=== PATIENT | male | born 1985 | race Caucasian/White ===

== ENCOUNTER 2017-05-06 15:36 | Observation (INO) ==
[2017-05-06] MEDS ORDERED: *HR* Promethazine 25 MG/ML VIAL IVP ONE (16:01)
[2017-05-06] MEDS ORDERED: 0.9 % Sodium Chloride 1,000 ML IVC ONE (16:01)
[2017-05-06] MEDS ORDERED: cloNIDine HCl 0.1 MG TABLET PO ONE (16:01)
--- NOTE | 2017-05-06 16:05 | Emergency Department Note ---
Disposition Clinical Impression: Elevated troponin Drug withdrawal Qualifiers: Substance type: opioid Qualified Code(s): F11.23 - Opioid dependence with withdrawal Disposition: Still a Patient Condition: Fair Referrals: NONE,PCP [Primary Care Provider] - Forms: Work/School Release, ED Satisfaction Letter General Adult HPI - General Chief complaint: ED General Medical Stated complaint: withdrawal, diaphoretic Time Seen by Provider: 05/06/17 15:45 Source: patient, family Mode of arrival: private vehicle Limitations: no limitations Nursing Notes Reviewed: Yes Vital Signs Reviewed: Yes - History of Present Illness HPI Narrative: 31-year-old male history of IV drug abuse with heroin presents to the ER with a chief complaint of withdrawal. Patient reports that he uses heroin daily by injection. He states he last used yesterday evening. He woke up today saying that he was having trouble breathing and was breaking out in sweats. He denies any other drugs or alcohol use. He reports that he would like help in an inpatient facility now. He denies fevers, chest pain, vomiting, diarrhea. He reports he is currently being treated for diabetic ulcer on his left foot. No other complaints. Pt Subjective Complaint: Withdrawal Onset (ago): hour(s) Radiation: non-radiation Pain Scale: 0 Improves with: nothing Worsens with: nothing Associated symptoms: Reports: diaphoresis, shortness of breath. Denies: chest pain, fever/chills, nausea/vomiting Treatments Prior to Arrival: none - Related Data Allergies Allergy/AdvReac Type Severity Reaction Status Date / Time No Known Allergies Allergy Verified 05/06/17 15:56 All systems ED: reviewed and negative except as stated. Constitutional: Denies: fever Cardiovascular: Denies: chest pain Respiratory: Reports: dyspnea. Denies: cough Gastrointestinal: Denies: abdominal pain, nausea, vomiting, diarrhea Past Medical History - Past Medical History Attestation: Yes The following information was validated with the patient. Source: patient Medical history: Reports: diabetes, hypertension Psychiatric history: Reports: anxiety, depression - Social History Smoking Status: Never smoker Smokeless Tobacco Status: No Alcohol use: Reports: none Drug use: Reports: opiates, methamphetamine Physical Exam - General Limitations: no limitations General appearance: alert, anxious - Head Head exam: atraumatic, normocephalic, normal inspection - Eye Eye exam: Present: normal appearance, EOMI - ENT ENT exam: normal exam - Neck Neck exam: Present: normal inspection, full ROM - Chest Chest inspection: Present: normal inspection, symmetric chest wall rise - Respiratory Respiratory exam: Present: normal lung sounds bilaterally - Cardiovascular Cardiovascular exam: Present: regular rate, normal rhythm, normal heart sounds - Abdominal Exam Abdominal exam: Present: soft, Non-Tender. Absent: tenderness, distention, rigidity - Extremities Exam Extremities exam: Present: normal inspection, full ROM - Expanded Upper Extremity Exam Shoulder exam: Present: normal inspection, full ROM Arm exam: Present: normal inspection, full ROM Elbow exam: Present: normal inspection, full ROM Forearm/Wrist exam: Present: normal inspection, full ROM Hand exam: Present: normal inspection, full ROM - Expanded Lower Extremity Exam Hip/Pelvis exam: Present: normal inspection, full ROM Upper leg exam: Present: normal inspection, full ROM Knee exam: Present: normal inspection, full ROM Lower leg exam: Present: normal inspection, full ROM Ankle exam: Present: normal inspection, full ROM Foot/toe exam: Present: normal inspection, full ROM Neurovascular/Tendon exam: Absent: motor deficit, sensory deficit - Neurological Exam Neurological exam: Present: alert. Absent: motor sensory deficit - Psychiatric Psychiatric exam: Present: normal affect, anxious - Skin Skin exam: Present: warm, dry, intact, normal color Course Course Narrative: Patient seen and examined. Vital signs reviewed. We will obtain an EKG as well as labs including troponin and urine drug screen. Patient provided with clonidine and Phenergan for withdrawal symptoms. Vital Signs Temperature 97.3 F L 05/06/17 15:45 Pulse Rate 94 05/06/17 15:45 Respiratory Rate 18 05/06/17 15:45 Blood Pressure 134/114 05/06/17 15:45 O2 Sat by Pulse Oximetry 100 05/06/17 15:45 Temperature 97.3 F L 05/06/17 15:45 Pulse Rate 75 05/06/17 18:07 Respiratory Rate 18 05/06/17 18:07 Blood Pressure 106/68 05/06/17 18:07 O2 Sat by Pulse Oximetry 96 05/06/17 18:07 Oxygen Delivery Oxygen Delivery Nasal Cannula Medical Decision Making - Lab Data Result diagrams: 05/06/17 16:39 05/06/17 16:39 Lab Results 05/06/17 05/06/17 05/06/17 Range/Units 16:16 16:39 16:39 WBC 6.8 (4.3-11.1) K/mcL RBC 3.83 L (4.19-5.50) M/mcL Hgb 11.4 L (12.9-16.9) g/dL Hct 33.8 L (37.5-50.1) % MCV 88.3 (83.0-100.0) fL MCH 29.8 (28.0-33.3) pg MCHC 33.7 (31.6-35.5) g/dL RDW 13.4 (11.5-14.5) % Plt Count 164 (140-400) K/mcL MPV 9.6 (9.4-12.4) fL Immature Gran % 0.4 (0-4) % Seg Neutrophils % 64.5 % Lymphocytes % 20.9 % Monocytes % 13.0 % Eosinophils % 0.9 % Basophils % 0.3 % Neutrophils # 4.4 (1.6-8.9) K/mcL Lymphocytes # 1.4 (0.6-4.6) K/mcL Monocytes # 0.9 (0.0-1.3) K/mcL Eosinophils # 0.1 (0.0-0.6) K/mcL Basophils # 0.0 (0.0-0.2) K/mcL Sodium 134 L (136-145) mEq/L Potassium 4.2 (3.5-4.5) mEq/L Chloride 101 (98-109) mEq/L Carbon Dioxide 26 (19-29) mEq/L BUN 19 (8-26) mg/dL Creatinine 0.88 (0.72-1.25) mg/dL Est GFR ( Amer) > 60 (> 60) Est GFR (Non-Af Amer) > 60 (> 60) BUN/Creatinine Ratio 22 (6-26) Glucose 105 H (70-99) mg/dL Calculated Osmolality 281 (280-300) Lactic Acid (0.5-2.2) mmol/L Calcium 9.0 (8.6-10.8) mg/dL Total Bilirubin 1.4 H (0.2-1.2) mg/dL Direct Bilirubin 0.6 H (0.0-0.5) mg/dL Indirect Bilirubin 0.8 (0.0-1.2) mg/dL AST 128 H (5-34) Units/L ALT 34 (0-55) Units/L Alkaline Phosphatase 58 (38-126) Units/L Troponin I (0-0.03) ng/mL Serum Total Protein 6.9 (6.0-8.3) g/dL Albumin 3.2 L (3.5-5.0) g/dL Globulin 3.7 H (2.4-3.5) g/dL Albumin/Globulin Ratio 0.9 L (1.1-2.2) Salicylates < 5.0 L (15-30) mg/dL Urine Opiates Screen Negative (Hvfbkp=169) ng/mL Acetaminophen 3.0 L (10-30) mcg/mL Ur Barbiturates Screen Negative (Lffyrv=918) ng/mL Ur Phencyclidine Scrn Negative (Cutoff=25) ng/mL Ur Amphetamines Screen Negative (Yfikdi=2096) ng/mL U Benzodiazepines Scrn Negative (Kjdkoz=859) ng/mL Urine Cocaine Screen Negative (Cutoff= 300) ng/mL U Marijuana (THC) Screen Negative (Cutoff = 50) ng/mL Ethyl Alcohol < 10 (0-10) mg/dL 05/06/17 05/06/17 Range/Units 16:39 16:39 WBC (4.3-11.1) K/mcL RBC (4.19-5.50) M/mcL Hgb (12.9-16.9) g/dL Hct (37.5-50.1) % MCV (83.0-100.0) fL MCH (28.0-33.3) pg MCHC (31.6-35.5) g/dL RDW (11.5-14.5) % Plt Count (140-400) K/mcL MPV (9.4-12.4) fL Immature Gran % (0-4) % Seg Neutrophils % % Lymphocytes % % Monocytes % % Eosinophils % % Basophils % % Neutrophils # (1.6-8.9) K/mcL Lymphocytes # (0.6-4.6) K/mcL Monocytes # (0.0-1.3) K/mcL Eosinophils # (0.0-0.6) K/mcL Basophils # (0.0-0.2) K/mcL Sodium (136-145) mEq/L Potassium (3.5-4.5) mEq/L Chloride (98-109) mEq/L Carbon Dioxide (19-29) mEq/L BUN (8-26) mg/dL Creatinine (0.72-1.25) mg/dL Est GFR ( Amer) (> 60) Est GFR (Non-Af Amer) (> 60) BUN/Creatinine Ratio (6-26) Glucose (70-99) mg/dL Calculated Osmolality (280-300) Lactic Acid 0.9 (0.5-2.2) mmol/L Calcium (8.6-10.8) mg/dL Total Bilirubin (0.2-1.2) mg/dL Direct Bilirubin (0.0-0.5) mg/dL Indirect Bilirubin (0.0-1.2) mg/dL AST (5-34) Units/L ALT (0-55) Units/L Alkaline Phosphatase (38-126) Units/L Troponin I 0.09 H* (0-0.03) ng/mL Serum Total Protein (6.0-8.3) g/dL Albumin (3.5-5.0) g/dL Globulin (2.4-3.5) g/dL Albumin/Globulin Ratio (1.1-2.2) Salicylates (15-30) mg/dL Urine Opiates Screen (Zlarci=155) ng/mL Acetaminophen (10-30) mcg/mL Ur Barbiturates Screen (Nuuqmi=438) ng/mL Ur Phencyclidine Scrn (Cutoff=25) ng/mL Ur Amphetamines Screen (Llqjgp=6083) ng/mL U Benzodiazepines Scrn (Mmkiza=022) ng/mL Urine Cocaine Screen (Cutoff= 300) ng/mL U Marijuana (THC) Screen (Cutoff = 50) ng/mL Ethyl Alcohol (0-10) mg/dL - EKG Data EKG #1 EKG attestation: Yes I reviewed and interpreted this EKG. EKG results narrative: EKG demonstrates sinus rhythm with a rate of 87 bpm. Normal axis. Normal intervals. ST elevations in the lateral and inferior leads. Hyperacute T waves in leads V2 and V3. No ST depressions. No previous EKG for comparison.
--- NOTE | 2017-05-06 16:12 | Emergency Department Note ---
START Narrative - START START: I examined this patient and my medical decision-making was reviewed with the Resident Physician. I agree with the documented findings, disposition and treatment plan as described except to the extent set forth below. pt in opiate withdrawal. last use of heroin yesterday. wants to get inpatient tx. admits to mixed use of possible meth as well. took ativan earlier today. he's tachy, sweaty. will check labs.
[2017-05-06 16:37] LABS: Amphetamine Screen,Urine Negative ng/mL (Cutoff=1000); Barbiturate Screen,Urine Negative ng/mL (Cutoff=200); Benzodiazepines Screen,Urine Negative ng/mL (Cutoff=200); Cannabinoid Screen,Urine Negative ng/mL (Cutoff = 50); Cocaine Screen,Urine Negative ng/mL (Cutoff= 300); Opiate Screen,Urine Negative ng/mL (Cutoff=300); Phencyclidine Screen,Urine Negative ng/mL (Cutoff=25)
[2017-05-06 16:52] LABS: Basophils % 0.3 %; Eosinophils # 0.1 K/mcL (0.0-0.6); Eosinophils % 0.9 %; Hematocrit 33.8 % (37.5-50.1); Hemoglobin 11.4 g/dL (12.9-16.9); Immature Granulocytes % 0.4 % (0-4); Lymphocytes # 1.4 K/mcL (0.6-4.6); Lymphocytes % 20.9 %; Mean Corpuscular HGB Conc 33.7 g/dL (31.6-35.5); Mean Corpuscular Hemoglobin 29.8 pg (28.0-33.3); Mean Corpuscular Volume 88.3 fL (83.0-100.0); Mean Platelet Volume 9.6 fL (9.4-12.4); Monocytes # 0.9 K/mcL (0.0-1.3); Neutrophils # 4.4 K/mcL (1.6-8.9); Platelet Count 164 K/mcL (140-400); Red Blood Count 3.83 M/mcL (4.19-5.50); Red Cell Distribution Width 13.4 % (11.5-14.5); Segmented Neutrophils % 64.5 %
[2017-05-06 17:10] LABS: Alanine Aminotransferase 34 Units/L (0-55); Albumin 3.2 g/dL (3.5-5.0); Albumin/Globulin Ratio 0.9 (1.1-2.2); Alkaline Phosphatase 58 Units/L (38-126); Aspartate Amino Transferase 128 Units/L (5-34); BUN/Creatinine Ratio 22 (6-26); Bilirubin,Direct 0.6 mg/dL (0.0-0.5); Bilirubin,Indirect 0.8 mg/dL (0.0-1.2); Bilirubin,Total 1.4 mg/dL (0.2-1.2); Blood Urea Nitrogen 19 mg/dL (8-26); Carbon Dioxide 26 mEq/L (19-29); Chloride 101 mEq/L (98-109); Ethanol < 10 mg/dL (0-10); Globulin 3.7 g/dL (2.4-3.5); Glucose 105 mg/dL (70-99); Osmolality,Calculated 281 (280-300); Potassium 4.2 mEq/L (3.5-4.5); Salicylate < 5.0 mg/dL (15-30); Sodium 134 mEq/L (136-145); Total Protein 6.9 g/dL (6.0-8.3); eGFR For African Americans > 60 (> 60); eGFR For Non-African Americans > 60 (> 60)
--- NOTE | 2017-05-06 19:20 | Emergency Department Note ---
Disposition Clinical Impression: Elevated troponin Drug withdrawal Qualifiers: Substance type: opioid Qualified Code(s): F11.23 - Opioid dependence with withdrawal Pneumonia Qualifiers: Pneumonia type: due to unspecified organism Laterality: right Lung location: upper lobe of lung Qualified Code(s): J18.1 - Lobar pneumonia, unspecified organism Disposition: Admitted As Inpatient Condition: Good Time of Disposition: 20:40 General Adult HPI - General Chief complaint: ED General Medical Stated complaint: withdrawal, diaphoretic Time Seen by Provider: 05/06/17 15:45 Source: patient, family Mode of arrival: private vehicle Limitations: no limitations Nursing Notes Reviewed: Yes Vital Signs Reviewed: Yes - History of Present Illness HPI Narrative: Patient was signed out to me by daytime physicians Dr. Goncalves and Dr. Sanchez. Please see their note for further details. Pain Scale: 0 Improves with: nothing Worsens with: nothing Associated symptoms: Reports: diaphoresis, shortness of breath. Denies: chest pain, fever/chills, nausea/vomiting Treatments Prior to Arrival: none - Related Data Allergies Allergy/AdvReac Type Severity Reaction Status Date / Time No Known Allergies Allergy Verified 05/06/17 15:56 Constitutional: Denies: fever Cardiovascular: Denies: chest pain Respiratory: Reports: dyspnea. Denies: cough Gastrointestinal: Denies: abdominal pain, nausea, vomiting, diarrhea Past Medical History - Past Medical History Medical history: Reports: diabetes, hypertension Psychiatric history: Reports: anxiety, depression - Social History Smoking Status: Never smoker Smokeless Tobacco Status: No Alcohol use: Reports: none Drug use: Reports: opiates, methamphetamine Physical Exam - General Limitations: no limitations General appearance: alert, anxious, obese Course Course Narrative: Patient was signed out to me by daytime physicians Dr. Goncalves and Dr. Sanchez awaiting CTA of the chest results and admission. Eh is a 31-year-old male history of IV drug abuse with heroin . Presented to the ED for withdrawal. Last injected heroin yesterday. He reports having some trouble breathing, sweats and a fever. Denies any cough or chest pain. Workup was initiated here showing it elevated troponin 0.09. EKG was performed 154 showing sinus rhythm [address] elevations in the lateral in inferior leads. There is also hyper cute T waves in anteroseptal leads. No previous EKG for comparison. Concern for septic emboli and blood clot, CTA of the chest was performed. Image is currently pending report. Patient will likely need admission. - Reevaluation(s) Reevaluation #1: CT scan of the chest reveals a right upper lobe pneumonia. No evidence of pulmonary embolism. Given the patient's complaint of fever and difficulty breathing will treat as community acquired pneumonia. With a history of his IV drug use will cover with vancomycin as well. Patient has been given aspirin for his elevated troponin. Per the request of the hospitalist will contact cardiology regarding his EKG findings. Patient has been admitted for elevated troponin, IV drug use, pneumonia. Time: 20:41 - Consultations Consultation #1: Spoke with on-call hospitalist eric Kang to admit for elevated troponin , history of IV heroin use, pneumonia. No further orders at this time Time: 20:40 Consultation #2: Spoke to the wind turbine installer Dr. Art Santiago, he reviewed the EKG and agrees this is not a STEMI, due to the diffuse ST elevations concern for evolving pericarditis. There is isolated ST elevation in lead II but no contiguous leads. Vital Signs Temperature 97.3 F L 05/06/17 15:45 Pulse Rate 94 05/06/17 15:45 Respiratory Rate 18 05/06/17 15:45 Blood Pressure 134/114 05/06/17 15:45 O2 Sat by Pulse Oximetry 100 05/06/17 15:45 Temperature 98.1 F 05/06/17 22:09 Pulse Rate 71 05/06/17 22:09 Respiratory Rate 18 05/06/17 22:09 Blood Pressure 134/85 05/06/17 22:09 O2 Sat by Pulse Oximetry 100 05/06/17 22:09 Oxygen Delivery Oxygen Delivery Nasal Cannula Medical Decision Making - Medical Records Medical records reviewed: Yes I reviewed the patient's medical records. - Lab Data Lab results reviewed: Yes I reviewed the patient's lab results. Result diagrams: 05/07/17 00:39 05/07/17 00:39 Lab Results 05/06/17 05/06/17 05/06/17 Range/Units 16:16 16:39 16:39 WBC 6.8 (4.3-11.1) K/mcL RBC 3.83 L (4.19-5.50) M/mcL Hgb 11.4 L (12.9-16.9) g/dL Hct 33.8 L (37.5-50.1) % MCV 88.3 (83.0-100.0) fL MCH 29.8 (28.0-33.3) pg MCHC 33.7 (31.6-35.5) g/dL RDW 13.4 (11.5-14.5) % Plt Count 164 (140-400) K/mcL MPV 9.6 (9.4-12.4) fL Immature Gran % 0.4 (0-4) % Seg Neutrophils % 64.5 % Lymphocytes % 20.9 % Monocytes % 13.0 % Eosinophils % 0.9 % Basophils % 0.3 % Neutrophils # 4.4 (1.6-8.9) K/mcL Lymphocytes # 1.4 (0.6-4.6) K/mcL Monocytes # 0.9 (0.0-1.3) K/mcL Eosinophils # 0.1 (0.0-0.6) K/mcL Basophils # 0.0 (0.0-0.2) K/mcL PT (9.4-12.1) Seconds INR APTT (26.0-36.0) Seconds Sodium 134 L (136-145) mEq/L Potassium 4.2 (3.5-4.5) mEq/L Chloride 101 (98-109) mEq/L Carbon Dioxide 26 (19-29) mEq/L BUN 19 (8-26) mg/dL Creatinine 0.88 (0.72-1.25) mg/dL Est GFR ( Amer) > 60 (> 60) Est GFR (Non-Af Amer) > 60 (> 60) BUN/Creatinine Ratio 22 (6-26) Glucose 105 H (70-99) mg/dL POC Glucose (58-89) Calculated Osmolality 281 (280-300) Lactic Acid (0.5-2.2) mmol/L Calcium 9.0 (8.6-10.8) mg/dL Total Bilirubin 1.4 H (0.2-1.2) mg/dL Direct Bilirubin 0.6 H (0.0-0.5) mg/dL Indirect Bilirubin 0.8 (0.0-1.2) mg/dL AST 128 H (5-34) Units/L ALT 34 (0-55) Units/L Alkaline Phosphatase 58 (38-126) Units/L Troponin I (0-0.03) ng/mL Serum Total Protein 6.9 (6.0-8.3) g/dL Albumin 3.2 L (3.5-5.0) g/dL Globulin 3.7 H (2.4-3.5) g/dL Albumin/Globulin Ratio 0.9 L (1.1-2.2) Salicylates < 5.0 L (15-30) mg/dL Urine Opiates Screen Negative (Hlvces=714) ng/mL Acetaminophen 3.0 L (10-30) mcg/mL Ur Barbiturates Screen Negative (Pxkuze=025) ng/mL Ur Phencyclidine Scrn Negative (Cutoff=25) ng/mL Ur Amphetamines Screen Negative (Qlwiyx=0697) ng/mL U Benzodiazepines Scrn Negative (Zbixbh=008) ng/mL Urine Cocaine Screen Negative (Cutoff= 300) ng/mL U Marijuana (THC) Screen Negative (Cutoff = 50) ng/mL Ethyl Alcohol < 10 (0-10) mg/dL 05/06/17 05/06/17 05/06/17 Range/Units 16:39 16:39 21:19 WBC (4.3-11.1) K/mcL RBC (4.19-5.50) M/mcL Hgb (12.9-16.9) g/dL Hct (37.5-50.1) % MCV (83.0-100.0) fL MCH (28.0-33.3) pg MCHC (31.6-35.5) g/dL RDW (11.5-14.5) % Plt Count (140-400) K/mcL MPV (9.4-12.4) fL Immature Gran % (0-4) % Seg Neutrophils % % Lymphocytes % % Monocytes % % Eosinophils % % Basophils % % Neutrophils # (1.6-8.9) K/mcL Lymphocytes # (0.6-4.6) K/mcL Monocytes # (0.0-1.3) K/mcL Eosinophils # (0.0-0.6) K/mcL Basophils # (0.0-0.2) K/mcL PT 13.0 H (9.4-12.1) Seconds INR 1.2 APTT 31.1 (26.0-36.0) Seconds Sodium (136-145) mEq/L Potassium (3.5-4.5) mEq/L Chloride (98-109) mEq/L Carbon Dioxide (19-29) mEq/L BUN (8-26) mg/dL Creatinine (0.72-1.25) mg/dL Est GFR ( Amer) (> 60) Est GFR (Non-Af Amer) (> 60) BUN/Creatinine Ratio (6-26) Glucose (70-99) mg/dL POC Glucose (58-89) Calculated Osmolality (280-300) Lactic Acid 0.9 (0.5-2.2) mmol/L Calcium (8.6-10.8) mg/dL Total Bilirubin (0.2-1.2) mg/dL Direct Bilirubin (0.0-0.5) mg/dL Indirect Bilirubin (0.0-1.2) mg/dL AST (5-34) Units/L ALT (0-55) Units/L Alkaline Phosphatase (38-126) Units/L Troponin I 0.09 H* (0-0.03) ng/mL Serum Total Protein (6.0-8.3) g/dL Albumin (3.5-5.0) g/dL Globulin (2.4-3.5) g/dL Albumin/Globulin Ratio (1.1-2.2) Salicylates (15-30) mg/dL Urine Opiates Screen (Tgbrie=450) ng/mL Acetaminophen (10-30) mcg/mL Ur Barbiturates Screen (Xenrga=306) ng/mL Ur Phencyclidine Scrn (Cutoff=25) ng/mL Ur Amphetamines Screen (Pshmsm=3383) ng/mL U Benzodiazepines Scrn (Vfqorw=970) ng/mL Urine Cocaine Screen (Cutoff= 300) ng/mL U Marijuana (THC) Screen (Cutoff = 50) ng/mL Ethyl Alcohol (0-10) mg/dL 05/06/17 Range/Units 21:57 WBC (4.3-11.1) K/mcL RBC (4.19-5.50) M/mcL Hgb (12.9-16.9) g/dL Hct (37.5-50.1) % MCV (83.0-100.0) fL MCH (28.0-33.3) pg MCHC (31.6-35.5) g/dL RDW (11.5-14.5) % Plt Count (140-400) K/mcL MPV (9.4-12.4) fL Immature Gran % (0-4) % Seg Neutrophils % % Lymphocytes % % Monocytes % % Eosinophils % % Basophils % % Neutrophils # (1.6-8.9) K/mcL Lymphocytes # (0.6-4.6) K/mcL Monocytes # (0.0-1.3) K/mcL Eosinophils # (0.0-0.6) K/mcL Basophils # (0.0-0.2) K/mcL PT (9.4-12.1) Seconds INR APTT (26.0-36.0) Seconds Sodium (136-145) mEq/L Potassium (3.5-4.5) mEq/L Chloride (98-109) mEq/L Carbon Dioxide (19-29) mEq/L BUN (8-26) mg/dL Creatinine (0.72-1.25) mg/dL Est GFR ( Amer) (> 60) Est GFR (Non-Af Amer) (> 60) BUN/Creatinine Ratio (6-26) Glucose (70-99) mg/dL POC Glucose 80 (58-89) Calculated Osmolality (280-300) Lactic Acid (0.5-2.2) mmol/L Calcium (8.6-10.8) mg/dL Total Bilirubin (0.2-1.2) mg/dL Direct Bilirubin (0.0-0.5) mg/dL Indirect Bilirubin (0.0-1.2) mg/dL AST (5-34) Units/L ALT (0-55) Units/L Alkaline Phosphatase (38-126) Units/L Troponin I (0-0.03) ng/mL Serum Total Protein (6.0-8.3) g/dL Albumin (3.5-5.0) g/dL Globulin (2.4-3.5) g/dL Albumin/Globulin Ratio (1.1-2.2) Salicylates (15-30) mg/dL Urine Opiates Screen (Sxdmly=994) ng/mL Acetaminophen (10-30) mcg/mL Ur Barbiturates Screen (Srtkmn=160) ng/mL Ur Phencyclidine Scrn (Cutoff=25) ng/mL Ur Amphetamines Screen (Acbreq=9476) ng/mL U Benzodiazepines Scrn (Ygmlzv=193) ng/mL Urine Cocaine Screen (Cutoff= 300) ng/mL U Marijuana (THC) Screen (Cutoff = 50) ng/mL Ethyl Alcohol (0-10) mg/dL - Radiology Data Radiology results reviewed: Yes I reviewed the patient's radiology results. Chest X-Ray 05/06/17 17:22 IMPRESSION: Negative portable study. D/ / Elba Fagan Cha, MD / Elba Fagan Cha, MD Interpreting Provider: Elba Fagan Cha, MD Chest CTA 05/06/17 17:50 IMPRESSION: No evidence of pulmonary embolism or acute aortic disease. Right upper lobe infiltrates consistent with pneumonia. D/ / 05/06/2017 19:08:11 Yenny Henley MD / [email or web address] Interpreting Provider: Yenny Henley MD Attestation Statement - Attestation Attestation: I, Simón Ochoa MD, personally evaluated this patient and discussed their management with the resident physician. I reviewed the resident's note and agree with the documented findings, medical decision making, and plan of care. This patient was signed out at shift change from Dr. Goncalves and Dr. Sanchez. Please refer to their notes for complete details of history and physical examination. At shift change patient is just awaiting results of the CTA of the lungs before calling the hospitalist for admission. CTA obtained and showed a right upper lobe pneumonia. We will obtain blood cultures and initiated antibiotics. Patient is a 31-year-old male who presents complaining of acute onset of fever during the night last night and awoke this morning with shortness of breath. He describes this as a feeling that he cannot get a deep breath. Some diffuse chest discomfort. He also has had diaphoresis. No cardiac history. On examination patient is a well-developed obese male in no acute distress. He is alert and oriented 3. There is no cyanosis or diaphoresis at time of my examination. Labs reviewed. Elevated troponin. Chest x-ray negative. CT shows right upper lobe pneumonia. EKG shows some ST elevations consistent with early repolarization. The hospitalist, Dr. Haywood, was consulted and accepted admission of the patient. He did recommend counseled in cardiology regarding the EKG changes.
[2017-05-06] MEDS ORDERED: Azithromycin 500 MG in D5% in Water 250 ML IVPB ONE (19:53)
[2017-05-06] MEDS ORDERED: Vancomycin 2,000 MG in D5% in Water 500 ML IVPB ONE (20:32)
[2017-05-06 21:30] LABS: INR 1.2
[2017-05-06 21:32] LABS: Activated Partial Thrombo Time 31.1 Seconds (26.0-36.0)
[2017-05-06] MEDS ORDERED: Vancomycin 2,000 MG in D5% in Water 250 ML IVPB SCH (23:45)
[2017-05-06] MEDS ORDERED: Dextrose Gel 15 GM PO PRN ×2 (23:50)
[2017-05-06] MEDS ORDERED: D5% in Water 1,000 ML IVC PRN (23:50)
[2017-05-06] MEDS ORDERED: Acetaminophen 325 MG TABLET PO PRN (23:50)
[2017-05-06] MEDS ORDERED: *HR* Dextrose 50 % in Water (Syg) 50 ML SYRINGE IVP PRN (23:50)
[2017-05-06] MEDS ORDERED: Naloxone 0.4 MG/ML INJ IVP PRN (23:50)
[2017-05-06] MEDS ORDERED: *HR* Morphine 2 MG/ML SYRINGE IVP PRN (23:50)
[2017-05-06] MEDS ORDERED: *HR* Promethazine 25 MG/ML VIAL IVP PRN (23:50)
[2017-05-06] MEDS ORDERED: Ipratropium/Albuterol Neb 3 ML IH PRN (23:55)
--- NOTE | 2017-05-07 00:01 | Internal Med History&Physical ---
Date of Encounter: 05/06/17 Time of Encounter: 23:20 Assessment and Plan (1) Pneumonia Current visit: Yes Status: Acute 1. Follow blood cultures and sputum cultures (if able to collect). 2. Will continue Rocephin and Zithromax. Additionally, will add Vancomycin given IV drug use. 3. Oxygen and aerosols PRN. Qualifiers: Pneumonia type: due to unspecified organism Laterality: right Lung location: upper lobe of lung Qualified Code(s): J18.1 - Lobar pneumonia, unspecified organism (2) Elevated troponin Current visit: Yes Status: Acute 1. Will trend troponins and EKG's. 2. Will obtain ECHO to evaluate LV function and assess valves if possible. 3. Consult cardiology if troponins continue to climb. 4. Avoid Beta Blockers given h/o IVDA and possible cocaine use -- although he denies. 5. Will start ASA, STATIN, Morphine PRN, NTG PRN. (3) Type 2 diabetes mellitus Current visit: Yes Status: Chronic 1. Hold oral meds. 2. Will use SSI and adjust dosage as needed. Qualifiers: Diabetes mellitus complication status: with diabetic arthropathy Diabetes mellitus complication detail: with neuropathic arthropathy Diabetes mellitus agronomy specialist insulin use: without agronomy specialist use Qualified Code(s): E11.610 - Type 2 diabetes mellitus with diabetic neuropathic arthropathy (4) Diabetic foot ulcer Current visit: Yes Status: Chronic 1. Consult podiatry for assistance and further follow up. 2. May need inpatient treatment. 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 Heparin SQ. Internal Medicine - H&P: HPI Chief complaint: cough, fever, chest pain Admitted From: Emergency Dept Plans for Post Hospital Care: Home History of present illness: Mr. Sharma is a 31 year old male who presents with a 2 day history of cough, fever, chills, body aches, and pleuritic-type chest pain. Symptoms started roughly 48 hours ago and they progressively worsened. He therefore came to the ER for evaluation. He was found to have evidence of pneumonia on CT angiogram as there was concern for PE. There was no PE, however. ER contacted me to admit patient, but they noted he had some subtle ST elevation on his EKG and a troponin of 0.09. Given his history of drug abuse, elevated troponin, and questionable ST elevation, I asked the ER staff to discuss with cardiology first before accepting the patient. EKG was reviewed by cardiology, and it was not felt that this was a STEMI. Rather, there was concern he might have had pericarditis. I accepted the patient admission at that point. Upon my assessment of the patient, he admits to the above symptoms. He states the chest pain was more pleuritic in nature and associated with coughing. He admits to IV drug use, primarily in the form of heroin. He denies any cocaine use. He is a former smoker. He does not drink any alcohol. He is diabetic and takes oral medications. He states he has had a foot ulcer for quite some time in his left foot, which has been conservatively managed. He denies any prior history of hepatitis, HIV, or any history of endocarditis. Regarding his drug use, he started using about 4-5 months ago. He uses heroin both intravenously and snorting nasally. Past Med Surg Social Fam HX - Past Medical History Attestation: Yes The following information was validated with the patient. Source: patient, other (ER records) Medical history: diabetes, hypertension Psychiatric history: anxiety, depression - Past Surgical History Surgical History: no surgical history - Social History Smoking Status: Former smoker Smokeless Tobacco Status: No Alcohol use: none Drug use: opiates, methamphetamine Current living situation: Home, With Family Activity Level: Independent ambulation Recent Out of Country Travel Within the Last 8 Weeks: No - Family History Mother Living Status: Still Living Hx Family Cardiac Disorders: Yes Father Living Status: Hx Family Cardiac Disorders: Yes Internal Medicine - H&P: Meds 3 Allergy/AdvReac Type Severity Reaction Status Date / Time No Known Allergies Allergy Verified 05/06/17 15:56 - Constitutional Constitutional: chills, fever(s), no night sweats - EENT Eyes: no blurry vision, no change in vision Ears: no ear pain, no tinnitus Nose, mouth and throat: no nasal congestion, no nasal discharge, no sinus pressure, no sore throat - Cardiovascular Cardiovascular ROS IM: chest pain, diaphoresis, dyspnea, no edema, no paroxysmal nocturnal dyspnea - Respiratory Respiratory: cough, dyspnea, wheezing, chest congestion, excessive phlegm production, change in phlegm color, pain with cough, no hemoptysis - Gastrointestinal Gastrointestinal: no abdominal pain, no diarrhea, no hematemesis, no hematochezia, no melena, no nausea, no vomiting - Genitourinary Genitourinary ROS male: no dysuria, no flank pain, no hematuria - Musculoskeletal Musculoskeletal ROS IM: arthralgias (pain left foot (ulcer)), no joint swelling - Integumentary Integumentary IM: no rash, no jaundice - Neurological Neurological ROS: no focal weakness, no frequent falls, no headache(s), no weakness - Psychiatric Psychiatric: no anxiety, no depression - Endocrine Endocrine IM: no polydipsia, no polyuria - Hematologic/Lymphatic Hematologic/Lymphatic: no easy bruising, no lymphadenopathy - Allergic/Immunologic Allergic/Immunologic: no wheezing, no GI upset with certain foods - Constitutional Vitals: Temp Pulse Resp BP Pulse Ox 98.1 F 71 18 134/85 100 05/06/17 22:09 05/06/17 22:09 05/06/17 22:09 05/06/17 22:09 05/06/17 22:09 General appearance: Present: cooperative, mild distress, A&O X 3, pleasant, answers questions appropriately - Head Head exam: Present: atraumatic, normal inspection - Eye Eye exam: Present: EOMI, normal appearance, PERRL. Absent: scleral icterus Pupils: Present: normal accommodation - ENT ENT exam: Present: mucous membranes dry, normal exam - Neck Neck exam general surgery: Present: full ROM, tenderness, supple. Absent: lymphadenopathy, nuchal rigidity, thyromegaly - Respiratory Respiratory exam: Present: accessory muscle use, rales, respiratory distress ( mild), rhonchi. Absent: chest wall tenderness, wheezes - Cardiovascular Cardiovascular exam: Present: RRR, +S1, +S2. Absent: diastolic murmur, JVD, rubs, systolic murmur - GI/Abdominal GI/Abdominal exam: Present: normal bowel sounds, soft. Absent: guarding, hepatomegaly, mass, rebound, splenomegaly, tenderness - Extremities Exam Extremities exam: Present: full ROM, warm, radial pulses palpable and symmetrical. Absent: calf tenderness, joint swelling Additional comments: 2 ulcerations on the sole of left foot without significant erythema, drainage, or pain - Back Exam Back exam: Present: normal inspection. Absent: CVA tenderness (L), CVA tenderness (R) - Neurological Exam Neurological exam: Present: alert, CN II-XII intact, oriented X3, no focal deficits, strengths equal and symetr throughout Additional comments: negative Kernig; negative Brudzinski - Psychiatric Psychiatric exam: Present: normal affect, normal mood - Skin Skin exam: Present: dry, warm. Absent: rash Additional comments: several tattoos on left arm, back; no obvious track talamantes I could appreciate Internal Med - H&P Results - Labs CBC & Chem 7: 05/06/17 16:39 05/06/17 16:39 - EKG Data -: EKG Interpreted by Myself - EKG Data Prior EKG available for review: no EKG comments: 05/07/17 00:26 Sinus rhythm with diffuse ST elevation in precordial leads and laterally; appears to be early repolarization, possible pericarditis - Diagnostic Studies CT scan - chest Status: image reviewed by me (right upper lobe infiltrate; no PE; report reviewed as well)
[2017-05-07] MEDS: 0.9 % Sodium Chloride 1,000 ML IVC SCH ×4 (00:25→23:26)
[2017-05-07] MEDS: *HR* Heparin 5,000 UNIT/ML VIAL SQ SCH ×4 (00:26→20:29)
[2017-05-07 00:53] LABS: Basophils % 0.2 %; Eosinophils # 0.1 K/mcL (0.0-0.6); Eosinophils % 3.1 %; Hematocrit 30.8 % (37.5-50.1); Hemoglobin 10.3 g/dL (12.9-16.9); Immature Granulocytes % 0.7 % (0-4); Immature Platelets 2.2 % (1.1-6.1); Lymphocytes # 1.7 K/mcL (0.6-4.6); Lymphocytes % 37.7 %; Mean Corpuscular HGB Conc 33.4 g/dL (31.6-35.5); Mean Corpuscular Hemoglobin 29.8 pg (28.0-33.3); Mean Platelet Volume 9.5 fL (9.4-12.4); Monocytes # 0.6 K/mcL (0.0-1.3); Monocytes % 12.6 %; Neutrophils # 2.1 K/mcL (1.6-8.9); Platelet Count 153 K/mcL (140-400); Red Blood Count 3.46 M/mcL (4.19-5.50); Red Cell Distribution Width 13.4 % (11.5-14.5); Segmented Neutrophils % 45.7 %
[2017-05-07 01:09] LABS: Alanine Aminotransferase 33 Units/L (0-55); Albumin 2.8 g/dL (3.5-5.0); Albumin/Globulin Ratio 0.8 (1.1-2.2); Alkaline Phosphatase 51 Units/L (38-126); Aspartate Amino Transferase 105 Units/L (5-34); BUN/Creatinine Ratio 19 (6-26); Blood Urea Nitrogen 15 mg/dL (8-26); Calcium 8.4 mg/dL (8.6-10.8); Carbon Dioxide 28 mEq/L (19-29); Chloride 101 mEq/L (98-109); Chol/HDL Ratio 4.9 (0-4.9); Cholesterol 132 mg/dL (< 200); Globulin 3.5 g/dL (2.4-3.5); Glucose 179 mg/dL (70-99); HDL Cholesterol 27 mg/dL (40-59); LDL Cholesterol,Calculated 89 mg/dL (0-99); Magnesium 1.8 mg/dL (1.6-2.6); Osmolality,Calculated 285 (280-300); Potassium 3.9 mEq/L (3.5-4.5); Sodium 135 mEq/L (136-145); Total Protein 6.3 g/dL (6.0-8.3); Triglycerides 78 mg/dL (< 150); eGFR For African Americans > 60 (> 60); eGFR For Non-African Americans > 60 (> 60)
[2017-05-07] MEDS ORDERED: Vancomycin 1,750 MG in D5% in Water 500 ML IVPB SCH (07:00)
[2017-05-07] MEDS: Azithromycin 250 MG in D5% in Water 250 ML IVPB SCH (07:24)
[2017-05-07] MEDS: Insulin LISPRO 300 UNITS/3 ML VIAL SQ SCH ×3 (07:24→17:06)
[2017-05-07] MEDS: Aspirin 81 MG TAB.CHEW PO SCH (08:44)
--- NOTE | 2017-05-07 10:20 | Internal Med Progress Note ---
<Willie Lei - Last Filed: 05/07/17 11:37> Date of Encounter: 05/07/17 Time of Encounter: 10:17 - Assessment and plan (1) Pneumonia Current Visit: Yes Status: Acute Assessment and plan: Evidence of right upper lobe pneumonia on CT. Patchy appearance is concerning for septic emboli given the patient's history of IV drug abuse. At this time there is no leukocytosis, fever. Continue with broad-spectrum antibiotic coverage with azithromycin, vancomycin, will transition to cefepime to cover for psuedomonas. Continue with antibiotics. Cardiology is following and have recommended a ANTHONY to evaluate for infective endocarditis. Qualifiers: Pneumonia type: due to unspecified organism Laterality: right Lung location: upper lobe of lung Qualified Code(s): J18.1 - Lobar pneumonia, unspecified organism (2) Drug withdrawal Current Visit: Yes Status: Acute Assessment and plan: Patient has anxiety, tremors, chills likely related to opiate withdrawal. Last use was approximately 48 hours ago. Drug screen was negative however the patient is not if his heroin was contaminated with any other substance. Patient denies using any substances heroin. Will treat symptomatically with hydroxyzine when necessary. Continue to monitor. Patient is interested in further outpatient rehabilitation for his opiate addiction. instructor ground services has been consulted. Qualifiers: Substance type: opioid Qualified Code(s): F11.23 - Opioid dependence with withdrawal (3) Type 2 diabetes mellitus Current Visit: Yes Status: Chronic Assessment and plan: Patient reports being a type II diabetic. He takes Januvia, metformin at home. A1c was 5 on presentation. We will hold oral hyperglycemic agents and cover with sliding scale insulin. Qualifiers: Diabetes mellitus complication status: with diabetic arthropathy Diabetes mellitus complication detail: with neuropathic arthropathy Diabetes mellitus buttermaker helper insulin use: without longterm use Qualified Code(s): E11.610 - Type 2 diabetes mellitus with diabetic neuropathic arthropathy (4) Diabetic foot ulcer Current Visit: Yes Status: Chronic Assessment and plan: 1 x 1 cm. Does not appear to be acutely infected. Patient does report recent infection is on Cipro twice a day. Have instituted broad-spectrum antibiotics as discussed above. Podiatry has been consulted. 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 Patient states he feels okay this morning. His main complaint is he is feeling chilled and tremulous. He denies fevers, shortness of breath, cough - Constitutional Vitals: Temp Pulse Resp BP Pulse Ox 97.9 F 73 18 128/62 100 05/07/17 07:39 05/07/17 03:50 05/07/17 03:50 05/07/17 03:50 05/07/17 03:50 General appearance: Present: cooperative, A&O X 3, pleasant, no acute distress, answers questions appropriately - Respiratory Respiratory exam: Present: CTAB. Absent: rales, rhonchi, wheezes - Cardiovascular Cardiovascular exam: Present: RRR. Absent: gallop, rubs, systolic murmur - GI/Abdominal GI/Abdominal exam: Present: normal bowel sounds, soft. Absent: distended, tenderness - Extremities Exam Extremities exam: Present: warm. Absent: pedal edema, tenderness Additional comments: Approximately 1 cm x 1 cm ulcer on the distal plantar aspect of the right foot no bleeding, drainage, discharge noted. There is no surrounding erythema. - Neurological Exam Neurological exam: Present: alert, CN II-XII intact, oriented X3, no focal deficits Additional comments: Mild full body tremor - Psychiatric Psychiatric exam: Present: normal affect, normal mood. Absent: suicidal ideation Internal Medicine: Result - Labs CBC & Chem 7: 05/07/17 00:39 05/07/17 00:39 Labs: Short CBC 05/07/17 Range/Units 00:39 WBC 4.5 (4.3-11.1) K/mcL Hgb 10.3 L (12.9-16.9) g/dL Hct 30.8 L (37.5-50.1) % Plt Count 153 (140-400) K/mcL Neutrophils # 2.1 (1.6-8.9) K/mcL BMP 05/07/17 00:39 Sodium 135 L Potassium 3.9 Chloride 101 Carbon Dioxide 28 BUN 15 Creatinine 0.81 Glucose 179 H Calcium 8.4 L Cardiac Enzymes 05/07/17 05/07/17 Range/Units 00:39 06:11 Troponin I 0.03 0.03 (0-0.03) ng/mL Liver Function 05/07/17 Range/Units 00:39 Total Bilirubin 1.0 (0.2-1.2) mg/dL AST 105 H (5-34) Units/L ALT 33 (0-55) Units/L Alkaline Phosphatase 51 (38-126) Units/L Albumin 2.8 L (3.5-5.0) g/dL - ABG Interpretation ABG results: PT/INR, D-dimer PT 13.0 Seconds (9.4-12.1) H 05/06/17 21:19 Consult Discharge Plan - Plan Referrals: NONE,PCP [Primary Care Provider] - <Hermilo Gardner H - Last Filed: 05/07/17 15:05> Date of Encounter: 05/07/17 - Constitutional Vitals: Temp Pulse Resp BP Pulse Ox 98.0 F 73 18 128/62 100 05/07/17 11:51 05/07/17 03:50 05/07/17 03:50 05/07/17 03:50 05/07/17 03:50 Internal Medicine: Result - Labs CBC & Chem 7: 05/07/17 00:39 05/07/17 00:39 Labs: Short CBC 05/07/17 Range/Units 00:39 WBC 4.5 (4.3-11.1) K/mcL Hgb 10.3 L (12.9-16.9) g/dL Hct 30.8 L (37.5-50.1) % Plt Count 153 (140-400) K/mcL Neutrophils # 2.1 (1.6-8.9) K/mcL BMP 05/07/17 00:39 Sodium 135 L Potassium 3.9 Chloride 101 Carbon Dioxide 28 BUN 15 Creatinine 0.81 Glucose 179 H Calcium 8.4 L Cardiac Enzymes 05/07/17 05/07/17 Range/Units 00:39 06:11 Troponin I 0.03 0.03 (0-0.03) ng/mL Liver Function 05/07/17 Range/Units 00:39 Total Bilirubin 1.0 (0.2-1.2) mg/dL AST 105 H (5-34) Units/L ALT 33 (0-55) Units/L Alkaline Phosphatase 51 (38-126) Units/L Albumin 2.8 L (3.5-5.0) g/dL - ABG Interpretation ABG results: PT/INR, D-dimer PT 13.0 Seconds (9.4-12.1) H 05/06/17 21:19 - Impressions Impressions Foot X-Ray 05/07/17 10:12 IMPRESSION: No plain film evidence of osteomyelitis. Plantar soft tissue defect consistent with the clinical history of ulcer. D/ / Edgardo Jauregui MD / Edgardo Jauregui MD Interpreting Provider: Edgardo Jauregui MD - Attending Attestation possible septic pulmonary emboli. COntinue abx ANTHONY in am per cardiology elevated troponins likely secondary to demand ischemia I examined this patient and my medical decision-making was reviewed with the Resident Physician. I agree with the documented findings, disposition and treatment plan as described except to the extent set forth below.
[2017-05-07] MEDS: hydrOXYzine pamoate 25 MG CAPSULE PO PRN (10:49)
--- NOTE | 2017-05-07 11:47 | Cardiology Consult Note ---
Date of Encounter: 05/07/17 Time of Encounter: 11:43 Assessment and Plan (1) IVDU (intravenous drug user) Current Visit: Yes Status: Acute IVDU. Pulmonary infiltrate seen on CT. ? PNA vs septic pulmonary embolic. Initial blood cultures negative per reports. No obvious vegetations on TTE, but TV not well visualized. Currently no major/minor critieria. Clinically, patient appears somewhat ill, but could be withdrawl from medication. R/B/A to a ANTHONY discussed. Patient agreeable. NPO after midnight for procedure tomorrow. Further recommendations to follow. (2) Elevated troponin Current Visit: Yes Status: Acute Minimal troponin elevated. Presentation not c/w ACS. Trivial pericardia effusion noted. ? component of pericardiitis. Continue supportive care. Discussion w patient/family: The assessment and plan as outlined above was discussed with the patient and/or family members who expressed understanding and agreement. All questions were answered. Thank you for involving us in the care of your patient. Please call with any questions. History of Present Illness Consult date: 05/07/17 Requesting physician: Willie Lei Consult reason: IVDU Chief complaint: Chest pain History of present illness: Mr. Sharma is a 31 year old male who was admitted 05/06. Reports history of opitate abuse. More recently, using heroin. Initially, intranasal use of heroin, but using IV over past 3 months. States last use 3 days ago. Devoped subjective fevers, chills, chest pain. CTA demonstrates RUL infiltrate. TTE personally reviewed - no obvious vegetation, but TV not well visualized. Initial blood cultures reportedly negative. Past Med Surg Social Fam HX - Past Medical History Medical history: diabetes, hypertension Psychiatric history: anxiety, depression - Past Surgical History Surgical History: no surgical history - Social History Smoking Status: Never smoker Smokeless Tobacco Status: No Alcohol use: none Drug use: opiates, methamphetamine - Family History Mother Living Status: Still Living Hx Family Cardiac Disorders: Yes Father Living Status: Hx Family Cardiac Disorders: Yes Medications and Allergies Ciprofloxacin HCl [Cipro] 500 mg PO BID 05/07/17 [History] Gabapentin [Neurontin] 300 mg PO Q8H 05/07/17 [History] Lisinopril [Zestril] 10 mg PO DAILY 05/07/17 [History] Metformin HCl [Glucophage] 1,000 mg PO Q12H 05/07/17 [History] SitaGLIPtin [Januvia] 100 mg PO DAILY 05/07/17 [History] 3 Allergy/AdvReac Type Severity Reaction Status Date / Time No Known Allergies Allergy Verified 05/06/17 15:56 All Systems Review: A 10-system review of systems was performed and is negative for pertinent findings except as documented above in the HPI. - Constitutional Constitutional: chills, fatigue, fever(s), lethargy, night sweats, weakness - Cardiovascular Cardiovascular: as per HPI, chest pain at rest - Respiratory Respiratory: cough Physical Examination General: Conversant, No Apparent Distress HEENT: Atraumatic, Normocephaly, Mucus Membranes Moist Neck: No JVD, Normal carotid pulses Cardiac: Reg Rate and Rhythm, Normal S1 and S2, No Murmur, Other (Distant, no obvious murmurs) Lungs: Normal Breath Sounds, No Wheeze, Rales, Rhonchi Neuro: Alert and responsive, No focal deficits noted, Other (Twitching noted) Abdomen: Soft, Non-Tender, Other (obese) Skin: No rashes noted on visualized skin, Other (Track talamantes noted in antecubital) Musculoskeletal: No Chest Wall Tenderness Extremities: No Clubbing, No Cyanosis, No Edema Results 05/07/17 00:39 05/07/17 00:39 Lab Results 05/07/17 05/07/17 05/07/17 00:39 00:39 00:39 WBC 4.5 Hgb 10.3 L Hct 30.8 L Plt Count 153 Sodium 135 L Potassium 3.9 Chloride 101 Carbon Dioxide 28 BUN 15 Creatinine 0.81 Glucose 179 H Calcium 8.4 L Magnesium 1.8 Total Bilirubin 1.0 AST 105 H ALT 33 Alkaline Phosphatase 51 Troponin I 0.03 05/07/17 06:11 WBC Hgb Hct Plt Count Sodium Potassium Chloride Carbon Dioxide BUN Creatinine Glucose Calcium Magnesium Total Bilirubin AST ALT Alkaline Phosphatase Troponin I 0.03 - Imaging and Cardiology Echo: pending, report reviewed, other (Personally reviewed.) Consult Discharge Plan - Plan Referrals: NONE,PCP [Primary Care Provider] -
--- NOTE | 2017-05-07 11:53 | Podiatry Consult Note ---
Date of Encounter: 05/07/17 Time of Encounter: 10:00 Assessment and Plan (1) Type 2 diabetes mellitus Current visit: Yes Status: Chronic Qualifiers: Diabetes mellitus complication status: with diabetic arthropathy Diabetes mellitus complication detail: with neuropathic arthropathy Diabetes mellitus ferry terminal agent insulin use: without ferry terminal agent use Qualified Code(s): E11.610 - Type 2 diabetes mellitus with diabetic neuropathic arthropathy (2) Diabetic foot ulcer Current visit: Yes Status: Chronic There is a de anda grade 2 diabetic foot ulcer to the left foot at sub #3 metatarsal head secondary to pressure. The ulceration does not appear infected. WBC: 4.5, a febrile. Will order an xray of the left foot, ESR and CRP due to recent hospitalization for the diabetic foot infection. Wound care orders to be written for cleansing the ulcer daily with saline, pat dry, apply dry sterile 4x4 gauze with medipore tape. Will order a post op shoe and will modify shoe with felt padding to offload pressure to the ulcer. Patient will need to f/u in Podiatry clinic with in one week of discharge from the hospital. Qualifiers: Diabetic foot ulcer location: midfoot Diabetes mellitus type: type 2 Laterality: left Non-pressure ulcer stage: with fat layer exposed Qualified Code(s): E11.621 - Type 2 diabetes mellitus with foot ulcer; L97.422 - Non- pressure 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 History of Present Illness HPI: Mr. Sharma is a 31 year old male admitted to [place] for sob. Patient has a medical history significant for DM wit neuropathy, HTN, and depression. Podiatry was consulted for a diabetic foot ulcer to the left foot. Patient states the ulcer started approximately 6 months ago, no known injury or trauma. Patient states he was being treated in wound care at [facility] but was discharged from the clinic after he cut his total contact cast off himself. Patient states he was recently hospitalized at [facility] for an infected ulcer of the left foot and was discharged about two weeks ago. Patient states he received IV antibiotics while admitted at [facility] and was discharged on oral antibiotics. Patient states he did not have surgery on the left foot. Patient states he tried calling the wound care clinic at [facility] last week to f/u and was told he could not schedule an appointment. Patient states he does not have a Rn Chronic. He states he currently does not work. He states he did step on a nail with his right foot earlier this year and was treated for that and it has since healed. Patient admits to fever and chills prior to this admission. Patient states his blood sugars have been okay. Denies smoking currently. Admits to IV drug abuse. Denies injecting IV drugs into his feet. Past Med Surg Social Fam HX - Past Medical History Medical history: diabetes, hypertension Psychiatric history: anxiety, depression - Past Surgical History Surgical History: no surgical history - Social History Smoking Status: Never smoker Smokeless Tobacco Status: No Alcohol use: none Drug use: opiates, methamphetamine - Family History Mother Living Status: Still Living Hx Family Cardiac Disorders: Yes Father Living Status: Hx Family Cardiac Disorders: Yes Medications and Allergies Ciprofloxacin HCl [Cipro] 500 mg PO BID 05/07/17 [History] Gabapentin [Neurontin] 300 mg PO Q8H 05/07/17 [History] Lisinopril [Zestril] 10 mg PO DAILY 05/07/17 [History] Metformin HCl [Glucophage] 1,000 mg PO Q12H 05/07/17 [History] SitaGLIPtin [Januvia] 100 mg PO DAILY 05/07/17 [History] 3 Allergy/AdvReac Type Severity Reaction Status Date / Time No Known Allergies Allergy Verified 05/06/17 15:56 All Systems Reviewed: A 10-system review of systems was performed and is negative for pertinent findings except as documented above in the HPI. Physical Exam - Constitutional Vitals: Temp Pulse Resp BP Pulse Ox 97.9 F 73 18 128/62 100 05/07/17 07:39 05/07/17 03:50 05/07/17 03:50 05/07/17 03:50 05/07/17 03:50 General appearance: cooperative Exam: Ulcer: De Anda grade 2 diabetic foot ulcer to sub #3 metatarsal head left foot measuring 1 cm in length x 0.8 cm width, x 0.5 cm in depth, base of wound beefy red, no active drainage, no pus, no odor, no periwound erythema, no tunneling, no sinus tracts, no probe to bone. Edges are hyperkeratotic. No evidence of bacterial infection. Vascular: pedal pulses palpable bilaterally, CFT is immediate to digits, no pallor, no rubor, no cyanosis. - Extremities Exam Extremities exam: Present: normal capillary refill, pedal edema (1+) - Vascular Capillary Refill: less than 3 seconds Results - Labs Result Diagrams: 05/07/17 00:39 05/07/17 00:39 Labs: Abnormal lab results RBC 3.46 M/mcL (4.19-5.50) L 05/07/17 00:39 Hgb 10.3 g/dL (12.9-16.9) L 05/07/17 00:39 Hct 30.8 % (37.5-50.1) L 05/07/17 00:39 ESR 55 mm/hr (0-10) H 05/07/17 10:38 PT 13.0 Seconds (9.4-12.1) H 05/06/17 21:19 Sodium 135 mEq/L (136-145) L 05/07/17 00:39 Glucose 179 mg/dL (70-99) H 05/07/17 00:39 POC Glucose 98 (58-89) H 05/07/17 11:12 Calcium 8.4 mg/dL (8.6-10.8) L 05/07/17 00:39 Direct Bilirubin 0.6 mg/dL (0.0-0.5) H 05/06/17 16:39 AST 105 Units/L (5-34) H 05/07/17 00:39 C-Reactive Protein 54 mg/L (Less than 5) H 05/07/17 10:38 Albumin 2.8 g/dL (3.5-5.0) L 05/07/17 00:39 Albumin/Globulin Ratio 0.8 (1.1-2.2) L 05/07/17 00:39 HDL Cholesterol 27 mg/dL (40-59) L 05/07/17 00:39 Salicylates < 5.0 mg/dL (15-30) L 05/06/17 16:39 Acetaminophen 3.0 mcg/mL (10-30) L 05/06/17 16:39 H & H 05/07/17 Range/Units 00:39 Hgb 10.3 L (12.9-16.9) g/dL Hct 30.8 L (37.5-50.1) % All other labs normal. Consult Discharge Plan - Plan Referrals: NONE,PCP [Primary Care Provider] -
[2017-05-07] MEDS ORDERED: Ondansetron 4 MG/2 ML VIAL IVP PRN (12:00)
[2017-05-07] MEDS: Cefepime HCl 2,000 MG in D5% in Water (Mini-Bag+) 100 ML IVPB SCH ×2 (15:30→23:26)
--- NOTE | 2017-05-07 18:04 | Electrocardiograph Report ---
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
[2017-05-07] MEDS: Vancomycin 1,750 MG in D5% in Water 500 ML IVPB SCH (20:26)
[2017-05-08] MEDS: 0.9 % Sodium Chloride 1,000 ML IVC SCH (04:00)
[2017-05-08] MEDS: hydrOXYzine pamoate 25 MG CAPSULE PO PRN (05:38)
[2017-05-08] MEDS: *HR* Heparin 5,000 UNIT/ML VIAL SQ SCH (05:38)
[2017-05-08] MEDS: Azithromycin 250 MG in D5% in Water 250 ML IVPB SCH (07:11)
[2017-05-08 07:28] VITALS: BP 146/71
[2017-05-08] MEDS: Cefepime HCl 2,000 MG in D5% in Water (Mini-Bag+) 100 ML IVPB SCH (08:37)
[2017-05-08] MEDS: Insulin LISPRO 300 UNITS/3 ML VIAL SQ SCH (08:37)
[2017-05-08] MEDS: Aspirin 81 MG TAB.CHEW PO SCH (08:39)
[2017-05-08] MEDS: Vancomycin 1,750 MG in D5% in Water 500 ML IVPB SCH (09:43)
--- NOTE | 2017-05-08 11:18 | Cardiology Progress Note ---
Date of Encounter: 05/08/17 Time of Encounter: 11:15 Assessment and Plan (1) IVDU (intravenous drug user) Current Visit: Yes Status: Acute IVDU. Yesterday, initial blood cultures were not [facility]. Today, there are blood cultures present from time of admission (prior to antibiotics), which are negative. Since admission - no fevers, no leukocytosis. TTE negative for obvious vegetation. Today, patient appears to be feeling better. Patient has not met any major criteria and only one minor criteria (IVDU) for IE. Clinically, there is not a compelling indication for ANTHONY at this time. Discussed with patient. Continue antibiotics for pneumonia per IM recommendations. No further cardiology intervention appears warranted at this time. Call if clinical condition changes. Risk factor modification emphasized, especially complete cessation from illicit drug use. Thanks, Yuri Cheng DO, [facility] (2) Elevated troponin Current Visit: Yes Status: Acute Minimal troponin elevated. Presentation not c/w ACS. Trivial pericardia effusion noted. ST changes noted on ECG - early repolarization. Pericarditis also a possibility. Patient is chest pain free today. Normal EF. No further intervention required. Discussion w patient/family: The assessment and plan as outlined above was discussed with the patient and/or family members who expressed understanding and agreement. All questions were answered. Thank you for involving us in the care of your patient. Please call with any questions. Subjective Principal diagnosis: IVDU Interval history: Clinically, patient appears better. Denies chest pain or discomfort. No new issues overnight. Objective General: Conversant, No Apparent Distress HEENT: Atraumatic, Normocephaly, Mucus Membranes Moist Neck: No JVD, Normal carotid pulses Cardiac: Reg Rate and Rhythm, Normal S1 and S2, No Murmur Lungs: Normal Breath Sounds, No Wheeze, Rales, Rhonchi Neuro: Alert and responsive, No focal deficits noted Abdomen: Soft, Non-Tender Skin: No rashes noted on visualized skin Musculoskeletal: No Chest Wall Tenderness Extremities: No Clubbing, No Cyanosis, No Edema, Other (Ulcer bottom of right foot) Results 05/07/17 00:39 05/07/17 00:39 - Imaging and Cardiology Echo: report reviewed - EKG Interpretation EKG results cardiology: personally reviewed Consult Discharge Plan - Plan Referrals: NONE,PCP [Primary Care Provider] -
--- NOTE | 2017-05-08 13:49 | Discharge Summary ---
Date of Encounter: 05/08/17 Time of Encounter: 10:00 - Discharge Diagnosis (1) Elevated troponin Priority: Primary Status: Acute (2) Pneumonia Priority: Primary Status: Acute Qualifiers: Pneumonia type: due to unspecified organism Laterality: right Lung location: upper lobe of lung Qualified Code(s): J18.1 - Lobar pneumonia, unspecified organism (3) Type 2 diabetes mellitus Priority: Secondary Status: Chronic Qualifiers: Diabetes mellitus complication status: with diabetic arthropathy Diabetes mellitus complication detail: with neuropathic arthropathy Diabetes mellitus terminal operations manager insulin use: without longterm use Qualified Code(s): E11.610 - Type 2 diabetes mellitus with diabetic neuropathic arthropathy (4) Diabetic foot ulcer Priority: Secondary Status: Chronic Qualifiers: Diabetic foot ulcer location: midfoot Diabetes mellitus type: type 2 Laterality: left Non-pressure ulcer stage: with fat layer exposed Qualified Code(s): E11.621 - Type 2 diabetes mellitus with foot ulcer; L97.422 - Non- pressure 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 (5) IVDU (intravenous drug user) Priority: Secondary Status: Acute - Discharge Medications Prescriptions: levoFLOXacin [Levaquin] 500 mg PO DAILY #5 tablet Lisinopril [Zestril] 20 mg PO DAILY 30 Days Home Medications: Gabapentin [Neurontin] 300 mg PO Q8H 05/07/17 [History] Metformin HCl [Glucophage] 1,000 mg PO Q12H 05/07/17 [History] SitaGLIPtin [Januvia] 100 mg PO DAILY 05/07/17 [History] Lisinopril [Zestril] 20 mg PO DAILY 30 Days 05/08/17 [Rx] levoFLOXacin [Levaquin] 500 mg PO DAILY #5 tablet 05/08/17 [Rx] Allergies/Adverse Reactions: 3 Allergy/AdvReac Type Severity Reaction Status Date / Time No Known Allergies Allergy Verified 05/06/17 15:56 Procedures/tests Complete & Pending: Procedures Performed prior 72 hours Category Date Time Status EV echocardiogram Routine Y 05/07/17 00:05 Completed Date of admission: 05/06/17 23:50 Primary care physician: PCP NONE - Patient Status Disposition: Home, Self-Care Condition: Good Overall status at discharge: patient is back to baseline - Discharge Instructions Follow Up With: NONE,PCP [Primary Care Provider] - Additional Instructions: Need to f/u with PCP in one week Need to f/u with Diamond [employer]utter in one week Need to go for Drug rehab clinic as walk in - Diet and Activity Activity: increase activity as tolerated Diet: diabetic diet Hospital course: Mr. Sharma is a 31 year old male who presents with a 2 day history of cough, fever, chills, body aches, and pleuritic-type chest pain. Symptoms started roughly 48 hours ago and they progressively worsened. He therefore came to the ER for evaluation. He was found to have evidence of pneumonia on CT angiogram as there was no PE, however. ER contacted hospitalist to admit patient, but they noted he had some subtle ST elevation on his EKG and a troponin of 0.09. Given his history of drug abuse, elevated troponin, and questionable ST elevation, I asked the ER staff to discuss with cardiology first before accepting the patient. EKG was reviewed by cardiology, and it was not felt that this was a STEMI. Rather, there was concern he might have had pericarditis. I accepted the patient admission at that point. Pt was admitted in the hospital and placed him on non destructive evaluation specialist. Checked serial troponin which were negative. His CTA of Chest showed pneumonia he was started on broad spec abx Rocephin, Vancomycin and Azithromycin. Due to his IV drug abuse history we were concerned about septic emboli / Infectious endocarditis too. Pt had 2 D Echo ( TTE ) done which did not show any valve vegetations and his blood cx came back as no growth in 48 hrs. So it is very less likely a septic emboli. His WBC also WNL through this hospitalization. I Counseled the pt to quit IV drugs, he is willing to go to rehab clinic. fiber worker did talk to him and provided all the information, he wants to go to walk in clinic as an out pt. He is not in any active withdrawl symptoms now, his vitals BP: 146/71, RR: 16 NH: 75 SPo2-97/ RA. Will d/c him home in stable condition. Pt was also evaluated by generating plant superintendent and did not recommend any further work up. He also has chronic non healing ulcer which was evaluated by our manager drug safety recommend special shoes and out pt f/u at podiatric clinic - Time Spent with Patient Total time spent providing and/or coordinating discharge services: - Constitutional Vitals: Temp Pulse Resp BP Pulse Ox 98 F 67 18 146/71 97 05/08/17 07:00 05/08/17 07:00 05/08/17 07:00 05/08/17 07:00 05/08/17 07:00 General appearance: Present: cooperative, A&O X 3, pleasant, no acute distress, answers questions appropriately - Head Head exam: Present: atraumatic, normal inspection - Respiratory Respiratory exam: Present: decreased breath sounds. Absent: rales, respiratory distress, rhonchi, stridor, wheezes - Cardiovascular Cardiovascular exam: Present: RRR, +S1, +S2. Absent: diastolic murmur, gallop, rubs, systolic murmur - GI/Abdominal GI/Abdominal exam: Present: soft. Absent: rebound, rigid, tenderness - Extremities Exam Extremities exam: Absent: calf tenderness, pedal edema, tenderness Additional comments: chronic non healing 0.5 cm size ulcer over Left planter region. No edema / swelling . no discharge noticed - Psychiatric Psychiatric exam: Present: normal affect, normal mood
--- NOTE | 2017-05-08 14:11 | Podiatry Progress Note ---
Date of Encounter: 05/08/17 Time of Encounter: 12:00 - Assessment and Plan (1) Type 2 diabetes mellitus Current Visit: Yes Status: Chronic Qualifiers: Diabetes mellitus complication status: with diabetic arthropathy Diabetes mellitus complication detail: with neuropathic arthropathy Diabetes mellitus terminal system operator insulin use: without terminal system operator use Qualified Code(s): E11.610 - Type 2 diabetes mellitus with diabetic neuropathic arthropathy (2) Diabetic foot ulcer Current Visit: Yes Status: Chronic There is a de anda grade 2 diabetic foot ulcer to the left foot at sub #3 metatarsal head secondary to pressure. Sharp cutting performed with a #15 scalpel blade to remove the hyperkeratotic wound edges, alleviate pressure and allow the ulceration to heal. No complication. No clinical evidence of bacterial infection. XR of left foot completed on 05/07/17: No plain film evidence of osteomyelitis. Plantar soft tissue defect consistent with the clinical history of ulcer. ESR: 55, CRP:54 Continue wound care orders for cleansing the ulcer daily with saline, pat dry, apply dry sterile 4x4 gauze with medipore tape. Post op shoe applied and post op shoe modified with felt padding to offload pressure to the ulcer. Patient will need to f/u in Podiatry clinic with in one week of discharge from the hospital. Qualifiers: Diabetic foot ulcer location: midfoot Diabetes mellitus type: type 2 Laterality: left Non-pressure ulcer stage: with fat layer exposed Qualified Code(s): E11.621 - Type 2 diabetes mellitus with foot ulcer; L97.422 - Non- pressure 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 Subjective Principal diagnosis: IVDU Interval history: Patient is lying in bed with mother at bedside. Patient was evaluated yesterday for a DFU of the left foot. Patient was hospitalized two weeks ago for an infected DFU at [facility] and was discharged on oral Cipro. Xrays of the left foot were ordered yesterday along with an ESR and CRP. Patient states he is feeling overall better today. Patient states he does not have anyone to follow up with for his foot ulcer. No c/o fever or chills. Objective - Vital Signs Vital Signs: Vital Signs Temp Pulse Resp BP Pulse Ox 05/08/17 07:00 98 F 67 18 146/71 97 05/08/17 05:21 97.7 F 77 16 153/86 99 05/07/17 23:59 98.0 F 75 16 157/84 99 05/07/17 20:32 98.4 F 05/07/17 20:00 78 18 139/68 98 05/07/17 17:08 98.0 F Intake and Output 05/07/17 05/08/17 05/08/17 23:59 07:59 15:59 Intake Total 1840 / 1840 1100 / 1100 Output Total 1150 / 1150 Balance 690 / 690 1100 / 1100 Intake: IV Fluids 1600 / 1600 1100 / 1100 0.9 % Sodium Chloride 1, 1000 / 1000 1000 / 1000 000 ML @ 125 mls/hr IVC . Q8H DAKSHA Rx#:[id number] Maxipime 2,000 MG In 100 / 100 100 / 100 Dextrose 5% (Minibag+) 100 ML 100 ML @ 200 mls/ hr IVPB Q8HR DAKSHA Rx#: [id number] Vancocin 1,750 MG In 500 / 500 Dextrose 5% 500 ML @ 333. 34 mls/hr IVPB Q12H DAKSHA Rx#:[id number] Oral 240 / 240 0 / 0 Output: Urine 1150 / 1150 Other: # Voids 0 0 Weight 134.7 kg Blood Glucose* 106 160 - Exam Exam: Ulcer: De Anda grade 2 diabetic foot ulcer to sub #3 metatarsal head left foot measuring 1 cm in length x 0.8 cm width, x 0.5 cm in depth, base of wound beefy red, no active drainage, no pus, no odor, no periwound erythema, no tunneling, no sinus tracts, no probe to bone. Edges are hyperkeratotic. No evidence of bacterial infection. Vascular: pedal pulses palpable bilaterally, CFT is immediate to digits, no pallor, no rubor, no cyanosis. General: A&O x3, calm and cooperative. - Lab Result Diagrams: 05/07/17 00:39 05/07/17 00:39 Labs: Abnormal lab results RBC 3.46 M/mcL (4.19-5.50) L 05/07/17 00:39 Hgb 10.3 g/dL (12.9-16.9) L 05/07/17 00:39 Hct 30.8 % (37.5-50.1) L 05/07/17 00:39 ESR 55 mm/hr (0-10) H 05/07/17 10:38 PT 13.0 Seconds (9.4-12.1) H 05/06/17 21:19 Sodium 135 mEq/L (136-145) L 05/07/17 00:39 Glucose 179 mg/dL (70-99) H 05/07/17 00:39 POC Glucose 106 (58-89) H 05/07/17 19:46 Calcium 8.4 mg/dL (8.6-10.8) L 05/07/17 00:39 Direct Bilirubin 0.6 mg/dL (0.0-0.5) H 05/06/17 16:39 AST 105 Units/L (5-34) H 05/07/17 00:39 C-Reactive Protein 54 mg/L (Less than 5) H 05/07/17 10:38 Albumin 2.8 g/dL (3.5-5.0) L 05/07/17 00:39 Albumin/Globulin Ratio 0.8 (1.1-2.2) L 05/07/17 00:39 HDL Cholesterol 27 mg/dL (40-59) L 05/07/17 00:39 Vancomycin Trough 7.7 mcg/mL (10-20) L 05/08/17 06:58 Salicylates < 5.0 mg/dL (15-30) L 05/06/17 16:39 Acetaminophen 3.0 mcg/mL (10-30) L 05/06/17 16:39 Consult Discharge Plan - Plan Additional Instructions: Need to f/u with PCP in one week Need to f/u with Propeller Driven Airplane Mechanic in one week Need to go for Drug rehab clinic as walk in Referrals: Krishna Chicas DPM [Partnered Physician] - 05/10/17 3:00 pm Ximena Collazo MD [Non-Partnered Physician] - Prescriptions: levoFLOXacin [Levaquin] 500 mg PO DAILY #5 tablet Lisinopril [Zestril] 20 mg PO DAILY 30 Days
[2017-05-08] MEDS ORDERED: Aminoglycoside Consult 1 EACH MC ONE (16:04)
== END 2017-05-08 16:05 | disposition home or self-care (01) ==
LOC: EMEROO 15:36 → ICNU 15:36 → SUATTDRO 23:50 → 2NENU 05-07 23:57
PROVIDERS: ADMIT Pediatrics; ATTEND Internal Medicine

== ENCOUNTER 2017-08-08 13:15 | Inpatient (IN) ==
[2017-08-08] MEDS ORDERED: Piperacillin/Tazobactam 3.375 GM in D5% in Water 50 ML IVPB ONE (14:10)
[2017-08-08] MEDS ORDERED: Vancomycin 1,750 MG in D5% in Water 500 ML IVPB ONE (14:10)
[2017-08-08] MEDS ORDERED: *HR* HYDROmorphone (PF) 1 MG/ML SYRINGE IVP ONE (14:12)
--- NOTE | 2017-08-08 14:21 | Emergency Department Note ---
Disposition Clinical Impression: Diabetic foot infection Cellulitis Qualifiers: Site of cellulitis: extremity Site of cellulitis of extremity: lower extremity Laterality: left Qualified Code(s): L03.116 - Cellulitis of left lower limb Disposition: Admitted As Inpatient Condition: Good Referrals: Ximena Collazo MD [Primary Care Provider] - Forms: ED Satisfaction Letter General Adult HPI - General Chief complaint: ED Extremity Problem,Nontraumatic Stated complaint: Foot swelling Time Seen by Provider: 08/08/17 13:58 Source: patient Limitations: no limitations Nursing Notes Reviewed: Yes Vital Signs Reviewed: Yes - History of Present Illness HPI Narrative: 32-year-old male who reports he has been out of half-way. He states that he started to develop a pain in her days ago for gout. He is a known diabetic but is lost substantial amount of weight requires insulin therapy. States his only medication currently needs is not warm and and his antihypertensive. He does admit to feeling chills but has not measured his temperature home. He is having pain to the level of the mid calf. He has had a chronic diabetic foot ulcer on the left foot for approximately one year. Location: left Radiation: non-radiation Pain Severity: severe Pain Scale: 9 Quality: aching Consistency: constant Improves with: nothing Worsens with: movement Associated symptoms: Reports: denies other symptoms Treatments Prior to Arrival: none - Related Data Home Medications Medication Instructions Recorded Confirmed Metformin HCl [Glucophage] 1,000 mg PO Q12H 05/07/17 05/07/17 Escitalopram [Lexapro] 10 mg PO DAILY 08/08/17 08/08/17 Lisinopril [Zestril] 10 mg PO BID 08/08/17 08/08/17 Allergies Allergy/AdvReac Type Severity Reaction Status Date / Time No Known Allergies Allergy Verified 05/06/17 15:56 All systems ED: reviewed and negative except as stated. ENT ED: Denies: throat pain Cardiovascular: Denies: chest pain Gastrointestinal: Denies: abdominal pain Musculoskeletal: Denies: back pain Integumentary: Reports: rash Neurological: Denies: headache Past Medical History - Past Medical History Medical history: Reports: diabetes, hypertension Surgical history: Reports: no surgical history Psychiatric history: Reports: anxiety, depression - Social History Smoking Status: Former smoker Smokeless Tobacco Status: No Alcohol use: Reports: occasionally Drug use: Reports: opiates, methamphetamine Physical Exam - General Limitations: no limitations General appearance: alert - Head Head exam: atraumatic - Eye Eye exam: Present: normal appearance - ENT ENT exam: normal exam - Neck Neck exam: Present: normal inspection - Chest Chest inspection: Present: normal inspection - Respiratory Respiratory exam: Present: normal lung sounds bilaterally. Absent: respiratory distress - Cardiovascular Cardiovascular exam: Present: regular rate, normal rhythm - Abdominal Exam Abdominal exam: Present: soft, Non-Tender - Extremities Exam Extremities exam: Present: other (Third digit of the left lower extremity shows significant swelling and purulent drainage. There is a diabetic foot ulcer on the plantar surface of the foot that is clean. Warmth and redness extends to the ankle) - Neurological Exam Neurological exam: Present: alert, oriented X3 - Psychiatric Psychiatric exam: Present: normal affect, normal mood - Skin Skin exam: Present: warm, dry Course Course Narrative: I will start him. Antibiotic therapy with vancomycin and Zosyn. We will also give him 2 L normal saline due to his tachycardia. Will CT his foot, obtain cultures, and consult podiatry. CT shows likely abscess. I+D performed with moderate purulent fluid expressed. Left open to drain. Spoke with podiatry (Dr Slater) who will be a multi site leasing consultant on the patient. Paged hospitalist for admission. Accepted by Dr Fragoso Vital Signs Temperature 97.4 F L 08/08/17 13:24 Pulse Rate 119 08/08/17 13:24 Respiratory Rate 22 08/08/17 13:24 Blood Pressure 152/69 08/08/17 13:24 O2 Sat by Pulse Oximetry 95 08/08/17 13:24 Temperature 97.4 F L 08/08/17 13:24 Pulse Rate 119 08/08/17 13:24 Respiratory Rate 22 08/08/17 13:24 Blood Pressure 152/69 08/08/17 13:24 O2 Sat by Pulse Oximetry 95 08/08/17 13:24 Oxygen Delivery Oxygen Delivery Room Air Procedures - Abscess I/D Consent obtained: verbal consent Site: foot Side (if applicable): left Technique: incised with #11 blade Irrigation: Yes Packing used?: none Medical Decision Making - Medical Records Medical records reviewed: Yes I reviewed the patient's medical records. - Lab Data Lab results reviewed: Yes I reviewed the patient's lab results. Result diagrams: 08/08/17 14:23 08/08/17 14:23 Lab Results 08/08/17 08/08/17 08/08/17 Range/Units 14:23 14:23 14:23 WBC 9.1 (4.3-11.1) K/mcL RBC 3.65 L (4.19-5.50) M/mcL Hgb 11.1 L (12.9-16.9) g/dL Hct 32.4 L (37.5-50.1) % MCV 88.8 (83.0-100.0) fL MCH 30.4 (28.0-33.3) pg MCHC 34.3 (31.6-35.5) g/dL RDW 14.5 (11.5-14.5) % Plt Count 162 (140-400) K/mcL MPV 9.9 (9.4-12.4) fL Immature Gran % 0.6 (0-4) % Seg Neutrophils % 81.6 % Lymphocytes % 9.4 % Monocytes % 6.6 % Eosinophils % 1.5 % Basophils % 0.3 % Neutrophils # 7.4 (1.6-8.9) K/mcL Lymphocytes # 0.9 (0.6-4.6) K/mcL Monocytes # 0.6 (0.0-1.3) K/mcL Eosinophils # 0.1 (0.0-0.6) K/mcL Basophils # 0.0 (0.0-0.2) K/mcL Platelet Estimate Normal (Normal) Sodium 140 (136-145) mEq/L Potassium 3.7 (3.5-4.5) mEq/L Chloride 107 (98-109) mEq/L Carbon Dioxide 22 (19-29) mEq/L BUN 11 (8-26) mg/dL Creatinine 0.76 (0.72-1.25) mg/dL Est GFR ( Amer) > 60 (> 60) Est GFR (Non-Af Amer) > 60 (> 60) BUN/Creatinine Ratio 14 (6-26) Glucose 152 H (70-99) mg/dL Calculated Osmolality 292 (280-300) Lactic Acid 1.3 (0.5-2.2) mmol/L Calcium 8.8 (8.6-10.8) mg/dL Total Bilirubin 1.2 (0.2-1.2) mg/dL Direct Bilirubin 0.6 H (0.0-0.5) mg/dL Indirect Bilirubin 0.6 (0.0-1.2) mg/dL AST 13 (5-34) Units/L ALT 13 (0-55) Units/L Alkaline Phosphatase 57 (38-126) Units/L Serum Total Protein 7.3 (6.0-8.3) g/dL Albumin 2.9 L (3.5-5.0) g/dL Globulin 4.4 H (2.4-3.5) g/dL Albumin/Globulin Ratio 0.7 L (1.1-2.2) - Radiology Data Radiology results reviewed: Yes I reviewed the patient's radiology results. Attestation Statement - Attestation Attestation: I examined this patient and my medical decision-making was reviewed with the Resident Physician. I agree with the documented findings, disposition and treatment plan as described except to the extent set forth below. Patient presents to the ED with a chief complaint of a foot infection. Patient states over the past 2 days his left it has become increasingly red swollen and painful. He has had an ulcer on the bottom for a while. On examination he has diffuse swelling of the foot. Erythematous and warm. He has significant swelling to the third toe with an area that is draining purulent material. Plan. Cultures obtained. IV antibiotics. Discussed with podiatry. We will admit to medicine.
[2017-08-08 14:35] LABS: Basophils % 0.3 %; Eosinophils # 0.1 K/mcL (0.0-0.6); Eosinophils % 1.5 %; Hematocrit 32.4 % (37.5-50.1); Hemoglobin 11.1 g/dL (12.9-16.9); Immature Granulocytes % 0.6 % (0-4); Lymphocytes # 0.9 K/mcL (0.6-4.6); Lymphocytes % 9.4 %; Mean Corpuscular HGB Conc 34.3 g/dL (31.6-35.5); Mean Corpuscular Hemoglobin 30.4 pg (28.0-33.3); Mean Corpuscular Volume 88.8 fL (83.0-100.0); Mean Platelet Volume 9.9 fL (9.4-12.4); Monocytes # 0.6 K/mcL (0.0-1.3); Monocytes % 6.6 %; Neutrophils # 7.4 K/mcL (1.6-8.9); Platelet Count 162 K/mcL (140-400); Red Blood Count 3.65 M/mcL (4.19-5.50); Red Cell Distribution Width 14.5 % (11.5-14.5); Segmented Neutrophils % 81.6 %
[2017-08-08 14:49] LABS: Alanine Aminotransferase 13 Units/L (0-55); Albumin 2.9 g/dL (3.5-5.0); Albumin/Globulin Ratio 0.7 (1.1-2.2); Alkaline Phosphatase 57 Units/L (38-126); Aspartate Amino Transferase 13 Units/L (5-34); BUN/Creatinine Ratio 14 (6-26); Bilirubin,Direct 0.6 mg/dL (0.0-0.5); Bilirubin,Indirect 0.6 mg/dL (0.0-1.2); Bilirubin,Total 1.2 mg/dL (0.2-1.2); Blood Urea Nitrogen 11 mg/dL (8-26); Calcium 8.8 mg/dL (8.6-10.8); Carbon Dioxide 22 mEq/L (19-29); Chloride 107 mEq/L (98-109); Globulin 4.4 g/dL (2.4-3.5); Glucose 152 mg/dL (70-99); Osmolality,Calculated 292 (280-300); Potassium 3.7 mEq/L (3.5-4.5); Sodium 140 mEq/L (136-145); Total Protein 7.3 g/dL (6.0-8.3); eGFR For African Americans > 60 (> 60); eGFR For Non-African Americans > 60 (> 60)
[2017-08-08] MEDS: 0.9 % Sodium Chloride 1,000 ML IVC SCH ×2 (15:06→16:28)
[2017-08-08 15:16] LABS: Platelet Estimate Normal (Normal)
[2017-08-08] MEDS ORDERED: Levofloxacin 500 MG/100 ML 500 MG/100 ML BAG IVPB ONE ×2 (15:32→21:00)
--- NOTE | 2017-08-08 18:19 | Internal Med History&Physical ---
Date of Encounter: 08/08/17 Time of Encounter: 18:19 Assessment and Plan (1) Toe infection Current visit: Yes Status: Acute Podiatry has been consulted and recommendations are appreciated. Vancomycin and Zosyn. Follow up with blood cultures. We will obtain CRP and trend. Lactic acid was normal. There is no sign of sepsis in this patient. (2) Type 2 diabetes mellitus Current visit: No Status: Chronic We will do insulin sliding scale as needed, and diabetic diet. Qualifiers: Diabetes mellitus complication status: with diabetic arthropathy Diabetes mellitus complication detail: with neuropathic arthropathy Diabetes mellitus terminal computer operator insulin use: without terminal computer operator use Qualified Code(s): E11.610 - Type 2 diabetes mellitus with diabetic neuropathic arthropathy (3) Diabetic foot ulcer Current visit: No Status: Chronic This is chronic in nature and patient will be evaluated by podiatry Qualifiers: Diabetic foot ulcer location: midfoot Diabetes mellitus type: type 2 Laterality: left Non-pressure ulcer stage: with fat layer exposed Qualified Code(s): E11.621 - Type 2 diabetes mellitus with foot ulcer; L97.422 - Non- pressure 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 (4) IVDU (intravenous drug user) Current visit: No Status: Acute Patient now has recurring cellulitis and severe infection of lower extremity. He did have a transthoracic echocardiogram in April, 3 months ago, to rule out endocarditis. There was no cardiac murmurs and he was afebrile. There is suspicion for endocarditis, we will consider to repeat echocardiogram however right now seems less likely. We will get HIV, hepatitis, and syphilis serology. (5) Cellulitis Current visit: Yes Status: Acute Plan as above Qualifiers: Site of cellulitis: extremity Site of cellulitis of extremity: lower extremity Laterality: left Qualified Code(s): L03.116 - Cellulitis of left lower limb Internal Medicine - H&P: HPI Chief complaint: Left foot infection Admitted From: Home Plans for Post Hospital Care: Home History of present illness: Mr. Sharma is a 32 year old male with history of diabetes with chronic left heel ulcer, recent admission of foot infection and pneumonia, and hypertension presented to ED for one day history of worsening infection of left toe. He sees Podiatry for management. Patient is in and out of shelter and a few days ago was in shelter and noticed his toe to have infection, in the past 2 days it has been more swollen and painful. He has intentionally lost weight for controlling diabetes, hoping that foot ulcer would heal. Patient has history of recurring cellulitis of lower extremities. He did admit to subjective fevers /chills at home. Has history of IVDU within past month. He has had TTE in 2016 that was negative for vegetation. In the ED he was hemodynamically stable. Blood cultures were obtained and he was started on vancomycin and Zosyn , podiatry was consulted and patient had CT of foot done that showed likely abscess. An I&D was performed in the ED with moderate purulent drainage. Past Med Surg Social Fam HX - Past Medical History Medical history: diabetes, hypertension Psychiatric history: anxiety, depression - Past Surgical History Surgical History: no surgical history - Social History Smoking Status: Former smoker Smokeless Tobacco Status: No Alcohol use: occasionally Drug use: opiates, methamphetamine - Family History Mother Living Status: Still Living Hx Family Cardiac Disorders: Yes Father Living Status: Hx Family Cardiac Disorders: Yes Internal Medicine - H&P: Meds Metformin HCl [Glucophage] 1,000 mg PO BID 05/07/17 [History] Escitalopram [Lexapro] 10 mg PO DAILY 08/08/17 [History] Lisinopril [Zestril] 10 mg PO BID 08/08/17 [History] 3 Allergy/AdvReac Type Severity Reaction Status Date / Time No Known Allergies Allergy Verified 05/06/17 15:56 All Systems PM: A 10-system review of systems was performed and is negative for pertinent findings except as documented above in the HPI. - Constitutional Constitutional: as per HPI - EENT Eyes: as per HPI Nose, mouth and throat: as per HPI - Cardiovascular Cardiovascular ROS IM: no chest pain, no claudication, no dyspnea, no palpitations, no syncope - Respiratory Respiratory: no cough, no dyspnea, no hemoptysis - Musculoskeletal Musculoskeletal ROS IM: joint swelling - Integumentary Integumentary IM: erythema, non-healing lesions (Left heel ulcer), rash (Left foot) - Hematologic/Lymphatic Hematologic/Lymphatic: no easy bleeding, no easy bruising, no lymphadenopathy - Constitutional Vitals: Temp Pulse Resp BP Pulse Ox 97.4 F L 96 14 139/73 97 08/08/17 13:24 08/08/17 17:00 08/08/17 17:56 08/08/17 17:56 08/08/17 17:00 General appearance: Present: cooperative, A&O X 3, answers questions appropriately Exam: - Head Head exam: atraumatic - Eye Eye exam: Present: normal appearance - ENT ENT exam: normal exam - Neck Neck exam: Present: normal inspection - Chest Chest inspection: Present: normal inspection - Respiratory Respiratory exam: Present: normal lung sounds bilaterally. Absent: respiratory distress - Cardiovascular Cardiovascular exam: Present: regular rate, normal rhythm - Abdominal Exam Abdominal exam: Present: soft, Non-Tender - Extremities Exam Extremities exam: Present: other (Third digit of the left lower extremity shows significant swelling and purulent drainage. There is a diabetic foot ulcer on the plantar surface of the foot that is clean. Warmth and redness extends to the ankle with edema and tenderness) - Neurological Exam Neurological exam: Present: alert, oriented X3 - Psychiatric Psychiatric exam: Present: normal affect, normal mood - Skin Skin exam: Present: warm, dry. left foot/ankle with erythema and edema Internal Med - H&P Results - Labs CBC & Chem 7: 08/08/17 14:23 08/08/17 14:23
[2017-08-08] MEDS ORDERED: Acetaminophen 325 MG TABLET PO PRN (18:40)
[2017-08-08] MEDS ORDERED: Naloxone 0.4 MG/ML INJ IVP PRN (18:40)
[2017-08-08] MEDS ORDERED: Ondansetron 4 MG/2 ML VIAL IVP PRN (18:40)
[2017-08-08] MEDS ORDERED: Vancomycin 2,000 MG in D5% in Water 250 ML IVPB SCH (19:00)
[2017-08-08 20:07] LABS: Hepatitis A Antibody IgM Nonreactive (Nonreactive); Hepatitis B Core IgM Nonreactive (Nonreactive); Hepatitis B Surface Antigen Nonreactive (Nonreactive); Hepatitis C Virus Antibody Nonreactive (Nonreactive)
[2017-08-08] MEDS: *HR* OxyCODONE Immed Rel 5 MG TABLET PO PRN (21:10)
[2017-08-08] MEDS: Piperacillin/Tazobactam 3.375 GM in D5% in Water 50 ML IVPB SCH (23:29)
[2017-08-09] MEDS: Vancomycin 1,750 MG in D5% in Water 500 ML IVPB SCH ×2 (04:28→15:43)
[2017-08-09 05:01] LABS: Basophils % 0.2 %; Eosinophils # 0.2 K/mcL (0.0-0.6); Eosinophils % 3.3 %; Immature Granulocytes % 0.6 % (0-4); Lymphocytes % 20.4 %; Mean Corpuscular HGB Conc 33.2 g/dL (31.6-35.5); Mean Corpuscular Hemoglobin 30.3 pg (28.0-33.3); Mean Corpuscular Volume 91.2 fL (83.0-100.0); Mean Platelet Volume 9.9 fL (9.4-12.4); Monocytes # 0.3 K/mcL (0.0-1.3); Monocytes % 6.7 %; Neutrophils # 3.3 K/mcL (1.6-8.9); Platelet Count 144 K/mcL (140-400); Red Blood Count 3.07 M/mcL (4.19-5.50); Red Cell Distribution Width 14.7 % (11.5-14.5); Segmented Neutrophils % 68.8 %
[2017-08-09 05:02] LABS: Hemoglobin 9.3 g/dL (12.9-16.9)
[2017-08-09 05:14] LABS: BUN/Creatinine Ratio 11 (6-26); Blood Urea Nitrogen 8 mg/dL (8-26); Calcium 8.5 mg/dL (8.6-10.8); Carbon Dioxide 26 mEq/L (19-29); Chloride 106 mEq/L (98-109); Glucose 108 mg/dL (70-99); Osmolality,Calculated 285 (280-300); Potassium 3.8 mEq/L (3.5-4.5); Sodium 138 mEq/L (136-145); eGFR For African Americans > 60 (> 60); eGFR For Non-African Americans > 60 (> 60)
[2017-08-09] MEDS: Piperacillin/Tazobactam 3.375 GM in D5% in Water 50 ML IVPB SCH ×2 (09:10→17:37)
[2017-08-09] MEDS: *HR* OxyCODONE Immed Rel 5 MG TABLET PO PRN ×3 (09:19→21:50)
--- NOTE | 2017-08-09 13:32 | Podiatry Consult Note ---
Date of Encounter: 08/09/17 Time of Encounter: 13:26 Assessment and Plan (1) Toe infection Current visit: Yes Status: Acute Due to the abscess and likely deep-seated bacteria in the patient's left foot the decision was made to proceed with surgical intervention. The surgery discussed was incision and drainage of left foot. The incision and drainage performed in the ER was appropriate it would be beneficial if additional incision and drainage be performed and more aggressive due to continued edema. The patient was instructed that we will try to save his digit but that may need to be amputated depending on the level of tissue damage. Patient relates understanding.Patient was informed of the risks and complications of surgery. These may include but are not limited to the following; nerve damage, numbness, tingling, RSD/CRPS, loss of motor function, loss of toe, loss of limb, loss of life, ischemia, wound healing issues, infection, scarring, keloid formation, continued pain, arthritis, non-union, mal-union, prominent hardware, displaced hardware, reaction to hardware, the need to remove hardware, bruising, continued limp, the need for future surgery, over correction, under correction, chronic swelling, the need for physical therapy, stiffness of joints, ulceration , slow healing, wound dehiscence, reaction to implant, reaction to sutures. The patient was informed of the possible conservative treatments available which may include but are not limited to the following: Orthotics, bracing, non -weight bearing, physical therapy, padding, taping, steroid injections, NSAIDS, casting. The patient was given the option to seek a second opinion. It was explained that surgery is an art and not an exact science therefore results cannot be guaranteed. All the patients questions and concerns were addressed. Patient agrees to have the surgery despite the possible risks and complications. Absolutely no guarantees were given or implied. History of Present Illness Chief complaint: toe abscess HPI: Mr. Sharma is a 32 year old male who noticed an increasing abscess on his foot. Patient relates that he has a history of IV drug use. Patient relates that he has ulcers on his feet. Patient denies any other pedal complaints or recent injuries. Past Med Surg Social Fam HX - Past Medical History Medical history: diabetes, hypertension Psychiatric history: anxiety, depression - Past Surgical History Surgical History: no surgical history - Social History Smoking Status: Former smoker Smokeless Tobacco Status: No Alcohol use: occasionally Drug use: opiates, methamphetamine - Family History Mother Living Status: Still Living Hx Family Cardiac Disorders: Yes Father Living Status: Hx Family Cardiac Disorders: Yes Medications and Allergies Metformin HCl [Glucophage] 1,000 mg PO BID 05/07/17 [History] Escitalopram [Lexapro] 10 mg PO DAILY 08/08/17 [History] Lisinopril [Zestril] 10 mg PO BID 08/08/17 [History] 3 Allergy/AdvReac Type Severity Reaction Status Date / Time No Known Allergies Allergy Verified 05/06/17 15:56 All Systems Reviewed: A 10-system review of systems was performed and is negative for pertinent findings except as documented above in the HPI. Physical Exam - Constitutional Vitals: Temp Pulse Resp BP Pulse Ox 98.2 F 58 16 104/66 94 08/09/17 11:18 08/09/17 11:18 08/09/17 11:18 08/09/17 11:18 08/09/17 11:18 Exam: The patient's left foot third digit has a wound on it, the majority of the wound is on the lateral aspect of the digit. The digit is extremely erythematous and edematous. Purulence is expressed from the digit. Pedal pulses palpable. Capillary fill time is intact to digits 1 through 5 bilaterally. Sensation is decreased consistent with peripheral neuropathy. Labs-white blood cell count is within normal range. Blood glucose and hemoglobin A1c appears to be stable. Results - Labs Result Diagrams: 08/10/17 03:39 08/10/17 03:39 Labs: Abnormal lab results RBC 3.07 M/mcL (4.19-5.50) L 08/09/17 04:48 Hgb 9.3 g/dL (12.9-16.9) L D 08/09/17 04:48 Hct 28.0 % (37.5-50.1) L 08/09/17 04:48 RDW 14.7 % (11.5-14.5) H 08/09/17 04:48 Creatinine 0.70 mg/dL (0.72-1.25) L 08/09/17 04:48 Glucose 108 mg/dL (70-99) H 08/09/17 04:48 POC Glucose 131 (58-89) H 08/09/17 11:48 Calcium 8.5 mg/dL (8.6-10.8) L 08/09/17 04:48 Direct Bilirubin 0.6 mg/dL (0.0-0.5) H 08/08/17 14:23 C-Reactive Protein 209 mg/L (Less than 5) H 08/08/17 19:15 Albumin 2.9 g/dL (3.5-5.0) L 08/08/17 14:23 Globulin 4.4 g/dL (2.4-3.5) H 08/08/17 14:23 Albumin/Globulin Ratio 0.7 (1.1-2.2) L 08/08/17 14:23 H & H 08/09/17 Range/Units 04:48 Hgb 9.3 L D (12.9-16.9) g/dL Hct 28.0 L (37.5-50.1) % All other labs normal. Consult Discharge Plan - Plan Referrals: Ximena Collazo MD [Primary Care Provider] -
[2017-08-09] MEDS: Piperacillin/Tazobactam 3.375 GM in 0.9 % Sodium Chloride Mini Bag 100 ML IVPB SCH (23:27)
--- NOTE | 2017-08-10 01:42 | Internal Med Progress Note ---
Date of Encounter: 08/09/17 Time of Encounter: 16:39 - Assessment and plan (1) Toe infection Current Visit: Yes Status: Acute Assessment and plan: Podiatry following, most likely patient needs wash out. Continue antibiotics. Vasculitis labs pending. (2) Type 2 diabetes mellitus Current Visit: No Status: Chronic Qualifiers: Diabetes mellitus complication status: with diabetic arthropathy Diabetes mellitus complication detail: with neuropathic arthropathy Diabetes mellitus jail insulin use: without jail use Qualified Code(s): E11.610 - Type 2 diabetes mellitus with diabetic neuropathic arthropathy (3) Diabetic foot ulcer Current Visit: No Status: Chronic Qualifiers: Diabetic foot ulcer location: midfoot Diabetes mellitus type: type 2 Laterality: left Non-pressure ulcer stage: with fat layer exposed Qualified Code(s): E11.621 - Type 2 diabetes mellitus with foot ulcer; L97.422 - Non- pressure 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 (4) IVDU (intravenous drug user) Current Visit: No Status: Acute (5) Cellulitis Current Visit: Yes Status: Acute Qualifiers: Site of cellulitis: extremity Site of cellulitis of extremity: lower extremity Laterality: left Qualified Code(s): L03.116 - Cellulitis of left lower limb - Subjective Interval history: No acute events, no complaints. - Constitutional Vitals: Temp Pulse Resp BP Pulse Ox 98.2 F 84 16 154/78 97 08/09/17 23:32 08/09/17 23:32 08/09/17 23:32 08/09/17 23:32 08/09/17 23:32 General appearance: Present: cooperative, A&O X 3, answers questions appropriately Exam: - Head Head exam: atraumatic - Eye Eye exam: Present: normal appearance - ENT ENT exam: normal exam - Neck Neck exam: Present: normal inspection - Chest Chest inspection: Present: normal inspection - Respiratory Respiratory exam: Present: normal lung sounds bilaterally. Absent: respiratory distress - Cardiovascular Cardiovascular exam: Present: regular rate, normal rhythm - Abdominal Exam Abdominal exam: Present: soft, Non-Tender - Extremities Exam Extremities exam: Present: other (Third digit of the left lower extremity shows significant swelling and purulent drainage. There is a diabetic foot ulcer on the plantar surface of the foot that is clean. Warmth and redness extends to the ankle with edema and tenderness) - Neurological Exam Neurological exam: Present: alert, oriented X3 - Psychiatric Psychiatric exam: Present: normal affect, normal mood - Skin Skin exam: Present: warm, dry. left foot/ankle with erythema and edema Internal Medicine: Result - Labs CBC & Chem 7: 08/09/17 04:48 08/09/17 04:48 Labs: Short CBC 08/09/17 Range/Units 04:48 WBC 4.8 (4.3-11.1) K/mcL Hgb 9.3 L D (12.9-16.9) g/dL Hct 28.0 L (37.5-50.1) % Plt Count 144 (140-400) K/mcL Neutrophils # 3.3 (1.6-8.9) K/mcL BMP 08/09/17 04:48 Sodium 138 Potassium 3.8 Chloride 106 Carbon Dioxide 26 BUN 8 Creatinine 0.70 L Glucose 108 H Calcium 8.5 L Consult Discharge Plan - Plan Referrals: Ximena Collazo MD [Primary Care Provider] -
[2017-08-10 04:27] LABS: Basophils % 0.4 %; Eosinophils # 0.2 K/mcL (0.0-0.6); Eosinophils % 4.5 %; Hematocrit 30.5 % (37.5-50.1); Hemoglobin 10.3 g/dL (12.9-16.9); Immature Granulocytes % 0.6 % (0-4); Immature Platelets 2.8 % (1.1-6.1); Lymphocytes % 21.8 %; Mean Corpuscular HGB Conc 33.8 g/dL (31.6-35.5); Mean Corpuscular Hemoglobin 30.6 pg (28.0-33.3); Mean Corpuscular Volume 90.5 fL (83.0-100.0); Monocytes # 0.3 K/mcL (0.0-1.3); Monocytes % 6.8 %; Neutrophils # 3.1 K/mcL (1.6-8.9); Platelet Count 190 K/mcL (140-400); Red Blood Count 3.37 M/mcL (4.19-5.50); Red Cell Distribution Width 14.6 % (11.5-14.5); Segmented Neutrophils % 65.9 %
[2017-08-10 04:55] LABS: BUN/Creatinine Ratio 11 (6-26); Blood Urea Nitrogen 8 mg/dL (8-26); Calcium 8.8 mg/dL (8.6-10.8); Carbon Dioxide 25 mEq/L (19-29); Chloride 107 mEq/L (98-109); Glucose 101 mg/dL (70-99); Osmolality,Calculated 288 (280-300); Potassium 3.9 mEq/L (3.5-4.5); Sodium 140 mEq/L (136-145); eGFR For African Americans > 60 (> 60); eGFR For Non-African Americans > 60 (> 60)
[2017-08-10] MEDS: Vancomycin 1,500 MG in D5% in Water 250 ML IVPB SCH ×3 (05:22→20:03)
[2017-08-10] MEDS: *HR* OxyCODONE Immed Rel 5 MG TABLET PO PRN ×2 (05:27→20:03)
[2017-08-10] MEDS: Piperacillin/Tazobactam 3.375 GM in 0.9 % Sodium Chloride Mini Bag 100 ML IVPB SCH ×2 (09:22→16:36)
--- NOTE | 2017-08-10 14:10 | Anesthesia Evaluation PreOp ---
Date of Encounter: 08/10/17 Time of Encounter: 14:08 - Past History Planned Operation: I&D Left Foot Cardiac History: HTN Pulmonary History: Denies Any Significant HX KILN FIRER HELPER History: Denies Any Significant HX Other Medical History: Diabetes Type II Anesthesia History: No Prior Anesthetic Complications, Past Anesthesia (Knee scope) Alcohol Use: occasionally Drug use: opiates, methamphetamine, IV Drug Use Medications and Allergies Metformin HCl [Glucophage] 1,000 mg PO BID 05/07/17 [History] Escitalopram [Lexapro] 10 mg PO DAILY 08/08/17 [History] Lisinopril [Zestril] 10 mg PO BID 08/08/17 [History] 3 Allergy/AdvReac Type Severity Reaction Status Date / Time No Known Allergies Allergy Verified 05/06/17 15:56 - Meds/Allergy Pre-op Review Medications Reviewed: Yes Allergies Reviewed: Yes Beta Blockers on Current Med List: No Anesthesia Results - Labs 08/10/17 03:39 08/10/17 03:39 Echocardiogram Name: Eh Sharma Date of Study: 05/07/2017 Impressions: LVEF 55-60%. Normal left ventricular size and systolic function. Normal diastolic function of the left ventricle. Normal right ventricular size and function. Mild mitral regurgitation. Mild tricuspid regurgitation. No pulmonary hypertension. - Imaging EKG: report reviewed (SINUS RHYTHM ST ELEVATION, PROBABLY EARLY REPOLARIZATION) Anesthesia Exam O2 Sat O2 Sat by Pulse Oximetry 98 O2 Sat by Pulse Oximetry 95 O2 Sat by Pulse Oximetry 95 O2 Sat by Pulse Oximetry 97 O2 Sat by Pulse Oximetry 96 Vital Signs Temp Pulse Resp BP Pulse Ox 97.4 F L 119 22 152/69 95 08/08/17 13:24 08/08/17 13:24 08/08/17 13:24 08/08/17 13:24 08/08/17 13:24 Vital Signs/O2 Sat, Most Current Temp Pulse Resp BP Pulse Ox 97.7 F 77 14 151/88 98 08/10/17 11:23 08/10/17 11:23 08/10/17 11:23 08/10/17 11:23 08/10/17 11:23 Height: 6'5'' Weight: 289# NPO (# of Hours): > 8 hrs Pain Scale: 0 Pain Scale Used: Numeric (1 - 10) - HEENT Pupil (Motor): Pupils equal, EOMI Mallampati: I Teeth: Normal Oral Opening: Greater than 3 - KILN FIRER HELPER LOC: Oriented KILN FIRER HELPER Motor: Normal RUE, Normal LUE, Normal RLE, Normal LLE, Normal Face KILN FIRER HELPER Sensory: Normal: RUE, LUE, RLE, LLE, Face - Cardiac Rhythm: Regular Murmur: None JVD: No Carotid Bruit: No - Pulmonary Breath Sounds: bilateral Clear Respiratory Effort: Symmetrical Anesthesia Assess/Plan ASA Score: 3 Modified Geneva Scale for Level of Consciousness: Cooperative, oriented, and tranquil Anesthetic Plan: General Autologous Blood: Yes Monitoring Plan: Standard Monitors Recovery Plan: PACU
[2017-08-10] MEDS ORDERED: Bupivacaine/Clonidine Syringe 1 EACH SYRINGE ONE (14:50)
[2017-08-10] MEDS ORDERED: *HR* FentaNYL (PF) 100 MCG/2 ML VIAL ONE (14:55)
[2017-08-10] MEDS ORDERED: Lidocaine -MPF 2% 2 ML VIAL ONE (15:14)
--- NOTE | 2017-08-10 15:42 | Anesthesia Evaluation Post Op ---
Date of Encounter: 08/10/17 Time of Encounter: 15:42 - Vital Signs Vital Signs: Vital Signs/O2 Sat, Most Current Temp Pulse Resp BP Pulse Ox 97.7 F 77 14 151/88 98 08/10/17 11:23 08/10/17 11:23 08/10/17 11:23 08/10/17 11:23 08/10/17 11:23 - Lungs Lungs: Clear Ascult./Percussion - Airway Airway: Non-obstructed - Cardiovascular Regular Rate - Mental Status Mental Status: Alert & Oriented, Answers Appropriately - Pain Pain Scale: 0 Pain Scale used: Numeric (1 - 10) - Nausea Vomiting Nausea Vomiting: Not Present - Hydration Hydration: NPO, Has not voided - Discharge PostOp Status: Transfer Patient to floor
--- NOTE | 2017-08-10 17:15 | Operative Note ---
Date of procedure: 08/10/17 Pre-op diagnosis: Left foot infection, third digit infection Post-op diagnosis: same Procedure: Incision and drainage of third digit, left foot. Anesthesia: MAC Surgeon: Temo Slater Estimated blood loss (cc): 4 Specimen: Cultures obtained Condition: stable Disposition: floor Procedure in Detail: The patient was administered IV antibiotics. The patient was transported to the operative room and placed on operating table. Following anesthesia the extremity was scrubbed prepped and draped in the usual aseptic fashion. A timeout was performed. An 2 cm incision was made on the plantar aspect of the third digit and deepened through subcutaneous tissue with care taken to identify and retract all vital neurovascular structures. Mild purulence was expressed. The ulceration which measured approximately 2 cm in diameter and 1 cm deep on the plantar aspect of the third metatarsal head was also incised and a circumferential incision was made around the ulceration removing the hyperkeratotic tissue and allowing the site to drain, mild purulence was noted from that site. The lateral dorsal incision was made along the third digit and purulence was expressed from that site. Overall the purulence was not incredibly significant likely secondary to the incision and drainage initially performed by the emergency department. Cultures were obtained and pulse irrigation was performed. Dry sterile dressings were applied. The patient tolerated the procedure and anesthesia well and was transported to the recovery room with vital signs stable and vascular status intact to both feet. The patient will likely need long-term antibiotics due to the purulence that was adjacent to the bone. The patient will likely need to remain nonweightbearing until the site is healed. Dressing changes will be performed daily on the site after discharge but twice daily while the patient is in house. The patient may need an additional incision and drainage with possible debridement within the next 3-4 days. It would be beneficial to consult infectious disease for long-term antibiotic treatment.
--- NOTE | 2017-08-10 22:59 | Internal Med Progress Note ---
Date of Encounter: 08/10/17 Time of Encounter: 17:53 - Assessment and plan (1) Toe infection Current Visit: Yes Status: Acute Assessment and plan: s/p repeat I&D and washout today, tolerated well. Podiatry recommendations available on operation note and reviewed. Agree with ID consult for long-term antibiotic treatment, will consult in AM. (2) Left foot infection Current Visit: Yes Status: Acute (3) Type 2 diabetes mellitus Current Visit: No Status: Chronic Qualifiers: Diabetes mellitus complication status: with diabetic arthropathy Diabetes mellitus complication detail: with neuropathic arthropathy Diabetes mellitus care home insulin use: without buttermaker helper use Qualified Code(s): E11.610 - Type 2 diabetes mellitus with diabetic neuropathic arthropathy (4) Diabetic foot ulcer Current Visit: No Status: Chronic Qualifiers: Diabetic foot ulcer location: midfoot Diabetes mellitus type: type 2 Laterality: left Non-pressure ulcer stage: with fat layer exposed Qualified Code(s): E11.621 - Type 2 diabetes mellitus with foot ulcer; L97.422 - 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 Pt tolerated procedure well. No complaints. - Constitutional Vitals: Temp Pulse Resp BP Pulse Ox 98.6 F 67 15 148/75 97 08/10/17 19:47 08/10/17 19:47 08/10/17 19:47 08/10/17 19:47 08/10/17 19:47 General appearance: Present: cooperative, A&O X 3, answers questions appropriately Internal Medicine: Result - Labs CBC & Chem 7: 08/10/17 03:39 08/10/17 03:39 Labs: Short CBC 08/10/17 Range/Units 03:39 WBC 4.7 (4.3-11.1) K/mcL Hgb 10.3 L (12.9-16.9) g/dL Hct 30.5 L (37.5-50.1) % Plt Count 190 (140-400) K/mcL Neutrophils # 3.1 (1.6-8.9) K/mcL BMP 08/10/17 03:39 Sodium 140 Potassium 3.9 Chloride 107 Carbon Dioxide 25 BUN 8 Creatinine 0.70 L Glucose 101 H Calcium 8.8 - VTE Documentation of Mechanical Device: Intermittent pneumatic compression device Consult Discharge Plan - Plan Referrals: Ximena Collazo MD [Primary Care Provider] -
[2017-08-11] MEDS: Piperacillin/Tazobactam 3.375 GM in 0.9 % Sodium Chloride Mini Bag 100 ML IVPB SCH ×3 (00:09→17:19)
[2017-08-11] MEDS: *HR* OxyCODONE Immed Rel 5 MG TABLET PO PRN ×2 (04:31→17:19)
[2017-08-11 04:44] LABS: Basophils % 0.4 %; Eosinophils # 0.2 K/mcL (0.0-0.6); Eosinophils % 3.3 %; Hematocrit 30.4 % (37.5-50.1); Hemoglobin 10.3 g/dL (12.9-16.9); Immature Granulocytes % 0.2 % (0-4); Lymphocytes # 1.3 K/mcL (0.6-4.6); Lymphocytes % 24.3 %; Mean Corpuscular HGB Conc 33.9 g/dL (31.6-35.5); Mean Corpuscular Hemoglobin 30.1 pg (28.0-33.3); Mean Corpuscular Volume 88.9 fL (83.0-100.0); Mean Platelet Volume 9.3 fL (9.4-12.4); Monocytes # 0.5 K/mcL (0.0-1.3); Monocytes % 8.2 %; Neutrophils # 3.5 K/mcL (1.6-8.9); Platelet Count 178 K/mcL (140-400); Red Blood Count 3.42 M/mcL (4.19-5.50); Red Cell Distribution Width 14.3 % (11.5-14.5); Segmented Neutrophils % 63.6 %
[2017-08-11 05:01] LABS: BUN/Creatinine Ratio 10 (6-26); Blood Urea Nitrogen 8 mg/dL (8-26); Calcium 8.7 mg/dL (8.6-10.8); Carbon Dioxide 27 mEq/L (19-29); Chloride 104 mEq/L (98-109); Glucose 102 mg/dL (70-99); Osmolality,Calculated 287 (280-300); Potassium 3.9 mEq/L (3.5-4.5); Sodium 139 mEq/L (136-145); eGFR For African Americans > 60 (> 60); eGFR For Non-African Americans > 60 (> 60)
[2017-08-11] MEDS: Vancomycin 1,500 MG in D5% in Water 250 ML IVPB SCH ×3 (05:36→21:40)
--- NOTE | 2017-08-11 22:06 | Internal Med Progress Note ---
Date of Encounter: 08/11/17 Time of Encounter: 14:03 - Assessment and plan (1) Toe infection Current Visit: Yes Status: Acute Assessment and plan: s/p repeat I&D with washout 08/10, tolerated well. Podiatry recommendations available on operation note and reviewed. ID consult services are currently not available. Needs PICC placed, which can be done Sunday. (2) Left foot infection Current Visit: Yes Status: Acute (3) Type 2 diabetes mellitus Current Visit: No Status: Chronic Qualifiers: Diabetes mellitus complication status: with diabetic arthropathy Diabetes mellitus complication detail: with neuropathic arthropathy Diabetes mellitus intermodal dispatcher insulin use: without intermodal dispatcher use Qualified Code(s): E11.610 - Type 2 diabetes mellitus with diabetic neuropathic arthropathy (4) Diabetic foot ulcer Current Visit: No Status: Chronic Qualifiers: Diabetic foot ulcer location: midfoot Diabetes mellitus type: type 2 Laterality: left Non-pressure ulcer stage: with fat layer exposed Qualified Code(s): E11.621 - Type 2 diabetes mellitus with foot ulcer; L97.422 - 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 08/11: No complaints. - Constitutional Vitals: Temp Pulse Resp BP Pulse Ox 98.6 F 68 16 151/77 97 08/11/17 19:48 08/11/17 19:48 08/11/17 19:48 08/11/17 19:48 08/11/17 19:48 General appearance: Present: cooperative, A&O X 3, answers questions appropriately Exam: - Respiratory Respiratory exam: Present: normal lung sounds bilaterally. Absent: respiratory distress - Cardiovascular Cardiovascular exam: Present: regular rate, normal rhythm - Abdominal Exam Abdominal exam: Present: soft, Non-Tender - Extremities Exam Extremities exam: Present: other (Third digit of the left lower extremity shows significant swelling and purulent drainage. There is a diabetic foot ulcer on the plantar surface of the foot that is clean. Warmth and redness extends to the ankle with edema and tenderness) - Neurological Exam Neurological exam: Present: alert, oriented X3 - Skin Skin exam: Present: warm, dry. left foot/ankle with erythema and edema Internal Medicine: Result - Labs CBC & Chem 7: 08/11/17 04:35 08/11/17 04:35 Labs: Short CBC 08/11/17 Range/Units 04:35 WBC 5.5 (4.3-11.1) K/mcL Hgb 10.3 L (12.9-16.9) g/dL Hct 30.4 L (37.5-50.1) % Plt Count 178 (140-400) K/mcL Neutrophils # 3.5 (1.6-8.9) K/mcL BMP 08/11/17 04:35 Sodium 139 Potassium 3.9 Chloride 104 Carbon Dioxide 27 BUN 8 Creatinine 0.79 Glucose 102 H Calcium 8.7 - VTE Documentation of Mechanical Device: Intermittent pneumatic compression device Consult Discharge Plan - Plan Referrals: Ximena Collazo MD [Primary Care Provider] -
[2017-08-12] MEDS: Piperacillin/Tazobactam 3.375 GM in 0.9 % Sodium Chloride Mini Bag 100 ML IVPB SCH ×3 (00:50→16:04)
[2017-08-12] MEDS: Vancomycin 1,500 MG in D5% in Water 250 ML IVPB SCH ×3 (04:59→21:37)
[2017-08-12 06:32] LABS: Basophils % 0.6 %; Eosinophils # 0.2 K/mcL (0.0-0.6); Eosinophils % 4.3 %; Hematocrit 33.5 % (37.5-50.1); Hemoglobin 11.3 g/dL (12.9-16.9); Immature Granulocytes % 1.2 % (0-4); Lymphocytes # 1.3 K/mcL (0.6-4.6); Lymphocytes % 26.2 %; Mean Corpuscular HGB Conc 33.7 g/dL (31.6-35.5); Mean Corpuscular Hemoglobin 29.6 pg (28.0-33.3); Mean Corpuscular Volume 87.7 fL (83.0-100.0); Mean Platelet Volume 9.5 fL (9.4-12.4); Monocytes # 0.4 K/mcL (0.0-1.3); Neutrophils # 3.1 K/mcL (1.6-8.9); Platelet Count 198 K/mcL (140-400); Red Blood Count 3.82 M/mcL (4.19-5.50); Segmented Neutrophils % 59.7 %
[2017-08-12 06:42] LABS: BUN/Creatinine Ratio 10 (6-26); Blood Urea Nitrogen 8 mg/dL (8-26); Carbon Dioxide 27 mEq/L (19-29); Chloride 103 mEq/L (98-109); Potassium 3.8 mEq/L (3.5-4.5); Sodium 138 mEq/L (136-145); eGFR For African Americans > 60 (> 60)
[2017-08-12 06:43] LABS: Calcium 8.6 mg/dL (8.6-10.8); Glucose 127 mg/dL (70-99); Osmolality,Calculated 286 (280-300); eGFR For Non-African Americans > 60 (> 60)
--- NOTE | 2017-08-12 18:31 | Internal Med Progress Note ---
Date of Encounter: 08/13/17 Time of Encounter: 17:01 - Assessment and plan (1) Toe infection Current Visit: Yes Status: Acute Assessment and plan: s/p repeat I&D with washout 08/10, tolerated well. ID consult services are currently not available. Needs PICC placed, which can be done Sunday. (2) Left foot infection Current Visit: Yes Status: Acute (3) Type 2 diabetes mellitus Current Visit: No Status: Chronic Qualifiers: Diabetes mellitus complication status: with diabetic arthropathy Diabetes mellitus complication detail: with neuropathic arthropathy Diabetes mellitus snf insulin use: without termination clerk use Qualified Code(s): E11.610 - Type 2 diabetes mellitus with diabetic neuropathic arthropathy (4) Diabetic foot ulcer Current Visit: No Status: Chronic Qualifiers: Diabetic foot ulcer location: midfoot Diabetes mellitus type: type 2 Laterality: left Non-pressure ulcer stage: with fat layer exposed Qualified Code(s): E11.621 - Type 2 diabetes mellitus with foot ulcer; L97.422 - Non- pressure 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; L97.422 - Non-pressure 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; L97.422 - Non-pressure 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 Currently has no complaints, denies fevers/ chills, pain. - Constitutional Vitals: Temp Pulse Resp BP Pulse Ox 98.5 F 74 16 116/75 97 08/12/17 16:15 08/12/17 16:15 08/12/17 16:15 08/12/17 16:15 08/12/17 16:15 General appearance: Present: cooperative, A&O X 3, answers questions appropriately Exam: - Respiratory Respiratory exam: Present: normal lung sounds bilaterally. Absent: respiratory distress - Cardiovascular Cardiovascular exam: Present: regular rate, normal rhythm - Abdominal Exam Abdominal exam: Present: soft, Non-Tender - Extremities Exam Extremities exam: Present: other (Third digit of the left lower extremity shows significant swelling and purulent drainage. There is a diabetic foot ulcer on the plantar surface of the foot that is clean. Warmth and redness extends to the ankle with edema and tenderness) - Neurological Exam Neurological exam: Present: alert, oriented X3 - Skin Skin exam: Present: warm, dry. left foot/ankle with erythema and edema Internal Medicine: Result - Labs CBC & Chem 7: 08/12/17 05:43 08/12/17 05:43 Labs: Short CBC 08/12/17 Range/Units 05:43 WBC 5.1 (4.3-11.1) K/mcL Hgb 11.3 L (12.9-16.9) g/dL Hct 33.5 L (37.5-50.1) % Plt Count 198 (140-400) K/mcL Neutrophils # 3.1 (1.6-8.9) K/mcL BMP 08/12/17 05:43 Sodium 138 Potassium 3.8 Chloride 103 Carbon Dioxide 27 BUN 8 Creatinine 0.82 Glucose 127 H Calcium 8.6 - VTE Documentation of Mechanical Device: Intermittent pneumatic compression device Consult Discharge Plan - Plan Referrals: Ximena Collazo MD [Primary Care Provider] -
[2017-08-12] MEDS: *HR* Morphine 2 MG/ML SYRINGE IVP PRN (19:29)
[2017-08-12] MEDS: *HR* OxyCODONE Immed Rel 5 MG TABLET PO PRN (23:18)
[2017-08-13] MEDS: Piperacillin/Tazobactam 3.375 GM in 0.9 % Sodium Chloride Mini Bag 100 ML IVPB SCH ×3 (00:26→16:20)
[2017-08-13] MEDS: *HR* Morphine 2 MG/ML SYRINGE IVP PRN ×4 (00:30→20:34)
[2017-08-13 04:43] LABS: Basophils % 0.5 %; Eosinophils # 0.2 K/mcL (0.0-0.6); Eosinophils % 3.7 %; Hematocrit 36.1 % (37.5-50.1); Hemoglobin 12.4 g/dL (12.9-16.9); Immature Granulocytes % 0.9 % (0-4); Lymphocytes # 1.8 K/mcL (0.6-4.6); Lymphocytes % 27.3 %; Mean Corpuscular HGB Conc 34.3 g/dL (31.6-35.5); Mean Corpuscular Hemoglobin 29.9 pg (28.0-33.3); Mean Platelet Volume 9.4 fL (9.4-12.4); Monocytes # 0.5 K/mcL (0.0-1.3); Neutrophils # 3.9 K/mcL (1.6-8.9); Platelet Count 213 K/mcL (140-400); Red Blood Count 4.15 M/mcL (4.19-5.50); Red Cell Distribution Width 13.9 % (11.5-14.5); Segmented Neutrophils % 60.6 %
[2017-08-13 04:53] LABS: BUN/Creatinine Ratio 13 (6-26); Blood Urea Nitrogen 10 mg/dL (8-26); Calcium 8.7 mg/dL (8.6-10.8); Carbon Dioxide 27 mEq/L (19-29); Chloride 104 mEq/L (98-109); Glucose 90 mg/dL (70-99); Osmolality,Calculated 287 (280-300); Potassium 3.9 mEq/L (3.5-4.5); Sodium 139 mEq/L (136-145); eGFR For African Americans > 60 (> 60); eGFR For Non-African Americans > 60 (> 60)
[2017-08-13] MEDS: Vancomycin 1,500 MG in D5% in Water 250 ML IVPB SCH ×3 (05:08→20:33)
--- NOTE | 2017-08-13 07:27 | Podiatry Progress Note ---
Date of Encounter: 08/12/17 Time of Encounter: 07:25 - Assessment and Plan (1) Toe infection Current Visit: Yes Status: Acute We will consider an additional washout tomorrow. Patient will need daily dressing changes and continued antibiotics. Infectious disease would be beneficial to monitor long-term IV antibiotics as the patient will likely need 6 weeks or so. Subjective Principal diagnosis: Left foot infection Interval history: Left foot appears to be doing better according to the patient. Patient relates that his pain has slightly decreased. Patient relates that overall he is feeling better. Patient denies any other new signs or symptoms. Objective - Vital Signs Vital Signs: Vital Signs Temp Pulse Resp BP Pulse Ox 08/13/17 06:57 97.7 F 62 18 154/80 96 08/13/17 04:21 97.7 F 71 16 156/81 95 08/12/17 23:55 98.4 F 55 14 134/68 95 08/12/17 19:00 98.0 F 72 16 142/79 95 08/12/17 16:15 98.5 F 74 16 116/75 97 08/12/17 08:22 97.7 F 69 17 156/86 93 Intake and Output 08/12/17 08/12/17 08/13/17 15:59 23:59 07:59 Intake Total 600 / 600 350 / 350 400 / 400 Output Total 700 / 700 1100 / 1100 Balance -100 / -100 -750 / -750 400 / 400 Intake: IV Fluids 600 / 600 350 / 350 100 / 100 Zosyn 3.375 GM In 0.9 % Sodium 100 / 100 100 / 100 100 / 100 Chloride (Mini-Bag +) 100 ML @ 25 mls/hr IVPB Q8HR [facility] Rx#: [id number] Vancocin 1,500 MG In Dextrose 5 500 / 500 250 / 250 % 250 ML @ 166.67 mls/hr IVPB Q8H D[facility] Rx#:[id number] Oral 300 / 300 Output: Urine 700 / 700 1100 / 1100 Other: # Voids 1 Blood Glucose* 107 111 108 - Exam Exam: Capillary fill time intact to level the digits. Continued drainage noted from the left foot. No other new open lesions, abrasions, or ulcerations. Sensation decreased consistent with peripheral neuropathy. - Lab Result Diagrams: 08/13/17 03:55 08/13/17 03:55 Labs: Abnormal lab results RBC 4.15 M/mcL (4.19-5.50) L 08/13/17 03:55 Hgb 12.4 g/dL (12.9-16.9) L 08/13/17 03:55 Hct 36.1 % (37.5-50.1) L 08/13/17 03:55 ESR 65 mm/hr (0-10) H 08/09/17 13:35 POC Glucose 108 (58-89) H 08/13/17 06:59 Direct Bilirubin 0.6 mg/dL (0.0-0.5) H 08/08/17 14:23 C-Reactive Protein 209 mg/L (Less than 5) H 08/08/17 19:15 Albumin 2.9 g/dL (3.5-5.0) L 08/08/17 14:23 Globulin 4.4 g/dL (2.4-3.5) H 08/08/17 14:23 Albumin/Globulin Ratio 0.7 (1.1-2.2) L 08/08/17 14:23 Microbiology, Last 48 Hours 08/10/17 15:15 Anaerobic Culture - Preliminary Left Foot At this time, no anaerobic growth is present. The culture will be finalized after 5 days of incubation. 08/10/17 15:15 Surgical Biopsy Culture - Final Left Foot Methicillin Resistant S.aureus - VTE Documentation of Mechanical Device: Intermittent pneumatic compression device Consult Discharge Plan - Plan Referrals: Ximena Collazo MD [Primary Care Provider] -
[2017-08-13 07:53] LABS: ANA IgG by ELISA NONE DETECTED (None Detected)
[2017-08-13 07:53] LABS: Ribonucleic Protein Antibody 0 AU/mL (0-40); SSA 52 (Anti-RO) Antibody 2 AU/mL (0-40); SSA 60 (Anti-RO) Antibody 11 AU/mL (0-40)
[2017-08-13] MEDS: *HR* Heparin 5,000 UNIT/ML VIAL SQ SCH ×2 (09:20→20:33)
[2017-08-13 11:19] LABS: HIV Qualitative PCR(Detection) NOT DETECTED (Not Detected)
[2017-08-13] MEDS ORDERED: Dextrose Gel 15 GM PO PRN ×2 (12:17)
[2017-08-13] MEDS ORDERED: *HR* Dextrose 50 % in Water (Syg) 50 ML SYRINGE IVP PRN (12:17)
[2017-08-13] MEDS ORDERED: D5% in Water 1,000 ML IVC PRN (12:17)
--- NOTE | 2017-08-13 16:05 | Internal Med Progress Note ---
Date of Encounter: 08/13/17 Time of Encounter: 16:06 - Assessment and plan (1) Toe infection Current Visit: Yes Status: Acute Assessment and plan: s/p repeat I&D with washout 08/10, tolerated well. Needs PICC placed for usp antibiotic therapy. Probably will need placement to a facility due to IV drug abuse history. * Consult ID in AM for discharge recommendations (2) Left foot infection Current Visit: Yes Status: Acute (3) Type 2 diabetes mellitus Current Visit: No Status: Chronic Qualifiers: Diabetes mellitus complication status: with diabetic arthropathy Diabetes mellitus complication detail: with neuropathic arthropathy Diabetes mellitus usp insulin use: without terminal gauger use Qualified Code(s): E11.610 - Type 2 diabetes mellitus with diabetic neuropathic arthropathy (4) Diabetic foot ulcer Current Visit: No Status: Chronic Qualifiers: Diabetic foot ulcer location: midfoot Diabetes mellitus type: type 2 Laterality: left Non-pressure ulcer stage: with fat layer exposed Qualified Code(s): E11.621 - Type 2 diabetes mellitus with foot ulcer; L97.422 - Non- pressure 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; L97.422 - 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 - Constitutional Vitals: Temp Pulse Resp BP Pulse Ox 97.9 F 60 18 127/71 95 08/13/17 11:02 08/13/17 11:02 08/13/17 11:02 08/13/17 11:02 08/13/17 11:02 General appearance: Present: cooperative, A&O X 3, answers questions appropriately Exam: - Respiratory Respiratory exam: Present: normal lung sounds bilaterally. Absent: respiratory distress - Cardiovascular Cardiovascular exam: Present: regular rate, normal rhythm - Abdominal Exam Abdominal exam: Present: soft, Non-Tender - Extremities Exam Extremities exam: Present: other (Third digit of the left lower extremity shows significant swelling and purulent drainage. There is a diabetic foot ulcer on the plantar surface of the foot that is clean. Warmth and redness extends to the ankle with edema and tenderness) - Neurological Exam Neurological exam: Present: alert, oriented X3 - Skin Skin exam: Present: warm, dry. left foot/ankle with erythema and edema Internal Medicine: Result - Labs CBC & Chem 7: 08/13/17 03:55 08/13/17 03:55 Labs: Short CBC 08/13/17 Range/Units 03:55 WBC 6.4 (4.3-11.1) K/mcL Hgb 12.4 L (12.9-16.9) g/dL Hct 36.1 L (37.5-50.1) % Plt Count 213 (140-400) K/mcL Neutrophils # 3.9 (1.6-8.9) K/mcL BMP 08/13/17 03:55 Sodium 139 Potassium 3.9 Chloride 104 Carbon Dioxide 27 BUN 10 Creatinine 0.77 Glucose 90 Calcium 8.7 - VTE Documentation of Mechanical Device: Intermittent pneumatic compression device Consult Discharge Plan - Plan Referrals: Xmiena Collazo MD [Primary Care Provider] -
[2017-08-13] MEDS: *HR* OxyCODONE Immed Rel 5 MG TABLET PO PRN ×2 (16:20→22:21)
[2017-08-13] MEDS: Insulin LISPRO 300 UNITS/3 ML VIAL SQ SCH ×2 (16:23→20:41)
--- NOTE | 2017-08-13 19:19 | Anesthesia Evaluation PreOp ---
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 History: Denies Any Significant HX Other Medical History: Diabetes Type II Anesthesia History: No Prior Anesthetic Complications, Past Anesthesia Alcohol Use: occasionally Drug use: opiates, methamphetamine, IV Drug Use Medications and Allergies Metformin HCl [Glucophage] 1,000 mg PO BID 05/07/17 [History] Escitalopram [Lexapro] 10 mg PO DAILY 08/08/17 [History] Lisinopril [Zestril] 10 mg PO BID 08/08/17 [History] 3 Allergy/AdvReac Type Severity Reaction Status Date / Time No Known Allergies Allergy Verified 05/06/17 15:56 - Meds/Allergy Pre-op Review Medications Reviewed: Yes Allergies Reviewed: Yes Beta Blockers on Current Med List: No Anesthesia Results - Labs 08/13/17 03:55 08/13/17 03:55 - Imaging EKG: report reviewed (SINUS RHYTHM ST ELEVATION, PROBABLY EARLY REPOLARIZATION) Anesthesia Exam O2 Sat O2 Sat by Pulse Oximetry 95 O2 Sat by Pulse Oximetry 96 O2 Sat by Pulse Oximetry 96 O2 Sat by Pulse Oximetry 95 O2 Sat by Pulse Oximetry 95 Vital Signs Temp Pulse Resp BP Pulse Ox 97.4 F L 119 22 152/69 95 08/08/17 13:24 08/08/17 13:24 08/08/17 13:24 08/08/17 13:24 08/08/17 13:24 Vital Signs/O2 Sat, Most Current Temp Pulse Resp BP Pulse Ox 97.9 F 60 18 127/71 95 08/13/17 11:02 08/13/17 11:02 08/13/17 11:02 08/13/17 11:02 08/13/17 11:02 Height: 6'5'' Weight: 289# NPO (# of Hours): > 8 hrs Pain Scale: 0 Pain Scale Used: Numeric (1 - 10) - HEENT Pupil (Motor): Pupils equal, EOMI Mallampati: I Teeth: Normal Oral Opening: Greater than 3 - ELECTRONICS WORKER LOC: Oriented ELECTRONICS WORKER Motor: Normal RUE, Normal LUE, Normal RLE, Normal LLE, Normal Face ELECTRONICS WORKER Sensory: Normal: RUE, LUE, RLE, LLE, Face - Cardiac Rhythm: Regular Murmur: None JVD: No Carotid Bruit: No - Pulmonary Breath Sounds: bilateral Clear Respiratory Effort: Symmetrical Anesthesia Assess/Plan ASA Score: 3 Modified Burns Scale for Level of Consciousness: Cooperative, oriented, and tranquil Anesthetic Plan: MAC Autologous Blood: Yes Monitoring Plan: Standard Monitors Recovery Plan: Other
[2017-08-14] MEDS: *HR* Morphine 2 MG/ML SYRINGE IVP PRN ×3 (01:04→23:25)
[2017-08-14] MEDS: Piperacillin/Tazobactam 3.375 GM in 0.9 % Sodium Chloride Mini Bag 100 ML IVPB SCH ×2 (01:04→09:29)
[2017-08-14] MEDS: Vancomycin 1,500 MG in D5% in Water 250 ML IVPB SCH (05:12)
[2017-08-14 06:59] LABS: Basophils % 0.4 %; Eosinophils # 0.3 K/mcL (0.0-0.6); Hematocrit 38.5 % (37.5-50.1); Hemoglobin 13.3 g/dL (12.9-16.9); Immature Granulocytes % 1.1 % (0-4); Lymphocytes # 1.8 K/mcL (0.6-4.6); Lymphocytes % 25.5 %; Mean Corpuscular HGB Conc 34.5 g/dL (31.6-35.5); Mean Corpuscular Hemoglobin 30.1 pg (28.0-33.3); Mean Corpuscular Volume 87.1 fL (83.0-100.0); Mean Platelet Volume 9.7 fL (9.4-12.4); Monocytes # 0.5 K/mcL (0.0-1.3); Monocytes % 6.9 %; Neutrophils # 4.3 K/mcL (1.6-8.9); Platelet Count 213 K/mcL (140-400); Red Blood Count 4.42 M/mcL (4.19-5.50); Red Cell Distribution Width 14.2 % (11.5-14.5); Segmented Neutrophils % 62.1 %
[2017-08-14 07:13] LABS: BUN/Creatinine Ratio 14 (6-26); Blood Urea Nitrogen 12 mg/dL (8-26); Calcium 9.4 mg/dL (8.6-10.8); Carbon Dioxide 26 mEq/L (19-29); Chloride 102 mEq/L (98-109); Glucose 69 mg/dL (70-99); Osmolality,Calculated 286 (280-300); Potassium 3.9 mEq/L (3.5-4.5); Sodium 139 mEq/L (136-145); eGFR For African Americans > 60 (> 60); eGFR For Non-African Americans > 60 (> 60)
[2017-08-14] MEDS: Insulin LISPRO 300 UNITS/3 ML VIAL SQ SCH ×4 (07:46→23:06)
[2017-08-14] MEDS: *HR* Heparin 5,000 UNIT/ML VIAL SQ SCH ×2 (09:30→20:01)
[2017-08-14] MEDS: *HR* OxyCODONE Immed Rel 5 MG TABLET PO PRN ×2 (09:35→20:01)
[2017-08-14] MEDS: Vancomycin 1,750 MG in D5% in Water 500 ML IVPB SCH (14:28)
--- NOTE | 2017-08-14 14:34 | Podiatry Progress Note ---
Date of Encounter: 08/13/17 Time of Encounter: 14:32 - Assessment and Plan (1) Toe infection Current Visit: Yes Status: Acute Due to the severity of the infection we will perform another washout. Patient was instructed that we would need to do another incision and drainage/ irrigation and debridement of the site. Patient was agreeable. The procedure discussed was irrigation and debridement to the left foot with possible amputation of the third digit.Patient was informed of the risks and complications of surgery. These may include but are not limited to the following ; nerve damage, numbness, tingling, RSD/CRPS, loss of motor function, loss of toe, loss of limb, loss of life, ischemia, wound healing issues, infection, scarring, keloid formation, continued pain, arthritis, non-union, mal-union, prominent hardware, displaced hardware, reaction to hardware, the need to remove hardware, bruising, continued limp, the need for future surgery, over correction, under correction, chronic swelling, the need for physical therapy, stiffness of joints, ulceration, slow healing, wound dehiscence, reaction to implant, reaction to sutures. The patient was informed of the possible conservative treatments available which may include but are not limited to the following: Orthotics, bracing, non -weight bearing, physical therapy, padding, taping, steroid injections, NSAIDS, casting. The patient was given the option to seek a second opinion. It was explained that surgery is an art and not an exact science therefore results cannot be guaranteed. All the patients questions and concerns were addressed. Patient agrees to have the surgery despite the possible risks and complications. Absolutely no guarantees were given or implied. Subjective Principal diagnosis: Left foot infection Interval history: Patient states that he has a mild pain in his left foot. Patient relates that overall he is feeling pretty good. Patient denies any other new signs or symptoms. Objective - Vital Signs Vital Signs: Vital Signs Temp Pulse Resp BP Pulse Ox 08/14/17 10:59 97.8 F 62 16 133/75 93 08/14/17 07:40 97.9 F 65 16 141/82 95 08/14/17 04:28 97.7 F 53 16 139/82 95 08/13/17 23:38 97.9 F 68 16 164/72 95 08/13/17 20:13 98.2 F 56 16 147/79 97 Intake and Output 08/13/17 08/14/17 08/14/17 23:59 07:59 15:59 Intake Total 700 / 700 100 / 100 Output Total 675 / 675 850 / 850 Balance 25 / 25 -750 / -750 Intake: IV Fluids 600 / 600 100 / 100 Zosyn 3.375 GM In 0.9 % Sodium 100 / 100 100 / 100 Chloride (Mini-Bag +) 100 ML @ 25 mls/hr IVPB Q8HR [facility] Rx#: [id number] Vancocin 1,500 MG In Dextrose 5 500 / 500 % 250 ML @ 166.67 mls/hr IVPB Q8H [facility] Rx#:[id number] Oral 100 / 100 Output: Urine 675 / 675 850 / 850 Other: Meal Dinner Percent of Meal Consumed 100% Weight 126 kg Blood Glucose* 130 94 93 Patient Weight 08/14/17 23:59 Weight 126 kg - Exam Exam: Continued edema and erythema noted to the left foot but significantly decreased from prior exam. No new open lesions, abrasions, or ulcerations. Pedal pulses palpable. Capillary fill time intact to the digits. Sensation diminished consistent with peripheral neuropathy. - Lab Result Diagrams: 08/14/17 04:49 08/14/17 04:49 Labs: Abnormal lab results ESR 76 mm/hr (0-10) H 08/14/17 04:49 Glucose 69 mg/dL (70-99) L 08/14/17 04:49 POC Glucose 130 (58-89) H 08/13/17 20:08 Direct Bilirubin 0.6 mg/dL (0.0-0.5) H 08/08/17 14:23 C-Reactive Protein 23 mg/L (Less than 5) H 08/14/17 04:49 Albumin 2.9 g/dL (3.5-5.0) L 08/08/17 14:23 Globulin 4.4 g/dL (2.4-3.5) H 08/08/17 14:23 Albumin/Globulin Ratio 0.7 (1.1-2.2) L 08/08/17 14:23 Vancomycin Trough 20.6 mcg/mL (10-20) H* 08/14/17 11:39 Microbiology, Last 48 Hours 08/10/17 15:15 Anaerobic Culture - Preliminary Left Foot At this time, no anaerobic growth is present. The culture will be finalized after 5 days of incubation. 08/10/17 15:15 Surgical Biopsy Culture - Final Left Foot Methicillin Resistant S.aureus - VTE Documentation of Mechanical Device: Intermittent pneumatic compression device Consult Discharge Plan - Plan Referrals: Ximena Collazo MD [Primary Care Provider] -
[2017-08-14] MEDS ORDERED: Ondansetron 4 MG/2 ML VIAL ONE (15:10)
[2017-08-14] MEDS ORDERED: *HR* FentaNYL (PF) 100 MCG/2 ML VIAL ONE (15:10)
[2017-08-14] MEDS ORDERED: *HR* Midazolam HCl 2 MG/2 ML VIAL ONE (15:10)
[2017-08-14] MEDS ORDERED: Lidocaine -MPF 2% 2 ML VIAL ONE (15:10)
[2017-08-14] MEDS ORDERED: Propofol 500 MG/50 ML INFUS..BTL ONE (15:10)
--- NOTE | 2017-08-14 15:21 | Internal Med Progress Note ---
Date of Encounter: 08/14/17 Time of Encounter: 15:19 - Assessment and plan (1) Toe infection Current Visit: Yes Status: Acute Assessment and plan: s/p I&D with washout 08/10 Reviewed operative notes.. mentioned pus around the bone.. so need care home IV abx will consult ID for further abx management as an out pt Scheduled for another wash out by cooking chef today wound cx from 08/08 - MRSA, Osman Silva Surgical biopsy culture 08/10/17 growing MRSA only so mostly he may need Vanco only will d/c Zosyn after talking to ID (2) Cellulitis of left foot due to methicillin-resistant Staphylococcus aureus Current Visit: Yes Status: Acute Assessment and plan: on Vanco (3) Type 2 diabetes mellitus Current Visit: No Status: Chronic Assessment and plan: on ISS Qualifiers: Diabetes mellitus complication status: with diabetic arthropathy Diabetes mellitus complication detail: with neuropathic arthropathy 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: without care home use Qualified Code(s): E11.610 - Type 2 diabetes mellitus with diabetic neuropathic arthropathy (4) Diabetic foot ulcer Current Visit: No Status: Chronic Assessment and plan: need close f/u with cooking chef Qualifiers: Diabetic foot ulcer location: midfoot Diabetes mellitus type: type 2 Laterality: left Non-pressure ulcer stage: with fat layer exposed Qualified Code(s): E11.621 - Type 2 diabetes mellitus with foot ulcer; L97.422 - Non- pressure 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; L97.422 - Non-pressure 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; L97.422 - Non-pressure 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; L97.422 - Non-pressure 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 (5) DVT prophylaxis Current Visit: No Status: Acute Assessment and plan: on SCD's may start him on heparin in AM (6) IVDU (intravenous drug user) Current Visit: No Status: Acute Assessment and plan: no signs / symptoms of withdrawl now cont close monitoring - Subjective Interval history: Mr. Sharma is a 32 year old male with history of diabetes with chronic left heel ulcer, recent admission of foot infection and pneumonia, and hypertension presented to ED for one day history of worsening infection of left foot 3rd toe. He got admitted in the hospital and started him on empirical abx Zosyn and Vancomycin. He did go for I & D of Left foot 3rd toe on 08/10/17. He is going for another wash out today. His pain is tolerable with current medication. He denied any CP / SOB. No fever / chills - Constitutional Vitals: Temp Pulse Resp BP Pulse Ox 97.8 F 62 16 133/75 93 08/14/17 10:59 08/14/17 10:59 08/14/17 10:59 08/14/17 10:59 08/14/17 10:59 General appearance: Present: cooperative, A&O X 3, answers questions appropriately - Head Head exam: Present: atraumatic, normal inspection - Neck Neck exam general surgery: Present: supple - Respiratory Respiratory exam: Present: CTAB. Absent: rales, respiratory distress, rhonchi, wheezes - Cardiovascular Cardiovascular exam: Present: RRR, +S1, +S2. Absent: systolic murmur - GI/Abdominal GI/Abdominal exam: Present: normal bowel sounds, soft. Absent: rebound, rigid, tenderness - Extremities Exam Extremities exam: Absent: calf tenderness, pedal edema, tenderness Additional comments: dressing placed over Left foot.. mild swelling noticed around left ankle - Neurological Exam Neurological exam: Present: alert, oriented X3 - Psychiatric Psychiatric exam: Present: normal affect, normal mood Internal Medicine: Result - Labs CBC & Chem 7: 08/14/17 04:49 08/14/17 04:49 Labs: Short CBC 08/14/17 Range/Units 04:49 WBC 7.0 (4.3-11.1) K/mcL Hgb 13.3 (12.9-16.9) g/dL Hct 38.5 (37.5-50.1) % Plt Count 213 (140-400) K/mcL Neutrophils # 4.3 (1.6-8.9) K/mcL BMP 08/14/17 04:49 Sodium 139 Potassium 3.9 Chloride 102 Carbon Dioxide 26 BUN 12 Creatinine 0.84 Glucose 69 L Calcium 9.4 - VTE Documentation of Mechanical Device: Intermittent pneumatic compression device Consult Discharge Plan - Plan Referrals: Ximena Collazo MD [Primary Care Provider] -
[2017-08-14] MEDS: Piperacillin/Tazobactam 3.375 GM/200 ML BAG IVPB SCH ×2 (17:35→23:20)
--- NOTE | 2017-08-14 21:50 | Operative Note ---
Date of procedure: 08/14/17 Pre-op diagnosis: Infection left foot Post-op diagnosis: same Procedure: Irrigation and debridement left foot Anesthesia: [facility] Surgeon: Temo Slater Estimated blood loss (cc): 10 Specimen: Cultures obtained Condition: stable Disposition: PACU Procedure in Detail: The patient was administered IV antibiotics. The patient was transported to the operative room and placed on operating table. Following anesthesia the extremity was scrubbed prepped and draped in the usual aseptic fashion. A timeout was performed. The incision on the dorsal lateral, plantar medial aspect of the third digit was reopened and deepened through subcutaneous tissue with care taken to identify and retract all vital neurovascular structures.The Anomoonix debrider was utilized to debride the tissue, a combination of epidermis, dermis, subcutaneus tissue, fascia was debrided. Cultures were obtained. The purulence was noted to be in contact with bone and possible osteomyelitis could be likely, however there is no bony destruction. After adequate debridement the sites were irrigated and loosely reapproximated with 3-0 nylon. A sterile dressing was applied. The patient tolerated the procedure and anesthesia well and was transported to the recovery room with vital signs stable and vascular status intact to both feet. The patient will be readmitted per anesthesia. The patient will have dressings changed and keep the dressings clean, dry, intact. The patient will remain nonweightbearing.
[2017-08-15] MEDS: Vancomycin 1,750 MG in D5% in Water 500 ML IVPB SCH ×2 (01:20→15:11)
[2017-08-15] MEDS: *HR* OxyCODONE Immed Rel 5 MG TABLET PO PRN ×4 (03:09→19:33)
[2017-08-15 05:52] LABS: Basophils % 0.5 %; Eosinophils # 0.2 K/mcL (0.0-0.6); Eosinophils % 2.8 %; Hematocrit 37.9 % (37.5-50.1); Lymphocytes # 1.5 K/mcL (0.6-4.6); Lymphocytes % 19.1 %; Mean Corpuscular HGB Conc 34.3 g/dL (31.6-35.5); Mean Corpuscular Hemoglobin 29.7 pg (28.0-33.3); Mean Corpuscular Volume 86.7 fL (83.0-100.0); Mean Platelet Volume 9.3 fL (9.4-12.4); Monocytes # 0.8 K/mcL (0.0-1.3); Monocytes % 10.2 %; Neutrophils # 5.2 K/mcL (1.6-8.9); Platelet Count 192 K/mcL (140-400); Red Blood Count 4.37 M/mcL (4.19-5.50); Red Cell Distribution Width 13.9 % (11.5-14.5); Segmented Neutrophils % 66.4 %
[2017-08-15 06:12] LABS: Potassium 4.2 mEq/L (3.5-4.5)
[2017-08-15] MEDS: Insulin LISPRO 300 UNITS/3 ML VIAL SQ SCH ×4 (07:43→23:24)
[2017-08-15] MEDS: Piperacillin/Tazobactam 3.375 GM/200 ML BAG IVPB SCH (09:13)
[2017-08-15] MEDS: *HR* Heparin 5,000 UNIT/ML VIAL SQ SCH ×2 (09:14→19:33)
[2017-08-15] MEDS: *HR* Morphine 2 MG/ML SYRINGE IVP PRN ×2 (12:56→19:43)
--- NOTE | 2017-08-15 13:05 | Podiatry Progress Note ---
Date of Encounter: 08/15/17 Time of Encounter: 12:00 - Assessment and Plan (1) Diabetic foot ulcer Current Visit: No Status: Chronic s/p Irrigation and debridement left foot on 08/15/17 Assessed at bedside, dressing changed- wet to dry (saline) applied. Patient has been accepted to [facility] in [place] Pending I&D consult for antibiotic coverage-currently on vanc and zosyn- wound cultures MRSA + will likely only need vanc on discharge, awaiting ID recommendations. Ok for discharge when cleared per ID and insurance is accepted per [facility] BID wet to dry (saline) dressing changes to surgical area and ulceration to plantar aspect of foot Non weight bearing to LLE. Since patient will be admitted to [facility]- they will be managing foot after discharge Please obtain post operative shoe to be placed on foot for protection when transferring Qualifiers: Diabetic foot ulcer location: midfoot Diabetes mellitus type: type 2 Laterality: left Non-pressure ulcer stage: with fat layer exposed Qualified Code(s): E11.621 - Type 2 diabetes mellitus with foot ulcer; L97.422 - Non- pressure 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; L97.422 - Non-pressure 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; L97.422 - Non-pressure 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; L97.422 - Non-pressure 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 (2) Diabetic foot infection Current Visit: Yes Status: Acute see above Subjective Principal diagnosis: Left foot infection Interval history: underwent I&D of ulceration and abscess of the left foot. 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 Patient was admitted and underwent I&D with on 08/15/17. On arrival today patient is resting comfortably. Denies any pain. Dressing intact to LLE without strikethrough drainage. Patient states he has been accepted to [facility]- Awaiting insurance approval. Patient denies any fevers, chills, n/v or flu like symptoms Objective - Vital Signs Vital Signs: Vital Signs Temp Pulse Resp BP Pulse Ox 08/15/17 12:02 98.0 F 70 16 119/73 96 08/15/17 07:20 98.2 F 74 17 124/75 94 08/15/17 03:53 98.9 F 75 16 137/61 94 08/14/17 23:40 98.2 F 71 16 143/73 97 08/14/17 20:15 97.9 F 72 16 131/76 94 08/14/17 17:15 98.1 F 54 16 125/74 95 Intake and Output 08/14/17 08/15/17 08/15/17 23:59 07:59 15:59 Intake Total 200 / 200 700 / 700 134 / 134 Output Total 850 / 850 Balance 190 / 190 -150 / -150 134 / 134 Intake: IV Fluids 200 / 200 200 / 200 Zosyn Premix 3.375 GM/200 ML 3. 200 / 200 200 / 200 375 gm In 200 ml @ 50 mls/hr IVPB Q8HR DAKSHA Rx#:[id number] Oral 500 / 500 134 / 134 Output: Urine 0 / 0 850 / 850 Estimated Blood Loss Other: Meal Breakfast Percent of Meal Consumed 50% Weight 124.965 kg Blood Glucose* 131 94 110 Patient Weight 08/15/17 23:59 Weight 124.965 kg - Exam Exam: Awake, alert and oriented Pulses palpable DP/PT cap refill <3 seconds No calf pain with manual compression Minimal sensation to light or moderate touch Movement intact Incisions noted to dorsal/lateral and plantar aspects of toe #3 left, as well as ulceration sub mt head #3. Incision line intact- no drainage. Mild edema and erythema remains to toe. Ulceration to plantar aspect 1cmx1.3cm with 0.5cm depth , no purulent drainage. Scant bloody drainage. Patient denies any pain. - Lab Result Diagrams: 08/15/17 05:18 08/15/17 05:18 Labs: Abnormal lab results MPV 9.3 fL (9.4-12.4) L 08/15/17 05:18 ESR 76 mm/hr (0-10) H 08/14/17 04:49 Creatinine 1.67 mg/dL (0.72-1.25) H D 08/15/17 05:18 Est GFR ( Amer) 58 (> 60) L 08/15/17 05:18 Est GFR (Non-Af Amer) 48 (> 60) L 08/15/17 05:18 POC Glucose 94 (58-89) H 08/15/17 07:25 Direct Bilirubin 0.6 mg/dL (0.0-0.5) H 08/08/17 14:23 C-Reactive Protein 23 mg/L (Less than 5) H 08/14/17 04:49 Albumin 2.9 g/dL (3.5-5.0) L 08/08/17 14:23 Globulin 4.4 g/dL (2.4-3.5) H 08/08/17 14:23 Albumin/Globulin Ratio 0.7 (1.1-2.2) L 08/08/17 14:23 Vancomycin Trough 20.6 mcg/mL (10-20) H* 08/14/17 11:39 - VTE Documentation of Mechanical Device: Intermittent pneumatic compression device Consult Discharge Plan - Plan Referrals: Ximena Collazo MD [Primary Care Provider] -
[2017-08-15] MEDS: 0.9 % Sodium Chloride 1,000 ML IVC SCH (14:03)
[2017-08-15] MEDS ORDERED: Lidocaine -MPF 1% 5 ML AMPUL INFILT ONE (14:55)
--- NOTE | 2017-08-15 16:11 | Infectious Disease Consult ---
Date of Encounter: 08/15/17 Time of Encounter: 16:11 Assessment and Plan (1) Sepsis Status: Acute Assessment and plan: The patient had two SIRS criteria on admission. Likely secondary to left foot cellulitis and toe infection. Improved. Tachypnea and tachycardia have resolved. Lactic acid was normal. Blood cultures drawn 08/08/17 are negative x 2 sets. Qualifiers: Sepsis type: sepsis due to unspecified organism Qualified Code(s): A41.9 - Sepsis, unspecified organism (2) Toe infection Status: Acute Assessment and plan: Location: Left foot, third digit. Causative organism MRSA and Morganella morganii. Likely secondary to diabetic foot ulcer. Left foot CT scan showed findings consistent with cellulitis and phlegmonous changes. Podiatry consulted and following. Status post left foot third digit I & D by Dr. Slater. Operative note reviewed. Pus noted adjacent to the bone, but no bone changes noted. Status post repeat I & D 08/14/[address] Slater. Less purulence noted. No bony abnormalities noted. ESR 76, CRP 23 post-op. Continue Vancomycin IV. Pharmacy to dose. Goal trough ~15. Start Levaquin 750mg IV daily for gram negative coverage based on wound culture. Even though the surgical culture does not have gram negatives, the patient's diabetes puts him at risk for gram negative infection and we will continue to cover for this until cultures are finalized. Duration of treatment depends on the clinical picture, but given that there was pus noted to be in contact with the bone, will likely need 6 weeks of IV antibiotics. Monitor renal function and for drug toxicity and dose-adjust antibiotics. director of radio services assisting with discharge planning. The patient has been accepted at [facility], just waiting on insurance approval. Okay to place PICC line if not already done. Wound care and activity restrictions per the podiatry team. (3) Cellulitis Status: Acute Assessment and plan: Location: Left foot. Causative organism likely MRSA and Morganella morganii. Likely secondary to left third toe infection. Improved. Continue antibiotics as above. Qualifiers: Site of cellulitis: extremity Site of cellulitis of extremity: lower extremity Laterality: left Qualified Code(s): L03.116 - Cellulitis of left lower limb (4) LUPE (acute kidney injury) Status: Acute Assessment and plan: Serum creatinine elevated at 1.62 today. Etiology not clear, but could be related to nephrotoxins. Continue to trend. Strict I's and O's. Consider nephrology consultation if continued worsening. Dose-adjust antibiotics. (5) Diabetic foot ulcer Status: Chronic Assessment and plan: Location: Plantar aspect, left foot. Secondary to non-healing surgical wound. Wound care per the podiatry team. Qualifiers: Diabetic foot ulcer location: midfoot Diabetes mellitus type: type 2 Laterality: left Non-pressure ulcer stage: with fat layer exposed Qualified Code(s): E11.621 - Type 2 diabetes mellitus with foot ulcer; L97.422 - Non- pressure 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; L97.422 - Non-pressure 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; L97.422 - Non-pressure 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; L97.422 - Non-pressure 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 (6) IVDU (intravenous drug user) Status: Acute Assessment and plan: Reports using IV drugs about a month ago. HIV, Hepatitis profile, RPR negative. (7) Type 2 diabetes mellitus Status: Chronic Assessment and plan: Controlled. Hgb A1C 5.0 Recommend continued aggressive glucose monitoring and control to promote wound healing and prevent re-infection. Management per the primary team. 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 Sharma is a 32 year old male asked medical history of diabetes, hypertension , anxiety, and depression. The patient was admitted to the hospital August 08 for foot infection. We are consulted August 15 for antibiotic recommendations regarding left foot infection. Sleep, the patient's a 32-year-old male with past medical history as stated above. The patient states that he has had an ongoing ulcer to the plantar aspect of his left foot for about a year. He states he developed a blister and had a cut out and the wound never healed. He states that about 3 days prior to presentation to the ER he noticed that his left foot third toe was very red and swollen and tender. Upon presentation to the ER, he was afebrile, but was tachycardic and tachypneic. His white blood cell count was normal, but his CRP was markedly elevated at 209. A CT of the left foot that showed cellulitis and phlegmon is changes. A bedside incision and debridement in the ER with a small amount of purulence noted. Cultures were positive for MRSA and Morganella Morganii. He was started on empiric antibiotics and admitted to the hospital for further evaluation. Admission, the patient's been evaluated by podiatry. He was taken to the operating room on August 10 and had an I&D of the third left digit. Intraoperative cultures were positive for MRSA. She has remained afebrile and hemodynamically stable. His white blood cell count has remained normal. He was taken back to the operating room yesterday and had a repeat washout. Inflammatory markers are noted to be improved. His most recent Millan trough is 20.6. We've been asked to evaluate and make further recommendations. My exam today, the patient endorses stress stated above. He denies any fevers or chills or rigors. He denies any headache or neck pain. He denies any congestion, earache, or sore throat. He denies any chest pain, shortness of breath, or cough. He denied nausea, vomiting, diarrhea, constipation. He denies any abdominal pain, urinary complaints, or appetite changes. He reports the pain was in his left toe and radiate up his foot to the middle his calf. He states that the left her toe was markedly swollen, erythematous, and tender. He denies pain at this time since having surgery. Patient has recently been in and out of residential. He normally lives at home with his mother. He does not work. He states his blood sugars were pretty well controlled at home prior to admission. He denies any recent travel. Reported history of IV drug use about a month ago. CC: Demetria Connelly MD Past Med Surg Social Fam HX - Past Medical History Attestation: Yes The following information was validated with the patient. Source: patient, old records reviewed, nursing notes reviewed Medical history: diabetes, hypertension Psychiatric history: anxiety, depression - Past Surgical History Surgical History: no surgical history - Social History Smoking Status: Former smoker Smokeless Tobacco Status: No Alcohol use: occasionally Drug use: opiates, methamphetamine, IV Drug Use Occupational status: unemployed Current living situation: Home - Independent Activity Level: Independent ambulation Recent Out of Country Travel Within the Last 8 Weeks: No Exposure or Possible Exposure to Illness During Travel: No - Family History Mother Living Status: Still Living Hx Family Cardiac Disorders: Yes Father Living Status: Hx Family Cardiac Disorders: Yes Infectious Disease-CN:Meds Metformin HCl [Glucophage] 1,000 mg PO BID 05/07/17 [History] Escitalopram [Lexapro] 10 mg PO DAILY 08/08/17 [History] Lisinopril [Zestril] 10 mg PO BID 08/08/17 [History] 3 Allergy/AdvReac Type Severity Reaction Status Date / Time No Known Allergies Allergy Verified 05/06/17 15:56 All systems: reviewed and no additional remarkable complaints except as stated Exam - Constitutional Vitals: Temp Pulse Resp BP Pulse Ox 98.0 F 64 16 144/74 97 08/15/17 15:56 08/15/17 15:56 08/15/17 15:56 08/15/17 15:56 08/15/17 15:56 General appearance: average body habitus, cooperative, no acute distress - Head Head exam: Present: atraumatic, normal inspection, normocephalic - Eye Eye exam: Present: EOMI, normal appearance Pupils: Present: normal accommodation, PERRL - ENT ENT exam: Present: mucous membranes moist - Neck Neck exam: Present: normal inspection - Respiratory Respiratory exam: Present: CTAB. Absent: rales, respiratory distress, rhonchi, wheezes - Cardiovascular Cardiovascular exam: Present: RRR, +S1, +S2 - GI/Abdominal GI/Abdominal exam: Present: normal bowel sounds, soft. Absent: distended, tenderness - Extremities Exam Extremities exam: Present: tenderness (Left foot) Additional comments: Left foot dressing C/D/I. - Neurological Exam Neurological exam: Present: alert, oriented X3, no focal deficits - Psychiatric Psychiatric exam: Present: normal affect, normal mood - Skin Skin exam: Present: dry, intact, normal color, warm Infectious Disease CN: Results - Labs CBC & Chem 7: 08/16/17 06:30 08/16/17 06:30 Cultures: Cultures 08/10/17 15:15 Anaerobic Culture - Preliminary Left Foot At this time, no anaerobic growth is present. The culture will be finalized after 5 days of incubation. 08/10/17 15:15 Surgical Biopsy Culture - Final Left Foot Methicillin Resistant S.aureus - VTE Documentation of Mechanical Device: Intermittent pneumatic compression device Consult Discharge Plan - Plan Referrals: Ximena Collazo MD [Primary Care Provider] -
--- NOTE | 2017-08-15 16:36 | Internal Med Progress Note ---
Date of Encounter: 08/15/17 Time of Encounter: 12:45 - Assessment and plan (1) Toe infection Current Visit: Yes Status: Acute Assessment and plan: s/p I&D with washout 08/10 Repeat wash out on 08/14/17 Reviewed operative notes.. mentioned pus around the bone.. so need jail IV abx Waiting on ID eval for further abx management as an out pt wound cx from 08/08 - MRSA, Osman Silva Surgical biopsy culture 08/10/17 growing MRSA only so mostly he may need Vanco only d/c Zosyn (2) LUPE (acute kidney injury) Current Visit: Yes Status: Acute Assessment and plan: Mostly due to abx induced will d/c Zosyn hold Vanco today started on IV fluids cont close monitoring (3) Cellulitis of left foot due to methicillin-resistant Staphylococcus aureus Current Visit: Yes Status: Acute Assessment and plan: on Vanco (4) Type 2 diabetes mellitus Current Visit: No Status: Chronic Assessment and plan: on ISS Qualifiers: Diabetes mellitus complication status: with diabetic arthropathy Diabetes mellitus complication detail: with neuropathic arthropathy Diabetes mellitus meterman insulin use: without jail use Qualified Code(s): E11.610 - Type 2 diabetes mellitus with diabetic neuropathic arthropathy (5) Diabetic foot ulcer Current Visit: No Status: Chronic Assessment and plan: need 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 f/u with 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 Qualifiers: Diabetic foot ulcer location: midfoot Diabetes mellitus type: type 2 Laterality: left Non-pressure ulcer stage: with fat layer exposed Qualified Code(s): E11.621 - Type 2 diabetes mellitus with foot ulcer; L97.422 - Non- pressure 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; L97.422 - Non-pressure 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; L97.422 - Non-pressure 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; L97.422 - Non-pressure 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 (6) DVT prophylaxis Current Visit: No Status: Acute Assessment and plan: on SCD's may start him on heparin in AM (7) IVDU (intravenous drug user) Current Visit: No Status: Acute Assessment and plan: no signs / symptoms of withdrawl now cont close monitoring - Subjective Interval history: Mr. Sharma is a 32 year old male with history of diabetes with chronic left heel ulcer, recent admission of foot infection and pneumonia, and hypertension presented to ED for one day history of worsening infection of left foot 3rd toe. He got admitted in the hospital and started him on empirical abx Zosyn and Vancomycin. He did go for I & D of Left foot 3rd toe on 08/10/17. and another wash out on 08/14/17. His pain is tolerable with current medication. He denied any CP / SOB. No fever / chills - Constitutional Vitals: Temp Pulse Resp BP Pulse Ox 98.0 F 64 16 144/74 97 08/15/17 15:56 08/15/17 15:56 08/15/17 15:56 08/15/17 15:56 08/15/17 15:56 General appearance: Present: cooperative, A&O X 3, answers questions appropriately - Head Head exam: Present: atraumatic, normal inspection - Neck Neck exam general surgery: Present: supple - Respiratory Respiratory exam: Present: CTAB. Absent: rales, respiratory distress, rhonchi - Cardiovascular Cardiovascular exam: Present: RRR, +S1, +S2. Absent: systolic murmur - GI/Abdominal GI/Abdominal exam: Present: soft. Absent: rebound, rigid, tenderness - Extremities Exam Extremities exam: Absent: calf tenderness, pedal edema, tenderness Additional comments: no erythema , cellulites noticed around the 3rd toe and left foot. clean incision noticed - Back Exam Back exam: Absent: CVA tenderness (L), CVA tenderness (R) - Neurological Exam Neurological exam: Present: alert, oriented X3 - Psychiatric Psychiatric exam: Present: normal affect, normal mood Internal Medicine: Result - Labs CBC & Chem 7: 08/15/17 05:18 08/15/17 05:18 Labs: Short CBC 08/15/17 Range/Units 05:18 WBC 7.9 (4.3-11.1) K/mcL Hgb 13.0 (12.9-16.9) g/dL Hct 37.9 (37.5-50.1) % Plt Count 192 (140-400) K/mcL Neutrophils # 5.2 (1.6-8.9) K/mcL BMP 08/15/17 05:18 Sodium 138 Potassium 4.2 Chloride 103 Carbon Dioxide 27 BUN 19 Creatinine 1.67 H D Glucose 94 Calcium 9.0 - VTE Documentation of Mechanical Device: Intermittent pneumatic compression device Consult Discharge Plan - Plan Referrals: Ximena Collazo MD [Primary Care Provider] -
[2017-08-15] MEDS: Levofloxacin 750 MG/150 ML 750 MG/150 ML BAG IVPB SCH (18:34)
[2017-08-16] MEDS: *HR* OxyCODONE Immed Rel 5 MG TABLET PO PRN ×3 (00:12→20:14)
[2017-08-16] MEDS: Vancomycin 1,750 MG in D5% in Water 500 ML IVPB SCH (01:56)
[2017-08-16] MEDS: *HR* Morphine 2 MG/ML SYRINGE IVP PRN ×2 (02:14→15:57)
[2017-08-16 07:10] LABS: Calcium 9.3 mg/dL (8.6-10.8)
[2017-08-16 07:18] LABS: Basophils % 0.6 %; Eosinophils # 0.2 K/mcL (0.0-0.6); Eosinophils % 2.2 %; Hematocrit 35.4 % (37.5-50.1); Hemoglobin 11.9 g/dL (12.9-16.9); Lymphocytes # 1.7 K/mcL (0.6-4.6); Lymphocytes % 24.9 %; Mean Corpuscular HGB Conc 33.6 g/dL (31.6-35.5); Mean Corpuscular Hemoglobin 29.4 pg (28.0-33.3); Mean Corpuscular Volume 87.4 fL (83.0-100.0); Mean Platelet Volume 9.4 fL (9.4-12.4); Monocytes # 0.7 K/mcL (0.0-1.3); Monocytes % 9.8 %; Neutrophils # 4.1 K/mcL (1.6-8.9); Platelet Count 171 K/mcL (140-400); Red Blood Count 4.05 M/mcL (4.19-5.50); Red Cell Distribution Width 14.1 % (11.5-14.5); Segmented Neutrophils % 61.5 %
[2017-08-16] MEDS: Insulin LISPRO 300 UNITS/3 ML VIAL SQ SCH ×4 (08:51→20:21)
[2017-08-16] MEDS: *HR* Heparin 5,000 UNIT/ML VIAL SQ SCH ×2 (08:55→20:13)
[2017-08-16] MEDS: Levofloxacin 750 MG/150 ML 750 MG/150 ML BAG IVPB SCH (08:55)
--- NOTE | 2017-08-16 10:22 | Internal Med Progress Note ---
Date of Encounter: 08/16/17 Time of Encounter: 10:19 - Assessment and plan (1) Toe infection Current Visit: Yes Status: Acute Assessment and plan: s/p I&D with washout 08/10 Repeat wash out on 08/14/17 Reviewed operative notes.. mentioned pus around the bone.. so need manager intermediate IV abx ID is on board for further abx management wound cx from 08/08 - MRSA, Osman Silva Surgical biopsy culture 08/10/17 growing MRSA only On Vanco + ID started him Levaquin (2) LUPE (acute kidney injury) Current Visit: Yes Status: Acute Assessment and plan: Mostly due to abx induced ATN d/c Zosyn y/d Tomasz Vanco 18.5 y/d Pharmacy dosing Vanco Cont IV fluids cont close monitoring (3) Cellulitis of left foot due to methicillin-resistant Staphylococcus aureus Current Visit: Yes Status: Acute Assessment and plan: on Vanco and Levaquin (4) Type 2 diabetes mellitus Current Visit: No Status: Chronic Assessment and plan: on ISS Qualifiers: Diabetes mellitus complication status: with diabetic arthropathy Diabetes mellitus complication detail: with neuropathic arthropathy Diabetes mellitus prison insulin use: without prison use Qualified Code(s): E11.610 - Type 2 diabetes mellitus with diabetic neuropathic arthropathy (5) Diabetic foot ulcer Current Visit: No Status: Chronic Assessment and plan: need close f/u with topstitcher zigzag Qualifiers: Diabetic foot ulcer location: midfoot Diabetes mellitus type: type 2 Laterality: left Non-pressure ulcer stage: with fat layer exposed Qualified Code(s): E11.621 - Type 2 diabetes mellitus with foot ulcer; L97.422 - Non- pressure 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; L97.422 - Non-pressure 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; L97.422 - Non-pressure 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; L97.422 - Non-pressure 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 (6) DVT prophylaxis Current Visit: No Status: Acute Assessment and plan: on SCD's may start him on heparin in AM (7) IVDU (intravenous drug user) Current Visit: No Status: Acute Assessment and plan: no signs / symptoms of withdrawl now cont close monitoring - Subjective Interval history: Mr. Sharma is a 32 year old male with history of diabetes with chronic left heel ulcer, recent admission of foot infection and pneumonia, and hypertension presented to ED for one day history of worsening infection of left foot 3rd toe. He got admitted in the hospital and started him on empirical abx Zosyn and Vancomycin. He did go for I & D of Left foot 3rd toe on 08/10/17. and another wash out on 08/14/17. His pain is tolerable with current medication. He denied any CP / SOB. No fever / chills. No events over night - Constitutional Vitals: Temp Pulse Resp BP Pulse Ox 97.7 F 67 20 125/73 94 08/16/17 06:50 08/16/17 06:50 08/16/17 06:50 08/16/17 06:50 08/16/17 06:50 General appearance: Present: cooperative, A&O X 3, answers questions appropriately - Head Head exam: Present: atraumatic, normal inspection - Respiratory Respiratory exam: Present: CTAB. Absent: decreased breath sounds, respiratory distress, rhonchi, wheezes - Cardiovascular Cardiovascular exam: Present: RRR, +S1, +S2. Absent: systolic murmur - GI/Abdominal GI/Abdominal exam: Present: normal bowel sounds, soft. Absent: rebound, rigid, tenderness - Extremities Exam Extremities exam: Absent: calf tenderness, pedal edema, tenderness Additional comments: clean incision noticed over Left foot 3rd toe. No cellulites / no erythema noticed - Back Exam Back exam: Absent: CVA tenderness (L), CVA tenderness (R) - Neurological Exam Neurological exam: Present: alert, oriented X3 - Psychiatric Psychiatric exam: Present: normal affect, normal mood Internal Medicine: Result - Labs CBC & Chem 7: 08/16/17 06:30 08/16/17 06:30 Labs: Short CBC 08/16/17 Range/Units 06:30 WBC 6.7 (4.3-11.1) K/mcL Hgb 11.9 L (12.9-16.9) g/dL Hct 35.4 L (37.5-50.1) % Plt Count 171 (140-400) K/mcL Neutrophils # 4.1 (1.6-8.9) K/mcL BMP 08/16/17 06:30 Sodium 141 Potassium 4.0 Chloride 106 Carbon Dioxide 29 BUN 18 Creatinine 1.74 H Glucose 111 H Calcium 9.3 - VTE Documentation of Mechanical Device: Intermittent pneumatic compression device Consult Discharge Plan - Plan Referrals: Ximena Collazo MD [Primary Care Provider] -
--- NOTE | 2017-08-16 15:20 | Infectious Disease Progress No ---
Date of Encounter: 08/16/17 Time of Encounter: 15:17 - Assessment and Plan (1) Sepsis Current Visit: Yes Status: Acute The patient had two SIRS criteria on admission. Likely secondary to left foot cellulitis and toe infection. Improved. Tachypnea and tachycardia have resolved. Lactic acid was normal. Blood cultures drawn 08/08/17 are negative x 2 sets. Qualifiers: Sepsis type: sepsis due to unspecified organism Qualified Code(s): A41.9 - Sepsis, unspecified organism (2) Toe infection Current Visit: Yes Status: Acute Location: Left foot, third digit. Causative organism MRSA and Morganella morganii. Likely secondary to diabetic foot ulcer. Left foot CT scan showed findings consistent with cellulitis and phlegmonous changes. Podiatry consulted and following. Status post left foot third digit I & D by Dr. Slater. Operative note reviewed. Pus noted adjacent to the bone, but no bone changes noted. Status post repeat I & D 08/14/[address] Slater. Less purulence noted. No bony abnormalities noted. ESR 76, CRP 23 post-op. Continue Vancomycin IV. Pharmacy to dose. Goal trough ~15. Continue Levaquin 750mg IV daily. Duration of treatment depends on the clinical picture, but given that there was pus noted to be in contact with the bone, will likely need 6 weeks of IV antibiotics. Monitor renal function and for drug toxicity and dose-adjust antibiotics. player services representative assisting with discharge planning. The patient has been accepted at [facility], just waiting on insurance approval. Wound care and activity restrictions per the podiatry team. (3) Cellulitis Current Visit: Yes Status: Acute Location: Left foot. Causative organism likely MRSA and Morganella morganii. Likely secondary to left third toe infection. Improved. Continue antibiotics as above. Qualifiers: Site of cellulitis: extremity Site of cellulitis of extremity: lower extremity Laterality: left Qualified Code(s): L03.116 - Cellulitis of left lower limb (4) LUPE (acute kidney injury) Current Visit: Yes Status: Acute Serum creatinine little worse today. Etiology not clear, but could be related to nephrotoxins. Continue to trend. Strict I's and O's. Consider nephrology consultation if continued worsening. Dose-adjust antibiotics. (5) Diabetic foot ulcer Current Visit: No Status: Chronic Location: Plantar aspect, left foot. Secondary to non-healing surgical wound. Wound care per the podiatry team. Qualifiers: Diabetic foot ulcer location: midfoot Diabetes mellitus type: type 2 Laterality: left Non-pressure ulcer stage: with fat layer exposed Qualified Code(s): E11.621 - Type 2 diabetes mellitus with foot ulcer; L97.422 - Non- pressure 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; L97.422 - Non-pressure 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; L97.422 - Non-pressure 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; L97.422 - Non-pressure 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 (6) IVDU (intravenous drug user) Current Visit: No Status: Acute Reports using IV drugs about a month ago. HIV, Hepatitis profile, RPR negative. (7) Type 2 diabetes mellitus Current Visit: No Status: Chronic Controlled. Hgb A1C 5.0 Recommend continued aggressive glucose monitoring and control to promote wound healing and prevent re-infection. Management per the primary team. Qualifiers: Diabetes mellitus complication status: with diabetic arthropathy Diabetes mellitus complication detail: with neuropathic arthropathy Diabetes mellitus rodent exterminator insulin use: without rodent exterminator use Qualified Code(s): E11.610 - Type 2 diabetes mellitus with diabetic neuropathic arthropathy - Subjective Interval history: She is seen and examined. No acute events noted overnight. Patient states he has some mild pain at the surgical site, rated 6 out of 10. Denies any fevers or chills or rigors. Denies any headache or neck pain. Denies any chest pain, shortness of breath, or cough. Denies any nausea, vomiting, diarrhea, constipation. Denies abdominal pain, urinary complaints, appetite changes. States the pain in his left foot is improved since admission and no longer radiates up into his calf. He denies any oral thrush or new skin lesions. Infect Dis PN-Objective Data - Labs CBC & Chem 7: 08/16/17 06:30 08/16/17 06:30 Labs: Laboratory Results - last 24 hr 08/15/17 08/15/17 08/16/17 12:08 16:03 06:30 WBC 6.7 RBC 4.05 L Hgb 11.9 L Hct 35.4 L MCV 87.4 MCH 29.4 MCHC 33.6 RDW 14.1 Plt Count 171 MPV 9.4 Immature Gran % 1.0 Seg Neutrophils % 61.5 Lymphocytes % 24.9 Monocytes % 9.8 Eosinophils % 2.2 Basophils % 0.6 Neutrophils # 4.1 Lymphocytes # 1.7 Monocytes # 0.7 Eosinophils # 0.2 Basophils # 0.0 Sodium Potassium Chloride Carbon Dioxide BUN Creatinine Est GFR ( Amer) Est GFR (Non-Af Amer) BUN/Creatinine Ratio Glucose POC Glucose 110 H 92 H Calculated Osmolality Calcium 08/16/17 06:30 WBC RBC Hgb Hct MCV MCH MCHC RDW Plt Count MPV Immature Gran % Seg Neutrophils % Lymphocytes % Monocytes % Eosinophils % Basophils % Neutrophils # Lymphocytes # Monocytes # Eosinophils # Basophils # Sodium 141 Potassium 4.0 Chloride 106 Carbon Dioxide 29 BUN 18 Creatinine 1.74 H Est GFR ( Amer) 56 L Est GFR (Non-Af Amer) 46 L BUN/Creatinine Ratio 10 Glucose 111 H POC Glucose Calculated Osmolality 295 Calcium 9.3 Cultures: Cultures 08/10/17 15:15 Anaerobic Culture - Final Left Foot No anaerobes were recovered. 08/14/17 16:37 Wound Culture - Preliminary Left Foot Gram Negative Prateek 08/10/17 15:15 Surgical Biopsy Culture - Final Left Foot Methicillin Resistant S.aureus Exam - Constitutional Vitals: Temp Pulse Resp BP Pulse Ox 98.2 F 75 18 127/72 97 08/16/17 14:42 08/16/17 14:42 08/16/17 14:42 08/16/17 14:42 08/16/17 14:42 General appearance: average body habitus, cooperative, no acute distress - Head Head exam: Present: atraumatic, normal inspection, normocephalic - Eye Eye exam: Present: EOMI, normal appearance, PERRL Pupils: Present: normal accommodation - ENT ENT exam: Present: mucous membranes moist - Neck Neck exam: Present: normal inspection - Respiratory Respiratory exam: Present: CTAB. Absent: rales, respiratory distress, rhonchi, wheezes - Cardiovascular Cardiovascular exam: Present: RRR, +S1, +S2 - GI/Abdominal GI/Abdominal exam: Present: normal bowel sounds, soft. Absent: distended, tenderness - Extremities Exam Additional comments: Left foot dressing is clean, dry, and intact. No redness, warmth, or tenderness noted to the extremity proximal to the surgical site. - Neurological Exam Neurological exam: Present: alert, oriented X3, no focal deficits - Psychiatric Psychiatric exam: Present: normal affect, normal mood - Skin Skin exam: Present: dry, intact, normal color, warm - VTE Documentation of Mechanical Device: Intermittent pneumatic compression device Consult Discharge Plan - Plan Referrals: Ximena Collazo MD [Primary Care Provider] -
--- NOTE | 2017-08-16 15:51 | Podiatry Progress Note ---
Date of Encounter: 08/16/17 Time of Encounter: 12:15 - Assessment and Plan (1) Type 2 diabetes mellitus Current Visit: No Status: Chronic Qualifiers: Diabetes mellitus complication status: with diabetic arthropathy Diabetes mellitus complication detail: with neuropathic arthropathy Diabetes mellitus care home insulin use: without care home use Qualified Code(s): E11.610 - Type 2 diabetes mellitus with diabetic neuropathic arthropathy (2) Diabetic foot ulcer Current Visit: No Status: Chronic s/p Irrigation and debridement left foot on 08/15/17 Dressing changed at bedside, saline wet to dry applied. Wound cultures isolated MRSA, ID evaluated patient and recommended continuing IV Vancomycin and IV Levaquin most likely 6 weeks. Continue wound care as ordered. Non weight bearing to LLE. Patient is awaiting acceptance to [facility]. [facility] will be managing foot after discharge Please obtain post operative shoe to be placed on foot for protection when transferring Qualifiers: Diabetic foot ulcer location: midfoot Diabetes mellitus type: type 2 Laterality: left Non-pressure ulcer stage: with fat layer exposed Qualified Code(s): E11.621 - Type 2 diabetes mellitus with foot ulcer; L97.422 - Non- pressure 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; L97.422 - Non-pressure 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; L97.422 - Non-pressure 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; L97.422 - Non-pressure 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 (3) Diabetic foot infection Current Visit: Yes Status: Acute Subjective Principal diagnosis: Left foot infection Interval history: Patient is s/p s/p Irrigation and debridement left foot on 08/15/[address] Slater. Upon entering room patient was up ambulating to restroom. Dressing is loose to right foot, mother is at bedside. Patient denies any pain currently , no c/o fever, chills, or calf pain. Objective - Vital Signs Vital Signs: Vital Signs Temp Pulse Resp BP Pulse Ox 08/16/17 14:42 98.2 F 75 18 127/72 97 08/16/17 10:53 97.9 F 63 18 130/74 96 08/16/17 06:50 97.7 F 67 20 125/73 94 08/16/17 03:55 98.6 F 71 18 142/68 94 08/16/17 00:08 98.9 F 67 16 159/83 98 08/15/17 20:45 99 F 63 16 130/72 98 08/15/17 15:56 98.0 F 64 16 144/74 97 Intake and Output 08/15/17 08/16/17 08/16/17 23:59 07:59 15:59 Intake Total 1710 / 1710 120 / 120 Output Total 1800 / 1800 1825 / 1825 Balance -90 / -90 -1825 / -1825 120 / 120 Intake: IV Fluids 650 / 650 Levaquin Premix 750mg/150 mL 150 / 150 750 mg In 150 ml @ 100 mls/hr IVPB DAILY DAKSHA Rx#:[id number] Vancocin 1,750 MG In Dextrose 5 500 / 500 % 500 ML @ 333.34 mls/hr IVPB Q12H DAKSHA Rx#:[id number] Oral 360 / 360 120 / 120 Other 700 / 700 Output: Urine 1800 / 1800 1825 / 1825 Other: Meal Dinner Lunch Percent of Meal Consumed 100% 100% # Voids 3 Weight 124.919 kg Blood Glucose* 102 96 113 Patient Weight 08/16/17 23:59 Weight 124.919 kg - Exam Exam: General appearance: alert awake oriented X 3. Calm and pleasant, no acute distress.. Vascular: Pedal pulses +2/4 DP/PT , No evidence of cyanosis, pallor or rubor, Edema graded at 1+/4, Skin Temperature warm, No calf pain with manual compression. capillary refill time is immediate to digits. Neurologic: Sensation intact with light touch to foot. . Postop Exam: S/P Retention Sutures intact to incision line, lateral aspect of toe #3, sutures intact to incision line to the plantar aspect of toe #3, no signs of dehiscence. Small amount of serous drainage observed to dressing, light periwound erythema, no streaking, no ascending cellulitis. Full thickness ulceration to sub #3 metatarsal head left foot measuring 1.5 cm in diameter by 0.3 cm in depth, base of the wound with 100% granulation tissue, no odor, no erythema, no streaking. Minimal edema. - Lab Result Diagrams: 08/16/17 06:30 08/16/17 06:30 Labs: Abnormal lab results RBC 4.05 M/mcL (4.19-5.50) L 08/16/17 06:30 Hgb 11.9 g/dL (12.9-16.9) L 08/16/17 06:30 Hct 35.4 % (37.5-50.1) L 08/16/17 06:30 ESR 76 mm/hr (0-10) H 08/14/17 04:49 Creatinine 1.74 mg/dL (0.72-1.25) H 08/16/17 06:30 Est GFR ( Amer) 56 (> 60) L 08/16/17 06:30 Est GFR (Non-Af Amer) 46 (> 60) L 08/16/17 06:30 Glucose 111 mg/dL (70-99) H 08/16/17 06:30 POC Glucose 92 (58-89) H 08/15/17 16:03 Direct Bilirubin 0.6 mg/dL (0.0-0.5) H 08/08/17 14:23 C-Reactive Protein 23 mg/L (Less than 5) H 08/14/17 04:49 Albumin 2.9 g/dL (3.5-5.0) L 08/08/17 14:23 Globulin 4.4 g/dL (2.4-3.5) H 08/08/17 14:23 Albumin/Globulin Ratio 0.7 (1.1-2.2) L 08/08/17 14:23 Vancomycin Trough 20.6 mcg/mL (10-20) H* 08/14/17 11:39 Microbiology, Last 48 Hours 08/10/17 15:15 Anaerobic Culture - Final Left Foot No anaerobes were recovered. 08/14/17 16:37 Wound Culture - Preliminary Left Foot Gram Negative Prateek - VTE Documentation of Mechanical Device: Intermittent pneumatic compression device Consult Discharge Plan - Plan Referrals: Ximena Collazo MD [Primary Care Provider] -
[2017-08-16] MEDS: 0.9 % Sodium Chloride 1,000 ML IVC SCH (15:58)
[2017-08-16] MEDS: Vancomycin 1,500 MG in D5% in Water 250 ML IVPB SCH (17:26)
[2017-08-17] MEDS: *HR* Morphine 2 MG/ML SYRINGE IVP PRN ×3 (00:43→20:01)
[2017-08-17] MEDS: 0.9 % Sodium Chloride 1,000 ML IVC SCH ×2 (00:54→18:34)
[2017-08-17] MEDS: *HR* OxyCODONE Immed Rel 5 MG TABLET PO PRN ×3 (05:35→17:08)
[2017-08-17] MEDS: Vancomycin 1,500 MG in D5% in Water 250 ML IVPB SCH ×2 (05:46→17:08)
[2017-08-17 06:06] LABS: BUN/Creatinine Ratio 10 (6-26); Blood Urea Nitrogen 16 mg/dL (8-26); Carbon Dioxide 26 mEq/L (19-29); Chloride 105 mEq/L (98-109); Glucose 96 mg/dL (70-99); Osmolality,Calculated 287 (280-300); Potassium 4.2 mEq/L (3.5-4.5); Sodium 138 mEq/L (136-145); eGFR For African Americans > 60 (> 60); eGFR For Non-African Americans 51 (> 60)
[2017-08-17] MEDS: *HR* Heparin 5,000 UNIT/ML VIAL SQ SCH ×2 (07:32→20:01)
[2017-08-17] MEDS: Levofloxacin 750 MG/150 ML 750 MG/150 ML BAG IVPB SCH (07:33)
[2017-08-17] MEDS: Insulin LISPRO 300 UNITS/3 ML VIAL SQ SCH ×4 (07:35→20:22)
[2017-08-17] MEDS: amLODIPine 5 MG TABLET PO SCH (09:58)
--- NOTE | 2017-08-17 11:49 | Infectious Disease Progress No ---
Date of Encounter: 08/17/17 Time of Encounter: 11:47 - Assessment and Plan (1) Sepsis Current Visit: Yes Status: Acute The patient had two SIRS criteria on admission. Likely secondary to left foot cellulitis and toe infection. Improved. Tachypnea and tachycardia have resolved. Lactic acid was normal. Blood cultures drawn 08/08/17 are negative x 2 sets. Qualifiers: Sepsis type: sepsis due to unspecified organism Qualified Code(s): A41.9 - Sepsis, unspecified organism (2) Toe infection Current Visit: Yes Status: Acute Location: Left foot, third digit. Causative organism MRSA and Morganella morganii. Likely secondary to diabetic foot ulcer. Left foot CT scan showed findings consistent with cellulitis and phlegmonous changes. Podiatry consulted and following. Status post left foot third digit I & D by Dr. Slater. Operative note reviewed. Pus noted adjacent to the bone, but no bone changes noted. Status post repeat I & D 08/14/[address] Slater. Less purulence noted. No bony abnormalities noted. ESR 76, CRP 23 post-op. Continue Vancomycin IV. Pharmacy to dose. Goal trough ~15. Continue Levaquin 750mg IV daily. Duration of treatment depends on the clinical picture, but given that there was pus noted to be in contact with the bone, will likely need 6 weeks of IV antibiotics. Monitor renal function and for drug toxicity and dose-adjust antibiotics. office services associate assisting with discharge planning. The patient has been accepted at [facility], but insurance has denied his transfer to [facility]. office services associate continues to work to find placement. Wound care and activity restrictions per the podiatry team. (3) Cellulitis Current Visit: Yes Status: Acute Location: Left foot. Causative organism likely MRSA and Morganella morganii. Likely secondary to left third toe infection. Improved. Continue antibiotics as above. Qualifiers: Site of cellulitis: extremity Site of cellulitis of extremity: lower extremity Laterality: left Qualified Code(s): L03.116 - Cellulitis of left lower limb (4) LUPE (acute kidney injury) Current Visit: Yes Status: Acute Serum creatinine improved. Etiology not clear, but could be related to nephrotoxins. Continue to trend. Strict I's and O's. Dose-adjust antibiotics. (5) Diabetic foot ulcer Current Visit: No Status: Chronic Location: Plantar aspect, left foot. Secondary to non-healing surgical wound. Wound care per the podiatry team. Qualifiers: Diabetic foot ulcer location: midfoot Diabetes mellitus type: type 2 Laterality: left Non-pressure ulcer stage: with fat layer exposed Qualified Code(s): E11.621 - Type 2 diabetes mellitus with foot ulcer; L97.422 - Non- pressure 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; L97.422 - Non-pressure 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; L97.422 - Non-pressure 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; L97.422 - Non-pressure 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 (6) IVDU (intravenous drug user) Current Visit: No Status: Acute Reports using IV drugs about a month ago. HIV, Hepatitis profile, RPR negative. (7) Type 2 diabetes mellitus Current Visit: No Status: Chronic Controlled. Hgb A1C 5.0 Recommend continued aggressive glucose monitoring and control to promote wound healing and prevent re-infection. Management per the primary team. Qualifiers: Diabetes mellitus complication status: with diabetic arthropathy Diabetes mellitus complication detail: with neuropathic arthropathy Diabetes mellitus terminal computer operator insulin use: without terminal computer operator use Qualified Code(s): E11.610 - Type 2 diabetes mellitus with diabetic neuropathic arthropathy - Subjective Interval history: Patient seen and examined. No acute events noted overnight. Patient states he has some mild pain at the surgical site, rated 6 out of 10. Denies any fevers or chills or rigors. Denies any headache or neck pain. Denies any chest pain, shortness of breath, or cough. Denies any nausea, vomiting, diarrhea, constipation. Denies abdominal pain, urinary complaints, appetite changes. States the pain in his left foot is improved since admission and no longer radiates up into his calf. He denies any oral thrush or new skin lesions. Complains of being tired because someone comes in every five minutes and bothers him and he can't get any sleep. Infect Dis PN-Objective Data - Labs CBC & Chem 7: 08/16/17 06:30 08/17/17 05:35 Labs: Laboratory Results - last 24 hr 08/15/17 08/16/17 08/16/17 20:37 06:56 10:55 Sodium Potassium Chloride Carbon Dioxide BUN Creatinine Est GFR ( Amer) Est GFR (Non-Af Amer) BUN/Creatinine Ratio Glucose POC Glucose 102 H 96 H 113 H Calculated Osmolality Calcium Random Vancomycin 08/16/17 08/16/17 08/16/17 15:05 16:15 20:19 Sodium Potassium Chloride Carbon Dioxide BUN Creatinine Est GFR ( Amer) Est GFR (Non-Af Amer) BUN/Creatinine Ratio Glucose POC Glucose 153 H 93 H Calculated Osmolality Calcium Random Vancomycin 22.4 08/17/17 08/17/17 08/17/17 05:35 07:32 11:24 Sodium 138 Potassium 4.2 Chloride 105 Carbon Dioxide 26 BUN 16 Creatinine 1.59 H Est GFR ( Amer) > 60 Est GFR (Non-Af Amer) 51 L BUN/Creatinine Ratio 10 Glucose 96 POC Glucose 108 H 106 H Calculated Osmolality 287 Calcium 9.0 Random Vancomycin Cultures: Cultures 08/14/17 16:37 Wound Culture - Preliminary Left Foot Morganella [email or web address] [email or web address] Staphylococcus aureus 08/14/17 16:37 Anaerobic Culture - Preliminary Left Foot At this time, no anaerobic growth is present. The culture will be finalized after 5 days of incubation. 08/10/17 15:15 Anaerobic Culture - Final Left Foot No anaerobes were recovered. 08/10/17 15:15 Surgical Biopsy Culture - Final Left Foot Methicillin Resistant S.aureus Exam - Constitutional Vitals: Temp Pulse Resp BP Pulse Ox 98.2 F 69 15 144/79 96 08/17/17 11:22 08/17/17 11:22 08/17/17 11:22 08/17/17 11:22 08/17/17 11:22 General appearance: average body habitus, cooperative, no acute distress - Head Head exam: Present: atraumatic, normal inspection, normocephalic - Eye Eye exam: Present: EOMI, normal appearance, PERRL Pupils: Present: normal accommodation - ENT ENT exam: Present: mucous membranes moist - Neck Neck exam: Present: normal inspection - Respiratory Respiratory exam: Present: CTAB. Absent: rales, respiratory distress, rhonchi, wheezes - Cardiovascular Cardiovascular exam: Present: RRR, +S1, +S2 - GI/Abdominal GI/Abdominal exam: Present: normal bowel sounds, soft. Absent: distended, tenderness - Extremities Exam Extremities exam: Present: normal inspection. Absent: joint swelling, pedal edema, tenderness Additional comments: Left foot dressing C/D/I. - Neurological Exam Neurological exam: Present: alert, oriented X3, no focal deficits - Psychiatric Psychiatric exam: Present: normal affect, normal mood - Skin Skin exam: Present: dry, intact, normal color, warm - Additional findings Additional findings: EPIV noted to the RUE with transparent dressing C/D/I. - VTE Documentation of Mechanical Device: Intermittent pneumatic compression device Consult Discharge Plan - Plan Referrals: Ximena Collazo MD [Primary Care Provider] -
--- NOTE | 2017-08-17 13:10 | Internal Med Progress Note ---
Date of Encounter: 08/17/17 Time of Encounter: 10:00 - Assessment and plan (1) Toe infection Current Visit: Yes Status: Acute Assessment and plan: He was in mild sepsis upon admission due to his infected toe. However it resolved now s/p I&D with washout 08/10 Repeat wash out on 08/14/17 Reviewed operative notes.. mentioned pus around the bone.. so need snf IV abx wound cx from 08/08 - MRSAOsman Surgical biopsy culture 08/10/17 growing MRSA only ID recommend Levaquin + Vancomycin for total 6 weeks Need placement for snf IV abx with his underline IV drug abuse history it has been very difficult to find a place for him. However our care management team working so hard to find a place for him for vp respiratory IV Abx. Until then will cont current care here. (2) LUPE (acute kidney injury) Current Visit: Yes Status: Acute Assessment and plan: Mostly due to abx induced ATN improving slowly Cont IV fluids cont close monitoring (3) Cellulitis of left foot due to methicillin-resistant Staphylococcus aureus Current Visit: Yes Status: Acute Assessment and plan: on Vanco and Levaquin (4) Type 2 diabetes mellitus Current Visit: No Status: Chronic Assessment and plan: on ISS Qualifiers: Diabetes mellitus complication status: with diabetic arthropathy Diabetes mellitus complication detail: with neuropathic arthropathy Diabetes mellitus vp respiratory insulin use: without snf use Qualified Code(s): E11.610 - Type 2 diabetes mellitus with diabetic neuropathic arthropathy (5) Diabetic foot ulcer Current Visit: No Status: Chronic Assessment and plan: need close f/u with laboratory monitor Qualifiers: Diabetic foot ulcer location: midfoot Diabetes mellitus type: type 2 Laterality: left Non-pressure ulcer stage: with fat layer exposed Qualified Code(s): E11.621 - Type 2 diabetes mellitus with foot ulcer; L97.422 - Non- pressure 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; L97.422 - Non-pressure 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; L97.422 - Non-pressure 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; L97.422 - Non-pressure 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 (6) DVT prophylaxis Current Visit: No Status: Acute Assessment and plan: on SCD's may start him on heparin in AM (7) IVDU (intravenous drug user) Current Visit: No Status: Acute Assessment and plan: no signs / symptoms of withdrawal now cont close monitoring - Subjective Interval history: Mr. Sharma is a 32 year old male with history of diabetes with chronic left heel ulcer, recent admission of foot infection and pneumonia, and hypertension presented to ED for one day history of worsening infection of left foot 3rd toe. He got admitted in the hospital and started him on empirical abx Zosyn and Vancomycin. He did go for I & D of Left foot 3rd toe on 08/10/17. and another wash out on 08/14/17. His pain is tolerable with current medication. He denied any CP / SOB. No fever / chills. No events over night - Constitutional Vitals: Temp Pulse Resp BP Pulse Ox 98.2 F 69 15 144/79 96 08/17/17 11:22 08/17/17 11:22 08/17/17 11:22 08/17/17 11:22 08/17/17 11:22 General appearance: Present: cooperative, A&O X 3, answers questions appropriately - Head Head exam: Present: atraumatic, normal inspection - Neck Neck exam general surgery: Present: supple - Cardiovascular Cardiovascular exam: Present: RRR, +S1, +S2. Absent: systolic murmur - GI/Abdominal GI/Abdominal exam: Present: normal bowel sounds, soft. Absent: rebound, rigid, tenderness - Extremities Exam Extremities exam: Absent: calf tenderness, pedal edema, tenderness Additional comments: clean incision noticed over Left foot 3rd toe. No cellulites / no erythema noticed - Back Exam Back exam: Absent: CVA tenderness (L), CVA tenderness (R) - Neurological Exam Neurological exam: Present: alert, oriented X3 - Psychiatric Psychiatric exam: Present: normal affect, normal mood Internal Medicine: Result - Labs CBC & Chem 7: 08/16/17 06:30 08/17/17 05:35 Labs: BMP 08/17/17 05:35 Sodium 138 Potassium 4.2 Chloride 105 Carbon Dioxide 26 BUN 16 Creatinine 1.59 H Glucose 96 Calcium 9.0 - VTE Documentation of Mechanical Device: Intermittent pneumatic compression device Consult Discharge Plan - Plan Referrals: Ximena Collazo MD [Primary Care Provider] -
[2017-08-18] MEDS: *HR* Morphine 2 MG/ML SYRINGE IVP PRN ×3 (02:59→19:29)
[2017-08-18 05:15] LABS: BUN/Creatinine Ratio 12 (6-26); Blood Urea Nitrogen 18 mg/dL (8-26); Calcium 8.9 mg/dL (8.6-10.8); Carbon Dioxide 23 mEq/L (19-29); Chloride 104 mEq/L (98-109); Glucose 174 mg/dL (70-99); Osmolality,Calculated 288 (280-300); Potassium 3.8 mEq/L (3.5-4.5); Sodium 136 mEq/L (136-145); eGFR For African Americans > 60 (> 60); eGFR For Non-African Americans 53 (> 60)
[2017-08-18] MEDS: Levofloxacin 750 MG/150 ML 750 MG/150 ML BAG IVPB SCH (08:43)
[2017-08-18] MEDS: amLODIPine 5 MG TABLET PO SCH (08:43)
[2017-08-18] MEDS: *HR* Heparin 5,000 UNIT/ML VIAL SQ SCH ×2 (08:44→19:30)
[2017-08-18] MEDS: *HR* OxyCODONE Immed Rel 5 MG TABLET PO PRN ×2 (08:49→16:54)
[2017-08-18] MEDS: Insulin LISPRO 300 UNITS/3 ML VIAL SQ SCH ×4 (08:52→20:34)
--- NOTE | 2017-08-18 10:27 | Internal Med Progress Note ---
Date of Encounter: 08/18/17 Time of Encounter: 09:00 - Assessment and plan (1) Toe infection Current Visit: Yes Status: Acute Assessment and plan: He was in mild sepsis upon admission due to his infected toe. However it resolved now s/p I&D with washout 08/10 Repeat wash out on 08/14/17 Reviewed operative notes.. mentioned pus around the bone.. so need correction IV abx wound cx from 08/08 - MRSAOsman Surgical biopsy culture 08/10/17 growing MRSA only ID recommend Levaquin + Vancomycin for total 6 weeks Need placement for correction IV abx with his underline IV drug abuse history it has been very difficult to find a place for him. However our care management team working so hard to find a place for him for adjunct faculty for medical terminology IV Abx. Until then will cont current care here. (2) LUPE (acute kidney injury) Current Visit: Yes Status: Acute Assessment and plan: Mostly due to abx induced ATN + also due to chronic uncontrolled DM2 improving slowly..Cr is stil at 1.5.. not sure this is going to be his new baseline Cont IV fluids cont close monitoring (3) Cellulitis of left foot due to methicillin-resistant Staphylococcus aureus Current Visit: Yes Status: Acute Assessment and plan: on Vanco and Levaquin (4) Type 2 diabetes mellitus Current Visit: No Status: Chronic Assessment and plan: on ISS Qualifiers: Diabetes mellitus complication status: with diabetic arthropathy Diabetes mellitus complication detail: with neuropathic arthropathy Diabetes mellitus correction insulin use: without adjunct faculty for medical terminology use Qualified Code(s): E11.610 - Type 2 diabetes mellitus with diabetic neuropathic arthropathy (5) Diabetic foot ulcer Current Visit: No Status: Chronic Assessment and plan: need close f/u with red hat open stack administrator Qualifiers: Diabetic foot ulcer location: midfoot Diabetes mellitus type: type 2 Laterality: left Non-pressure ulcer stage: with fat layer exposed Qualified Code(s): E11.621 - Type 2 diabetes mellitus with foot ulcer; L97.422 - Non- pressure 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; L97.422 - Non-pressure 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; L97.422 - Non-pressure 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; L97.422 - Non-pressure 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 (6) DVT prophylaxis Current Visit: No Status: Acute Assessment and plan: on SCD's may start him on heparin in AM (7) IVDU (intravenous drug user) Current Visit: No Status: Acute Assessment and plan: no signs / symptoms of withdrawal now cont close monitoring - Subjective Interval history: Mr. Sharma is a 32 year old male with history of diabetes with chronic left heel ulcer, recent admission of foot infection and pneumonia, and hypertension presented to ED for one day history of worsening infection of left foot 3rd toe. He got admitted in the hospital and started him on empirical abx Zosyn and Vancomycin. He did go for I & D of Left foot 3rd toe on 08/10/17. and another wash out on 08/14/17. His pain is tolerable with current medication. He denied any CP / SOB. No fever / chills. No events over night - Constitutional Vitals: Temp Pulse Resp BP Pulse Ox 98.2 F 65 14 161/82 99 08/18/17 07:27 08/18/17 07:27 08/18/17 07:27 08/18/17 07:27 08/18/17 07:27 General appearance: Present: cooperative, A&O X 3, answers questions appropriately - Head Head exam: Present: atraumatic, normal inspection - Neck Neck exam general surgery: Present: supple - Respiratory Respiratory exam: Present: CTAB. Absent: accessory muscle use, rales, rhonchi, wheezes - Cardiovascular Cardiovascular exam: Present: RRR, +S1, +S2. Absent: diastolic murmur, gallop, rubs, systolic murmur - GI/Abdominal GI/Abdominal exam: Present: normal bowel sounds, soft. Absent: rebound, rigid, tenderness - Extremities Exam Extremities exam: Absent: calf tenderness, pedal edema, tenderness Additional comments: clean incision. No erythema / no signs of cellulites - Back Exam Back exam: Absent: CVA tenderness (L), CVA tenderness (R) - Psychiatric Psychiatric exam: Present: normal affect, normal mood Internal Medicine: Result - Labs CBC & Chem 7: 08/16/17 06:30 08/18/17 04:50 Labs: BMP 08/18/17 04:50 Sodium 136 Potassium 3.8 Chloride 104 Carbon Dioxide 23 BUN 18 Creatinine 1.53 H Glucose 174 H Calcium 8.9 - VTE Documentation of Mechanical Device: Intermittent pneumatic compression device Consult Discharge Plan - Plan Referrals: Ximena Collazo MD [Primary Care Provider] -
[2017-08-18] MEDS: Vancomycin 1,250 MG in D5% in Water 250 ML IVPB SCH ×2 (10:36→21:35)
[2017-08-18] MEDS: 0.9 % Sodium Chloride 1,000 ML IVC SCH (10:37)
[2017-08-19] MEDS: *HR* Morphine 2 MG/ML SYRINGE IVP PRN ×2 (05:39→20:01)
[2017-08-19] MEDS: Levofloxacin 750 MG/150 ML 750 MG/150 ML BAG IVPB SCH (08:03)
[2017-08-19] MEDS: Insulin LISPRO 300 UNITS/3 ML VIAL SQ SCH ×4 (08:04→21:00)
[2017-08-19] MEDS: amLODIPine 5 MG TABLET PO SCH (08:04)
[2017-08-19] MEDS: *HR* Heparin 5,000 UNIT/ML VIAL SQ SCH ×2 (08:04→20:59)
[2017-08-19] MEDS: *HR* OxyCODONE Immed Rel 5 MG TABLET PO PRN ×2 (08:18→14:12)
[2017-08-19] MEDS: Vancomycin 1,250 MG in D5% in Water 250 ML IVPB SCH ×2 (10:42→22:33)
--- NOTE | 2017-08-19 11:50 | Internal Med Progress Note ---
Date of Encounter: 08/19/17 Time of Encounter: 11:47 - Assessment and plan (1) Toe infection Current Visit: Yes Status: Acute Assessment and plan: He was in mild sepsis upon admission due to his infected toe. However it resolved now s/p I&D with washout 08/10 Repeat wash out on 08/14/17 Reviewed operative notes.. mentioned pus around the bone.. so need care home IV abx wound cx from 08/08 - MRSA, Osman Silva Surgical biopsy culture 08/10/17 growing MRSA only ID recommend Levaquin + Vancomycin for total 6 weeks Need placement for care home IV abx with his underline IV drug abuse history it has been very difficult to find a place for him. However our care management team working so hard to find a place for him for termite technician IV Abx. Until then will cont current care here. (2) LUPE (acute kidney injury) Current Visit: Yes Status: Acute Assessment and plan: Mostly due to abx induced ATN + also due to chronic uncontrolled DM2 improving slowly..Cr is stil at 1.5.. not sure this is going to be his new baseline no baseline Cont IV fluids cont close monitoring (3) Cellulitis of left foot due to methicillin-resistant Staphylococcus aureus Current Visit: Yes Status: Acute Assessment and plan: on Vanco and Levaquin (4) Type 2 diabetes mellitus Current Visit: No Status: Chronic Assessment and plan: on ISS Qualifiers: Diabetes mellitus complication status: with diabetic arthropathy Diabetes mellitus complication detail: with neuropathic arthropathy Diabetes mellitus care home insulin use: without care home use Qualified Code(s): E11.610 - Type 2 diabetes mellitus with diabetic neuropathic arthropathy (5) Diabetic foot ulcer Current Visit: No Status: Chronic Assessment and plan: need close f/u with blood bank laboratory professional Qualifiers: Diabetic foot ulcer location: midfoot Diabetes mellitus type: type 2 Laterality: left Non-pressure ulcer stage: with fat layer exposed Qualified Code(s): E11.621 - Type 2 diabetes mellitus with foot ulcer; L97.422 - Non- pressure 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; L97.422 - Non-pressure 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; L97.422 - Non-pressure 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; L97.422 - Non-pressure 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 (6) DVT prophylaxis Current Visit: No Status: Acute Assessment and plan: on SCD's may start him on heparin in AM (7) IVDU (intravenous drug user) Current Visit: No Status: Acute Assessment and plan: no signs / symptoms of withdrawal now cont close monitoring - Subjective Interval history: Mr. Sharma is a 32 year old male with history of diabetes with chronic left heel ulcer, recent admission of foot infection and pneumonia, and hypertension presented to ED for one day history of worsening infection of left foot 3rd toe. He got admitted in the hospital and started him on empirical abx Zosyn and Vancomycin. He did go for I & D of Left foot 3rd toe on 08/10/17. and another wash out on 08/14/17. His pain is tolerable with current medication. He denied any CP / SOB. No fever / chills. No events over night - Constitutional Vitals: Temp Pulse Resp BP Pulse Ox 98.3 F 74 16 129/78 97 08/19/17 06:58 08/19/17 06:58 08/19/17 06:58 08/19/17 06:58 08/19/17 06:58 General appearance: Present: cooperative, A&O X 3, no acute distress, answers questions appropriately - Head Head exam: Present: atraumatic, normal inspection - Respiratory Respiratory exam: Present: CTAB. Absent: accessory muscle use, rales, rhonchi, wheezes - Cardiovascular Cardiovascular exam: Present: RRR, +S1, +S2. Absent: diastolic murmur, gallop, rubs, systolic murmur - GI/Abdominal GI/Abdominal exam: Present: soft. Absent: rebound, rigid, tenderness - Extremities Exam Extremities exam: Absent: calf tenderness, pedal edema, tenderness Additional comments: clean incision. No erythema / no signs of cellulites - Back Exam Back exam: Absent: CVA tenderness (L), CVA tenderness (R) - Neurological Exam Neurological exam: Present: alert, oriented X3 Internal Medicine: Result - Labs CBC & Chem 7: 08/16/17 06:30 08/18/17 04:50 - VTE Documentation of Mechanical Device: Intermittent pneumatic compression device Consult Discharge Plan - Plan Referrals: Ximena Collazo MD [Primary Care Provider] -
[2017-08-20] MEDS: *HR* OxyCODONE Immed Rel 5 MG TABLET PO PRN ×3 (00:30→20:38)
[2017-08-20 04:23] LABS: BUN/Creatinine Ratio 14 (6-26); Blood Urea Nitrogen 18 mg/dL (8-26); Carbon Dioxide 27 mEq/L (19-29); Chloride 105 mEq/L (98-109); Glucose 145 mg/dL (70-99); Osmolality,Calculated 292 (280-300); Potassium 3.8 mEq/L (3.5-4.5); Sodium 139 mEq/L (136-145); eGFR For African Americans > 60 (> 60); eGFR For Non-African Americans > 60 (> 60)
[2017-08-20] MEDS: 0.9 % Sodium Chloride 1,000 ML IVC SCH ×2 (05:24→20:45)
[2017-08-20] MEDS: *HR* Morphine 2 MG/ML SYRINGE IVP PRN ×2 (05:43→14:10)
[2017-08-20] MEDS: Insulin LISPRO 300 UNITS/3 ML VIAL SQ SCH ×4 (07:42→20:48)
[2017-08-20] MEDS: amLODIPine 5 MG TABLET PO SCH (09:17)
[2017-08-20] MEDS: *HR* Heparin 5,000 UNIT/ML VIAL SQ SCH ×2 (09:18→20:37)
[2017-08-20] MEDS: Levofloxacin 750 MG/150 ML 750 MG/150 ML BAG IVPB SCH (09:18)
[2017-08-20] MEDS: Vancomycin 1,250 MG in D5% in Water 250 ML IVPB SCH ×2 (10:55→21:58)
--- NOTE | 2017-08-20 11:39 | Internal Med Progress Note ---
Date of Encounter: 08/20/17 Time of Encounter: 11:46 - Assessment and plan (1) Toe infection Current Visit: Yes Status: Acute Assessment and plan: He was in mild sepsis upon admission due to his infected toe. However it resolved now s/p I&D with washout 08/10 Repeat wash out on 08/14/17 Reviewed operative notes.. mentioned pus around the bone.. so need intermediate IV abx wound cx from 08/08 - MRSA, Osman Silva Surgical biopsy culture 08/10/17 growing MRSA only ID recommend Levaquin + Vancomycin for total 6 weeks # Need placement for tutorial laboratory supervisor IV abx with his underline IV drug abuse history it has been very difficult to find a place for him. However our care management team working so hard to find a place for him for tutorial laboratory supervisor IV Abx. Until then will cont current care here. (2) LUPE (acute kidney injury) Current Visit: Yes Status: Acute Assessment and plan: Mostly due to abx induced ATN + also due to chronic uncontrolled DM2 improving slowly..Cr is at 1.3 today.. not sure this is going to be his new baseline Cont IV fluids cont close monitoring (3) Cellulitis of left foot due to methicillin-resistant Staphylococcus aureus Current Visit: Yes Status: Acute Assessment and plan: on Vanco and Levaquin (4) Type 2 diabetes mellitus Current Visit: No Status: Chronic Assessment and plan: on ISS Qualifiers: Diabetes mellitus complication status: with diabetic arthropathy Diabetes mellitus complication detail: with neuropathic arthropathy Diabetes mellitus tutorial laboratory supervisor insulin use: without tutorial laboratory supervisor use Qualified Code(s): E11.610 - Type 2 diabetes mellitus with diabetic neuropathic arthropathy (5) Diabetic foot ulcer Current Visit: No Status: Chronic Assessment and plan: need close f/u with angle shear operator Qualifiers: Diabetic foot ulcer location: midfoot Diabetes mellitus type: type 2 Laterality: left Non-pressure ulcer stage: with fat layer exposed Qualified Code(s): E11.621 - Type 2 diabetes mellitus with foot ulcer; L97.422 - Non- pressure 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; L97.422 - Non-pressure 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; L97.422 - Non-pressure 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; L97.422 - Non-pressure 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 (6) DVT prophylaxis Current Visit: No Status: Acute Assessment and plan: on Heparin SQ (7) IVDU (intravenous drug user) Current Visit: No Status: Acute Assessment and plan: no signs / symptoms of withdrawal now cont close monitoring - Subjective Interval history: Mr. Sharma is a 32 year old male with history of diabetes with chronic left heel ulcer, recent admission of foot infection and pneumonia, and hypertension presented to ED for one day history of worsening infection of left foot 3rd toe. He got admitted in the hospital and started him on empirical abx Zosyn and Vancomycin. He did go for I & D of Left foot 3rd toe on 08/10/17. and another wash out on 08/14/17. His pain is tolerable with current medication. He denied any CP / SOB. No fever / chills. No events over night - Constitutional Vitals: Temp Pulse Resp BP Pulse Ox 98.4 F 95 18 126/65 94 08/20/17 11:10 08/20/17 11:10 08/20/17 11:10 08/20/17 11:10 08/20/17 11:10 General appearance: Present: cooperative, A&O X 3, no acute distress, answers questions appropriately - Head Head exam: Present: atraumatic, normal inspection - Neck Neck exam general surgery: Present: supple - Respiratory Respiratory exam: Present: decreased breath sounds. Absent: rales, respiratory distress, rhonchi, wheezes - Cardiovascular Cardiovascular exam: Present: RRR, +S1, +S2. Absent: systolic murmur - GI/Abdominal GI/Abdominal exam: Present: normal bowel sounds, soft. Absent: rebound, rigid, tenderness - Extremities Exam Extremities exam: Absent: calf tenderness, pedal edema, tenderness Additional comments: Still has some discharge / drianage over plantar region open wound.. other alex clean incision over toe - Back Exam Back exam: Absent: CVA tenderness (L), CVA tenderness (R) - Psychiatric Psychiatric exam: Present: normal affect, normal mood Internal Medicine: Result - Labs CBC & Chem 7: 08/16/17 06:30 08/20/17 03:44 Labs: BMP 08/20/17 03:44 Sodium 139 Potassium 3.8 Chloride 105 Carbon Dioxide 27 BUN 18 Creatinine 1.33 H Glucose 145 H Calcium 9.0 - VTE Documentation of Mechanical Device: Intermittent pneumatic compression device Consult Discharge Plan - Plan Referrals: Ximena Collazo MD [Primary Care Provider] -
--- NOTE | 2017-08-20 16:21 | Infectious Disease Progress No ---
Date of Encounter: 08/20/17 Time of Encounter: 16:18 - Assessment and Plan (1) Sepsis Current Visit: Yes Status: Acute The patient had two SIRS criteria on admission. Likely secondary to left foot cellulitis and toe infection. Improved. Tachypnea and tachycardia have resolved. Lactic acid was normal. Blood cultures drawn 08/08/17 are negative x 2 sets. Qualifiers: Sepsis type: sepsis due to unspecified organism Qualified Code(s): A41.9 - Sepsis, unspecified organism (2) Toe infection Current Visit: Yes Status: Acute Location: Left foot, third digit. Causative organism MRSA and Morganella morganii. Likely secondary to diabetic foot ulcer. Left foot CT scan showed findings consistent with cellulitis and phlegmonous changes. Podiatry consulted and following. Status post left foot third digit I & D by Dr. Slater. Operative note reviewed. Pus noted adjacent to the bone, but no bone changes noted. Status post repeat I & D 08/14/[address] Slater. Less purulence noted. No bony abnormalities noted. ESR 76, CRP 23 post-op. Continue Vancomycin IV. Pharmacy to dose. Goal trough ~15. Continue Levaquin 750mg IV daily. Duration of treatment depends on the clinical picture, but given that there was pus noted to be in contact with the bone, will likely need 6 weeks of IV antibiotics. Monitor renal function and for drug toxicity and dose-adjust antibiotics. coordinator of library services assisting with discharge planning. The patient has been accepted at [facility], but insurance has denied his transfer to [facility]. coordinator of library services continues to work to find placement. Wound care and activity restrictions per the podiatry team. (3) Cellulitis Current Visit: Yes Status: Acute Location: Left foot. Causative organism likely MRSA and Morganella morganii. Likely secondary to left third toe infection. Improved. Continue antibiotics as above. Qualifiers: Site of cellulitis: extremity Site of cellulitis of extremity: lower extremity Laterality: left Qualified Code(s): L03.116 - Cellulitis of left lower limb (4) LUPE (acute kidney injury) Current Visit: Yes Status: Acute Serum creatinine improved. Etiology not clear, but could be related to nephrotoxins. Continue to trend. Strict I's and O's. Dose-adjust antibiotics. (5) Diabetic foot ulcer Current Visit: No Status: Chronic Location: Plantar aspect, left foot. Secondary to non-healing surgical wound. Wound care per the podiatry team. Qualifiers: Diabetic foot ulcer location: midfoot Diabetes mellitus type: type 2 Laterality: left Non-pressure ulcer stage: with fat layer exposed Qualified Code(s): E11.621 - Type 2 diabetes mellitus with foot ulcer; L97.422 - Non- pressure 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; L97.422 - Non-pressure 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; L97.422 - Non-pressure 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; L97.422 - Non-pressure 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 (6) IVDU (intravenous drug user) Current Visit: No Status: Acute Reports using IV drugs about a month ago. HIV, Hepatitis profile, RPR negative. (7) Type 2 diabetes mellitus Current Visit: No Status: Chronic Controlled. Hgb A1C 5.0 Recommend continued aggressive glucose monitoring and control to promote wound healing and prevent re-infection. Management per the primary team. Qualifiers: Diabetes mellitus complication status: with diabetic arthropathy Diabetes mellitus complication detail: with neuropathic arthropathy Diabetes mellitus watermelon inspector insulin use: without watermelon inspector use Qualified Code(s): E11.610 - Type 2 diabetes mellitus with diabetic neuropathic arthropathy - Subjective Interval history: Patient seen and examined. Weekend notes reviewed. No acute events noted. Patient continues to await ECF placement. Patient states he has some mild pain at the surgical site, rated 6 out of 10. Denies any fevers or chills or rigors. Denies any headache or neck pain. Denies any chest pain, shortness of breath, or cough. Denies any nausea, vomiting, diarrhea, constipation. Denies abdominal pain, urinary complaints, appetite changes. States the pain in his left foot is improved since admission and no longer radiates up into his calf. He denies any oral thrush or new skin lesions. Infect Dis PN-Objective Data - Labs CBC & Chem 7: 08/16/17 06:30 08/20/17 03:44 Labs: Laboratory Results - last 24 hr 08/19/17 08/19/17 08/19/17 16:20 20:33 21:05 Sodium Potassium Chloride Carbon Dioxide BUN Creatinine Est GFR ( Amer) Est GFR (Non-Af Amer) BUN/Creatinine Ratio Glucose POC Glucose 142 H 125 H Calculated Osmolality Calcium Vancomycin Trough 16.4 08/20/17 08/20/17 08/20/17 03:44 06:53 11:11 Sodium 139 Potassium 3.8 Chloride 105 Carbon Dioxide 27 BUN 18 Creatinine 1.33 H Est GFR ( Amer) > 60 Est GFR (Non-Af Amer) > 60 BUN/Creatinine Ratio 14 Glucose 145 H POC Glucose 97 H 108 H Calculated Osmolality 292 Calcium 9.0 Vancomycin Trough Cultures: Cultures 08/14/17 16:37 Anaerobic Culture - Final Left Foot No anaerobes were recovered. 08/14/17 16:37 Wound Culture - Final Left Foot Morganella [email or web address] [email or web address] Methicillin Resistant S.aureus 08/10/17 15:15 Anaerobic Culture - Final Left Foot No anaerobes were recovered. 08/10/17 15:15 Surgical Biopsy Culture - Final Left Foot Methicillin Resistant S.aureus Exam - Constitutional Vitals: Temp Pulse Resp BP Pulse Ox 98.0 F 72 18 122/64 99 08/20/17 15:20 08/20/17 15:20 08/20/17 15:20 08/20/17 15:20 08/20/17 15:20 General appearance: average body habitus, cooperative, no acute distress - Head Head exam: Present: atraumatic, normal inspection, normocephalic - Eye Eye exam: Present: EOMI, normal appearance, PERRL Pupils: Present: normal accommodation - ENT ENT exam: Present: mucous membranes moist - Neck Neck exam: Present: normal inspection - Respiratory Respiratory exam: Present: CTAB. Absent: rales, respiratory distress, rhonchi, wheezes - Cardiovascular Cardiovascular exam: Present: RRR, +S1, +S2 - GI/Abdominal GI/Abdominal exam: Present: normal bowel sounds, soft. Absent: distended, tenderness - Extremities Exam Extremities exam: Present: joint swelling (left foot), tenderness (Left plantar foot). Absent: pedal edema Additional comments: Left foot surgical site noted to the dorsal and plantar aspects of the third digit. Additional surgical site noted to the forefoot. Sutures intact with all wound edged well-approximated. Scant old, bloody drainage noted on the dressing. No erythema or warmth noted. Ulceration noted to the plantar aspect of the left foot at the third MTP joint. Minimal drainage. + tenderness on palpation. No fluctuance. - Neurological Exam Neurological exam: Present: alert, oriented X3, no focal deficits - Psychiatric Psychiatric exam: Present: normal affect, normal mood - Skin Skin exam: Present: dry, intact, normal color, warm - VTE Documentation of Mechanical Device: Intermittent pneumatic compression device Consult Discharge Plan - Plan Referrals: Ximena Collazo MD [Primary Care Provider] -
[2017-08-21] MEDS: *HR* OxyCODONE Immed Rel 5 MG TABLET PO PRN ×3 (04:26→18:39)
[2017-08-21] MEDS: Insulin LISPRO 300 UNITS/3 ML VIAL SQ SCH ×4 (08:22→22:10)
[2017-08-21] MEDS: *HR* Morphine 2 MG/ML SYRINGE IVP PRN ×3 (10:04→22:11)
[2017-08-21] MEDS: *HR* Heparin 5,000 UNIT/ML VIAL SQ SCH ×2 (10:06→22:10)
[2017-08-21] MEDS: Levofloxacin 750 MG/150 ML 750 MG/150 ML BAG IVPB SCH (10:08)
[2017-08-21] MEDS: amLODIPine 5 MG TABLET PO SCH (10:08)
--- NOTE | 2017-08-21 10:24 | Internal Med Progress Note ---
<Iraj Sanford - Last Filed: 08/21/17 18:07> Date of Encounter: 08/21/17 Time of Encounter: 10:22 - Assessment and plan (1) Sepsis Current Visit: Yes Status: Resolved Assessment and plan: Admitted meeting sepsis criteria secondary to diabetic foot ulcer and cellulitis. Sepsis resolved. Qualifiers: Sepsis type: sepsis due to unspecified organism Qualified Code(s): A41.9 - Sepsis, unspecified organism (2) MRSA (methicillin resistant staph aureus) culture positive Current Visit: Yes Status: Acute Assessment and plan: Wound cultures growing MRSA. -Precautions (3) Type 2 diabetes mellitus Current Visit: No Status: Chronic Assessment and plan: Glucoses well controlled during inpatient stay. - Patient only on metformin 1000 mg by mouth twice a day at home. Plan: Continue sliding scale insulin low-dose Continue ACHS glucose checks Qualifiers: Diabetes mellitus complication status: with diabetic arthropathy Diabetes mellitus complication detail: with neuropathic arthropathy Diabetes mellitus mcfp insulin use: without mcfp use Qualified Code(s): E11.610 - Type 2 diabetes mellitus with diabetic neuropathic arthropathy (4) Diabetic foot ulcer Current Visit: No Status: Chronic Assessment and plan: need close f/u with plumber helper Qualifiers: Diabetic foot ulcer location: midfoot Diabetes mellitus type: type 2 Laterality: left Non-pressure ulcer stage: with fat layer exposed Qualified Code(s): E11.621 - Type 2 diabetes mellitus with foot ulcer; L97.422 - Non- pressure 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; L97.422 - Non-pressure 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; L97.422 - Non-pressure 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; L97.422 - Non-pressure 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 (5) Toe infection Current Visit: Yes Status: Acute Assessment and plan: He was in mild sepsis upon admission due to his infected toe. However it resolved now s/p I&D with washout 08/10 Repeat wash out on 08/14/17 Reviewed operative notes. mentioned pus around the bone. wound cx from 08/08 - MRSA, Osman Ricardo Surgical biopsy culture 08/10/17 growing MRSA only ID recommend Levaquin + Vancomycin for total 6 weeks # with his underline IV drug abuse history it has been very difficult to find a place for him. However our care management team working so hard to find a place for him for mcfp IV Abx. Until then will cont current care here. (6) LUPE (acute kidney injury) Current Visit: Yes Status: Acute Assessment and plan: Type II diabetic receiving antibiotics, recently resolving sepsis. - Creatinine 1.3, GFR greater than 60 - Continue to monitor (7) DVT prophylaxis Current Visit: No Status: Acute Assessment and plan: on Heparin SQ - Subjective Interval history: Mr. Sharma is seen and evaluated patient has had this morning. He is alert awake interactive no acute distress. Denies any concerns or complaints at this time. He feels back to his normal self with minimal pain in his left foot. - Constitutional Vitals: Temp Pulse Resp BP Pulse Ox 97.9 F 97 18 118/54 97 08/21/17 06:54 08/21/17 06:54 08/21/17 06:54 08/21/17 06:54 08/21/17 06:54 General appearance: Present: cooperative, A&O X 3, no acute distress, answers questions appropriately Exam: General: Patient alert, awake, oriented 3, interactive, in no acute distress HEENT: Normocephalic, atraumatic, pupils equal reactive to light, nasal cavity patent and open septum median position, oral mucosa moist, uvula midline, neck supple trachea midline no palpable lymphadenopathy, no thyromegaly. Chest: Symmetric bilateral correlating with respiratory effort, effort nonlabored. Cardiac: Regular rate and rhythm, positive S1 and S2. no bruits appreciated bilateral carotids, Radial pulses 2+ bilateral, posterior tibial and dorsal pedal pulses 2+ bilateral. Respiratory: Clear to auscultation all lung fuller Abdomen: Soft, nontender, positive bowel sounds, no palpable masses appreciated on examination Extremities: Symmetric bilateral, patient moving all 4 extremities, left foot is wrapped, neurovascularly intact. Track talamantes appreciated on dorsal aspects of bilateral hands. Neurologic: No focal deficits appreciated on examination. Face symmetric, muscle strength symmetric bilateral upper and lower extremities. Internal Medicine: Result - Labs CBC & Chem 7: 08/16/17 06:30 08/21/17 10:20 - VTE Documentation of Mechanical Device: Intermittent pneumatic compression device Consult Discharge Plan - Plan Referrals: Ximena Collazo MD [Primary Care Provider] - <Maximino Lauren - Last Filed: 08/21/17 18:24> Date of Encounter: 08/21/17 - Assessment and plan (1) Sepsis Current Visit: Yes Status: Resolved Qualifiers: Sepsis type: methicillin resistant Staphylococcus aureus Qualified Code(s) : A41.02 - Sepsis due to Methicillin resistant Staphylococcus aureus (2) Cellulitis of left foot due to methicillin-resistant Staphylococcus aureus Current Visit: Yes Status: Acute (3) Diabetic foot infection Current Visit: Yes Status: Acute (4) Toe infection Current Visit: Yes Status: Acute (5) IVDU (intravenous drug user) Current Visit: No Status: Acute (6) LUPE (acute kidney injury) Current Visit: Yes Status: Acute - Constitutional Vitals: Temp Pulse Resp BP Pulse Ox 98.4 F 82 18 127/65 95 08/21/17 15:21 08/21/17 15:21 08/21/17 15:21 08/21/17 15:21 08/21/17 15:21 Internal Medicine: Result - Labs CBC & Chem 7: 08/16/17 06:30 08/21/17 10:20 Labs: BMP 08/21/17 10:20 Sodium 140 Potassium 3.9 Chloride 105 Carbon Dioxide 29 BUN 19 Creatinine 1.33 H Glucose 108 H Calcium 9.5 Liver Function 08/21/17 Range/Units 10:20 Total Bilirubin 0.8 (0.2-1.2) mg/dL AST 13 (5-34) Units/L ALT 15 (0-55) Units/L Alkaline Phosphatase 50 (38-126) Units/L Albumin 3.1 L (3.5-5.0) g/dL - Attending Attestation I examined this patient and my medical decision-making was reviewed with the Resident Physician on 08/21/17. I agree with the documented findings, disposition and treatment plan as described except to the extent set forth below. Mr Sharma is currently admitted for acute toe infection/abscess with presumed OM. He is moderate to high risk due to potential for worsening infectious symptoms. He is on multiple IV meds. Mr Sharma feels OK at this time. No CP or SOB. No fever or chills. He is tolerating IV abx. Working on d/c planning at this time (needs 6 weeks IV abx). Exam Alert. Comfortable Heart reg No wheeze Abd soft Dressing intact L foot. I/P 1. Sepsis - resolved 2. MRSA foot infection 3. Diabetic foot ulcer Further diagnoses and plan as above.
[2017-08-21 10:44] LABS: Vancomycin,Trough 15.7 mcg/mL (10-20)
[2017-08-21] MEDS: Vancomycin 1,250 MG in D5% in Water 250 ML IVPB SCH ×2 (11:20→22:09)
--- NOTE | 2017-08-21 13:28 | Event Note ---
Date of Encounter: 08/21/17 Time of Encounter: 13:[address] Paredes at [employer]. Pt does not qualify for LTACH admission at this time. I reiterated that he has been denied from greater than 20 SNF facilities. He still will not be approved for LTACH and this case is being sent to the director of the insurance plan for review. At this time I was told to "stay the course" here.
[2017-08-21 13:30] LABS: Alanine Aminotransferase 15 Units/L (0-55); Albumin 3.1 g/dL (3.5-5.0); Albumin/Globulin Ratio 0.7 (1.1-2.2); Alkaline Phosphatase 50 Units/L (38-126); Aspartate Amino Transferase 13 Units/L (5-34); BUN/Creatinine Ratio 14 (6-26); Bilirubin,Total 0.8 mg/dL (0.2-1.2); Blood Urea Nitrogen 19 mg/dL (8-26); Calcium 9.5 mg/dL (8.6-10.8); Carbon Dioxide 29 mEq/L (19-29); Chloride 105 mEq/L (98-109); Globulin 4.3 g/dL (2.4-3.5); Glucose 108 mg/dL (70-99); Osmolality,Calculated 293 (280-300); Potassium 3.9 mEq/L (3.5-4.5); Sodium 140 mEq/L (136-145); Total Protein 7.4 g/dL (6.0-8.3); eGFR For African Americans > 60 (> 60); eGFR For Non-African Americans > 60 (> 60)
--- NOTE | 2017-08-21 13:32 | Infectious Disease Progress No ---
Date of Encounter: 08/21/17 Time of Encounter: 13:30 - Assessment and Plan (1) Sepsis Current Visit: Yes Status: Resolved The patient had two SIRS criteria on admission. Likely secondary to left foot cellulitis and toe infection. Improved. Tachypnea and tachycardia have resolved. Lactic acid was normal. Blood cultures drawn 08/08/17 are negative x 2 sets. Qualifiers: Sepsis type: sepsis due to unspecified organism Qualified Code(s): A41.9 - Sepsis, unspecified organism (2) Toe infection Current Visit: Yes Status: Acute Location: Left foot, third digit. Causative organism MRSA and Morganella morganii. Likely secondary to diabetic foot ulcer. Left foot CT scan showed findings consistent with cellulitis and phlegmonous changes. Podiatry consulted and following. Status post left foot third digit I & D by Dr. Slater. Operative note reviewed. Pus noted adjacent to the bone, but no bone changes noted. Status post repeat I & D 08/14/[address] Slater. Less purulence noted. No bony abnormalities noted. ESR 76, CRP 23 post-op. Continue Vancomycin IV. Pharmacy to dose. Goal trough ~15. Continue Levaquin 750mg IV daily. Duration of treatment depends on the clinical picture, but given that there was pus noted to be in contact with the bone, will likely need 6 weeks of IV antibiotics. Monitor renal function and for drug toxicity and dose-adjust antibiotics. administrative services manager assisting with discharge planning. The patient has been accepted at [facility], but insurance has denied his transfer to [facility]. administrative services manager continues to work to find placement. Wound care and activity restrictions per the podiatry team. (3) Cellulitis Current Visit: Yes Status: Acute Location: Left foot. Causative organism likely MRSA and Morganella morganii. Likely secondary to left third toe infection. Improved. Continue antibiotics as above. Qualifiers: Site of cellulitis: extremity Site of cellulitis of extremity: lower extremity Laterality: left Qualified Code(s): L03.116 - Cellulitis of left lower limb (4) LUPE (acute kidney injury) Current Visit: Yes Status: Acute Serum creatinine improved. Etiology not clear, but could be related to nephrotoxins. Continue to trend. Strict I's and O's. Dose-adjust antibiotics. (5) Diabetic foot ulcer Current Visit: No Status: Chronic Location: Plantar aspect, left foot. Secondary to non-healing surgical wound. Wound care per the podiatry team. Qualifiers: Diabetic foot ulcer location: midfoot Diabetes mellitus type: type 2 Laterality: left Non-pressure ulcer stage: with fat layer exposed Qualified Code(s): E11.621 - Type 2 diabetes mellitus with foot ulcer; L97.422 - Non- pressure 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; L97.422 - Non-pressure 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; L97.422 - Non-pressure 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; L97.422 - Non-pressure 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 (6) IVDU (intravenous drug user) Current Visit: No Status: Acute Reports using IV drugs about a month ago. HIV, Hepatitis profile, RPR negative. (7) Type 2 diabetes mellitus Current Visit: No Status: Chronic Controlled. Hgb A1C 5.0 Recommend continued aggressive glucose monitoring and control to promote wound healing and prevent re-infection. Management per the primary team. Qualifiers: Diabetes mellitus complication status: with diabetic arthropathy Diabetes mellitus complication detail: with neuropathic arthropathy Diabetes mellitus long term care phlebotomist insulin use: without detention use Qualified Code(s): E11.610 - Type 2 diabetes mellitus with diabetic neuropathic arthropathy - Subjective Interval history: Patient seen and examined. No acute events noted overnight. Patient continues to await ECF placement. Patient states he has some mild pain at the surgical site, rated 6 out of 10. Denies any fevers or chills or rigors. Denies any headache or neck pain. Denies any chest pain, shortness of breath, or cough. Denies any nausea, vomiting, diarrhea, constipation. Denies abdominal pain, urinary complaints, appetite changes. States the pain in his left foot is improved since admission and no longer radiates up into his calf. He denies any oral thrush or new skin lesions. Infect Dis PN-Objective Data - Labs CBC & Chem 7: 08/16/17 06:30 08/20/17 03:44 Labs: Laboratory Results - last 24 hr 08/20/17 08/20/17 08/21/17 16:26 20:30 06:56 POC Glucose 86 96 H 98 H Vancomycin Trough 08/21/17 08/21/17 10:20 11:03 POC Glucose 97 H Vancomycin Trough 15.7 Cultures: Cultures 08/14/17 16:37 Anaerobic Culture - Final Left Foot No anaerobes were recovered. 08/14/17 16:37 Wound Culture - Final Left Foot Morganella [email or web address] Methicillin Resistant S.aureus 08/10/17 15:15 Anaerobic Culture - Final Left Foot No anaerobes were recovered. 08/10/17 15:15 Surgical Biopsy Culture - Final Left Foot Methicillin Resistant S.aureus Exam - Constitutional Vitals: Temp Pulse Resp BP Pulse Ox 98.3 F 73 18 106/59 100 08/21/17 11:01 08/21/17 11:01 08/21/17 11:01 08/21/17 11:01 08/21/17 11:01 General appearance: average body habitus, cooperative, no acute distress - Head Head exam: Present: atraumatic, normal inspection, normocephalic - Eye Eye exam: Present: EOMI, normal appearance, PERRL Pupils: Present: normal accommodation - ENT ENT exam: Present: mucous membranes moist - Neck Neck exam: Present: normal inspection - Respiratory Respiratory exam: Present: CTAB. Absent: rales, respiratory distress, rhonchi, wheezes - Cardiovascular Cardiovascular exam: Present: RRR, +S1, +S2 - GI/Abdominal GI/Abdominal exam: Present: normal bowel sounds, soft. Absent: distended, tenderness - Extremities Exam Extremities exam: Absent: joint swelling, pedal edema, tenderness Additional comments: Left foot dressing C/d/I. - Neurological Exam Neurological exam: Present: alert, oriented X3, no focal deficits - Psychiatric Psychiatric exam: Present: normal affect, normal mood - Skin Skin exam: Present: dry, intact, normal color, warm - VTE Documentation of Mechanical Device: Intermittent pneumatic compression device Consult Discharge Plan - Plan Referrals: Ximena Collazo MD [Primary Care Provider] -
--- NOTE | 2017-08-21 13:45 | Podiatry Progress Note ---
Date of Encounter: 08/21/17 Time of Encounter: 13:00 - Assessment and Plan (1) Type 2 diabetes mellitus Current Visit: No Status: Chronic Qualifiers: Diabetes mellitus complication status: with diabetic arthropathy Diabetes mellitus complication detail: with neuropathic arthropathy Diabetes mellitus intermediate insulin use: without intermediate use Qualified Code(s): E11.610 - Type 2 diabetes mellitus with diabetic neuropathic arthropathy (2) Diabetic foot ulcer Current Visit: No Status: Chronic s/p Irrigation and debridement left foot on 08/15/[address] Slater. Incision line is healing uneventfully. Wound care orders to include cleansing incision line/ulcer twice daily with saline, pat dry, apply saline moist to dry dressing to the ulcer, adaptic with dry sterile 4x4 gauze to the incision lines with kerlix and tape. Wound cultures isolated MRSA, ID evaluated patient and recommended continuing IV Vancomycin and IV Levaquin most likely 6 weeks. Non weight bearing to LLE. Post op shoe at the bedside. Patient is awaiting insurance approval to [facility]. [facility] will be managing foot after discharge Qualifiers: Diabetic foot ulcer location: midfoot Diabetes mellitus type: type 2 Laterality: left Non-pressure ulcer stage: with fat layer exposed Qualified Code(s): E11.621 - Type 2 diabetes mellitus with foot ulcer; L97.422 - Non- pressure 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; L97.422 - Non-pressure 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; L97.422 - Non-pressure 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; L97.422 - Non-pressure 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 (3) Diabetic foot infection Current Visit: Yes Status: Acute Subjective Principal diagnosis: Left foot infection Interval history: Patient is s/p s/p Irrigation and debridement left foot on 08/15/[address] Slater. Patient is sitting up in bed eating lunch with mother at bedside. Patient denies any pain currently, no c/o fever, chills, or calf pain. Patient states he is feeling better. Patient is awaiting insurance authorization for [facility]. Objective - Vital Signs Vital Signs: Vital Signs Temp Pulse Resp BP Pulse Ox 08/21/17 11:01 98.3 F 73 18 106/59 100 08/21/17 06:54 97.9 F 97 18 118/54 97 08/21/17 04:18 98.0 F 60 18 161/77 99 08/21/17 00:19 98.5 F 66 20 119/79 97 08/20/17 20:37 99.1 F 73 18 132/79 99 08/20/17 15:20 98.0 F 72 18 122/64 99 Intake and Output 08/20/17 08/21/17 08/21/17 23:59 07:59 15:59 Intake Total 2350 / 2350 240 / 240 Output Total 325 / 325 Balance 2350 / 2350 -325 / -325 240 / 240 Intake: IV Fluids 1500 / 1500 0.9 % Sodium Chloride 1,000 ML 1000 / 1000 @ 75 mls/hr IVC .[id number] DAKSHA Rx #:[id number] Vancocin 1,250 MG In Dextrose 5 500 / 500 % 250 ML @ 166.667 mls/hr IVPB Q12H DAKSHA Rx#:[id number] Oral 850 / 850 240 / 240 Output: Urine 325 / 325 Other: Meal Breakfast Percent of Meal Consumed 100% Blood Glucose* 96 98 97 - Exam Exam: General appearance: alert awake oriented X 3. Calm and pleasant, no acute distress.. Vascular: Pedal pulses +2/4 DP/PT , No evidence of cyanosis, pallor or rubor, Edema graded at 1+/4, Skin Temperature warm, No calf pain with manual compression. capillary refill time is immediate to digits. Neurologic: Sensation intact with light touch to foot. . Postop Exam: S/P Retention Sutures intact to incision line, lateral aspect of toe #3, sutures intact to incision line to the plantar aspect of toe #3, no signs of dehiscence. Small amount of serous drainage observed to dressing, light periwound erythema, no streaking, no ascending cellulitis. Healing ulceration to sub #3 metatarsal head left foot measuring 1.5 cm in diameter by 0.3 cm in depth, base of the wound with 100% granulation tissue, no odor, no erythema, no streaking. Minimal edema. - Lab Result Diagrams: 08/16/17 06:30 08/21/17 10:20 Labs: Abnormal lab results RBC 4.05 M/mcL (4.19-5.50) L 08/16/17 06:30 Hgb 11.9 g/dL (12.9-16.9) L 08/16/17 06:30 Hct 35.4 % (37.5-50.1) L 08/16/17 06:30 ESR 76 mm/hr (0-10) H 08/14/17 04:49 Creatinine 1.33 mg/dL (0.72-1.25) H 08/21/17 10:20 Glucose 108 mg/dL (70-99) H 08/21/17 10:20 POC Glucose 97 (58-89) H 08/21/17 11:03 Direct Bilirubin 0.6 mg/dL (0.0-0.5) H 08/08/17 14:23 C-Reactive Protein 23 mg/L (Less than 5) H 08/14/17 04:49 Albumin 3.1 g/dL (3.5-5.0) L 08/21/17 10:20 Globulin 4.3 g/dL (2.4-3.5) H 08/21/17 10:20 Albumin/Globulin Ratio 0.7 (1.1-2.2) L 08/21/17 10:20 - VTE Documentation of Mechanical Device: Intermittent pneumatic compression device Consult Discharge Plan - Plan Referrals: Ximena Collazo MD [Primary Care Provider] -
[2017-08-21] MEDS: 0.9 % Sodium Chloride 1,000 ML IVC SCH (16:35)
[2017-08-22] MEDS: *HR* OxyCODONE Immed Rel 5 MG TABLET PO PRN ×3 (00:52→21:44)
[2017-08-22] MEDS: 0.9 % Sodium Chloride 1,000 ML IVC SCH (04:56)
[2017-08-22] MEDS: *HR* Morphine 2 MG/ML SYRINGE IVP PRN (04:58)
[2017-08-22 06:41] LABS: Alanine Aminotransferase 12 Units/L (0-55); Albumin 2.8 g/dL (3.5-5.0); Albumin/Globulin Ratio 0.7 (1.1-2.2); Alkaline Phosphatase 47 Units/L (38-126); Aspartate Amino Transferase 12 Units/L (5-34); BUN/Creatinine Ratio 15 (6-26); Bilirubin,Total 0.8 mg/dL (0.2-1.2); Blood Urea Nitrogen 18 mg/dL (8-26); Calcium 8.9 mg/dL (8.6-10.8); Carbon Dioxide 25 mEq/L (19-29); Chloride 105 mEq/L (98-109); Globulin 4.2 g/dL (2.4-3.5); Glucose 104 mg/dL (70-99); Osmolality,Calculated 290 (280-300); Potassium 4.1 mEq/L (3.5-4.5); Sodium 139 mEq/L (136-145); eGFR For African Americans > 60 (> 60); eGFR For Non-African Americans > 60 (> 60)
[2017-08-22] MEDS: Insulin LISPRO 300 UNITS/3 ML VIAL SQ SCH ×4 (07:13→21:41)
[2017-08-22] MEDS: *HR* Heparin 5,000 UNIT/ML VIAL SQ SCH ×2 (09:44→21:43)
[2017-08-22] MEDS: amLODIPine 5 MG TABLET PO SCH (09:44)
[2017-08-22] MEDS: Levofloxacin 750 MG/150 ML 750 MG/150 ML BAG IVPB SCH (09:45)
--- NOTE | 2017-08-22 10:13 | Internal Med Progress Note ---
<Iraj Sanford - Last Filed: 08/22/17 11:32> Date of Encounter: 08/22/17 Time of Encounter: 10:11 - Assessment and plan (1) Sepsis Current Visit: Yes Status: Resolved Assessment and plan: Admitted meeting sepsis criteria secondary to diabetic foot ulcer and cellulitis. Sepsis resolved. Qualifiers: Sepsis type: methicillin resistant Staphylococcus aureus Qualified Code(s) : A41.02 - Sepsis due to Methicillin resistant Staphylococcus aureus (2) MRSA (methicillin resistant staph aureus) culture positive Current Visit: Yes Status: Acute Assessment and plan: Wound cultures growing MRSA. -Precautions (3) Type 2 diabetes mellitus Current Visit: No Status: Chronic Assessment and plan: Glucoses well controlled during inpatient stay. - Patient only on metformin 1000 mg by mouth twice a day at home. Plan: Continue sliding scale insulin low-dose Continue ACHS glucose checks Qualifiers: Diabetes mellitus complication status: with diabetic arthropathy Diabetes mellitus complication detail: with neuropathic arthropathy Diabetes mellitus nursing home insulin use: without nursing home use Qualified Code(s): E11.610 - Type 2 diabetes mellitus with diabetic neuropathic arthropathy (4) Diabetic foot ulcer Current Visit: No Status: Chronic Assessment and plan: need close f/u with ribber Qualifiers: Diabetic foot ulcer location: midfoot Diabetes mellitus type: type 2 Laterality: left Non-pressure ulcer stage: with fat layer exposed Qualified Code(s): E11.621 - Type 2 diabetes mellitus with foot ulcer; L97.422 - Non- pressure 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; L97.422 - Non-pressure 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; L97.422 - Non-pressure 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; L97.422 - Non-pressure 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 (5) Toe infection Current Visit: Yes Status: Acute Assessment and plan: He was in mild sepsis upon admission due to his infected toe. However it resolved now s/p I&D with washout 08/10 Repeat wash out on 08/14/17 Reviewed operative notes. mentioned pus around the bone. wound cx from 08/08 - MRSA, Osman Ricardo Surgical biopsy culture 08/10/17 growing MRSA only ID recommend Levaquin + Vancomycin for total 6 weeks # with his underline IV drug abuse history it has been very difficult to find a place for him. However our care management team working so hard to find a place for him for nursing home IV Abx. Until then will cont current care here. 08/22: placement continues to be an issue. Continue current therapy. (6) LUPE (acute kidney injury) Current Visit: Yes Status: Acute Assessment and plan: Type II diabetic receiving antibiotics, recently resolving sepsis. - Creatinine 1.14, improving. GFR greater than 60 - Continue to monitor (7) DVT prophylaxis Current Visit: No Status: Acute Assessment and plan: on Heparin SQ - Subjective Interval history: Mr. Sharma is seen and evaluated patient has had this morning. He is alert awake interactive no acute distress. Denies any concerns or complaints at this time. He feels back to his normal self with minimal pain in his left foot. - Constitutional Vitals: Temp Pulse Resp BP Pulse Ox 97.9 F 65 18 113/67 98 08/22/17 06:49 08/22/17 06:49 08/22/17 06:49 08/22/17 06:49 08/22/17 06:49 General appearance: Present: cooperative, A&O X 3, no acute distress, answers questions appropriately - Head Head exam: Present: atraumatic, normocephalic - Eye Eye exam: Present: PERRL, conjuntiva pink, sclera anicteric Pupils: Present: PERRL - Neck Neck exam general surgery: Present: supple, trachea midline. Absent: lymphadenopathy - Respiratory Respiratory exam: Present: CTAB. Absent: accessory muscle use, rales, rhonchi, wheezes - Cardiovascular Cardiovascular exam: Present: RRR, +S1, +S2. Absent: diastolic murmur, gallop, rubs, systolic murmur - GI/Abdominal GI/Abdominal exam: Present: normal bowel sounds, soft, no peritoneal signs. Absent: distended, tenderness - Extremities Exam Extremities exam: Present: warm, radial pulses palpable and symmetrical. Absent : calf tenderness, cyanotic, pedal edema Additional comments: Left foot bandaged, neurovascularly intact. - Neurological Exam Neurological exam: Present: CN II-XII intact, oriented X3, no focal deficits. Absent: pronater drift, facial droop, speech deficit - Skin Skin exam: Present: dry, intact Internal Medicine: Result - Labs CBC & Chem 7: 08/16/17 06:30 08/22/17 06:05 Labs: [facility] 08/21/17 08/22/17 10:20 06:05 Sodium 140 139 Potassium 3.9 4.1 Chloride 105 105 Carbon Dioxide 29 25 BUN 19 18 Creatinine 1.33 H 1.17 Glucose 108 H 104 H Calcium 9.5 8.9 Liver Function 08/21/17 08/22/17 Range/Units 10:20 06:05 Total Bilirubin 0.8 0.8 (0.2-1.2) mg/dL AST 13 12 (5-34) Units/L ALT 15 12 (0-55) Units/L Alkaline Phosphatase 50 47 (38-126) Units/L Albumin 3.1 L 2.8 L (3.5-5.0) g/dL - VTE Documentation of Mechanical Device: Graduated compression elastic hosiery Consult Discharge Plan - Plan Referrals: Ximena Collazo MD [Primary Care Provider] - <Maximino Lauren - Last Filed: 08/22/17 18:27> Date of Encounter: 08/22/17 - Assessment and plan (1) Sepsis Current Visit: Yes Status: Resolved Qualifiers: Sepsis type: methicillin resistant Staphylococcus aureus Qualified Code(s) : A41.02 - Sepsis due to Methicillin resistant Staphylococcus aureus (2) Cellulitis of left foot due to methicillin-resistant Staphylococcus aureus Current Visit: Yes Status: Acute (3) Diabetic foot infection Current Visit: Yes Status: Acute (4) Toe infection Current Visit: Yes Status: Acute (5) IVDU (intravenous drug user) Current Visit: No Status: Acute (6) LUPE (acute kidney injury) Current Visit: Yes Status: Acute - Constitutional Vitals: Temp Pulse Resp BP Pulse Ox 98.5 F 63 18 127/68 98 08/22/17 14:24 08/22/17 14:24 08/22/17 14:24 08/22/17 14:24 08/22/17 14:24 Internal Medicine: Result - Labs CBC & Chem 7: 08/16/17 06:30 08/22/17 06:05 Labs: [facility] 08/22/17 06:05 Sodium 139 Potassium 4.1 Chloride 105 Carbon Dioxide 25 BUN 18 Creatinine 1.17 Glucose 104 H Calcium 8.9 Liver Function 08/22/17 Range/Units 06:05 Total Bilirubin 0.8 (0.2-1.2) mg/dL AST 12 (5-34) Units/L ALT 12 (0-55) Units/L Alkaline Phosphatase 47 (38-126) Units/L Albumin 2.8 L (3.5-5.0) g/dL - Attending Attestation I examined this patient and my medical decision-making was reviewed with the Resident Physician on 08/22/17. I agree with the documented findings, disposition and treatment plan as described except to the extent set forth below. Mr Sharma is currently admitted for infected L foot s/p I&D. He remains moderate to high risk due to potential for worsening clinical status and need for IV abx. Mr Sharma is doing OK today. No fever or chills. No GI issues. Pain is controlled at this time. Exam Alert. Comfortable Mucus membranes dry Heart reg No wheeze Abd soft Dressing intact I/P 1. MRSA wound infection - abx to be given through 09/18/17 2. DM Further diagnoses and plan as above.
[2017-08-22] MEDS: Vancomycin 1,250 MG in D5% in Water 250 ML IVPB SCH ×2 (11:30→22:13)
--- NOTE | 2017-08-22 16:52 | Podiatry Progress Note ---
Date of Encounter: 08/22/17 Time of Encounter: 12:00 - Assessment and Plan (1) Diabetic foot ulcer Current Visit: No Status: Chronic s/p Irrigation and debridement left foot on 08/15/17 Assessed at bedside, nurse recently changed dressing Patient has been accepted [facility] [place]- awaiting insurance approval Continue Vancomycin IV. Pharmacy to dose per ID Continue Levaquin 750mg IV daily. Duration of treatment depends on the clinical picture, but given that there was pus noted to be in contact with the bone, will likely need 6 weeks of IV antibiotics. Daily dressing changes, cleanse with saline, pat dry, apply adaptic 4x4 and kerlix Non weight bearing to LLE. - patient has post operative shoe at bedside Since patient will be admitted to [facility]- they will be managing foot after discharge Qualifiers: Diabetic foot ulcer location: midfoot Diabetes mellitus type: type 2 Laterality: left Non-pressure ulcer stage: with fat layer exposed Qualified Code(s): E11.621 - Type 2 diabetes mellitus with foot ulcer; L97.422 - Non- pressure 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; L97.422 - Non-pressure 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; L97.422 - Non-pressure 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; L97.422 - Non-pressure 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 (2) Diabetic foot infection Current Visit: Yes Status: Acute see above Subjective Principal diagnosis: Left foot infection Interval history: was admitted and underwent I&D with on 08/15/17. On arrival today patient is resting comfortably. RN was at bedside, just changed dressing. States it appears to be healing without complication. States it was cleansed with saline, adaptic, 4x4 and kerlix was applied. Denies any pain. Patient states he has been accepted [facility] however must have 25 denials from other facilities prior to insurance coverage of admission- Awaiting insurance approval. Patient denies any fevers, chills, n/v or flu like symptoms. Objective - Vital Signs Vital Signs: Vital Signs Temp Pulse Resp BP Pulse Ox 08/22/17 14:24 98.5 F 63 18 127/68 98 08/22/17 11:04 98.4 F 73 18 122/69 98 08/22/17 06:49 97.9 F 65 18 113/67 98 08/22/17 00:21 98.4 F 76 17 145/90 100 08/21/17 21:01 98.3 F 83 16 127/73 100 Intake and Output 08/22/17 08/22/17 08/22/17 07:59 15:59 23:59 Intake Total 1350 / 1350 270 / 270 Output Total 400 / 400 1500 / 1500 Balance 950 / 950 -1230 / -1230 Intake: IV Fluids 1000 / 1000 150 / 150 0.9 % Sodium Chloride 1,000 ML 1000 / 1000 @ 75 mls/hr IVC .[id number] DAKSHA Rx #:[id number] Levaquin Premix 750mg/150 mL 150 / 150 750 mg In 150 ml @ 100 mls/hr IVPB DAILY DAKSHA Rx#:[id number] Oral 350 / 350 120 / 120 Output: Urine 400 / 400 1500 / 1500 Other: Meal Lunch Percent of Meal Consumed 100% Blood Glucose* 101 113 103 - Exam Exam: Awake, alert and oriented Toes warm, pink, cap refill <3 seconds No calf pain with manual compression Dressing intact- no need to remove at this time Movement intact to toes Patient has minimal sensation due to neuropathy - Lab Result Diagrams: 08/16/17 06:30 08/22/17 06:05 Labs: Abnormal lab results RBC 4.05 M/mcL (4.19-5.50) L 08/16/17 06:30 Hgb 11.9 g/dL (12.9-16.9) L 08/16/17 06:30 Hct 35.4 % (37.5-50.1) L 08/16/17 06:30 ESR 76 mm/hr (0-10) H 08/14/17 04:49 Glucose 104 mg/dL (70-99) H 08/22/17 06:05 POC Glucose 171 (58-89) H 08/21/17 20:58 Direct Bilirubin 0.6 mg/dL (0.0-0.5) H 08/08/17 14:23 C-Reactive Protein 23 mg/L (Less than 5) H 08/14/17 04:49 Albumin 2.8 g/dL (3.5-5.0) L 08/22/17 06:05 Globulin 4.2 g/dL (2.4-3.5) H 08/22/17 06:05 Albumin/Globulin Ratio 0.7 (1.1-2.2) L 08/22/17 06:05 - VTE Documentation of Mechanical Device: Graduated compression elastic hosiery Consult Discharge Plan - Plan Referrals: Ximena Collazo MD [Primary Care Provider] -
[2017-08-23] MEDS: 0.9 % Sodium Chloride 1,000 ML IVC SCH (03:50)
[2017-08-23] MEDS: *HR* OxyCODONE Immed Rel 5 MG TABLET PO PRN ×3 (03:51→22:06)
[2017-08-23] MEDS: Insulin LISPRO 300 UNITS/3 ML VIAL SQ SCH ×4 (08:45→22:05)
[2017-08-23] MEDS: *HR* Heparin 5,000 UNIT/ML VIAL SQ SCH ×2 (08:45→22:04)
[2017-08-23] MEDS: amLODIPine 5 MG TABLET PO SCH (08:46)
[2017-08-23] MEDS: Levofloxacin 750 MG/150 ML 750 MG/150 ML BAG IVPB SCH (08:46)
--- NOTE | 2017-08-23 09:27 | Physician Discharge Referral ---
- Diagnosis (1) Sepsis Status: Resolved (2) Cellulitis of left foot due to methicillin-resistant Staphylococcus aureus Status: Acute (3) Diabetic foot infection Status: Acute (4) Toe infection Status: Acute (5) IVDU (intravenous drug user) Status: Acute (6) LUPE (acute kidney injury) Status: Acute - Transfer Medications Home Medications: Metformin HCl [Glucophage] 1,000 mg PO BID 05/07/17 [History] Escitalopram [Lexapro] 10 mg PO DAILY 08/08/17 [History] Lisinopril [Zestril] 10 mg PO BID 08/08/17 [History] Allergies/Adverse Reactions: 3 Allergy/AdvReac Type Severity Reaction Status Date / Time No Known Allergies Allergy Verified 05/06/17 15:56 - Respiratory Orders Smoking Cessation: Smoking cessation has been advised. For more information, call the [place] Tobacco Quit Line at 6-564-DCUFNOW. CERTIFICATION: I certify that the transfer of the above named patient to an Extended Care Facility is necessary for the continuing treatment of the diagnosis listed. The above information is true and accurate reflection of patient's current condition. Confidential - Redisclosure prohibited without a patient's written consent.
[2017-08-23] MEDS ORDERED: *HR* Alteplase (Cathflo) 2 MG VIAL IVP ONE (10:20)
[2017-08-23] MEDS: Vancomycin 1,250 MG in D5% in Water 250 ML IVPB SCH ×2 (11:29→22:12)
--- NOTE | 2017-08-23 14:02 | Internal Med Progress Note ---
<Iraj Sanford - Last Filed: 08/23/17 15:14> Date of Encounter: 08/23/17 Time of Encounter: 10:00 - Assessment and plan (1) Sepsis Current Visit: Yes Status: Resolved Assessment and plan: Admitted meeting sepsis criteria secondary to diabetic foot ulcer and cellulitis. Sepsis resolved. Qualifiers: Sepsis type: methicillin resistant Staphylococcus aureus Qualified Code(s) : A41.02 - Sepsis due to Methicillin resistant Staphylococcus aureus (2) MRSA (methicillin resistant staph aureus) culture positive Current Visit: Yes Status: Acute Assessment and plan: Wound cultures growing MRSA. -Precautions (3) Type 2 diabetes mellitus Current Visit: No Status: Chronic Assessment and plan: Glucoses well controlled during inpatient stay. - Patient only on metformin 1000 mg by mouth twice a day at home. 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 Qualifiers: Diabetic foot ulcer location: midfoot Diabetes mellitus type: type 2 Laterality: left Non-pressure ulcer stage: with fat layer exposed Qualified Code(s): E11.621 - Type 2 diabetes mellitus with foot ulcer; L97.422 - Non- pressure 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; L97.422 - Non-pressure 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; L97.422 - Non-pressure 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; L97.422 - Non-pressure 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 (5) Toe infection Current Visit: Yes Status: Acute Assessment and plan: He was in mild sepsis upon admission due to his infected toe. However it resolved now s/p I&D with washout 08/10 Repeat wash out on 08/14/17 Reviewed operative notes. mentioned pus around the bone. wound cx from 08/08 - MRSA, Osman Ricardo Surgical biopsy culture 08/10/17 growing MRSA only ID recommend Levaquin + Vancomycin for total 6 weeks # with his underline IV drug abuse history it has been very difficult to find a place for him. However our care management team working so hard to find a place for him for snf IV Abx. Until then will cont current care here. 08/22: placement continues to be an issue. Continue current therapy. (6) LUPE (acute kidney injury) Current Visit: Yes Status: Acute Assessment and plan: Type II diabetic receiving antibiotics, recently resolving sepsis. -Acute kidney injury resolved. (7) DVT prophylaxis Current Visit: No Status: Acute Assessment and plan: on Heparin SQ - Subjective Interval history: Mr. Sharma is seen and evaluated patient has had this morning. He is alert awake interactive no acute distress. Denies any concerns or complaints at this time. He feels back to his normal self with minimal pain in his left foot. - Constitutional Vitals: Temp Pulse Resp BP Pulse Ox 98.5 F 96 18 131/66 100 08/23/17 11:38 08/23/17 11:38 08/23/17 11:38 08/23/17 11:38 08/23/17 11:38 General appearance: Present: cooperative, A&O X 3, no acute distress, answers questions appropriately - Head Head exam: Present: atraumatic, normocephalic - Eye Eye exam: Present: PERRL, conjuntiva pink, sclera anicteric Pupils: Present: PERRL - Neck Neck exam general surgery: Present: supple, trachea midline. Absent: lymphadenopathy - Respiratory Respiratory exam: Present: CTAB. Absent: accessory muscle use, rales, rhonchi, wheezes - Cardiovascular Cardiovascular exam: Present: RRR, +S1, +S2. Absent: diastolic murmur, gallop, rubs, systolic murmur - GI/Abdominal GI/Abdominal exam: Present: normal bowel sounds, soft, no peritoneal signs. Absent: distended, tenderness - Extremities Exam Extremities exam: Present: warm, radial pulses palpable and symmetrical. Absent : calf tenderness, cyanotic, pedal edema Additional comments: Left LE externally rotated and short compared to right LE. Neurovascularly intact. - Neurological Exam Neurological exam: Present: CN II-XII intact, oriented X3, no focal deficits. Absent: pronater drift, facial droop, speech deficit - Skin Skin exam: Present: dry, intact Internal Medicine: Result - Labs CBC & Chem 7: 08/16/17 06:30 08/22/17 06:05 - VTE Documentation of Mechanical Device: Graduated compression elastic hosiery Consult Discharge Plan - Plan Referrals: Ximena Collazo MD [Primary Care Provider] - <Maximino Lauren - Last Filed: 08/23/17 18:49> Date of Encounter: 08/23/17 - Assessment and plan (1) Sepsis Current Visit: Yes Status: Resolved Qualifiers: Sepsis type: methicillin resistant Staphylococcus aureus Qualified Code(s) : A41.02 - Sepsis due to Methicillin resistant Staphylococcus aureus (2) Cellulitis of left foot due to methicillin-resistant Staphylococcus aureus Current Visit: Yes Status: Acute (3) Diabetic foot infection Current Visit: Yes Status: Acute (4) Toe infection Current Visit: Yes Status: Acute (5) IVDU (intravenous drug user) Current Visit: No Status: Acute (6) LUPE (acute kidney injury) Current Visit: Yes Status: Acute - Constitutional Vitals: Temp Pulse Resp BP Pulse Ox 98.7 F 92 16 137/68 99 08/23/17 14:21 08/23/17 14:21 08/23/17 14:21 08/23/17 14:21 08/23/17 14:21 Internal Medicine: Result - Labs CBC & Chem 7: 08/16/17 06:30 08/22/17 06:05 - Attending Attestation I examined this patient and my medical decision-making was reviewed with the Resident Physician on 08/23/17. I agree with the documented findings, disposition and treatment plan as described except to the extent set forth below. Mr Sharma is currently admitted for MRSA infection of foot. He remains moderate to high risk and is on IV abx that need monitoring. Exam Alert. Comfortable Mucus membranes dry Heart reg No wheeze I/P 1. MRSA foot infection 2. IVDU Further diagnoses and plan as above.
[2017-08-23] MEDS: *HR* Morphine 2 MG/ML SYRINGE IVP PRN (17:07)
[2017-08-24] MEDS: 0.9 % Sodium Chloride 1,000 ML IVC SCH (02:54)
[2017-08-24] MEDS: *HR* OxyCODONE Immed Rel 5 MG TABLET PO PRN ×3 (06:23→20:21)
[2017-08-24 06:49] LABS: Alanine Aminotransferase 13 Units/L (0-55); Albumin 3.2 g/dL (3.5-5.0); Albumin/Globulin Ratio 0.7 (1.1-2.2); Alkaline Phosphatase 56 Units/L (38-126); Aspartate Amino Transferase 15 Units/L (5-34); BUN/Creatinine Ratio 13 (6-26); Bilirubin,Total 0.8 mg/dL (0.2-1.2); Blood Urea Nitrogen 16 mg/dL (8-26); Calcium 9.2 mg/dL (8.6-10.8); Carbon Dioxide 23 mEq/L (19-29); Chloride 104 mEq/L (98-109); Globulin 4.4 g/dL (2.4-3.5); Glucose 123 mg/dL (70-99); Osmolality,Calculated 291 (280-300); Potassium 3.9 mEq/L (3.5-4.5); Sodium 139 mEq/L (136-145); Total Protein 7.6 g/dL (6.0-8.3); eGFR For African Americans > 60 (> 60); eGFR For Non-African Americans > 60 (> 60)
[2017-08-24] MEDS: Insulin LISPRO 300 UNITS/3 ML VIAL SQ SCH ×4 (08:23→21:01)
--- NOTE | 2017-08-24 08:31 | Internal Med Progress Note ---
<Iraj Sanford - Last Filed: 08/24/17 11:48> Date of Encounter: 08/24/17 Time of Encounter: 08:31 - Assessment and plan (1) Sepsis Current Visit: Yes Status: Resolved Assessment and plan: Admitted meeting sepsis criteria secondary to diabetic foot ulcer and cellulitis. Sepsis resolved. Qualifiers: Sepsis type: methicillin resistant Staphylococcus aureus Qualified Code(s) : A41.02 - Sepsis due to Methicillin resistant Staphylococcus aureus (2) MRSA (methicillin resistant staph aureus) culture positive Current Visit: Yes Status: Acute Assessment and plan: Wound cultures growing MRSA. -Precautions (3) Type 2 diabetes mellitus Current Visit: No Status: Chronic Assessment and plan: Glucoses well controlled during inpatient stay. - Patient only on metformin 1000 mg by mouth twice a day at home. 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 Qualifiers: Diabetic foot ulcer location: midfoot Diabetes mellitus type: type 2 Laterality: left Non-pressure ulcer stage: with fat layer exposed Qualified Code(s): E11.621 - Type 2 diabetes mellitus with foot ulcer; L97.422 - Non- pressure 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; L97.422 - Non-pressure 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; L97.422 - Non-pressure 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; L97.422 - Non-pressure 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 (5) Toe infection Current Visit: Yes Status: Acute Assessment and plan: He was in mild sepsis upon admission due to his infected toe. However it resolved now s/p I&D with washout 08/10 Repeat wash out on 08/14/17 Reviewed operative notes. mentioned pus around the bone. wound cx from 08/08 - MRSA, Osman Ricardo Surgical biopsy culture 08/10/17 growing MRSA only ID recommend Levaquin + Vancomycin for total 6 weeks # with his underline IV drug abuse history it has been very difficult to find a place for him. However our care management team working so hard to find a place for him for long-term IV Abx. Until then will cont current care here. 08/22: placement continues to be an issue. Continue current therapy. (6) LUPE (acute kidney injury) Current Visit: Yes Status: Acute Assessment and plan: Type II diabetic receiving antibiotics, recently resolving sepsis. -Acute kidney injury resolved. (7) DVT prophylaxis Current Visit: No Status: Acute Assessment and plan: on Heparin SQ - Subjective Interval history: Mr. Sharma is seen and evaluated patient has had this morning. He is alert awake interactive no acute distress. Stable, no changes overnight. - Constitutional Vitals: Temp Pulse Resp BP Pulse Ox 98.3 F 87 16 134/76 99 08/24/17 07:00 08/24/17 07:00 08/24/17 07:00 08/24/17 07:00 08/24/17 07:00 General appearance: Present: cooperative, A&O X 3, no acute distress, answers questions appropriately Exam: Left LE externally rotated and short compared to right LE. Neurovascularly intact. Internal Medicine: Result - Labs CBC & Chem 7: 08/16/17 06:30 08/24/17 06:30 Labs: BMP 08/24/17 06:30 Sodium 139 Potassium 3.9 Chloride 104 Carbon Dioxide 23 BUN 16 Creatinine 1.28 H Glucose 123 H Calcium 9.2 Liver Function 08/24/17 Range/Units 06:30 Total Bilirubin 0.8 (0.2-1.2) mg/dL AST 15 (5-34) Units/L ALT 13 (0-55) Units/L Alkaline Phosphatase 56 (38-126) Units/L Albumin 3.2 L (3.5-5.0) g/dL - VTE Documentation of Mechanical Device: Graduated compression elastic hosiery Consult Discharge Plan - Plan Referrals: Ximena Collazo MD [Primary Care Provider] - <Maximino Lauren - Last Filed: 08/24/17 15:54> Date of Encounter: 08/24/17 - Assessment and plan (1) Sepsis Current Visit: Yes Status: Resolved Qualifiers: Sepsis type: methicillin resistant Staphylococcus aureus Qualified Code(s) : A41.02 - Sepsis due to Methicillin resistant Staphylococcus aureus (2) Cellulitis of left foot due to methicillin-resistant Staphylococcus aureus Current Visit: Yes Status: Acute (3) Diabetic foot infection Current Visit: Yes Status: Acute (4) Toe infection Current Visit: Yes Status: Acute (5) IVDU (intravenous drug user) Current Visit: No Status: Acute (6) LUPE (acute kidney injury) Current Visit: Yes Status: Acute - Constitutional Vitals: Temp Pulse Resp BP Pulse Ox 98.5 F 92 16 138/73 99 08/24/17 11:00 08/24/17 11:00 08/24/17 11:00 08/24/17 11:00 08/24/17 11:00 Internal Medicine: Result - Labs CBC & Chem 7: 08/16/17 06:30 08/24/17 06:30 Labs: BMP 08/24/17 06:30 Sodium 139 Potassium 3.9 Chloride 104 Carbon Dioxide 23 BUN 16 Creatinine 1.28 H Glucose 123 H Calcium 9.2 Liver Function 08/24/17 Range/Units 06:30 Total Bilirubin 0.8 (0.2-1.2) mg/dL AST 15 (5-34) Units/L ALT 13 (0-55) Units/L Alkaline Phosphatase 56 (38-126) Units/L Albumin 3.2 L (3.5-5.0) g/dL - Attending Attestation I examined this patient and my medical decision-making was reviewed with the Resident Physician on 08/24/17. I agree with the documented findings, disposition and treatment plan as described except to the extent set forth below. Mr Sharma is currently admitted for MRSA infection of L foot. He remains moderate to high risk due to potential for worsening clinical status. He is on IV abx that need monitoring. Mr Sharma is out of his room in the hallway. No fever or chills. No cough. Tolerating IV meds. Mother is visiting as well. Exam Alert. Comfortable Not tachycardic Dressing intact No wheeze I/P 1. MRSA foot infection 2. DM Further diagnoses and plans as above.
[2017-08-24] MEDS: amLODIPine 5 MG TABLET PO SCH (09:44)
[2017-08-24] MEDS: *HR* Heparin 5,000 UNIT/ML VIAL SQ SCH ×2 (09:45→21:01)
[2017-08-24] MEDS: *HR* Morphine 2 MG/ML SYRINGE IVP PRN ×2 (09:45→17:21)
[2017-08-24] MEDS: Vancomycin 1,250 MG in D5% in Water 250 ML IVPB SCH ×2 (09:46→23:20)
[2017-08-24] MEDS: Levofloxacin 750 MG/150 ML 750 MG/150 ML BAG IVPB SCH (09:47)
[2017-08-25] MEDS: *HR* Morphine 2 MG/ML SYRINGE IVP PRN ×3 (02:01→21:42)
[2017-08-25] MEDS: *HR* OxyCODONE Immed Rel 5 MG TABLET PO PRN ×3 (05:23→23:42)
[2017-08-25] MEDS: Insulin LISPRO 300 UNITS/3 ML VIAL SQ SCH ×3 (09:25→21:32)
[2017-08-25] MEDS: amLODIPine 5 MG TABLET PO SCH (09:44)
[2017-08-25] MEDS: Vancomycin 1,250 MG in D5% in Water 250 ML IVPB SCH ×2 (09:44→23:31)
[2017-08-25] MEDS: Levofloxacin 750 MG/150 ML 750 MG/150 ML BAG IVPB SCH (09:45)
[2017-08-25] MEDS: *HR* Heparin 5,000 UNIT/ML VIAL SQ SCH ×2 (09:46→21:31)
--- NOTE | 2017-08-25 11:01 | Internal Med Progress Note ---
Date of Encounter: 08/25/17 Time of Encounter: 10:15 - Assessment and plan (1) Sepsis Current Visit: Yes Status: Resolved Assessment and plan: Resolved at this time. Qualifiers: Sepsis type: methicillin resistant Staphylococcus aureus Qualified Code(s) : A41.02 - Sepsis due to Methicillin resistant Staphylococcus aureus (2) Cellulitis of left foot due to methicillin-resistant Staphylococcus aureus Current Visit: Yes Status: Acute Assessment and plan: Currently on IV Levaquin and Vancomycin. Recommended for 6 weeks abx with stop date of 09/18/17. Will change Levquin to PO starting tomorrow. (3) Diabetic foot infection Current Visit: Yes Status: Acute Assessment and plan: As above with abx (4) Toe infection Current Visit: Yes Status: Acute Assessment and plan: Continues to have issue with placement to complete treatment. (5) IVDU (intravenous drug user) Current Visit: No Status: Acute Assessment and plan: No issues currently. (6) LUPE (acute kidney injury) Current Visit: Yes Status: Acute Assessment and plan: Renal function has been fluctuating. Monitoring especially with hx DM and use of IV Vancomycin. - Subjective Interval history: Mr Sharma is currently admitted for MRSA sepsis and infection of L foot. He remains moderate risk due to need for IV abx and monitoring. Mr. Sharma is up in the room. No fever or chills. No CP or SOB. Currently receiving IV abx. Pain is controlled at this time. Stop date for abx: 09/18/17 - Constitutional Vitals: Temp Pulse Resp BP Pulse Ox 98.1 F 93 16 124/84 99 08/25/17 08:54 08/25/17 08:54 08/25/17 08:54 08/25/17 08:54 08/25/17 08:54 General appearance: Present: cooperative, A&O X 3, pleasant, answers questions appropriately - Head Head exam: Present: atraumatic, normocephalic - Eye Eye exam: Present: EOMI, conjuntiva pink - ENT ENT exam: Present: mucous membranes moist - Respiratory Respiratory exam: Present: CTAB. Absent: rales, rhonchi, wheezes - Cardiovascular Cardiovascular exam: Present: RRR. Absent: systolic murmur, tachycardia - GI/Abdominal GI/Abdominal exam: Present: soft. Absent: tenderness - Extremities Exam Extremities exam: Present: warm. Absent: tenderness Additional comments: Dressing intact on L foot. - Neurological Exam Neurological exam: Present: alert, oriented X3, no focal deficits - Skin Skin exam: Present: dry, warm. Absent: rash Internal Medicine: Result - Labs CBC & Chem 7: 08/16/17 06:30 08/24/17 06:30 - VTE Documentation of Mechanical Device: Graduated compression elastic hosiery Consult Discharge Plan - Plan Referrals: Ximena Collazo MD [Primary Care Provider] -
[2017-08-25] MEDS: 0.9 % Sodium Chloride 1,000 ML IVC SCH (21:34)
[2017-08-26] MEDS: 0.9 % Sodium Chloride 1,000 ML IVC SCH ×3 (05:28→07:37)
[2017-08-26] MEDS: *HR* Heparin 5,000 UNIT/ML VIAL SQ SCH (08:44)
[2017-08-26] MEDS: amLODIPine 5 MG TABLET PO SCH (08:44)
[2017-08-26] MEDS: Levofloxacin 750 MG/150 ML 750 MG/150 ML BAG IVPB SCH (08:45)
[2017-08-26] MEDS: Insulin LISPRO 300 UNITS/3 ML VIAL SQ SCH ×4 (08:45→22:01)
--- NOTE | 2017-08-26 10:10 | Internal Med Progress Note ---
Date of Encounter: 08/26/17 Time of Encounter: 09:20 - Assessment and plan (1) Sepsis Current Visit: Yes Status: Resolved Assessment and plan: Resolved at this time. Qualifiers: Sepsis type: methicillin resistant Staphylococcus aureus Qualified Code(s) : A41.02 - Sepsis due to Methicillin resistant Staphylococcus aureus (2) Cellulitis of left foot due to methicillin-resistant Staphylococcus aureus Current Visit: Yes Status: Acute Assessment and plan: Stop date of abx 09/18/17 at this time. Change to PO Levaquin and continue IV Vancomycin. (3) Diabetic foot infection Current Visit: Yes Status: Acute Assessment and plan: As above with abx (4) Toe infection Current Visit: Yes Status: Acute Assessment and plan: Continues to have issue with placement to complete treatment. (5) IVDU (intravenous drug user) Current Visit: No Status: Acute Assessment and plan: No issues currently. (6) LUPE (acute kidney injury) Current Visit: Yes Status: Acute Assessment and plan: Recheck of labs ordered. - Subjective Interval history: Mr Sharma is currently admitted for MRSA sepsis and infection of L foot. He remains moderate risk due to need for IV abx and monitoring. Mr. Sharma is eating breakfast. Pain OK at this time. No fever or chills. No new issues. Awaiting discharge when arranged. Stop date for abx: 09/18/17 - Constitutional Vitals: Temp Pulse Resp BP Pulse Ox 97.6 F 67 18 133/73 100 08/26/17 07:19 08/26/17 07:19 08/26/17 07:19 08/26/17 07:19 08/26/17 07:19 General appearance: Present: cooperative, A&O X 3, pleasant, answers questions appropriately - Head Head exam: Present: atraumatic, normocephalic - Eye Eye exam: Present: EOMI, conjuntiva pink - ENT ENT exam: Present: mucous membranes moist - Respiratory Respiratory exam: Present: CTAB. Absent: rales, rhonchi, wheezes - Cardiovascular Cardiovascular exam: Present: RRR. Absent: bradycardia, systolic murmur, tachycardia - GI/Abdominal GI/Abdominal exam: Present: normal bowel sounds, soft. Absent: tenderness - Extremities Exam Extremities exam: Present: warm Additional comments: Dressing intact - Neurological Exam Neurological exam: Present: alert, oriented X3, no focal deficits - Skin Skin exam: Present: dry, warm. Absent: rash Internal Medicine: Result - Labs CBC & Chem 7: 08/16/17 06:30 08/24/17 06:30 - VTE Documentation of Mechanical Device: Graduated compression elastic hosiery Consult Discharge Plan - Plan Referrals: Ximena Collazo MD [Primary Care Provider] -
[2017-08-26] MEDS: Vancomycin 1,250 MG in D5% in Water 250 ML IVPB SCH ×2 (11:37→21:56)
[2017-08-26] MEDS: *HR* OxyCODONE Immed Rel 5 MG TABLET PO PRN (17:21)
[2017-08-27] MEDS: *HR* OxyCODONE Immed Rel 5 MG TABLET PO PRN ×3 (04:29→21:32)
[2017-08-27 04:42] LABS: Hemoglobin 11.3 g/dL (12.9-16.9); Mean Corpuscular HGB Conc 33.2 g/dL (31.6-35.5); Mean Corpuscular Hemoglobin 29.1 pg (28.0-33.3); Mean Corpuscular Volume 87.6 fL (83.0-100.0); Mean Platelet Volume 9.2 fL (9.4-12.4); Platelet Count 180 K/mcL (140-400); Red Blood Count 3.88 M/mcL (4.19-5.50); Red Cell Distribution Width 14.4 % (11.5-14.5)
[2017-08-27 05:01] LABS: Alanine Aminotransferase 19 Units/L (0-55); Albumin 3.2 g/dL (3.5-5.0); Albumin/Globulin Ratio 0.7 (1.1-2.2); Alkaline Phosphatase 56 Units/L (38-126); Aspartate Amino Transferase 19 Units/L (5-34); BUN/Creatinine Ratio 16 (6-26); Blood Urea Nitrogen 20 mg/dL (8-26); Calcium 9.1 mg/dL (8.6-10.8); Carbon Dioxide 28 mEq/L (19-29); Chloride 104 mEq/L (98-109); Globulin 4.3 g/dL (2.4-3.5); Glucose 102 mg/dL (70-99); Magnesium 1.9 mg/dL (1.6-2.6); Osmolality,Calculated 293 (280-300); Potassium 4.1 mEq/L (3.5-4.5); Sodium 140 mEq/L (136-145); Total Protein 7.5 g/dL (6.0-8.3); eGFR For African Americans > 60 (> 60); eGFR For Non-African Americans > 60 (> 60)
[2017-08-27] MEDS: Insulin LISPRO 300 UNITS/3 ML VIAL SQ SCH ×4 (07:52→21:27)
[2017-08-27] MEDS: amLODIPine 5 MG TABLET PO SCH (08:03)
[2017-08-27] MEDS: levoFLOXacin 750 MG TABLET PO SCH (08:06)
--- NOTE | 2017-08-27 08:32 | Internal Med Progress Note ---
<Iraj Sanford - Last Filed: 08/27/17 08:29> Date of Encounter: 08/27/17 Time of Encounter: 08:30 - Assessment and plan (1) Sepsis Current Visit: Yes Status: Resolved Assessment and plan: resolved. Continue monitoring while on antibiotics Qualifiers: Sepsis type: methicillin resistant Staphylococcus aureus Qualified Code(s) : A41.02 - Sepsis due to Methicillin resistant Staphylococcus aureus (2) MRSA (methicillin resistant staph aureus) culture positive Current Visit: Yes Status: Acute Assessment and plan: Wound cultures growing MRSA. -Precautions (3) Type 2 diabetes mellitus Current Visit: No Status: Chronic Assessment and plan: Glucoses well controlled during inpatient stay. - Patient only on metformin 1000 mg by mouth twice a day at home. 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 Antibiotic Stop date 09/18/2017 Qualifiers: Diabetic foot ulcer location: midfoot Diabetes mellitus type: type 2 Laterality: left Non-pressure ulcer stage: with fat layer exposed Qualified Code(s): E11.621 - Type 2 diabetes mellitus with foot ulcer; L97.422 - Non- pressure 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; L97.422 - Non-pressure 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; L97.422 - Non-pressure 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; L97.422 - Non-pressure 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 (5) Toe infection Current Visit: Yes Status: Acute Assessment and plan: Continues to have issue with placement to complete treatment. (6) LUPE (acute kidney injury) Current Visit: Yes Status: Acute Assessment and plan: Creatinine appears to be stable around 1.26, GFR greater than 60. - Avoid nephrotoxic medications and renally dose antibiotics - Monitor while on vancomycin as well as renal toxicity effects. (7) DVT prophylaxis Current Visit: No Status: Acute Assessment and plan: on Heparin SQ - Subjective Interval history: Mr. Sharma is seen and evaluated patient has had this morning. He is alert awake interactive no acute distress. Stable, no acute changes. No complaints or concerns at this time. Waiting for approval for placement. - Constitutional Vitals: Temp Pulse Resp BP Pulse Ox 98.5 F 68 19 101/56 96 08/27/17 06:43 08/27/17 06:43 08/27/17 06:43 08/27/17 06:43 08/27/17 06:43 General appearance: Present: cooperative, A&O X 3, pleasant, answers questions appropriately - Head Head exam: Present: atraumatic, normocephalic - Eye Eye exam: Present: PERRL, conjuntiva pink, sclera anicteric Pupils: Present: PERRL - Neck Neck exam general surgery: Present: supple, trachea midline. Absent: lymphadenopathy - Respiratory Respiratory exam: Present: CTAB. Absent: accessory muscle use, rales, rhonchi, wheezes - Cardiovascular Cardiovascular exam: Present: RRR, +S1, +S2. Absent: diastolic murmur, gallop, rubs, systolic murmur - GI/Abdominal GI/Abdominal exam: Present: normal bowel sounds, soft, no peritoneal signs. Absent: distended, tenderness - Extremities Exam Extremities exam: Present: warm, radial pulses palpable and symmetrical. Absent : calf tenderness, cyanotic, pedal edema Additional comments: Left LE externally rotated and short compared to right LE. Neurovascularly intact. - Neurological Exam Neurological exam: Present: CN II-XII intact, oriented X3, no focal deficits. Absent: pronater drift, facial droop, speech deficit - Skin Skin exam: Present: dry, intact Internal Medicine: Result - Labs CBC & Chem 7: 08/27/17 04:24 08/27/17 04:24 Labs: Short CBC 08/27/17 Range/Units 04:24 WBC 4.0 L (4.3-11.1) K/mcL Hgb 11.3 L (12.9-16.9) g/dL Hct 34.0 L (37.5-50.1) % Plt Count 180 (140-400) K/mcL BMP 08/27/17 04:24 Sodium 140 Potassium 4.1 Chloride 104 Carbon Dioxide 28 BUN 20 Creatinine 1.26 H Glucose 102 H Calcium 9.1 Liver Function 08/27/17 Range/Units 04:24 Total Bilirubin 1.0 (0.2-1.2) mg/dL AST 19 (5-34) Units/L ALT 19 (0-55) Units/L Alkaline Phosphatase 56 (38-126) Units/L Albumin 3.2 L (3.5-5.0) g/dL - VTE Documentation of Mechanical Device: Graduated compression elastic hosiery Consult Discharge Plan - Plan Referrals: Ximena Collazo MD [Primary Care Provider] - <Maximino Lauren - Last Filed: 08/27/17 11:43> Date of Encounter: 08/27/17 - Assessment and plan (1) Sepsis Current Visit: Yes Status: Resolved Qualifiers: Sepsis type: methicillin resistant Staphylococcus aureus Qualified Code(s) : A41.02 - Sepsis due to Methicillin resistant Staphylococcus aureus (2) Cellulitis of left foot due to methicillin-resistant Staphylococcus aureus Current Visit: Yes Status: Acute (3) Diabetic foot infection Current Visit: Yes Status: Acute (4) Toe infection Current Visit: Yes Status: Acute (5) IVDU (intravenous drug user) Current Visit: No Status: Acute (6) LUPE (acute kidney injury) Current Visit: Yes Status: Acute - Constitutional Vitals: Temp Pulse Resp BP Pulse Ox 97.7 F 72 16 122/71 99 08/27/17 11:16 08/27/17 11:16 08/27/17 11:16 08/27/17 11:16 08/27/17 11:16 Internal Medicine: Result - Labs CBC & Chem 7: 08/27/17 04:24 08/27/17 04:24 Labs: Short CBC 08/27/17 Range/Units 04:24 WBC 4.0 L (4.3-11.1) K/mcL Hgb 11.3 L (12.9-16.9) g/dL Hct 34.0 L (37.5-50.1) % Plt Count 180 (140-400) K/mcL BMP 08/27/17 04:24 Sodium 140 Potassium 4.1 Chloride 104 Carbon Dioxide 28 BUN 20 Creatinine 1.26 H Glucose 102 H Calcium 9.1 Liver Function 08/27/17 Range/Units 04:24 Total Bilirubin 1.0 (0.2-1.2) mg/dL AST 19 (5-34) Units/L ALT 19 (0-55) Units/L Alkaline Phosphatase 56 (38-126) Units/L Albumin 3.2 L (3.5-5.0) g/dL - Attending Attestation I examined this patient and my medical decision-making was reviewed with the Resident Physician on 08/27/17. I agree with the documented findings, disposition and treatment plan as described except to the extent set forth below. Mr Sharma is currently admitted for MRSA foot wound infection and sepsis which has resolved. Discharge planning is the issue now. He remains moderate to high risk due to potential for worsening clinical status. Mr Sharma is resting comfortably. No new issues overnight. No fever or chills. No CP or SOB. Exam Alert. Comfortable Mucus membranes moist Heart reg No wheeze Dressing intact I/P 1. MRSA foot infection 2. DM Further diagnoses and plan as above.
[2017-08-27] MEDS: Vancomycin 1,000 MG in D5% in Water 250 ML IVPB SCH (13:00)
[2017-08-27] MEDS: *HR* Morphine 2 MG/ML SYRINGE IVP PRN (14:24)
--- NOTE | 2017-08-27 16:33 | Podiatry Progress Note ---
Date of Encounter: 08/27/17 Time of Encounter: 12:45 - Assessment and Plan (1) Type 2 diabetes mellitus Current Visit: No Status: Chronic Qualifiers: Diabetes mellitus complication status: with diabetic arthropathy Diabetes mellitus complication detail: with neuropathic arthropathy Diabetes mellitus prison insulin use: without prison use Qualified Code(s): E11.610 - Type 2 diabetes mellitus with diabetic neuropathic arthropathy (2) Diabetic foot ulcer Current Visit: No Status: Chronic s/p Irrigation and debridement left foot on 08/15/[address] Slater. Incision line is healing uneventfully. Wound care orders to include cleansing incision line/ulcer daily with saline, pat dry, apply adaptic with dry sterile 4x4 gauze to the incision lines and ulcer with kerlix and tape. Wound cultures isolated MRSA, ID evaluated patient and recommended continuing IV Vancomycin and PO Levaquin with a stop date of 09/18/17. Non weight bearing to LLE. Post op shoe at the bedside. Patient is awaiting insurance approval to [facility]. [facility] will be managing foot after discharge Qualifiers: Diabetic foot ulcer location: midfoot Diabetes mellitus type: type 2 Laterality: left Non-pressure ulcer stage: with fat layer exposed Qualified Code(s): E11.621 - Type 2 diabetes mellitus with foot ulcer; L97.422 - Non- pressure 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; L97.422 - Non-pressure 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; L97.422 - Non-pressure 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; L97.422 - Non-pressure 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 (3) Diabetic foot infection Current Visit: Yes Status: Acute Subjective Principal diagnosis: Left foot infection Interval history: Patient is s/p s/p Irrigation and debridement left foot on 08/15/[address] Slater. Patient is sleeping in bed upon my arrival. Patient denies any pain currently, no c/o fever, chills, or calf pain. Patient states he is feeling better. Dressing dry and intact to left foot. Patient is awaiting insurance authorization for [facility]. Objective - Vital Signs Vital Signs: Vital Signs Temp Pulse Resp BP Pulse Ox 08/27/17 14:08 97.9 F 67 18 126/74 99 08/27/17 11:16 97.7 F 72 16 122/71 99 08/27/17 06:43 98.5 F 68 19 101/56 96 08/27/17 00:00 98.5 F 62 17 97/55 96 08/26/17 20:05 98.8 F 63 16 97/58 95 Intake and Output 08/27/17 08/27/17 08/27/17 07:59 15:59 23:59 Intake Total 400 / 400 250 / 250 Balance 400 / 400 250 / 250 Intake: IV Fluids 400 / 400 250 / 250 Vancocin 1,000 MG In Dextrose 5 250 / 250 % 250 ML @ 167 mls/hr IVPB Q12H DAK[facility] Rx#:[id number] Vancocin 1,250 MG In Dextrose 5 250 / 250 % 250 ML @ 166.667 mls/hr IVPB Q12H [facility] Rx#:[id number] Other: # Voids 2 Weight 125.9 kg Blood Glucose* 96 145 Patient Weight 08/27/17 23:59 Weight 125.9 kg - Exam Exam: General appearance: alert awake oriented X 3. Calm and pleasant, no acute distress.. Vascular: Pedal pulses +2/4 DP/PT , No evidence of cyanosis, pallor or rubor, Edema graded at 1+/4, Skin Temperature warm, No calf pain with manual compression. capillary refill time is immediate to digits. Neurologic: Sensation intact with light touch to foot. . Postop Exam: S/P Retention Sutures intact to incision lines, no signs of dehiscence. Scant amount of serous drainage observed to dressing, no periwound erythema, no streaking, no ascending cellulitis. Healing ulceration to sub #3 metatarsal head left foot measuring 1.5 cm in diameter by 0.3 cm in depth, base of the wound with 100% granulation tissue, no odor, no erythema, no streaking. Minimal edema. - Lab Result Diagrams: 08/27/17 04:24 08/27/17 04:24 Labs: Abnormal lab results WBC 4.0 K/mcL (4.3-11.1) L 08/27/17 04:24 RBC 3.88 M/mcL (4.19-5.50) L 08/27/17 04:24 Hgb 11.3 g/dL (12.9-16.9) L 08/27/17 04:24 Hct 34.0 % (37.5-50.1) L 08/27/17 04:24 MPV 9.2 fL (9.4-12.4) L 08/27/17 04:24 ESR 76 mm/hr (0-10) H 08/14/17 04:49 Creatinine 1.26 mg/dL (0.72-1.25) H 08/27/17 04:24 Glucose 102 mg/dL (70-99) H 08/27/17 04:24 POC Glucose 94 (58-89) H 08/26/17 22:01 Direct Bilirubin 0.6 mg/dL (0.0-0.5) H 08/08/17 14:23 C-Reactive Protein 23 mg/L (Less than 5) H 08/14/17 04:49 Albumin 3.2 g/dL (3.5-5.0) L 08/27/17 04:24 Globulin 4.3 g/dL (2.4-3.5) H 08/27/17 04:24 Albumin/Globulin Ratio 0.7 (1.1-2.2) L 08/27/17 04:24 - VTE Documentation of Mechanical Device: Graduated compression elastic hosiery Consult Discharge Plan - Plan Referrals: Ximena Collazo MD [Primary Care Provider] -
[2017-08-28] MEDS: Vancomycin 1,000 MG in D5% in Water 250 ML IVPB SCH ×2 (01:04→12:08)
[2017-08-28] MEDS: *HR* Morphine 2 MG/ML SYRINGE IVP PRN ×3 (01:11→23:52)
[2017-08-28] MEDS: levoFLOXacin 750 MG TABLET PO SCH (12:07)
[2017-08-28] MEDS: amLODIPine 5 MG TABLET PO SCH (12:07)
[2017-08-28] MEDS: *HR* OxyCODONE Immed Rel 5 MG TABLET PO PRN ×2 (12:07→20:57)
--- NOTE | 2017-08-28 13:18 | Internal Med Progress Note ---
<Iraj Sanford - Last Filed: 08/28/17 13:16> Date of Encounter: 08/28/17 Time of Encounter: 11:00 - Assessment and plan (1) Sepsis Current Visit: Yes Status: Resolved Assessment and plan: resolved. Continue monitoring while on antibiotics Qualifiers: Sepsis type: methicillin resistant Staphylococcus aureus Qualified Code(s) : A41.02 - Sepsis due to Methicillin resistant Staphylococcus aureus (2) MRSA (methicillin resistant staph aureus) culture positive Current Visit: Yes Status: Acute Assessment and plan: Wound cultures growing MRSA. -Precautions (3) Type 2 diabetes mellitus Current Visit: No Status: Chronic Assessment and plan: Glucoses well controlled during inpatient stay. - Patient only on metformin 1000 mg by mouth twice a day at home. Plan: Continue sliding scale insulin low-dose Continue ACHS glucose checks Qualifiers: Diabetes mellitus complication status: with diabetic arthropathy Diabetes mellitus complication detail: with neuropathic arthropathy Diabetes mellitus mcfp insulin use: without mcfp use Qualified Code(s): E11.610 - Type 2 diabetes mellitus with diabetic neuropathic arthropathy (4) Diabetic foot ulcer Current Visit: No Status: Chronic Assessment and plan: need close f/u with cad developer - Continue by mouth Levaquin and IV vancomycin. Antibiotic Stop date 09/18/2017 Qualifiers: Diabetic foot ulcer location: midfoot Diabetes mellitus type: type 2 Laterality: left Non-pressure ulcer stage: with fat layer exposed Qualified Code(s): E11.621 - Type 2 diabetes mellitus with foot ulcer; L97.422 - Non- pressure 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; L97.422 - Non-pressure 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; L97.422 - Non-pressure 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; L97.422 - Non-pressure 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 (5) Toe infection Current Visit: Yes Status: Acute Assessment and plan: Continues to have issue with placement to complete treatment. (6) LUPE (acute kidney injury) Current Visit: Yes Status: Acute Assessment and plan: Creatinine appears to be stable around 1.26, GFR greater than 60. - Avoid nephrotoxic medications and renally dose antibiotics - Monitor while on vancomycin as well as renal toxicity effects. (7) DVT prophylaxis Current Visit: No Status: Acute Assessment and plan: on Heparin SQ - Subjective Interval history: Mr. Sharma is seen and evaluated patient has had this morning. He is alert awake interactive no acute distress. Stable, no acute changes. No complaints or concerns at this time. Waiting for approval for placement. - Constitutional Vitals: Temp Pulse Resp BP Pulse Ox 98.1 F 72 14 121/74 96 08/28/17 10:57 08/28/17 10:57 08/28/17 10:57 08/28/17 10:57 08/28/17 10:57 General appearance: Present: cooperative, A&O X 3, pleasant, answers questions appropriately - Head Head exam: Present: atraumatic, normocephalic - Eye Eye exam: Present: PERRL, conjuntiva pink, sclera anicteric Pupils: Present: PERRL - Neck Neck exam general surgery: Present: supple, trachea midline. Absent: lymphadenopathy - Respiratory Respiratory exam: Present: CTAB. Absent: accessory muscle use, rales, rhonchi, wheezes - Cardiovascular Cardiovascular exam: Present: RRR, +S1, +S2. Absent: diastolic murmur, gallop, rubs, systolic murmur - GI/Abdominal GI/Abdominal exam: Present: normal bowel sounds, soft, no peritoneal signs. Absent: distended, tenderness - Extremities Exam Extremities exam: Present: warm, radial pulses palpable and symmetrical. Absent : calf tenderness, cyanotic, pedal edema - Neurological Exam Neurological exam: Present: CN II-XII intact, oriented X3, no focal deficits. Absent: pronater drift, facial droop, speech deficit - Skin Skin exam: Present: dry, intact Internal Medicine: Result - Labs CBC & Chem 7: 08/27/17 04:24 08/27/17 04:24 - VTE Documentation of Mechanical Device: Graduated compression elastic hosiery Consult Discharge Plan - Plan Referrals: Ximena Collazo MD [Primary Care Provider] - <Maximino Lauren - Last Filed: 08/28/17 17:35> Date of Encounter: 08/28/17 - Assessment and plan (1) Sepsis Current Visit: Yes Status: Resolved Qualifiers: Sepsis type: methicillin resistant Staphylococcus aureus Qualified Code(s) : A41.02 - Sepsis due to Methicillin resistant Staphylococcus aureus (2) Cellulitis of left foot due to methicillin-resistant Staphylococcus aureus Current Visit: Yes Status: Acute (3) Diabetic foot infection Current Visit: Yes Status: Acute (4) Toe infection Current Visit: Yes Status: Acute (5) IVDU (intravenous drug user) Current Visit: No Status: Acute (6) LUPE (acute kidney injury) Current Visit: Yes Status: Acute - Constitutional Vitals: Temp Pulse Resp BP Pulse Ox 98.1 F 72 14 121/74 96 08/28/17 10:57 08/28/17 10:57 08/28/17 10:57 08/28/17 10:57 08/28/17 10:57 Internal Medicine: Result - Labs CBC & Chem 7: 08/27/17 04:24 08/27/17 04:24 - Attending Attestation I examined this patient and my medical decision-making was reviewed with the Resident Physician on 08/28/17. I agree with the documented findings, disposition and treatment plan as described except to the extent set forth below. Mr Sharma is currently admitted for MRSA foot infection. He remains moderate risk at this time. He remains on IV Vancomycin. Mr Sharma has been very depressed the last 2 days. He has been in the bed with lights off and sleeping most of the time. No fever or chills. No other issues. Still working on discharge issues. Exam Alert. Comfortable Heart reg No wheeze Dressing intact I/P 1. MRSA infection 2. Foot infection Further diagnoses and plan as above.
[2017-08-29] MEDS: Vancomycin 1,000 MG in D5% in Water 250 ML IVPB SCH ×2 (01:14→12:34)
[2017-08-29] MEDS: amLODIPine 5 MG TABLET PO SCH (07:50)
[2017-08-29] MEDS: *HR* OxyCODONE Immed Rel 5 MG TABLET PO PRN ×2 (07:50→17:18)
[2017-08-29] MEDS: levoFLOXacin 750 MG TABLET PO SCH (07:50)
[2017-08-29] MEDS: *HR* Morphine 2 MG/ML SYRINGE IVP PRN ×2 (12:35→21:14)
--- NOTE | 2017-08-29 19:06 | Internal Med Progress Note ---
Date of Encounter: 08/29/17 Time of Encounter: 11:30 - Assessment and plan (1) Sepsis Current Visit: Yes Status: Resolved Assessment and plan: Continue monitoring. Qualifiers: Sepsis type: methicillin resistant Staphylococcus aureus Qualified Code(s) : A41.02 - Sepsis due to Methicillin resistant Staphylococcus aureus (2) Cellulitis of left foot due to methicillin-resistant Staphylococcus aureus Current Visit: Yes Status: Acute Assessment and plan: Stop date of abx 09/18/17 at this time. On IV Vanc and PO Levaquin. (3) Diabetic foot infection Current Visit: Yes Status: Acute Assessment and plan: As above with abx (4) Toe infection Current Visit: Yes Status: Acute Assessment and plan: Continues to have issue with placement to complete treatment. (5) IVDU (intravenous drug user) Current Visit: No Status: Acute Assessment and plan: No issues currently. (6) LUPE (acute kidney injury) Current Visit: Yes Status: Acute Assessment and plan: No acute change at this time. - Subjective Interval history: Mr Sharma is currently admitted for MRSA sepsis and infection of L foot. He remains moderate risk due to need for IV abx and monitoring. Mr. Sharma has been accepted at a facility in [place] but he does not want to go as that is where a lot of his drug history is from. Otherwise he is feeling OK. No fever or chills. Feeling depressed. Stop date for abx: 09/18/17 - Constitutional Vitals: Temp Pulse Resp BP Pulse Ox 97.8 F 82 18 108/70 99 08/29/17 07:47 08/29/17 07:47 08/29/17 07:47 08/29/17 07:47 08/29/17 07:47 General appearance: Present: cooperative, A&O X 3, pleasant, answers questions appropriately - Head Head exam: Present: normocephalic - Eye Eye exam: Present: EOMI, conjuntiva pink - ENT ENT exam: Present: mucous membranes dry - Respiratory Respiratory exam: Present: CTAB. Absent: rales, rhonchi, wheezes - Cardiovascular Cardiovascular exam: Present: RRR. Absent: tachycardia - GI/Abdominal GI/Abdominal exam: Present: soft. Absent: tenderness - Extremities Exam Extremities exam: Present: warm Additional comments: Dressing intact - Neurological Exam Neurological exam: Present: alert, oriented X3 - Psychiatric Psychiatric exam: Present: depressed - Skin Skin exam: Present: warm. Absent: rash Internal Medicine: Result - Labs CBC & Chem 7: 08/27/17 04:24 08/27/17 04:24 - VTE Documentation of Mechanical Device: Graduated compression elastic hosiery Consult Discharge Plan - Plan Referrals: Ximena Collazo MD [Primary Care Provider] -
[2017-08-30] MEDS: Vancomycin 1,000 MG in D5% in Water 250 ML IVPB SCH ×2 (00:51→13:22)
[2017-08-30] MEDS: *HR* OxyCODONE Immed Rel 5 MG TABLET PO PRN ×2 (03:56→13:23)
[2017-08-30] MEDS: levoFLOXacin 750 MG TABLET PO SCH (10:00)
[2017-08-30] MEDS: amLODIPine 5 MG TABLET PO SCH (10:00)
[2017-08-30] MEDS: *HR* Morphine 2 MG/ML SYRINGE IVP PRN ×2 (10:04→17:39)
--- NOTE | 2017-08-30 15:30 | Internal Med Progress Note ---
<Iraj Sanford - Last Filed: 08/30/17 15:28> Date of Encounter: 08/30/17 Time of Encounter: 08:00 - Assessment and plan (1) Sepsis Current Visit: Yes Status: Resolved Assessment and plan: Resolved. Qualifiers: Sepsis type: methicillin resistant Staphylococcus aureus Qualified Code(s) : A41.02 - Sepsis due to Methicillin resistant Staphylococcus aureus (2) MRSA (methicillin resistant staph aureus) culture positive Current Visit: Yes Status: Acute Assessment and plan: Wound cultures growing MRSA. -Precautions (3) Type 2 diabetes mellitus Current Visit: No Status: Chronic Assessment and plan: Glucoses well controlled during inpatient stay. - Patient only on metformin 1000 mg by mouth twice a day at home. Plan: Continue sliding scale insulin low-dose Continue ACHS glucose checks Qualifiers: Diabetes mellitus complication status: with diabetic arthropathy Diabetes mellitus complication detail: with neuropathic arthropathy Diabetes mellitus alf insulin use: without alf use Qualified Code(s): E11.610 - Type 2 diabetes mellitus with diabetic neuropathic arthropathy (4) Diabetic foot ulcer Current Visit: No Status: Chronic Assessment and plan: need close f/u with corporate development manager - Continue by mouth Levaquin and IV vancomycin. Antibiotic Stop date 09/18/2017 Qualifiers: Diabetic foot ulcer location: midfoot Diabetes mellitus type: type 2 Laterality: left Non-pressure ulcer stage: with fat layer exposed Qualified Code(s): E11.621 - Type 2 diabetes mellitus with foot ulcer; L97.422 - Non- pressure 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; L97.422 - Non-pressure 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; L97.422 - Non-pressure 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; L97.422 - Non-pressure 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 (5) Toe infection Current Visit: Yes Status: Acute Assessment and plan: Continues to have issue with placement to complete treatment. (6) LUPE (acute kidney injury) Current Visit: Yes Status: Acute Assessment and plan: No acute change at this time. (7) DVT prophylaxis Current Visit: No Status: Acute Assessment and plan: on Heparin SQ - Subjective Interval history: Mr. Sharma is seen and evaluated patient has had this morning. He is alert awake interactive no acute distress. Stable, Waiting for approval for placement. - Constitutional Vitals: Temp Pulse Resp BP Pulse Ox 98.4 F 72 14 128/64 98 08/30/17 09:17 08/30/17 09:17 08/30/17 09:17 08/30/17 09:17 08/30/17 09:17 General appearance: Present: cooperative, A&O X 3, pleasant, answers questions appropriately - Head Head exam: Present: atraumatic, normocephalic - Eye Eye exam: Present: PERRL, conjuntiva pink, sclera anicteric Pupils: Present: PERRL - Neck Neck exam general surgery: Present: supple, trachea midline. Absent: lymphadenopathy - Respiratory Respiratory exam: Present: CTAB. Absent: accessory muscle use, rales, rhonchi, wheezes - Cardiovascular Cardiovascular exam: Present: RRR, +S1, +S2. Absent: diastolic murmur, gallop, rubs, systolic murmur - GI/Abdominal GI/Abdominal exam: Present: normal bowel sounds, soft, no peritoneal signs. Absent: distended, tenderness - Extremities Exam Extremities exam: Present: warm, radial pulses palpable and symmetrical. Absent : calf tenderness, cyanotic, pedal edema Additional comments: Left foot bandaged, neurovascular intact. - Neurological Exam Neurological exam: Present: alert, oriented X3, no focal deficits. Absent: pronater drift, facial droop, speech deficit - Skin Skin exam: Present: dry, intact Internal Medicine: Result - Labs CBC & Chem 7: 08/27/17 04:24 08/27/17 04:24 - VTE Documentation of Mechanical Device: Graduated compression elastic hosiery Consult Discharge Plan - Plan Referrals: Ximena Collazo MD [Primary Care Provider] - <Maximino Lauren - Last Filed: 08/30/17 17:05> Date of Encounter: 08/30/17 - Assessment and plan (1) Sepsis Current Visit: Yes Status: Resolved Qualifiers: Sepsis type: methicillin resistant Staphylococcus aureus Qualified Code(s) : A41.02 - Sepsis due to Methicillin resistant Staphylococcus aureus (2) Cellulitis of left foot due to methicillin-resistant Staphylococcus aureus Current Visit: Yes Status: Acute (3) Diabetic foot infection Current Visit: Yes Status: Acute (4) Toe infection Current Visit: Yes Status: Acute (5) IVDU (intravenous drug user) Current Visit: No Status: Acute (6) LUPE (acute kidney injury) Current Visit: Yes Status: Acute - Constitutional Vitals: Temp Pulse Resp BP Pulse Ox 98.4 F 72 14 128/64 98 08/30/17 09:17 08/30/17 09:17 08/30/17 09:17 08/30/17 09:17 08/30/17 09:17 Internal Medicine: Result - Labs CBC & Chem 7: 08/27/17 04:24 08/27/17 04:24 - Attending Attestation I examined this patient and my medical decision-making was reviewed with the Resident Physician on 08/30/17. I agree with the documented findings, disposition and treatment plan as described except to the extent set forth below. Mr Sharma is currently admitted for MRSA wound infection. He remains moderate risk due to potential for worsening clinical status. Mr Sharma is doing OK. No new issues overnight. Exam Alert. Comfortable Heart reg No wheeze Abd soft Dressing intact I/P 1. MRSA wound infection 2. DM Further diagnoses and plan as above.
[2017-08-31] MEDS: Vancomycin 1,000 MG in D5% in Water 250 ML IVPB SCH ×2 (01:26→13:32)
[2017-08-31] MEDS: *HR* OxyCODONE Immed Rel 5 MG TABLET PO PRN ×4 (01:27→20:26)
[2017-08-31] MEDS: amLODIPine 5 MG TABLET PO SCH (07:43)
[2017-08-31] MEDS: levoFLOXacin 750 MG TABLET PO SCH (07:44)
--- NOTE | 2017-08-31 09:48 | Internal Med Progress Note ---
<Iraj Sanford - Last Filed: 08/31/17 09:47> Date of Encounter: 08/31/17 Time of Encounter: 09:47 - Assessment and plan (1) Sepsis Current Visit: Yes Status: Resolved Assessment and plan: Resolved. Qualifiers: Sepsis type: methicillin resistant Staphylococcus aureus Qualified Code(s) : A41.02 - Sepsis due to Methicillin resistant Staphylococcus aureus (2) MRSA (methicillin resistant staph aureus) culture positive Current Visit: Yes Status: Acute Assessment and plan: Wound cultures growing MRSA. -Precautions (3) Type 2 diabetes mellitus Current Visit: No Status: Chronic Assessment and plan: Glucoses well controlled during inpatient stay. - Patient only on metformin 1000 mg by mouth twice a day at home. Plan: Continue sliding scale insulin low-dose Continue ACHS glucose checks Qualifiers: Diabetes mellitus complication status: with diabetic arthropathy Diabetes mellitus complication detail: with neuropathic arthropathy Diabetes mellitus custodial insulin use: without custodial use Qualified Code(s): E11.610 - Type 2 diabetes mellitus with diabetic neuropathic arthropathy (4) Diabetic foot ulcer Current Visit: No Status: Chronic Assessment and plan: need close f/u with food service associate - Continue by mouth Levaquin and IV vancomycin. Antibiotic Stop date 09/18/2017 Qualifiers: Diabetic foot ulcer location: midfoot Diabetes mellitus type: type 2 Laterality: left Non-pressure ulcer stage: with fat layer exposed Qualified Code(s): E11.621 - Type 2 diabetes mellitus with foot ulcer; L97.422 - Non- pressure 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; L97.422 - Non-pressure 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; L97.422 - Non-pressure 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; L97.422 - Non-pressure 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 (5) Toe infection Current Visit: Yes Status: Acute Assessment and plan: Continues to have issue with placement to complete treatment. (6) LUPE (acute kidney injury) Current Visit: Yes Status: Acute Assessment and plan: No acute change at this time. (7) DVT prophylaxis Current Visit: No Status: Acute Assessment and plan: on Heparin SQ - Subjective Interval history: Mr. Sharma is seen and evaluated patient has had this morning. Stable, Waiting for approval for placement. - Constitutional Vitals: Temp Pulse Resp BP Pulse Ox 97.9 F 73 16 121/74 99 08/31/17 07:25 08/31/17 07:25 08/31/17 07:25 08/31/17 07:25 08/31/17 07:25 General appearance: Present: cooperative, A&O X 3, pleasant, answers questions appropriately - Head Head exam: Present: atraumatic, normocephalic - Eye Eye exam: Present: PERRL, conjuntiva pink, sclera anicteric Pupils: Present: PERRL - Neck Neck exam general surgery: Present: supple, trachea midline. Absent: lymphadenopathy - Respiratory Respiratory exam: Present: CTAB. Absent: accessory muscle use, rales, rhonchi, wheezes - Cardiovascular Cardiovascular exam: Present: RRR, +S1, +S2. Absent: diastolic murmur, gallop, rubs, systolic murmur - GI/Abdominal GI/Abdominal exam: Present: normal bowel sounds, soft, no peritoneal signs. Absent: distended, tenderness - Extremities Exam Extremities exam: Present: warm, radial pulses palpable and symmetrical. Absent : calf tenderness, cyanotic, pedal edema - Neurological Exam Neurological exam: Present: CN II-XII intact, oriented X3, no focal deficits. Absent: pronater drift, facial droop, speech deficit - Skin Skin exam: Present: dry, intact Internal Medicine: Result - Labs CBC & Chem 7: 08/27/17 04:24 08/27/17 04:24 - VTE Documentation of Mechanical Device: Graduated compression elastic hosiery Consult Discharge Plan - Plan Referrals: Ximena Collazo MD [Primary Care Provider] - <Maximino Lauren - Last Filed: 08/31/17 13:54> Date of Encounter: 08/31/17 - Assessment and plan (1) Sepsis Current Visit: Yes Status: Resolved Qualifiers: Sepsis type: methicillin resistant Staphylococcus aureus Qualified Code(s) : A41.02 - Sepsis due to Methicillin resistant Staphylococcus aureus (2) Cellulitis of left foot due to methicillin-resistant Staphylococcus aureus Current Visit: Yes Status: Acute (3) Diabetic foot infection Current Visit: Yes Status: Acute (4) Toe infection Current Visit: Yes Status: Acute (5) IVDU (intravenous drug user) Current Visit: No Status: Acute (6) LUPE (acute kidney injury) Current Visit: Yes Status: Acute - Constitutional Vitals: Temp Pulse Resp BP Pulse Ox 98 F 78 16 126/78 99 08/31/17 11:30 08/31/17 11:30 08/31/17 11:30 08/31/17 11:30 08/31/17 11:30 Internal Medicine: Result - Labs CBC & Chem 7: 08/27/17 04:24 08/27/17 04:24 - Attending Attestation I examined this patient and my medical decision-making was reviewed with the Resident Physician on 08/31/17. I agree with the documented findings, disposition and treatment plan as described except to the extent set forth below. Mr Sharma is currently admitted for MRSA infected foot wound with probable OM. He remains moderate to high risk due to potential for worsening clinical status. Mr Sharma feels OK. No fever or chills. Tolerating IV abx. Exam Alert. Comfortable No tachycardia No wheezing Dressing intact I/P 1. MRSA infection on IV abx 2. DM Further diagnoses and plan as above
--- NOTE | 2017-08-31 11:33 | Infectious Disease Progress No ---
Date of Encounter: 08/31/17 Time of Encounter: 11:31 - Assessment and Plan (1) Sepsis Current Visit: Yes Status: Resolved The patient had two SIRS criteria on admission. Likely secondary to left foot cellulitis and toe infection. Improved. Tachypnea and tachycardia have resolved. Lactic acid was normal. Blood cultures drawn 08/08/17 are negative x 2 sets. Qualifiers: Sepsis type: methicillin resistant Staphylococcus aureus Qualified Code(s) : A41.02 - Sepsis due to Methicillin resistant Staphylococcus aureus (2) Toe infection Current Visit: Yes Status: Acute Location: Left foot, third digit. Causative organism MRSA and Morganella morganii. Likely secondary to diabetic foot ulcer. Left foot CT scan showed findings consistent with cellulitis and phlegmonous changes. Podiatry consulted and following. Status post left foot third digit I & D by Dr. Slater. Operative note reviewed. Pus noted adjacent to the bone, but no bone changes noted. Status post repeat I & D 08/14/[address] Slater. Less purulence noted. No bony abnormalities noted. ESR 76, CRP 23 post-op. Repeat inflammatory markers now. Add to AM labs. Continue Vancomycin IV. Pharmacy to dose. Goal trough ~15. Continue Levaquin 750mg IV daily. Duration of treatment depends on the clinical picture, but given that there was pus noted to be in contact with the bone, will likely need 6 weeks of IV antibiotics. Monitor renal function and for drug toxicity and dose-adjust antibiotics. ancillary services manager therapy assisting with discharge planning. The patient has been accepted at [facility], but insurance has denied his transfer to [facility]. ancillary services manager therapy continues to work to find placement. Wound care and activity restrictions per the podiatry team. (3) Cellulitis Current Visit: Yes Status: Resolved Location: Left foot. Causative organism likely MRSA and Morganella morganii. Likely secondary to left third toe infection. Improved. Continue antibiotics as above. Qualifiers: Site of cellulitis: extremity Site of cellulitis of extremity: lower extremity Laterality: left Qualified Code(s): L03.116 - Cellulitis of left lower limb (4) LUPE (acute kidney injury) Current Visit: Yes Status: Acute Serum creatinine improved. Etiology not clear, but could be related to nephrotoxins. Continue to trend. Strict I's and O's. Dose-adjust antibiotics. (5) Diabetic foot ulcer Current Visit: No Status: Chronic Location: Plantar aspect, left foot. Secondary to non-healing surgical wound. Wound care per the podiatry team. Qualifiers: Diabetic foot ulcer location: midfoot Diabetes mellitus type: type 2 Laterality: left Non-pressure ulcer stage: with fat layer exposed Qualified Code(s): E11.621 - Type 2 diabetes mellitus with foot ulcer; L97.422 - Non- pressure 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; L97.422 - Non-pressure 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; L97.422 - Non-pressure 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; L97.422 - Non-pressure 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 (6) IVDU (intravenous drug user) Current Visit: No Status: Acute Reports using IV drugs about a month ago. HIV, Hepatitis profile, RPR negative. (7) Type 2 diabetes mellitus Current Visit: No Status: Chronic Controlled. Hgb A1C 5.0 Recommend continued aggressive glucose monitoring and control to promote wound healing and prevent re-infection. Management per the primary team. Qualifiers: Diabetes mellitus complication status: with diabetic arthropathy Diabetes mellitus complication detail: with neuropathic arthropathy Diabetes mellitus halfway insulin use: without halfway use Qualified Code(s): E11.610 - Type 2 diabetes mellitus with diabetic neuropathic arthropathy - Subjective Interval history: Patient seen and examined. Interim events noted. Patient continues to await ECF placement. Patient states he has some mild soreness at the surgical site that he attributes to walking. Denies any fevers or chills or rigors. Denies any headache or neck pain. Denies any chest pain, shortness of breath, or cough. Denies any nausea, vomiting, diarrhea, constipation. Denies abdominal pain, urinary complaints, appetite changes. He denies any oral thrush or new skin lesions. Infect Dis PN-Objective Data - Labs CBC & Chem 7: 08/27/17 04:24 08/27/17 04:24 Cultures: Cultures 08/14/17 16:37 Anaerobic Culture - Final Left Foot No anaerobes were recovered. 08/14/17 16:37 Wound Culture - Final Left Foot Morganella [email or web address] Methicillin Resistant S.aureus 08/10/17 15:15 Anaerobic Culture - Final Left Foot No anaerobes were recovered. 08/10/17 15:15 Surgical Biopsy Culture - Final Left Foot Methicillin Resistant S.aureus Exam - Constitutional Vitals: Temp Pulse Resp BP Pulse Ox 97.9 F 73 16 121/74 99 08/31/17 07:25 08/31/17 07:25 08/31/17 07:25 08/31/17 07:25 08/31/17 07:25 General appearance: average body habitus, cooperative, no acute distress - Head Head exam: Present: atraumatic, normal inspection, normocephalic - Eye Eye exam: Present: EOMI, normal appearance, PERRL Pupils: Present: normal accommodation - ENT ENT exam: Present: mucous membranes moist - Neck Neck exam: Present: normal inspection - Respiratory Respiratory exam: Present: CTAB. Absent: rales, respiratory distress, rhonchi, wheezes - Cardiovascular Cardiovascular exam: Present: RRR, +S1, +S2 - GI/Abdominal GI/Abdominal exam: Present: normal bowel sounds, soft. Absent: distended, tenderness - Extremities Exam Extremities exam: Present: normal inspection. Absent: joint swelling, pedal edema, tenderness Additional comments: Left foot dressing C/D/I. - Neurological Exam Neurological exam: Present: alert, oriented X3, no focal deficits - Psychiatric Psychiatric exam: Present: normal affect, normal mood - Skin Skin exam: Present: dry, intact, normal color, warm - VTE Documentation of Mechanical Device: Graduated compression elastic hosiery Consult Discharge Plan - Plan Referrals: Ximena Collazo MD [Primary Care Provider] -
[2017-08-31] MEDS: *HR* Morphine 2 MG/ML SYRINGE IVP PRN ×2 (12:01→23:54)
[2017-09-01] MEDS: Vancomycin 1,000 MG in D5% in Water 250 ML IVPB SCH ×2 (01:00→12:37)
[2017-09-01] MEDS: *HR* Morphine 2 MG/ML SYRINGE IVP PRN (06:54)
[2017-09-01] MEDS: amLODIPine 5 MG TABLET PO SCH (08:52)
[2017-09-01] MEDS: levoFLOXacin 750 MG TABLET PO SCH (08:52)
--- NOTE | 2017-09-01 13:43 | Internal Med Progress Note ---
<Iraj Sanford - Last Filed: 09/01/17 14:33> Date of Encounter: 09/01/17 Time of Encounter: 13:12 - Assessment and plan (1) Sepsis Current Visit: Yes Status: Resolved Assessment and plan: Resolved. Qualifiers: Sepsis type: methicillin resistant Staphylococcus aureus Qualified Code(s) : A41.02 - Sepsis due to Methicillin resistant Staphylococcus aureus (2) MRSA (methicillin resistant staph aureus) culture positive Current Visit: Yes Status: Acute Assessment and plan: Wound cultures growing MRSA. -Precautions (3) Type 2 diabetes mellitus Current Visit: No Status: Chronic Assessment and plan: Glucoses well controlled during inpatient stay. - Patient only on metformin 1000 mg by mouth twice a day at home. Plan: Continue sliding scale insulin low-dose Continue ACHS glucose checks Qualifiers: Diabetes mellitus complication status: with diabetic arthropathy Diabetes mellitus complication detail: with neuropathic arthropathy Diabetes mellitus alf insulin use: without alf use Qualified Code(s): E11.610 - Type 2 diabetes mellitus with diabetic neuropathic arthropathy (4) Diabetic foot ulcer Current Visit: No Status: Chronic Assessment and plan: need close f/u with graphic arts instructor - Continue by mouth Levaquin and IV vancomycin. Antibiotic Stop date 09/18/2017 Qualifiers: Diabetic foot ulcer location: midfoot Diabetes mellitus type: type 2 Laterality: left Non-pressure ulcer stage: with fat layer exposed Qualified Code(s): E11.621 - Type 2 diabetes mellitus with foot ulcer; L97.422 - Non- pressure 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; L97.422 - Non-pressure 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; L97.422 - Non-pressure 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; L97.422 - Non-pressure 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 (5) Toe infection Current Visit: Yes Status: Acute Assessment and plan: Continues to have issue with placement to complete treatment. (6) LUPE (acute kidney injury) Current Visit: Yes Status: Acute Assessment and plan: Stable. (7) DVT prophylaxis Current Visit: No Status: Acute Assessment and plan: on Heparin SQ - Subjective Interval history: Mr. Sharma is seen and evaluated patient has had this morning. Stable no changes over night, Continue with current treatment plan. - Constitutional Vitals: Temp Pulse Resp BP Pulse Ox 99.4 F 82 16 143/78 99 09/01/17 00:12 09/01/17 00:12 09/01/17 00:12 09/01/17 00:12 09/01/17 00:12 General appearance: Present: cooperative, A&O X 3, pleasant, answers questions appropriately - Head Head exam: Present: atraumatic, normocephalic - Eye Eye exam: Present: PERRL, conjuntiva pink, sclera anicteric Pupils: Present: PERRL - Neck Neck exam general surgery: Present: supple, trachea midline. Absent: lymphadenopathy - Respiratory Respiratory exam: Present: CTAB. Absent: accessory muscle use, rales, rhonchi, wheezes - Cardiovascular Cardiovascular exam: Present: RRR, +S1, +S2. Absent: diastolic murmur, gallop, rubs, systolic murmur - GI/Abdominal GI/Abdominal exam: Present: normal bowel sounds, soft, no peritoneal signs. Absent: distended, tenderness - Extremities Exam Extremities exam: Present: warm, radial pulses palpable and symmetrical. Absent : calf tenderness, cyanotic, pedal edema - Neurological Exam Neurological exam: Present: CN II-XII intact, oriented X3, no focal deficits. Absent: pronater drift, facial droop, speech deficit - Skin Skin exam: Present: dry, intact Internal Medicine: Result - Labs CBC & Chem 7: 08/27/17 04:24 08/27/17 04:24 - VTE Documentation of Mechanical Device: Graduated compression elastic hosiery Consult Discharge Plan - Plan Referrals: Ximena Collazo MD [Primary Care Provider] - <Maximino Lauren - Last Filed: 09/01/17 16:56> Date of Encounter: 09/01/17 - Assessment and plan (1) Sepsis Current Visit: Yes Status: Resolved Qualifiers: Sepsis type: methicillin resistant Staphylococcus aureus Qualified Code(s) : A41.02 - Sepsis due to Methicillin resistant Staphylococcus aureus (2) Cellulitis of left foot due to methicillin-resistant Staphylococcus aureus Current Visit: Yes Status: Acute (3) Diabetic foot infection Current Visit: Yes Status: Acute (4) Toe infection Current Visit: Yes Status: Acute (5) IVDU (intravenous drug user) Current Visit: No Status: Acute (6) LUPE (acute kidney injury) Current Visit: Yes Status: Acute - Constitutional Vitals: Temp Pulse Resp BP Pulse Ox 97.8 F 67 14 130/82 100 09/01/17 15:53 09/01/17 15:53 09/01/17 15:53 09/01/17 15:53 09/01/17 15:53 Internal Medicine: Result - Labs CBC & Chem 7: 08/27/17 04:24 08/27/17 04:24 - Attending Attestation I examined this patient and my medical decision-making was reviewed with the Resident Physician on 09/01/17. I agree with the documented findings, disposition and treatment plan as described except to the extent set forth below. Mr Sharma is currently admitted for MRSA wound infection. He remains moderate risk due to need for IV abx. Mr Sharma has no new issues. Tolerating IV abx. Exam Alert. Comfortable Heart reg No wheeze Dressing intact I/P 1. MRSA wound infection and probable OM 2. DM Further diagnoses and plan as above.
[2017-09-01] MEDS: *HR* OxyCODONE Immed Rel 5 MG TABLET PO PRN ×2 (14:16→21:58)
[2017-09-02] MEDS: Vancomycin 1,000 MG in D5% in Water 250 ML IVPB SCH ×2 (00:17→14:03)
[2017-09-02] MEDS: *HR* Morphine 2 MG/ML SYRINGE IVP PRN ×3 (00:22→16:25)
[2017-09-02] MEDS: *HR* OxyCODONE Immed Rel 5 MG TABLET PO PRN ×3 (05:24→20:51)
[2017-09-02 05:42] LABS: Alanine Aminotransferase 19 Units/L (0-55); Albumin 3.7 g/dL (3.5-5.0); Albumin/Globulin Ratio 0.9 (1.1-2.2); Alkaline Phosphatase 63 Units/L (38-126); Aspartate Amino Transferase 18 Units/L (5-34); BUN/Creatinine Ratio 17 (6-26); Bilirubin,Total 0.8 mg/dL (0.2-1.2); Blood Urea Nitrogen 23 mg/dL (8-26); Calcium 9.6 mg/dL (8.6-10.8); Carbon Dioxide 26 mEq/L (19-29); Chloride 103 mEq/L (98-109); Globulin 4.2 g/dL (2.4-3.5); Glucose 102 mg/dL (70-99); Osmolality,Calculated 286 (280-300); Potassium 4.2 mEq/L (3.5-4.5); Sodium 136 mEq/L (136-145); Total Protein 7.9 g/dL (6.0-8.3); eGFR For African Americans > 60 (> 60); eGFR For Non-African Americans > 60 (> 60)
[2017-09-02] MEDS: amLODIPine 5 MG TABLET PO SCH (07:56)
[2017-09-02] MEDS: levoFLOXacin 750 MG TABLET PO SCH (07:56)
--- NOTE | 2017-09-02 08:10 | Internal Med Progress Note ---
<Iraj Sanford - Last Filed: 09/02/17 08:05> Date of Encounter: 09/02/17 Time of Encounter: 08:05 - Assessment and plan (1) Sepsis Current Visit: Yes Status: Resolved Assessment and plan: Resolved. Qualifiers: Sepsis type: methicillin resistant Staphylococcus aureus Qualified Code(s) : A41.02 - Sepsis due to Methicillin resistant Staphylococcus aureus (2) MRSA (methicillin resistant staph aureus) culture positive Current Visit: Yes Status: Acute Assessment and plan: Wound cultures growing MRSA. -Precautions (3) Type 2 diabetes mellitus Current Visit: No Status: Chronic Assessment and plan: Glucoses well controlled during inpatient stay. - Patient only on metformin 1000 mg by mouth twice a day at home. Plan: Continue ACHS glucose checks Qualifiers: Diabetes mellitus complication status: with diabetic arthropathy Diabetes mellitus complication detail: with neuropathic arthropathy Diabetes mellitus prison insulin use: without prison use Qualified Code(s): E11.610 - Type 2 diabetes mellitus with diabetic neuropathic arthropathy (4) Diabetic foot ulcer Current Visit: No Status: Chronic Assessment and plan: need close f/u with vp purchasing - Continue by mouth Levaquin and IV vancomycin. Antibiotic Stop date 09/18/2017 Qualifiers: Diabetic foot ulcer location: midfoot Diabetes mellitus type: type 2 Laterality: left Non-pressure ulcer stage: with fat layer exposed Qualified Code(s): E11.621 - Type 2 diabetes mellitus with foot ulcer; L97.422 - Non- pressure 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; L97.422 - Non-pressure 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; L97.422 - Non-pressure 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; L97.422 - Non-pressure 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 (5) Toe infection Current Visit: Yes Status: Acute Assessment and plan: Continues to have issue with placement to complete treatment. (6) LUPE (acute kidney injury) Current Visit: Yes Status: Acute Assessment and plan: Stable. Creatinine 1.35 appears to be close to baseline. Patient is on Vancomycin. (7) DVT prophylaxis Current Visit: No Status: Acute Assessment and plan: on Heparin SQ - Subjective Interval history: Mr. Sharma is seen and evaluated patient has had this morning. Stable no changes over night, Slept well, says pain in foot is controlled. Continue with current treatment plan. - Constitutional Vitals: Temp Pulse Resp BP Pulse Ox 98.3 F 76 19 129/69 100 09/02/17 00:37 09/02/17 00:37 09/02/17 00:37 09/02/17 00:37 09/02/17 00:37 General appearance: Present: cooperative, A&O X 3, pleasant, answers questions appropriately - Head Head exam: Present: atraumatic, normocephalic - Eye Eye exam: Present: PERRL, conjuntiva pink, sclera anicteric Pupils: Present: PERRL - Neck Neck exam general surgery: Present: supple, trachea midline. Absent: lymphadenopathy - Respiratory Respiratory exam: Present: CTAB. Absent: accessory muscle use, rales, rhonchi, wheezes - Cardiovascular Cardiovascular exam: Present: RRR, +S1, +S2. Absent: diastolic murmur, gallop, rubs, systolic murmur - GI/Abdominal GI/Abdominal exam: Present: normal bowel sounds, soft, no peritoneal signs. Absent: distended, tenderness - Extremities Exam Extremities exam: Present: warm, radial pulses palpable and symmetrical. Absent : calf tenderness, cyanotic, pedal edema - Neurological Exam Neurological exam: Present: CN II-XII intact, oriented X3, no focal deficits. Absent: pronater drift, facial droop, speech deficit - Skin Skin exam: Present: dry, intact Internal Medicine: Result - Labs CBC & Chem 7: 08/27/17 04:24 09/02/17 05:00 Labs: BMP 09/02/17 05:00 Sodium 136 Potassium 4.2 Chloride 103 Carbon Dioxide 26 BUN 23 Creatinine 1.35 H Glucose 102 H Calcium 9.6 Liver Function 09/02/17 Range/Units 05:00 Total Bilirubin 0.8 (0.2-1.2) mg/dL AST 18 (5-34) Units/L ALT 19 (0-55) Units/L Alkaline Phosphatase 63 (38-126) Units/L Albumin 3.7 (3.5-5.0) g/dL - VTE Documentation of Mechanical Device: Graduated compression elastic hosiery Consult Discharge Plan - Plan Referrals: Ximena Collazo MD [Primary Care Provider] - <Maximino Lauren - Last Filed: 09/02/17 15:16> Date of Encounter: 09/02/17 - Assessment and plan (1) Sepsis Current Visit: Yes Status: Resolved Qualifiers: Sepsis type: methicillin resistant Staphylococcus aureus Qualified Code(s) : A41.02 - Sepsis due to Methicillin resistant Staphylococcus aureus (2) Cellulitis of left foot due to methicillin-resistant Staphylococcus aureus Current Visit: Yes Status: Acute (3) Diabetic foot infection Current Visit: Yes Status: Acute (4) Toe infection Current Visit: Yes Status: Acute (5) IVDU (intravenous drug user) Current Visit: No Status: Acute - Constitutional Vitals: Temp Pulse Resp BP Pulse Ox 98.5 F 78 18 134/76 99 09/02/17 08:00 09/02/17 08:00 09/02/17 08:00 09/02/17 08:00 09/02/17 08:00 Internal Medicine: Result - Labs CBC & Chem 7: 08/27/17 04:24 09/02/17 05:00 Labs: BMP 09/02/17 05:00 Sodium 136 Potassium 4.2 Chloride 103 Carbon Dioxide 26 BUN 23 Creatinine 1.35 H Glucose 102 H Calcium 9.6 Liver Function 09/02/17 Range/Units 05:00 Total Bilirubin 0.8 (0.2-1.2) mg/dL AST 18 (5-34) Units/L ALT 19 (0-55) Units/L Alkaline Phosphatase 63 (38-126) Units/L Albumin 3.7 (3.5-5.0) g/dL - Attending Attestation I examined this patient and my medical decision-making was reviewed with the Resident Physician on 09/02/17. I agree with the documented findings, disposition and treatment plan as described except to the extent set forth below. Mr Sharma is currently admitted with MRSA wound infection. He remains low to moderate risk due to potential for worsening clinical status. Mr Sharma is resting comfortably. No new issues overnight. Exam Alert. Comfortable Heart not tachy No wheeze Dressing intact I/P 1. MRSA wound infection/OM - on IV Vanc 2. DM 3. Monitoring renal function on Vanc Further diagnoses and plan as above.
[2017-09-03] MEDS: *HR* Morphine 2 MG/ML SYRINGE IVP PRN ×3 (00:58→19:47)
[2017-09-03] MEDS: Vancomycin 1,000 MG in D5% in Water 250 ML IVPB SCH (01:00)
[2017-09-03] MEDS: *HR* OxyCODONE Immed Rel 5 MG TABLET PO PRN ×2 (05:29→15:51)
[2017-09-03] MEDS: levoFLOXacin 750 MG TABLET PO SCH (07:56)
[2017-09-03] MEDS: amLODIPine 5 MG TABLET PO SCH (07:56)
--- NOTE | 2017-09-03 08:50 | Internal Med Progress Note ---
<Mahin Delgado - Last Filed: 09/03/17 13:55> Date of Encounter: 09/03/17 Time of Encounter: 08:49 - Assessment and plan (1) Sepsis Current Visit: Yes Status: Resolved Assessment and plan: Sepsis has resolved as patient is no longer tachycardic, febrile and has no white count Infectious diseases on board, appreciate recommendations on length of antibiotic regimen; may need 6 weeks Continue with Vancomycin and Levaquin; blood cultures remain negative clinical services manager working on placement as patient has refused Silvano and was denied in multiple facilities previously Qualifiers: Sepsis type: methicillin resistant Staphylococcus aureus Qualified Code(s) : A41.02 - Sepsis due to Methicillin resistant Staphylococcus aureus (2) Cellulitis of left foot due to methicillin-resistant Staphylococcus aureus Current Visit: Yes Status: Acute Assessment and plan: Abx as above (3) Diabetic foot infection Current Visit: Yes Status: Acute Assessment and plan: Podiatry on board, appreciate recommendations Continue with Levaquin and Vancomycin as above (4) Toe infection Current Visit: Yes Status: Acute Assessment and plan: Management as above with Vanc/Levaquin (5) Type 2 diabetes mellitus Current Visit: No Status: Chronic Assessment and plan: Sugars well controlled last two days Holding home Metformin in setting of elevated Cr Qualifiers: Diabetes mellitus complication status: with diabetic arthropathy Diabetes mellitus complication detail: with neuropathic arthropathy Diabetes mellitus correction insulin use: without mill set up use Qualified Code(s): E11.610 - Type 2 diabetes mellitus with diabetic neuropathic arthropathy (6) IVDU (intravenous drug user) Current Visit: No Status: Chronic (7) DVT prophylaxis Current Visit: No Status: Acute Assessment and plan: Heparin 5000 units BID - Subjective Interval history: Pt seen and examined. He states he is doing well this morning and his left foot soreness is slowly improving. Has no issues with chest pain, breathing, fevers, nausea, vomiting, diarrhea, or constipation. States he is ambulating small distances daily. - Constitutional Vitals: Temp Pulse Resp BP Pulse Ox 98.5 F 92 16 133/77 100 09/03/17 08:19 09/03/17 08:19 09/03/17 08:19 09/03/17 08:19 09/03/17 08:19 General appearance: Present: cooperative, A&O X 3, pleasant, answers questions appropriately - Head Head exam: Present: atraumatic, normocephalic - Eye Eye exam: Present: PERRL, conjuntiva pink, sclera anicteric Pupils: Present: PERRL - Neck Neck exam general surgery: Present: supple, trachea midline. Absent: lymphadenopathy - Respiratory Respiratory exam: Present: CTAB. Absent: accessory muscle use, rales, rhonchi, wheezes - Cardiovascular Cardiovascular exam: Present: RRR, +S1, +S2. Absent: diastolic murmur, gallop, rubs, systolic murmur - GI/Abdominal GI/Abdominal exam: Present: normal bowel sounds, soft, no peritoneal signs. Absent: distended, tenderness - Extremities Exam Extremities exam: Present: tenderness (in left foot), warm, radial pulses palpable and symmetrical. Absent: calf tenderness, cyanotic, pedal edema - Neurological Exam Neurological exam: Present: alert, no focal deficits. Absent: facial droop, speech deficit - Skin Skin exam: Present: dry, intact Internal Medicine: Result - Labs CBC & Chem 7: 08/27/17 04:24 09/02/17 05:00 - VTE Documentation of Mechanical Device: Graduated compression elastic hosiery Consult Discharge Plan - Plan Referrals: Ximena Collazo MD [Primary Care Provider] - <Maximino Lauren A - Last Filed: 09/03/17 18:40> Date of Encounter: 09/03/17 - Assessment and plan (1) Sepsis Current Visit: Yes Status: Resolved Qualifiers: Sepsis type: methicillin resistant Staphylococcus aureus Qualified Code(s) : A41.02 - Sepsis due to Methicillin resistant Staphylococcus aureus (2) Cellulitis of left foot due to methicillin-resistant Staphylococcus aureus Current Visit: Yes Status: Acute (3) Diabetic foot infection Current Visit: Yes Status: Acute (4) Toe infection Current Visit: Yes Status: Acute (5) IVDU (intravenous drug user) Current Visit: No Status: Chronic - Constitutional Vitals: Temp Pulse Resp BP Pulse Ox 98.5 F 92 16 133/77 100 09/03/17 08:19 09/03/17 08:19 09/03/17 08:19 09/03/17 08:19 09/03/17 08:19 Internal Medicine: Result - Labs CBC & Chem 7: 08/27/17 04:24 09/02/17 05:00 - Attending Attestation I examined this patient and my medical decision-making was reviewed with the Resident Physician on 09/03/17. I agree with the documented findings, disposition and treatment plan as described except to the extent set forth below. Mr Sharma is currently admitted for MRSA foot infection. He remains low to moderate risk at this time. Mr Sharma anticipates going home on . No fever or chills. No other acute issues. Exam Alert. Comfortable Mucus membranes dry Heart reg No wheeze I/P 1. MRSA wound infection ? OM 2. DM Further diagnoses and plan as above.
--- NOTE | 2017-09-03 13:18 | Infectious Disease Progress No ---
Date of Encounter: 09/03/17 Time of Encounter: 13:16 - Assessment and Plan (1) Sepsis Current Visit: Yes Status: Resolved The patient had two SIRS criteria on admission. Likely secondary to left foot cellulitis and toe infection. Resolved. Tachypnea and tachycardia have resolved. Lactic acid was normal. Blood cultures drawn 08/08/17 are negative x 2 sets. Qualifiers: Sepsis type: methicillin resistant Staphylococcus aureus Qualified Code(s) : A41.02 - Sepsis due to Methicillin resistant Staphylococcus aureus (2) Toe infection Current Visit: Yes Status: Acute Location: Left foot, third digit. Causative organism MRSA and Morganella morganii. Likely secondary to diabetic foot ulcer. Left foot CT scan showed findings consistent with cellulitis and phlegmonous changes. Podiatry consulted and following. Status post left foot third digit I & D by Dr. Slater. Operative note reviewed. Pus noted adjacent to the bone, but no bone changes noted. Status post repeat I & D 08/14/[address] Slater. Less purulence noted. No bony abnormalities noted. ESR 76, CRP 23 post-op. Repeat inflammatory markers are markedly improved. Continue Vancomycin IV. Pharmacy to dose. Goal trough ~15. Continue Levaquin 750mg IV daily. Duration of treatment depends on the clinical picture, but given that there was pus noted to be in contact with the bone, recommend 6 weeks of IV antibiotics. Getting the patient placed has been a challenge. I discussed the different treatment options with the patient, including switching to PO antibiotics at 4 weeks. We discussed the risks, benefits, and alternatives at length and he wants to switch to PO antibiotics at four weeks. I advised him that it is possible that the infection may recur/worsen, but he reports understanding of this and wants to proceed. Monitor renal function and for drug toxicity and dose-adjust antibiotics. Wound care and activity restrictions per the podiatry team. Follow up with ID 2 weeks post-discharge. (3) Cellulitis Current Visit: Yes Status: Resolved Location: Left foot. Causative organism likely MRSA and Morganella morganii. Likely secondary to left third toe infection. Resolved. Continue antibiotics as above. Qualifiers: Site of cellulitis: extremity Site of cellulitis of extremity: lower extremity Laterality: left Qualified Code(s): L03.116 - Cellulitis of left lower limb (4) LUPE (acute kidney injury) Current Visit: Yes Status: Acute Serum creatinine improved. Etiology not clear, but could be related to nephrotoxins. Continue to trend. Strict I's and O's. Dose-adjust antibiotics. (5) Diabetic foot ulcer Current Visit: No Status: Chronic Location: Plantar aspect, left foot. Secondary to non-healing surgical wound. Wound care per the podiatry team. Qualifiers: Diabetic foot ulcer location: midfoot Diabetes mellitus type: type 2 Laterality: left Non-pressure ulcer stage: with fat layer exposed Qualified Code(s): E11.621 - Type 2 diabetes mellitus with foot ulcer; L97.422 - Non- pressure 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; L97.422 - Non-pressure 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; L97.422 - Non-pressure 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; L97.422 - Non-pressure 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 (6) IVDU (intravenous drug user) Current Visit: No Status: Acute Reports using IV drugs about a month ago. HIV, Hepatitis profile, RPR negative. (7) Type 2 diabetes mellitus Current Visit: No Status: Chronic Controlled. Hgb A1C 5.0 Recommend continued aggressive glucose monitoring and control to promote wound healing and prevent re-infection. Management per the primary team. 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 Weekend notes reviewed. Patient states he has some mild soreness at the surgical site that he attributes to walking. Denies any fevers or chills or rigors. Denies any headache or neck pain. Denies any chest pain, shortness of breath, or cough. Denies any nausea, vomiting, diarrhea, constipation. Denies abdominal pain, urinary complaints, appetite changes. He denies any oral thrush or new skin lesions. Infect Dis PN-Objective Data - Labs CBC & Chem 7: 08/27/17 04:24 09/02/17 05:00 Cultures: Cultures 08/14/17 16:37 Anaerobic Culture - Final Left Foot No anaerobes were recovered. 11/28/17 16:37 Wound Culture - Final Left Foot Morganella [email or web address] morganii Methicillin Resistant S.aureus 08/10/17 15:15 Anaerobic Culture - Final Left Foot No anaerobes were recovered. 08/10/17 15:15 Surgical Biopsy Culture - Final Left Foot Methicillin Resistant S.aureus Exam - Constitutional Vitals: Temp Pulse Resp BP Pulse Ox 98.5 F 92 16 133/77 100 09/03/17 08:19 09/03/17 08:19 09/03/17 08:19 09/03/17 08:19 09/03/17 08:19 General appearance: average body habitus, cooperative, no acute distress - Head Head exam: Present: atraumatic, normal inspection, normocephalic - Eye Eye exam: Present: EOMI, normal appearance, PERRL Pupils: Present: normal accommodation - ENT ENT exam: Present: mucous membranes moist - Neck Neck exam: Present: normal inspection - Respiratory Respiratory exam: Present: CTAB. Absent: rales, respiratory distress, rhonchi, wheezes - Cardiovascular Cardiovascular exam: Present: RRR, +S1, +S2 - GI/Abdominal GI/Abdominal exam: Present: normal bowel sounds, soft. Absent: distended, tenderness - Extremities Exam Additional comments: Left foot surgical site with sutures intact and wound edges well-approximated. No erythema, warmth, drainage, or fluctuance noted. DFU noted to the plantar aspect of the left foot without redness, warmth, or drainage. - Neurological Exam Neurological exam: Present: alert, oriented X3, no focal deficits - Psychiatric Psychiatric exam: Present: normal affect, normal mood - Skin Skin exam: Present: dry, intact, normal color, warm - VTE Documentation of Mechanical Device: Graduated compression elastic hosiery Consult Discharge Plan - Plan Referrals: Ximena Collazo MD [Primary Care Provider] -
[2017-09-03] MEDS: Vancomycin 1,250 MG in D5% in Water 250 ML IVPB SCH (14:08)
[2017-09-03] MEDS: *HR* Heparin 5,000 UNIT/ML VIAL SQ SCH (19:47)
[2017-09-04] MEDS: Vancomycin 1,250 MG in D5% in Water 250 ML IVPB SCH ×2 (00:42→12:58)
[2017-09-04] MEDS: *HR* OxyCODONE Immed Rel 5 MG TABLET PO PRN ×2 (00:49→19:05)
[2017-09-04] MEDS: *HR* Heparin 5,000 UNIT/ML VIAL SQ SCH ×2 (02:58→17:55)
[2017-09-04] MEDS: *HR* Morphine 2 MG/ML SYRINGE IVP PRN ×4 (03:18→22:04)
[2017-09-04 03:35] LABS: Blood Urea Nitrogen 21 mg/dL (8-26); Calcium 9.7 mg/dL (8.6-10.8); Carbon Dioxide 25 mEq/L (19-29); Chloride 103 mEq/L (98-109); Glucose 178 mg/dL (70-99); Osmolality,Calculated 293 (280-300); Potassium 4.2 mEq/L (3.5-4.5); Sodium 138 mEq/L (136-145)
[2017-09-04 03:54] LABS: BUN/Creatinine Ratio 15 (6-26); eGFR For African Americans > 60 (> 60); eGFR For Non-African Americans 58 (> 60)
[2017-09-04] MEDS: amLODIPine 5 MG TABLET PO SCH (07:20)
[2017-09-04] MEDS: levoFLOXacin 750 MG TABLET PO SCH (07:21)
--- NOTE | 2017-09-04 07:34 | Internal Med Progress Note ---
<DannyMahin - Last Filed: 09/04/17 09:18> Date of Encounter: 09/04/17 Time of Encounter: 07:33 - Assessment and plan (1) Sepsis Current Visit: Yes Status: Resolved Assessment and plan: Sepsis has resolved as patient is no longer tachycardic, febrile and has no white count Infectious diseases on board and have given him the option of switching to PO abx after 4 weeks of IV which is Continue with Vancomycin and Levaquin; blood cultures remain negative; wound cultures show MRSA and Morganella Anticipate DC to home on Qualifiers: Sepsis type: methicillin resistant Staphylococcus aureus Qualified Code(s) : A41.02 - Sepsis due to Methicillin resistant Staphylococcus aureus (2) Cellulitis of left foot due to methicillin-resistant Staphylococcus aureus Current Visit: Yes Status: Acute Assessment and plan: Abx as above (3) Diabetic foot infection Current Visit: Yes Status: Acute Assessment and plan: Podiatry on board, appreciate recommendations on physical activities Continue with Levaquin and Vancomycin as above (4) Toe infection Current Visit: Yes Status: Acute Assessment and plan: Management as above with Vanc/Levaquin (5) Type 2 diabetes mellitus Current Visit: No Status: Chronic Assessment and plan: Sugars well controlled last two days Holding home Metformin in setting of elevated Cr Qualifiers: Diabetes mellitus complication status: with diabetic arthropathy Diabetes mellitus complication detail: with neuropathic arthropathy Diabetes mellitus terminologist insulin use: without detention use Qualified Code(s): E11.610 - Type 2 diabetes mellitus with diabetic neuropathic arthropathy (6) LUPE (acute kidney injury) Current Visit: Yes Status: Acute Assessment and plan: Cr stable at 1.42 from 1.35 yesterday He is continuing to be treated with Vancomycin and troughs have been obtained (7) IVDU (intravenous drug user) Current Visit: No Status: Chronic Assessment and plan: No issues currently - will not be going home with PICC line (8) DVT prophylaxis Current Visit: No Status: Acute Assessment and plan: Heparin 5000 units BID - Subjective Interval history: Pt seen and examined. He states he is continuing to feel better in his leg and has no complaints of fevers, nausea, vomiting, diarrhea, chest pain or SOB. He states he spoke to infectious disease PUBLIC HEALTH NURSE yesterday who stated he would be able to go home on oral abx on after completing 4 weeks of IV abx therapy. - Constitutional Vitals: Temp Pulse Resp BP Pulse Ox 98.5 F 72 17 135/76 97 09/04/17 07:20 09/04/17 07:20 09/04/17 07:20 09/04/17 07:20 09/04/17 07:20 General appearance: Present: cooperative, A&O X 3, pleasant, answers questions appropriately - Head Head exam: Present: atraumatic, normocephalic - Eye Eye exam: Present: PERRL, conjuntiva pink, sclera anicteric - Neck Neck exam general surgery: Present: supple, trachea midline. Absent: lymphadenopathy - Respiratory Respiratory exam: Present: CTAB. Absent: accessory muscle use, rales, rhonchi, wheezes - Cardiovascular Cardiovascular exam: Present: RRR, +S1, +S2. Absent: diastolic murmur, gallop, rubs, systolic murmur - GI/Abdominal GI/Abdominal exam: Present: normal bowel sounds, soft, no peritoneal signs. Absent: distended, tenderness - Extremities Exam Extremities exam: Present: tenderness (left foot), warm, radial pulses palpable and symmetrical. Absent: calf tenderness, cyanotic, pedal edema - Neurological Exam Neurological exam: Present: alert, no focal deficits. Absent: facial droop, speech deficit - Skin Skin exam: Present: dry, intact Internal Medicine: Result - Labs CBC & Chem 7: 08/27/17 04:24 09/04/17 03:10 Labs: BMP 09/04/17 03:10 Sodium 138 Potassium 4.2 Chloride 103 Carbon Dioxide 25 BUN 21 Creatinine 1.42 H Glucose 178 H Calcium 9.7 - VTE Documentation of Mechanical Device: Graduated compression elastic hosiery Consult Discharge Plan - Plan Referrals: Alma López CNP [Advanced Practice Nurse] - 09/18/17 9:00 am Ximena Collazo MD [Primary Care Provider] - <Garrett Judge - Last Filed: 09/04/17 15:36> Date of Encounter: 09/04/17 - Constitutional Vitals: Temp Pulse Resp BP Pulse Ox 98.5 F 72 17 135/76 97 09/04/17 07:20 09/04/17 07:20 09/04/17 07:20 09/04/17 07:20 09/04/17 07:20 Internal Medicine: Result - Labs CBC & Chem 7: 08/27/17 04:24 09/04/17 03:10 Labs: BMP 09/04/17 03:10 Sodium 138 Potassium 4.2 Chloride 103 Carbon Dioxide 25 BUN 21 Creatinine 1.42 H Glucose 178 H Calcium 9.7 - Attending Attestation I conducted a face to face diagnostic evaluation of this patient and my medical decision-making was reviewed with the Resident Physician, Dr Mahin Delgado. I agree with the documented findings, disposition and treatment plan as described except to the extent set forth below: Patient is awake alert oriented in no acute distress. Heart is regular with normal S1-S2, no murmurs rubs or gallops. Lungs are clear, abdomen is soft. Plan: Continue with IV vancomycin for left foot soft tissue infection with MRSA. Switch to oral antibiotics once 4 weeks of IV antibiotic has been completed. All medical problems or new to me today. Garrett Judge MD
--- NOTE | 2017-09-04 13:02 | Infectious Disease Progress No ---
Date of Encounter: 09/04/17 Time of Encounter: 12:59 - Assessment and Plan (1) Sepsis Current Visit: Yes Status: Resolved The patient had two SIRS criteria on admission. Likely secondary to left foot cellulitis and toe infection. Resolved. Tachypnea and tachycardia have resolved. Lactic acid was normal. Blood cultures drawn 08/08/17 are negative x 2 sets. Qualifiers: Sepsis type: methicillin resistant Staphylococcus aureus Qualified Code(s) : A41.02 - Sepsis due to Methicillin resistant Staphylococcus aureus (2) Toe infection Current Visit: Yes Status: Acute Location: Left foot, third digit. Causative organism MRSA and Morganella morganii. Likely secondary to diabetic foot ulcer. Left foot CT scan showed findings consistent with cellulitis and phlegmonous changes. Podiatry consulted and following. Status post left foot third digit I & D by Dr. Slater. Operative note reviewed. Pus noted adjacent to the bone, but no bone changes noted. Status post repeat I & D 08/14/[address] Slater. Less purulence noted. No bony abnormalities noted. ESR 76, CRP 23 post-op. Repeat inflammatory markers are markedly improved. Continue Vancomycin IV. Pharmacy to dose. Goal trough ~15. Continue Levaquin 750mg IV daily. Duration of treatment depends on the clinical picture, but given that there was pus noted to be in contact with the bone, recommend 6 weeks of IV antibiotics. Getting the patient placed has been a challenge. I discussed the different treatment options with the patient, including switching to PO antibiotics at 4 weeks. We discussed the risks, benefits, and alternatives at length and he wants to switch to PO antibiotics at four weeks. I advised him that it is possible that the infection may recur/worsen, but he reports understanding of this and wants to proceed. Monitor renal function and for drug toxicity and dose-adjust antibiotics. Wound care and activity restrictions per the podiatry team. Follow up with ID 09/18/16 at 0900. (3) Cellulitis Current Visit: Yes Status: Resolved Location: Left foot. Causative organism likely MRSA and Morganella morganii. Likely secondary to left third toe infection. Resolved. Continue antibiotics as above. Qualifiers: Site of cellulitis: extremity Site of cellulitis of extremity: lower extremity Laterality: left Qualified Code(s): L03.116 - Cellulitis of left lower limb (4) LUPE (acute kidney injury) Current Visit: Yes Status: Acute Serum creatinine stable. Etiology not clear, but could be related to nephrotoxins. Continue to trend. Strict I's and O's. Dose-adjust antibiotics. (5) Diabetic foot ulcer Current Visit: No Status: Chronic Location: Plantar aspect, left foot. Secondary to non-healing surgical wound. Wound care per the podiatry team. Qualifiers: Diabetic foot ulcer location: midfoot Diabetes mellitus type: type 2 Laterality: left Non-pressure ulcer stage: with fat layer exposed Qualified Code(s): E11.621 - Type 2 diabetes mellitus with foot ulcer; L97.422 - Non- pressure 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; L97.422 - Non-pressure 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; L97.422 - Non-pressure 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; L97.422 - Non-pressure 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 (6) IVDU (intravenous drug user) Current Visit: No Status: Chronic Reports using IV drugs about a month ago. HIV, Hepatitis profile, RPR negative. (7) Type 2 diabetes mellitus Current Visit: No Status: Chronic Controlled. Hgb A1C 5.0 Recommend continued aggressive glucose monitoring and control to promote wound healing and prevent re-infection. Management per the primary team. 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 Patient states he has some mild soreness at the surgical site that he attributes to walking. Denies any fevers or chills or rigors. Denies any headache or neck pain. Denies any chest pain, shortness of breath, or cough. Denies any nausea, vomiting, diarrhea, constipation. Denies abdominal pain, urinary complaints, appetite changes. He denies any oral thrush or new skin lesions. Infect Dis PN-Objective Data - Labs CBC & Chem 7: 08/27/17 04:24 09/04/17 03:10 Labs: Laboratory Results - last 24 hr 09/04/17 03:10 Sodium 138 Potassium 4.2 Chloride 103 Carbon Dioxide 25 BUN 21 Creatinine 1.42 H Est GFR ( Amer) > 60 Est GFR (Non-Af Amer) 58 L BUN/Creatinine Ratio 15 Glucose 178 H Calculated Osmolality 293 Calcium 9.7 Cultures: Cultures 08/14/17 16:37 Anaerobic Culture - Final Left Foot No anaerobes were recovered. 08/14/17 16:37 Wound Culture - Final Left Foot Morganella [email or web address] morganii Methicillin Resistant S.aureus 08/10/17 15:15 Anaerobic Culture - Final Left Foot No anaerobes were recovered. 08/10/17 15:15 Surgical Biopsy Culture - Final Left Foot Methicillin Resistant S.aureus Exam - Constitutional Vitals: Temp Pulse Resp BP Pulse Ox 98.5 F 72 17 135/76 97 09/04/17 07:20 09/04/17 07:20 09/04/17 07:20 09/04/17 07:20 09/04/17 07:20 General appearance: average body habitus, cooperative, no acute distress - Head Head exam: Present: atraumatic, normal inspection, normocephalic - Eye Eye exam: Present: EOMI, normal appearance, PERRL Pupils: Present: normal accommodation - ENT ENT exam: Present: mucous membranes moist - Neck Neck exam: Present: normal inspection - Respiratory Respiratory exam: Present: CTAB. Absent: rales, respiratory distress, rhonchi, wheezes - Cardiovascular Cardiovascular exam: Present: RRR, +S1, +S2 - GI/Abdominal GI/Abdominal exam: Present: normal bowel sounds, soft. Absent: distended, tenderness - Extremities Exam Additional comments: Left foot dressing C/D/I. - Neurological Exam Neurological exam: Present: alert, oriented X3, no focal deficits - Psychiatric Psychiatric exam: Present: normal affect, normal mood - Skin Skin exam: Present: dry, intact, normal color, warm - VTE Documentation of Mechanical Device: Graduated compression elastic hosiery Consult Discharge Plan - Plan Referrals: Ximena Collazo MD [Primary Care Provider] - Alma López CNP [Advanced Practice Nurse] - 09/18/17 9:00 am
--- NOTE | 2017-09-04 18:12 | Podiatry Progress Note ---
Date of Encounter: 09/05/17 Time of Encounter: 12:00 - Assessment and Plan (1) Type 2 diabetes mellitus Current Visit: No Status: Chronic Qualifiers: Diabetes mellitus complication status: with diabetic arthropathy Diabetes mellitus complication detail: with neuropathic arthropathy Diabetes mellitus intermediate insulin use: without intermediate use Qualified Code(s): E11.610 - Type 2 diabetes mellitus with diabetic neuropathic arthropathy (2) Diabetic foot ulcer Current Visit: No Status: Chronic s/p Irrigation and debridement left foot on 08/15/[address] Slater. Incision line is healing uneventfully. sutures intact. Ulcer is present to the plantar aspect with small amount of serous drainage observed to dressing. no evidence of bacterial infection Sutures removed with out difficulty. Incision line well approximated with dried scabs. Wound care orders to include cleansing ulcer daily with saline, pat dry, apply adaptic with dry sterile 4x4 gauze with kerlix and tape. Wound cultures isolated MRSA. Non weight bearing to LLE. Post op shoe at the bedside. Patient will be discharged this on oral antibiotics per ID and perform daily wound care. Qualifiers: Diabetic foot ulcer location: midfoot Diabetes mellitus type: type 2 Laterality: left Non-pressure ulcer stage: with fat layer exposed Qualified Code(s): E11.621 - Type 2 diabetes mellitus with foot ulcer; L97.422 - Non- pressure 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; L97.422 - Non-pressure 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; L97.422 - Non-pressure 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; L97.422 - Non-pressure 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 (3) Diabetic foot infection Current Visit: Yes Status: Acute Subjective Principal diagnosis: Left foot infection Interval history: Patient is s/p s/p Irrigation and debridement left foot on 08/15/[address] Slater. Patient is sleeping in bed upon my arrival. Patient denies any pain currently, no c/o fever, chills, or calf pain. Patient states he is feeling better. Dressing dry and intact to left foot. Patient will be switched to oral antibiotics and be discharged home. Objective - Vital Signs Vital Signs: Vital Signs Temp Pulse Resp BP Pulse Ox 09/04/17 07:20 98.5 F 72 17 135/76 97 12/19/17 00:51 97.9 F 78 16 128/74 94 09/04/17 00:47 98.8 F 104 17 140/61 98 Intake and Output 09/04/17 09/04/17 09/04/17 07:59 15:59 23:59 Intake Total 700 / 700 460 / 460 480 / 480 Output Total 300 / 300 Balance 400 / 400 460 / 460 480 / 480 Intake: IV Fluids 500 / 500 Vancocin 1,250 MG In Dextrose 5 500 / 500 % 250 ML @ 166.67 mls/hr IVPB Q12H [facility] Rx#:[id number] Oral 200 / 200 460 / 460 480 / 480 Output: Urine 300 / 300 Other: Meal Lunch Dinner Percent of Meal Consumed 90% 100% # Voids 1 - Exam Exam: General appearance: alert awake oriented X 3. Calm and pleasant, no acute distress.. Vascular: Pedal pulses +2/4 DP/PT , No evidence of cyanosis, pallor or rubor, Edema graded at 1+/4, Skin Temperature warm, No calf pain with manual compression. capillary refill time is immediate to digits. Neurologic: Sensation intact with light touch to foot. . Postop Exam: S/P Retention Sutures intact to incision lines, no signs of dehiscence. Scant amount of serous drainage observed to dressing, no periwound erythema, no streaking, no ascending cellulitis. Healing ulceration to sub #3 metatarsal head left foot measuring 1.5 cm in diameter by 0.3 cm in depth, base of the wound with 100% granulation tissue, no odor, no erythema, no streaking. Small amount of serous drainage observed to dressing. Minimal edema. - Lab Result Diagrams: 08/27/17 04:24 09/04/17 03:10 Labs: Abnormal lab results WBC 4.0 K/mcL (4.3-11.1) L 08/27/17 04:24 RBC 3.88 M/mcL (4.19-5.50) L 08/27/17 04:24 Hgb 11.3 g/dL (12.9-16.9) L 08/27/17 04:24 Hct 34.0 % (37.5-50.1) L 08/27/17 04:24 MPV 9.2 fL (9.4-12.4) L 08/27/17 04:24 ESR 44 mm/hr (0-10) H 09/01/17 06:49 Creatinine 1.42 mg/dL (0.72-1.25) H 09/04/17 03:10 Est GFR (Non-Af Amer) 58 (> 60) L 09/04/17 03:10 Glucose 178 mg/dL (70-99) H 09/04/17 03:10 POC Glucose 119 (58-89) H 09/01/17 00:00 Direct Bilirubin 0.6 mg/dL (0.0-0.5) H 08/08/17 14:23 C-Reactive Protein 8 mg/L (Less than 5) H 09/01/17 06:49 Globulin 4.2 g/dL (2.4-3.5) H 09/02/17 05:00 Albumin/Globulin Ratio 0.9 (1.1-2.2) L 09/02/17 05:00 - VTE Documentation of Mechanical Device: Graduated compression elastic hosiery Consult Discharge Plan - Plan Referrals: Alma López CNP [Advanced Practice Nurse] - 09/18/17 9:00 am Ximena Collazo MD [Primary Care Provider] -
[2017-09-05] MEDS: Vancomycin 1,500 MG in D5% in Water 250 ML IVPB SCH ×2 (01:37→14:28)
[2017-09-05] MEDS: *HR* Heparin 5,000 UNIT/ML VIAL SQ SCH ×2 (05:36→17:20)
[2017-09-05] MEDS: *HR* Morphine 2 MG/ML SYRINGE IVP PRN ×3 (06:10→21:55)
[2017-09-05] MEDS: levoFLOXacin 750 MG TABLET PO SCH (08:57)
[2017-09-05] MEDS: amLODIPine 5 MG TABLET PO SCH (08:57)
--- NOTE | 2017-09-05 09:08 | Infectious Disease Progress No ---
Date of Encounter: 09/05/17 Time of Encounter: 09:06 - Assessment and Plan (1) Sepsis Current Visit: Yes Status: Resolved The patient had two SIRS criteria on admission. Likely secondary to left foot cellulitis and toe infection. Resolved. Tachypnea and tachycardia have resolved. Lactic acid was normal. Blood cultures drawn 08/08/17 are negative x 2 sets. Qualifiers: Sepsis type: methicillin resistant Staphylococcus aureus Qualified Code(s) : A41.02 - Sepsis due to Methicillin resistant Staphylococcus aureus (2) Toe infection Current Visit: Yes Status: Acute Location: Left foot, third digit. Causative organism MRSA and Morganella morganii. Likely secondary to diabetic foot ulcer. Left foot CT scan showed findings consistent with cellulitis and phlegmonous changes. Podiatry consulted and following. Status post left foot third digit I & D by Dr. Slater. Operative note reviewed. Pus noted adjacent to the bone, but no bone changes noted. Status post repeat I & D 08/14/[address] Slater. Less purulence noted. No bony abnormalities noted. ESR 76, CRP 23 post-op. Repeat inflammatory markers are markedly improved. Continue Vancomycin IV. Pharmacy to dose. Goal trough ~15. Continue Levaquin 750mg IV daily. Duration of treatment depends on the clinical picture, but given that there was pus noted to be in contact with the bone, recommend 6 weeks of IV antibiotics. Getting the patient placed has been a challenge. I discussed the different treatment options with the patient, including switching to PO antibiotics at 4 weeks. We discussed the risks, benefits, and alternatives at length and he wants to switch to PO antibiotics at four weeks. I advised him that it is possible that the infection may recur/worsen, but he reports understanding of this and wants to proceed. Will give the patient's 1300 and 0100 dose, then switch to PO. Monitor renal function and for drug toxicity and dose-adjust antibiotics. Wound care and activity restrictions per the podiatry team. Follow up with ID 09/18/16 at 0900. (3) Cellulitis Current Visit: Yes Status: Resolved Location: Left foot. Causative organism likely MRSA and Morganella morganii. Likely secondary to left third toe infection. Resolved. Continue antibiotics as above. Qualifiers: Site of cellulitis: extremity Site of cellulitis of extremity: lower extremity Laterality: left Qualified Code(s): L03.116 - Cellulitis of left lower limb (4) LUPE (acute kidney injury) Current Visit: Yes Status: Acute Serum creatinine stable. Etiology not clear, but could be related to nephrotoxins. Continue to trend. Strict I's and O's. Dose-adjust antibiotics. (5) Diabetic foot ulcer Current Visit: No Status: Chronic Location: Plantar aspect, left foot. Secondary to non-healing surgical wound. Wound care per the podiatry team. Qualifiers: Diabetic foot ulcer location: midfoot Diabetes mellitus type: type 2 Laterality: left Non-pressure ulcer stage: with fat layer exposed Qualified Code(s): E11.621 - Type 2 diabetes mellitus with foot ulcer; L97.422 - Non- pressure 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; L97.422 - Non-pressure 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; L97.422 - Non-pressure 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; L97.422 - Non-pressure 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 (6) IVDU (intravenous drug user) Current Visit: No Status: Chronic Reports using IV drugs about a month ago. HIV, Hepatitis profile, RPR negative. (7) Type 2 diabetes mellitus Current Visit: No Status: Chronic Controlled. Hgb A1C 5.0 Recommend continued aggressive glucose monitoring and control to promote wound healing and prevent re-infection. Management per the primary team. Qualifiers: Diabetes mellitus complication status: with diabetic arthropathy Diabetes mellitus complication detail: with neuropathic arthropathy Diabetes mellitus usp insulin use: without usp use Qualified Code(s): E11.610 - Type 2 diabetes mellitus with diabetic neuropathic arthropathy - Subjective Interval history: Patient seen and examined. Patient states he has some mild soreness at the surgical site that he attributes to walking. Denies any fevers or chills or rigors. Denies any headache or neck pain. Denies any chest pain, shortness of breath, or cough. Denies any nausea, vomiting, diarrhea, constipation. Denies abdominal pain, urinary complaints, appetite changes. He denies any oral thrush or new skin lesions. Infect Dis PN-Objective Data - Labs CBC & Chem 7: 08/27/17 04:24 09/04/17 03:10 Labs: Laboratory Results - last 24 hr 09/05/17 00:00 Vancomycin Trough 11.4 Cultures: Cultures 08/14/17 16:37 Anaerobic Culture - Final Left Foot No anaerobes were recovered. 08/14/17 16:37 Wound Culture - Final Left Foot Morganella [email or web address] Methicillin Resistant S.aureus 08/10/17 15:15 Anaerobic Culture - Final Left Foot No anaerobes were recovered. 08/10/17 15:15 Surgical Biopsy Culture - Final Left Foot Methicillin Resistant S.aureus Exam - Constitutional Vitals: Temp Pulse Resp BP Pulse Ox 97.7 F 56 16 121/69 99 09/05/17 06:50 09/05/17 06:50 09/05/17 06:50 09/05/17 06:50 09/05/17 06:50 General appearance: average body habitus, cooperative, no acute distress - Head Head exam: Present: atraumatic, normal inspection, normocephalic - Eye Eye exam: Present: EOMI, normal appearance, PERRL Pupils: Present: normal accommodation - ENT ENT exam: Present: mucous membranes moist - Neck Neck exam: Present: normal inspection - Respiratory Respiratory exam: Present: CTAB. Absent: rales, respiratory distress, rhonchi, wheezes - Cardiovascular Cardiovascular exam: Present: RRR, +S1, +S2 - GI/Abdominal GI/Abdominal exam: Present: normal bowel sounds, soft. Absent: distended, tenderness - Extremities Exam Extremities exam: Present: normal inspection. Absent: joint swelling, pedal edema, tenderness Additional comments: Left foot dressing C/D/I. - Neurological Exam Neurological exam: Present: alert, oriented X3, no focal deficits - Psychiatric Psychiatric exam: Present: normal affect, normal mood - Skin Skin exam: Present: dry, intact, normal color, warm - VTE Documentation of Mechanical Device: Graduated compression elastic hosiery Consult Discharge Plan - Plan Referrals: Alma López CNP [Advanced Practice Nurse] - 09/18/17 9:00 am Ximena Collazo MD [Primary Care Provider] -
--- NOTE | 2017-09-05 10:03 | Internal Med Progress Note ---
<Mahin Delgado - Last Filed: 09/05/17 15:49> Date of Encounter: 09/05/17 Time of Encounter: 10:02 - Assessment and plan (1) Sepsis Current Visit: Yes Status: Resolved Assessment and plan: Sepsis has resolved as patient has remained afebrile and non-tachycardic Infectious diseases on board and have given him the option of switching to PO abx after 4 weeks of IV which is Continue with Vancomycin and Levaquin; blood cultures remain negative; wound cultures show MRSA and Morganella Anticipate DC to home tomorrow on 4 additional weeks of PO Levaquin and Doxycycline Qualifiers: Sepsis type: methicillin resistant Staphylococcus aureus Qualified Code(s) : A41.02 - Sepsis due to Methicillin resistant Staphylococcus aureus (2) Cellulitis of left foot due to methicillin-resistant Staphylococcus aureus Current Visit: Yes Status: Acute Assessment and plan: Abx as above (3) Diabetic foot infection Current Visit: Yes Status: Acute Assessment and plan: Podiatry on board, appreciate recommendations on physical activities Continue with Levaquin and Vancomycin as above (4) Toe infection Current Visit: Yes Status: Acute Assessment and plan: Management as above with Vanc/Levaquin (5) Type 2 diabetes mellitus Current Visit: No Status: Chronic Assessment and plan: Sugars well controlled during lengthy hospital stay Holding home Metformin in setting of elevated Cr Qualifiers: Diabetes mellitus complication status: with diabetic arthropathy Diabetes mellitus complication detail: with neuropathic arthropathy Diabetes mellitus long term acute care registered nurse insulin use: without long term acute care registered nurse use Qualified Code(s): E11.610 - Type 2 diabetes mellitus with diabetic neuropathic arthropathy (6) IVDU (intravenous drug user) Current Visit: No Status: Chronic Assessment and plan: No issues currently - will not be going home with PICC line (7) DVT prophylaxis Current Visit: No Status: Acute Assessment and plan: Heparin 5000 units BID - Subjective Interval history: Pt seen and examined. He has no complaints this morning and states he has no chest pain, SOB and his leg continues to feel better. Ate breakfast without issues and denies any nausea, vomiting, diarrhea. - Constitutional Vitals: Temp Pulse Resp BP Pulse Ox 97.7 F 56 16 121/69 99 09/05/17 06:50 09/05/17 06:50 09/05/17 06:50 09/05/17 06:50 09/05/17 06:50 General appearance: Present: cooperative, pleasant, answers questions appropriately - Head Head exam: Present: atraumatic, normocephalic - Eye Eye exam: Present: PERRL, conjuntiva pink, sclera anicteric - Neck Neck exam general surgery: Present: supple, trachea midline. Absent: lymphadenopathy - Respiratory Respiratory exam: Present: CTAB. Absent: accessory muscle use, rales, rhonchi, wheezes - Cardiovascular Cardiovascular exam: Present: RRR, +S1, +S2. Absent: diastolic murmur, gallop, rubs, systolic murmur - GI/Abdominal GI/Abdominal exam: Present: normal bowel sounds, soft, no peritoneal signs. Absent: distended, tenderness - Extremities Exam Extremities exam: Present: tenderness, warm, radial pulses palpable and symmetrical. Absent: calf tenderness, cyanotic, pedal edema - Neurological Exam Neurological exam: Present: alert, no focal deficits. Absent: facial droop, speech deficit - Skin Skin exam: Present: dry, intact Internal Medicine: Result - Labs CBC & Chem 7: 08/27/17 04:24 09/04/17 03:10 - VTE Documentation of Mechanical Device: Graduated compression elastic hosiery Consult Discharge Plan - Plan Referrals: Alma López CNP [Advanced Practice Nurse] - 09/18/17 9:00 am Ximena Collazo MD [Primary Care Provider] - <Garrett Judge - Last Filed: 09/05/17 18:37> Date of Encounter: 09/05/17 - Constitutional Vitals: Temp Pulse Resp BP Pulse Ox 97.7 F 56 16 121/69 99 09/05/17 06:50 09/05/17 06:50 09/05/17 06:50 09/05/17 06:50 09/05/17 06:50 Internal Medicine: Result - Labs CBC & Chem 7: 08/27/17 04:24 09/04/17 03:10 - Attending Attestation I conducted a face to face diagnostic evaluation of this patient and my medical decision-making was reviewed with the Resident Physician, Dr Mahin Delgado. I agree with the documented findings, disposition and treatment plan as described except to the extent set forth below: Patient is in no acute distress, lower extremity exam reveals no pitting edema. Left foot is wrapped in bandages. Continue with IV vancomycin and transitioned to oral antibiotics tomorrow. Garrett Judge MD
[2017-09-05] MEDS: *HR* OxyCODONE Immed Rel 5 MG TABLET PO PRN ×2 (11:33→18:18)
[2017-09-06] MEDS: Vancomycin 1,500 MG in D5% in Water 250 ML IVPB SCH (03:22)
[2017-09-06] MEDS: *HR* OxyCODONE Immed Rel 5 MG TABLET PO PRN (03:23)
[2017-09-06] MEDS: *HR* Heparin 5,000 UNIT/ML VIAL SQ SCH (03:27)
--- NOTE | 2017-09-06 07:41 | Podiatry Progress Note ---
Date of Encounter: 09/05/17 Time of Encounter: 12:30 - Assessment and Plan (1) Type 2 diabetes mellitus Current Visit: No Status: Chronic Qualifiers: Diabetes mellitus complication status: with diabetic arthropathy Diabetes mellitus complication detail: with neuropathic arthropathy Diabetes mellitus [facility] insulin use: without [facility] use Qualified Code(s): E11.610 - Type 2 diabetes mellitus with diabetic neuropathic arthropathy (2) Diabetic foot ulcer Current Visit: No Status: Chronic s/p Irrigation and debridement left foot on 08/15/[address] Slater. Incision line is healing uneventfully. sutures intact. Ulcer is present to the plantar aspect with small amount of serous drainage observed to dressing. no evidence of bacterial infection Sutures removed with out difficulty. Incision line well approximated with dried scabs. Wound care orders to include cleansing ulcer daily with saline, pat dry, apply adaptic with dry sterile 4x4 gauze with kerlix and tape. Wound cultures isolated MRSA. Non weight bearing to LLE. Post op shoe at the bedside. Patient will be discharged this on oral antibiotics per ID and perform daily wound care. Diabetic cast boot ordered and will bracing will fit patient with boot. Qualifiers: Diabetic foot ulcer location: midfoot Diabetes mellitus type: type 2 Laterality: left Non-pressure ulcer stage: with fat layer exposed Qualified Code(s): E11.621 - Type 2 diabetes mellitus with foot ulcer; L97.422 - Non- pressure 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; L97.422 - Non-pressure 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; L97.422 - Non-pressure 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; L97.422 - Non-pressure 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 (3) Diabetic foot infection Current Visit: Yes Status: Acute Subjective Principal diagnosis: Left foot infection Interval history: Patient is s/p s/p Irrigation and debridement left foot on 08/15/[address] Slater. Patient is sleeping in bed upon my arrival. Patient denies any pain currently, no c/o fever, chills, or calf pain. Patient states he is feeling better. Dressing dry and intact to left foot. Patient will be switched to oral antibiotics and be discharged home. Objective - Vital Signs Vital Signs: Vital Signs Temp Pulse Resp BP Pulse Ox 09/05/17 20:17 98.4 F 73 18 128/84 99 Intake and Output 09/05/17 09/05/17 09/06/17 15:59 23:59 07:59 Intake Total 360 / 360 700 / 700 Balance 360 / 360 700 / 700 Intake: IV Fluids 250 / 250 Vancocin 1,500 MG In Dextrose 5 250 / 250 % 250 ML @ 166.667 mls/hr IVPB Q12H DAKSHA Rx#:[id number] Oral 360 / 360 450 / 450 Other: Meal Breakfast Percent of Meal Consumed 100% # Voids 1 - Exam Exam: General appearance: alert awake oriented X 3. Calm and pleasant, no acute distress.. Vascular: Skin Temperature warm, No calf pain with manual compression. Postop Exam: S/P Dressing dry and intact to left foot. - Lab Result Diagrams: 08/27/17 04:24 09/04/17 03:10 Labs: Abnormal lab results WBC 4.0 K/mcL (4.3-11.1) L 08/27/17 04:24 RBC 3.88 M/mcL (4.19-5.50) L 08/27/17 04:24 Hgb 11.3 g/dL (12.9-16.9) L 08/27/17 04:24 Hct 34.0 % (37.5-50.1) L 08/27/17 04:24 MPV 9.2 fL (9.4-12.4) L 08/27/17 04:24 ESR 44 mm/hr (0-10) H 09/01/17 06:49 Creatinine 1.42 mg/dL (0.72-1.25) H 09/04/17 03:10 Est GFR (Non-Af Amer) 58 (> 60) L 09/04/17 03:10 Glucose 178 mg/dL (70-99) H 09/04/17 03:10 POC Glucose 119 (58-89) H 09/01/17 00:00 Direct Bilirubin 0.6 mg/dL (0.0-0.5) H 08/08/17 14:23 C-Reactive Protein 8 mg/L (Less than 5) H 09/01/17 06:49 Globulin 4.2 g/dL (2.4-3.5) H 09/02/17 05:00 Albumin/Globulin Ratio 0.9 (1.1-2.2) L 09/02/17 05:00 - VTE Documentation of Mechanical Device: Intermittent pneumatic compression device Consult Discharge Plan - Plan Referrals: Alma López CNP [Advanced Practice Nurse] - 09/18/17 9:00 am Ximena Collazo MD [Primary Care Provider] -
--- NOTE | 2017-09-06 08:59 | Discharge Summary ---
<Mahin Delgado - Last Filed: 09/06/17 13:56> Date of Encounter: 09/06/17 Time of Encounter: 08:56 - Discharge Diagnosis (1) Sepsis Priority: Primary Status: Resolved Qualifiers: Sepsis type: methicillin resistant Staphylococcus aureus Qualified Code(s) : A41.02 - Sepsis due to Methicillin resistant Staphylococcus aureus (2) Cellulitis of left foot due to methicillin-resistant Staphylococcus aureus Priority: Secondary Status: Acute (3) Diabetic foot infection Priority: Secondary Status: Acute (4) Toe infection Priority: Secondary Status: Acute (5) Type 2 diabetes mellitus Priority: Secondary Status: Chronic Qualifiers: Diabetes mellitus complication status: with diabetic arthropathy Diabetes mellitus complication detail: with neuropathic arthropathy Diabetes mellitus intermediate school teacher insulin use: without intermediate school teacher use Qualified Code(s): E11.610 - Type 2 diabetes mellitus with diabetic neuropathic arthropathy (6) IVDU (intravenous drug user) Priority: Secondary Status: Chronic (7) DVT prophylaxis Priority: Secondary Status: Acute - Discharge Medications Prescriptions: Doxycycline 100 mg PO BID 28 Days #56 capsule levoFLOXacin [Levaquin] 750 mg PO DAILY 28 Days #28 tablet Home Medications: Metformin HCl [Glucophage] 1,000 mg PO BID 05/07/17 [History] Escitalopram [Lexapro] 10 mg PO DAILY 08/08/17 [History] Lisinopril [Zestril] 10 mg PO BID 08/08/17 [History] Doxycycline 100 mg PO BID 28 Days #56 capsule 09/06/17 [Rx] levoFLOXacin [Levaquin] 750 mg PO DAILY 28 Days #28 tablet 09/06/17 [Rx] Allergies/Adverse Reactions: 3 Allergy/AdvReac Type Severity Reaction Status Date / Time No Known Allergies Allergy Verified 05/06/17 15:56 Date of admission: 08/09/17 18:41 Primary care physician: Ximena Collazo MD Consults: 08/13/17 10:27 Consult to Livery Car Driver [CONS] Routine Reason for SW Consult: long therm atb therapy, may need placement 08/14/17 15:17 Consult to Infectious Diseases [CONS] Routine Consulting Provider: Infectious Disease [place] Reason for Consult: Left foot infection s/p I & D of 3rd digit..possible osteo Call Completed: Yes 08/15/17 14:55 Consult to Invasive Line Access Team [CONS] Routine Reason for Consult: Picc Line Insertion Line Type: PICC Discharging clinician: Mahin Delgado Anticipated date of discharge: 09/06/17 - Patient Status Disposition: Home Health Service Condition: Good Functional capacity at discharge: independent ambulation Overall status at discharge: patient is progressing back to baseline - Discharge Instructions Follow Up With: Podiatry [facility] [Provider Group] - 09/20/17 8:30 am (Dr. Slater) Alma López CNP [Advanced Practice Nurse] - 09/18/17 9:00 am Ximena Collazo MD [Primary Care Provider] - 09/25/17 10:00 am ([address] [place] [id number] *Please bring photo ID, insurance card, and a copay (if applicable) *If you prefer to stay at [facility], please call [facility] for a new physician referral) Additional Instructions: Please follow up with your PCP within 1 week of discharge Please follow up with infectious disease COLLATERAL CLERK as scheduled Please follow up with montessori preschool teacher as scheduled Take both oral antibiotics for additional 4 weeks. Make sure to complete all antibiotics, even if you are feeling better and the wound looks great. Non weight bearing to left foot. Wear boot when walking. Daily dressing changes by home health. Go to nearest emergency room for fever over 101, shortness of breath, chest pain , or any increased redness or yellow, green, or foul smelling drainage from your incision. - Diet and Activity Activity: other (follow podiatry guidelines) Diet: diabetic diet Hospital course: Mr. Sharma is a 32 year old male who presented to the ER on August 08 with worsening infection of his left toe. CT of the foot demonstrated underlying cellulitis with no evidence of abscess or osteomyelitis in patient with her on vancomycin and Zosyn after blood cultures were obtained. Initial white count was not elevated but he did have elevation of his inflammatory markers. Podiatry did perform incision and drainage of the third digit of the left toe on August 10. Wound cultures obtained initially were positive for MRSA and also Morganella that were sensitive to vancomycin. Several days after the initial incision and drainage, podiatry elected to do another surgical procedure with washout of his toe infection due to the severity of the infection. This was done on August 14 and although there was no evidence of osteomyelitis, there was significant purulent fluid around the bone. Although blood cultures remain negative, infectious diseases was consulted and recommended 6 weeks of IV antibiotics given the purulent contact with bone. The main reason for his prolonged course of stay is due to placement difficulties as patient was an IV drug user and would not be accepted in multiple places in the setting of requiring IV antibiotics. He was eventually approved at [facility], however he personally denied going there. Eventually, patient is hospitalized for 4 weeks and received sufficient duration of IV vancomycin for this time and was present to oral antibiotics upon discharge with 4 additional weeks of by mouth Levaquin and Doxycycline per infectious disease recommendations. The patient will be going home with home health as he still has a walking boot on and detailed instructions were provided per podiatry in terms of weight bearing and dressing change instructions. Please refer to individual progress notes for more in depth information regarding his prolonged hospital course. He is to follow up with his PCP, podiatry, and infectious diseases after discharge. - Time Spent with Patient Total time spent providing and/or coordinating discharge services: - Constitutional Vitals: Temp Pulse Resp BP Pulse Ox 98.4 F 73 18 128/84 99 09/05/17 20:17 09/05/17 20:17 09/05/17 20:17 09/05/17 20:17 09/05/17 20:17 General appearance: Present: cooperative, pleasant, answers questions appropriately - Head Head exam: Present: atraumatic, normocephalic - Eye Eye exam: Present: PERRL, conjuntiva pink, sclera anicteric - Neck Neck exam general surgery: Present: supple, trachea midline. Absent: lymphadenopathy - Respiratory Respiratory exam: Present: CTAB. Absent: accessory muscle use, rales, rhonchi, wheezes - Cardiovascular Cardiovascular exam: Present: RRR, +S1, +S2. Absent: diastolic murmur, gallop, rubs, systolic murmur - GI/Abdominal GI/Abdominal exam: Present: normal bowel sounds, soft, no peritoneal signs. Absent: distended, tenderness - Extremities Exam Extremities exam: Present: tenderness, warm, radial pulses palpable and symmetrical. Absent: calf tenderness, cyanotic, pedal edema Additional comments: walking boot on left foot - Neurological Exam Neurological exam: Present: CN II-XII intact, oriented X3, no focal deficits. Absent: pronater drift, facial droop, speech deficit - Skin Skin exam: Present: dry, intact - VTE Documentation of Mechanical Device: Intermittent pneumatic compression device <Garrett Judge - Last Filed: 09/07/17 07:53> Date of Encounter: 09/06/17 Date of admission: 08/09/17 18:41 Primary care physician: Ximena Collazo MD Consults: 08/13/17 10:27 Consult to Livery Car Driver [CONS] Routine Reason for SW Consult: long therm atb therapy, may need placement 08/14/17 15:17 Consult to Infectious Diseases [CONS] Routine Consulting Provider: Infectious Disease [place] Reason for Consult: Left foot infection s/p I & D of 3rd digit..possible osteo Call Completed: Yes 08/15/17 14:55 Consult to Invasive Line Access Team [CONS] Routine Reason for Consult: Picc Line Insertion Line Type: PICC Hospital course: Mr. Sharma is a 32 year old male - Time Spent with Patient Total time spent providing and/or coordinating discharge services: - Constitutional Vitals: Temp Pulse Resp BP Pulse Ox 98.1 F 82 16 134/76 97 09/06/17 08:00 09/06/17 08:00 09/06/17 08:00 09/06/17 08:00 09/06/17 08:00 - Attending Attestation I conducted a face to face diagnostic evaluation of this patient and my medical decision-making was reviewed with the Resident Physician, Dr Mahin Delgado. I agree with the documented findings, disposition and treatment plan as described except to the extent set forth below: Patient was admitted to our service and treated for foot infection with MRSA. On exam he is in no acute distress awake alert oriented. Heart is regular, lungs are clear. Plan: We will switch to oral antibiotics according to infectious disease service recommendations. Patient is medically stable for discharge home. Garrett Judge MD
[2017-09-06] MEDS ORDERED: Doxycycline 100 MG CAPSULE PO SCH (09:00)
[2017-09-06] MEDS: levoFLOXacin 750 MG TABLET PO SCH (09:06)
[2017-09-06] MEDS: amLODIPine 5 MG TABLET PO SCH (09:06)
--- NOTE | 2017-09-06 09:18 | Physician Discharge Referral ---
Home Health/Hosp Referral Info Transfer to: Home Health Attending Provider: Dr. Judge Provider in Charge Post Discharge: PCP - Diagnosis (1) Sepsis Priority: Primary Status: Resolved (2) Cellulitis of left foot due to methicillin-resistant Staphylococcus aureus Priority: Secondary Status: Acute (3) Diabetic foot infection Priority: Secondary Status: Acute (4) Toe infection Priority: Secondary Status: Acute (5) Type 2 diabetes mellitus Priority: Secondary Status: Chronic (6) IVDU (intravenous drug user) Priority: Secondary Status: Chronic (7) DVT prophylaxis Priority: Secondary Status: Acute - Respiratory Orders Smoking Cessation: Smoking cessation has been advised. For more information, call the [employer] Quit Line at 8-573-LNOHNOW. - Diet/Nutrition Diet/Nutrition Orders: Regular - Activity Activity Orders: Ambulate (with walking boot) - Services Needed Following services are medically necessary services: Nursing, Home Health Aide - Transfer Medications Prescriptions: Doxycycline 100 mg PO BID 28 Days #56 capsule levoFLOXacin [Levaquin] 750 mg PO DAILY 28 Days #28 tablet Home Medications: Metformin HCl [Glucophage] 1,000 mg PO BID 05/07/17 [History] Escitalopram [Lexapro] 10 mg PO DAILY 08/08/17 [History] Lisinopril [Zestril] 10 mg PO BID 08/08/17 [History] Doxycycline 100 mg PO BID 28 Days #56 capsule 09/06/17 [Rx] levoFLOXacin [Levaquin] 750 mg PO DAILY 28 Days #28 tablet 09/06/17 [Rx] Allergies/Adverse Reactions: 3 Allergy/AdvReac Type Severity Reaction Status Date / Time No Known Allergies Allergy Verified 05/06/17 15:56 Certification: Further, I certify that my clinical findings support that this patient is homebound (i.e. absences from home require considerable and taxing effort and are for medical reasons or gnosticist services or infrequently or short duration when for other reasons) because: Homebound Reason: Patient requires assistance of a person or device to safely leave home Attestation: My signature below is to certify that this patient is under my care and that I, or nurse practitioner, or a physician's middle school assistant principal working with me, has a face-to -face encounter with this patient.
[2017-09-06] MEDS: *HR* Morphine 2 MG/ML SYRINGE IVP PRN (09:39)
[2017-09-06 11:15] VITALS: BP 134/76
[2017-09-06] MEDS ORDERED: Aminoglycoside Consult 1 EACH MC ONE (12:14)
--- NOTE | 2017-09-06 12:59 | Infectious Disease Progress No ---
Date of Encounter: 09/06/17 Time of Encounter: 10:30 - Assessment and Plan (1) Sepsis Status: Resolved The patient had two SIRS criteria on admission. Likely secondary to left foot cellulitis and toe infection. Resolved. Tachypnea and tachycardia have resolved. Lactic acid was normal. Blood cultures drawn 08/08/17 are negative x 2 sets. Qualifiers: Sepsis type: methicillin resistant Staphylococcus aureus Qualified Code(s) : A41.02 - Sepsis due to Methicillin resistant Staphylococcus aureus (2) Toe infection Status: Acute Location: Left foot, third digit. Causative organism MRSA and Morganella morganii. Likely secondary to diabetic foot ulcer. Left foot CT scan showed findings consistent with cellulitis and phlegmonous changes. Podiatry consulted and following. Status post left foot third digit I & D by Dr. Slater. Operative note reviewed. Pus noted adjacent to the bone, but no bone changes noted. Status post repeat I & D 08/14/[address] Slater. Less purulence noted. No bony abnormalities noted. ESR 76, CRP 23 post-op. Repeat inflammatory markers are markedly improved. Continue Vancomycin IV. Pharmacy to dose. Goal trough ~15. Continue Levaquin 750mg IV daily. Duration of treatment depends on the clinical picture, but given that there was pus noted to be in contact with the bone, recommend 6 weeks of IV antibiotics. Getting the patient placed has been a challenge. I discussed the different treatment options with the patient, including switching to PO antibiotics at 4 weeks. We discussed the risks, benefits, and alternatives at length and he wants to switch to PO antibiotics at four weeks. I advised him that it is possible that the infection may recur/worsen, but he reports understanding of this and wants to proceed. Will give the patient's 1300 and 0100 dose, then switch to PO. Monitor renal function and for drug toxicity and dose-adjust antibiotics. Wound care and activity restrictions per the podiatry team. Follow up with ID 09/18/16 at 0900. (3) Cellulitis Status: Resolved Location: Left foot. Causative organism likely MRSA and Morganella morganii. Likely secondary to left third toe infection. Resolved. Continue antibiotics as above. Qualifiers: Site of cellulitis: extremity Site of cellulitis of extremity: lower extremity Laterality: left Qualified Code(s): L03.116 - Cellulitis of left lower limb (4) LUPE (acute kidney injury) Status: Acute Serum creatinine stable. Etiology not clear, but could be related to nephrotoxins. Continue to trend. Strict I's and O's. Dose-adjust antibiotics. (5) Diabetic foot ulcer Status: Chronic Location: Plantar aspect, left foot. Secondary to non-healing surgical wound. Wound care per the podiatry team. Qualifiers: Diabetic foot ulcer location: midfoot Diabetes mellitus type: type 2 Laterality: left Non-pressure ulcer stage: with fat layer exposed Qualified Code(s): E11.621 - Type 2 diabetes mellitus with foot ulcer; L97.422 - Non- pressure 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; L97.422 - Non-pressure 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; L97.422 - Non-pressure 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; L97.422 - Non-pressure 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 (6) IVDU (intravenous drug user) Status: Chronic Reports using IV drugs about a month ago. HIV, Hepatitis profile, RPR negative. (7) Type 2 diabetes mellitus Status: Chronic Controlled. Hgb A1C 5.0 Recommend continued aggressive glucose monitoring and control to promote wound healing and prevent re-infection. Management per the primary team. Qualifiers: Diabetes mellitus complication status: with diabetic arthropathy Diabetes mellitus complication detail: with neuropathic arthropathy Diabetes mellitus termite control servicer insulin use: without senior care use Qualified Code(s): E11.610 - Type 2 diabetes mellitus with diabetic neuropathic arthropathy - Subjective Interval history: Patient seen and examined. Patient states he has some mild soreness at the surgical site that he attributes to walking. Denies any fevers or chills or rigors. Denies any headache or neck pain. Denies any chest pain, shortness of breath, or cough. Denies any nausea, vomiting, diarrhea, constipation. Denies abdominal pain, urinary complaints, appetite changes. He denies any oral thrush or new skin lesions. Awaiting discharge. Infect Dis PN-Objective Data - Labs CBC & Chem 7: 08/27/17 04:24 09/04/17 03:10 Cultures: Cultures 08/14/17 16:37 Anaerobic Culture - Final Left Foot No anaerobes were recovered. 08/14/17 16:37 Wound Culture - Final Left Foot Morganella [email or web address] Methicillin Resistant S.aureus 08/10/17 15:15 Anaerobic Culture - Final Left Foot No anaerobes were recovered. 08/10/17 15:15 Surgical Biopsy Culture - Final Left Foot Methicillin Resistant S.aureus Exam - Constitutional Vitals: Temp Pulse Resp BP Pulse Ox 98.1 F 82 16 134/76 97 09/06/17 08:00 09/06/17 08:00 09/06/17 08:00 09/06/17 08:00 09/06/17 08:00 General appearance: average body habitus, cooperative, no acute distress - Head Head exam: Present: atraumatic, normal inspection, normocephalic - Eye Eye exam: Present: EOMI, normal appearance, PERRL Pupils: Present: normal accommodation - ENT ENT exam: Present: mucous membranes moist - Neck Neck exam: Present: normal inspection - Respiratory Respiratory exam: Present: CTAB. Absent: rales, respiratory distress, rhonchi, wheezes - Cardiovascular Cardiovascular exam: Present: RRR, +S1, +S2 - GI/Abdominal GI/Abdominal exam: Present: normal bowel sounds, soft. Absent: distended, tenderness - Extremities Exam Additional comments: Left foot surgical site noted with wound edges well-approximated with some scabbing noted. Left foot plantar aspect noted with 100% granulation tissue. No redness, warmth , or drainage noted. - Neurological Exam Neurological exam: Present: alert, oriented X3, no focal deficits - Psychiatric Psychiatric exam: Present: normal affect, normal mood - Skin Skin exam: Present: dry, intact, normal color, warm - VTE Documentation of Mechanical Device: Intermittent pneumatic compression device Consult Discharge Plan - Plan Additional Instructions: Please follow up with your PCP within 1 week of discharge Please follow up with infectious disease CONTRACT LAW SPECIALIST as scheduled Please follow up with testing and regulating technician as scheduled Take both oral antibiotics for additional 4 weeks. Make sure to complete all antibiotics, even if you are feeling better and the wound looks great. Non weight bearing to left foot. Wear boot when walking. Daily dressing changes by home health. Go to nearest emergency room for fever over 101, shortness of breath, chest pain , or any increased redness or yellow, green, or foul smelling drainage from your incision. Referrals: Podiatry [facility] [Provider Group] - 09/20/17 8:30 am (Conrado Yussica N, NURSING UNIT COORDINATOR [Advanced Practice Nurse] - 09/18/17 9:00 am Ximena Collazo MD [Primary Care Provider] - 09/25/17 10:00 am ([address] [place] [phone] *Please bring photo ID, insurance card, and a copay (if applicable) *If you prefer to stay at [facility], please call [facility] for a new physician referral) Prescriptions: Doxycycline 100 mg PO BID 28 Days #56 capsule levoFLOXacin [Levaquin] 750 mg PO DAILY 28 Days #28 tablet
== END 2017-09-06 12:15 | disposition home health service (06) | DRG 710 ==
LOC: EMEROO 13:15 → 3NENU 13:15 → SUATTDRO 08-09 18:41
PROVIDERS: ADMIT Student in an Organized Health Care Education/Training Program; ATTEND Internal Medicine

== ENCOUNTER 2019-11-05 11:43 | Observation (INO) ==
[2019-11-05] MEDS ORDERED: Ondansetron ODT 4 MG TAB.RAPDIS SL ONE (12:26)
[2019-11-05] MEDS ORDERED: 0.9 % Sodium Chloride 1,000 ML IVC ONE (12:26)
[2019-11-05] MEDS ORDERED: Vancomycin 1,000 MG VIAL IVPB ONE (12:26)
[2019-11-05] MEDS ORDERED: Piperacillin/Tazobactam 3.375 GM in Water for inj. (sterile) 20 ML IVP ONE (12:26)
[2019-11-05 13:24] LABS: Basophils % 0.4 %; Eosinophils # 0.1 K/mcL (0.0-0.6); Eosinophils % 2.7 %; Hematocrit 34.2 % (37.5-50.1); Hemoglobin 11.2 g/dL (12.9-16.9); Immature Granulocytes % 0.4 % (0-4); Lymphocytes # 0.8 K/mcL (0.6-4.6); Lymphocytes % 14.9 %; Mean Corpuscular HGB Conc 32.7 g/dL (31.6-35.5); Mean Corpuscular Hemoglobin 29.1 pg (28.0-33.3); Mean Corpuscular Volume 88.8 fL (83.0-100.0); Mean Platelet Volume 9.4 fL (9.4-12.4); Monocytes # 0.3 K/mcL (0.0-1.3); Monocytes % 6.2 %; Neutrophils # 3.9 K/mcL (1.6-8.9); Platelet Count 158 K/mcL (140-400); Red Blood Count 3.85 M/mcL (4.19-5.50); Segmented Neutrophils % 75.4 %; White Blood Count 5.2 K/mcL (4.3-11.1)
[2019-11-05 15:48] LABS: BUN/Creatinine Ratio 15 (6-26); Blood Urea Nitrogen 12 mg/dL (6-20); C-Reactive Protein 85 mg/L (Less than 10); Calcium 8.7 mg/dL (8.6-10.3); Carbon Dioxide 24 mEq/L (23-29); Chloride 104 mEq/L (98-107); Glucose 218 mg/dL (70-105); Osmolality,Calculated 292 (280-300); Potassium 4.1 mEq/L (3.5-5.1); Sodium 138 mEq/L (136-145); eGFR For African Americans > 60 (> 60); eGFR For Non-African Americans > 60 (> 60)
[2019-11-05] MEDS ORDERED: Ondansetron ODT 4 MG TAB.RAPDIS SL PRN (15:52)
[2019-11-05] MEDS ORDERED: Dextrose Gel 15 GM/37.5 ML TUBE PO PRN ×2 (15:57)
[2019-11-05] MEDS ORDERED: *HR* Dextrose 50 % in Water (Syg) 50 ML SYRINGE IVP PRN (15:57)
[2019-11-05] MEDS ORDERED: D5% in Water 1,000 ML IVC PRN (15:57)
[2019-11-05] MEDS ORDERED: *HR* FentaNYL (PF) 100 MCG/2 ML VIAL IVP ONE (17:01)
[2019-11-05] MEDS: Insulin LISPRO 300 UNITS/3 ML VIAL SQ SCH (18:14)
[2019-11-05] MEDS: Ketorolac 15 MG/ML VIAL IVP PRN (18:14)
[2019-11-05] MEDS: *HR* Heparin 5,000 UNIT/ML VIAL SQ SCH (18:14)
[2019-11-05] MEDS: Piperacillin/Tazobactam 3.375 GM in 0.9 % Sodium Chloride Mini Bag 100 ML IVPB SCH (21:03)
[2019-11-05] MEDS ORDERED: *HR* OxyCODONE Immed Rel 5 MG TABLET PO ONE (21:15)
[2019-11-06] MEDS: Ketorolac 15 MG/ML VIAL IVP PRN ×3 (03:53→22:12)
[2019-11-06] MEDS: Piperacillin/Tazobactam 3.375 GM in 0.9 % Sodium Chloride Mini Bag 100 ML IVPB SCH ×3 (05:26→22:14)
[2019-11-06] MEDS: *HR* Heparin 5,000 UNIT/ML VIAL SQ SCH ×2 (05:27→17:34)
[2019-11-06 06:15] LABS: Basophils % 0.2 %; Eosinophils # 0.2 K/mcL (0.0-0.6); Eosinophils % 3.2 %; Hematocrit 32.8 % (37.5-50.1); Hemoglobin 10.5 g/dL (12.9-16.9); Immature Granulocytes % 0.6 % (0-4); Lymphocytes # 1.1 K/mcL (0.6-4.6); Lymphocytes % 21.7 %; Mean Corpuscular Volume 90.6 fL (83.0-100.0); Mean Platelet Volume 9.3 fL (9.4-12.4); Monocytes # 0.4 K/mcL (0.0-1.3); Monocytes % 8.2 %; Neutrophils # 3.3 K/mcL (1.6-8.9); Platelet Count 143 K/mcL (140-400); Red Blood Count 3.62 M/mcL (4.19-5.50); Segmented Neutrophils % 66.1 %
[2019-11-06 08:44] LABS: Estimated Average Glucose 146 mg/dl
[2019-11-06] MEDS: Insulin LISPRO 300 UNITS/3 ML VIAL SQ SCH ×3 (09:00→17:31)
[2019-11-06 09:23] LABS: BUN/Creatinine Ratio 17 (6-26); Blood Urea Nitrogen 14 mg/dL (6-20); Calcium 8.4 mg/dL (8.6-10.3); Carbon Dioxide 27 mEq/L (23-29); Chloride 104 mEq/L (98-107); Glucose 117 mg/dL (70-105); Osmolality,Calculated 286 (280-300); Sodium 137 mEq/L (136-145); eGFR For African Americans > 60 (> 60); eGFR For Non-African Americans > 60 (> 60)
[2019-11-07] MEDS ORDERED: Naloxone 0.4 MG/ML INJ IVP PRN (00:32)
[2019-11-07] MEDS ORDERED: Acetaminophen 325 MG TABLET PO PRN (00:32)
[2019-11-07 01:07] LABS: Hematocrit 32.6 % (37.5-50.1); Hemoglobin 10.9 g/dL (12.9-16.9); Mean Corpuscular HGB Conc 33.4 g/dL (31.6-35.5); Mean Corpuscular Hemoglobin 29.6 pg (28.0-33.3); Mean Corpuscular Volume 88.6 fL (83.0-100.0); Mean Platelet Volume 9.5 fL (9.4-12.4); Platelet Count 145 K/mcL (140-400); Red Blood Count 3.68 M/mcL (4.19-5.50); Red Cell Distribution Width 14.4 % (11.5-14.5); White Blood Count 4.8 K/mcL (4.3-11.1)
[2019-11-07] MEDS: Piperacillin/Tazobactam 3.375 GM in 0.9 % Sodium Chloride Mini Bag 100 ML IVPB SCH (05:04)
[2019-11-07] MEDS: *HR* Heparin 5,000 UNIT/ML VIAL SQ SCH (05:05)
[2019-11-07] MEDS: Ketorolac 15 MG/ML VIAL IVP PRN (05:11)
[2019-11-07] MEDS ORDERED: Gadolinium Contrast Agent (WT Based) IV PRN (07:47)
[2019-11-07] MEDS: Insulin LISPRO 300 UNITS/3 ML VIAL SQ SCH (07:55)
[2019-11-07 11:06] VITALS: BP 142/80
[2019-11-07] MEDS ORDERED: Aminoglycoside Consult 1 EACH MC ONE (14:21)
== END 2019-11-07 14:22 | disposition home or self-care (01) ==
LOC: 3NENU 11:43 → EMEROOARM 11:43 → 3NENU 17:15
PROVIDERS: ADMIT Internal Medicine; ATTEND Internal Medicine

== ENCOUNTER 2020-09-09 14:28 | Inpatient (IN) ==
[2020-09-09] MEDS ORDERED: 0.9 % Sodium Chloride 1,000 ML IVC ONE (14:46)
[2020-09-09] MEDS ORDERED: cefTRIAXone 250 MG VIAL IM ONE (15:09)
[2020-09-09 15:20] LABS: Basophils % 0.1 %; Eosinophils # 0.1 K/mcL (0.0-0.6); Eosinophils % 0.7 %; Hematocrit 36.6 % (37.5-50.1); Hemoglobin 12.1 g/dL (12.9-16.9); Immature Granulocytes % 0.3 % (0-4); Lymphocytes # 1.2 K/mcL (0.6-4.6); Lymphocytes % 13.4 %; Mean Corpuscular HGB Conc 33.1 g/dL (31.6-35.5); Mean Corpuscular Hemoglobin 28.3 pg (28.0-33.3); Mean Corpuscular Volume 85.5 fL (83.0-100.0); Mean Platelet Volume 9.6 fL (9.4-12.4); Monocytes # 0.7 K/mcL (0.0-1.3); Monocytes % 7.8 %; Platelet Count 162 K/mcL (140-400); Red Blood Count 4.28 M/mcL (4.19-5.50); Red Cell Distribution Width 14.7 % (11.5-14.5); Segmented Neutrophils % 77.7 %
[2020-09-09] MEDS ORDERED: Vancomycin 2,000 MG/520 ML IV.SOLN IVPB ONE (15:28)
[2020-09-09] MEDS ORDERED: Piperacillin/Tazobactam 3.375 GM in 0.9 % Sodium Chloride Mini Bag 100 ML IVPB ONE (15:28)
[2020-09-09 15:36] LABS: BUN/Creatinine Ratio 16 (6-26); Blood Urea Nitrogen 14 mg/dL (6-20); C-Reactive Protein 71 mg/L (Less than 10); Carbon Dioxide 25 mEq/L (23-29); Chloride 101 mEq/L (98-107); Glucose 256 mg/dL (70-105); Osmolality,Calculated 285 (280-300); Sodium 133 mEq/L (136-145); eGFR For African Americans > 60 (> 60); eGFR For Non-African Americans > 60 (> 60)
[2020-09-09] MEDS ORDERED: *HR* HYDROcodone/Acet 5/325 mg TABLET PO PRN (16:27)
[2020-09-09] MEDS ORDERED: Acetaminophen 325 MG TABLET PO PRN (16:27)
[2020-09-09] MEDS ORDERED: Naloxone 0.4 MG/ML INJ IVP PRN (16:27)
[2020-09-09] MEDS ORDERED: Ondansetron 4 MG/2 ML VIAL IVP PRN (16:27)
[2020-09-09] MEDS ORDERED: D5% in Water 1,000 ML IVC PRN (16:29)
[2020-09-09] MEDS ORDERED: *HR* Dextrose 50 % in Water (Vial) 50 ML VIAL IVP PRN (16:29)
[2020-09-09] MEDS ORDERED: Dextrose Gel 15 GM/37.5 ML TUBE PO PRN ×2 (16:29)
[2020-09-09 16:53] LABS: Estimated Average Glucose 275 mg/dl; Hemoglobin A1C 11.2 %
[2020-09-09] MEDS ORDERED: Gadolinium Contrast Agent (WT Based) IV PRN (17:12)
[2020-09-09 18:32] LABS: Hepatitis B Surface Antigen Nonreactive (Nonreactive)
[2020-09-09 19:01] LABS: Hepatitis B Core IgM Nonreactive (Nonreactive); Hepatitis C Virus Antibody Nonreactive (Nonreactive)
[2020-09-09 19:03] LABS: Hepatitis A Antibody IgM Nonreactive (Nonreactive)
[2020-09-09] MEDS: *HR* OxyCODONE Immed Rel 5 MG TABLET PO PRN (19:04)
[2020-09-09] MEDS: Nicotine 7 MG PATCH.TD24 TD SCH (19:06)
[2020-09-09] MEDS ORDERED: Insulin DETEMIR 100 UNIT/ML X5UNITS SUBQ SCH (21:00)
[2020-09-09] MEDS: Insulin LISPRO 300 UNITS/3 ML VIAL SUBQ SCH (21:51)
[2020-09-09] MEDS: Gabapentin 100 MG CAPSULE PO SCH (22:08)
[2020-09-10] MEDS: Piperacillin/Tazobactam 3.375 GM in 0.9 % Sodium Chloride Mini Bag 100 ML IVPB SCH ×3 (00:12→17:52)
[2020-09-10] MEDS ORDERED: Vancomycin 2,000 MG/520 ML IV.SOLN IVPB SCH (06:00)
[2020-09-10] MEDS ORDERED: *HR* Enoxaparin 40 MG/0.4 ML SYRINGE SQ SCH (06:00)
[2020-09-10 06:30] LABS: Bilirubin,Urine Negative (Negative); Blood,Urine Negative (Negative); Clarity,Urine Clear (Clear); Color,Urine Yellow (Yellow); Glucose,Urine (UA) >=1000 mg/dL (Normal); Ketones,Urine Negative (Negative); Leukocyte Esterase,Urine Negative (Negative); Mucus,Urine Few per lpf (None-Few); Nitrite,Urine Negative (Negative); Protein,Urine Trace mg/dL (Neg-Trace); RBC,Urine 0-3 per hpf (0-3); Specific Gravity,Urine > 1.030 (1.010-1.025); Urobilinogen,Urine Normal (Normal); WBC,Urine 0-3 per hpf (0-3)
[2020-09-10 07:38] LABS: Basophils % 0.3 %; Eosinophils # 0.1 K/mcL (0.0-0.6); Eosinophils % 1.5 %; Hematocrit 35.1 % (37.5-50.1); Hemoglobin 11.3 g/dL (12.9-16.9); Immature Granulocytes % 0.2 % (0-4); Lymphocytes # 0.9 K/mcL (0.6-4.6); Lymphocytes % 15.5 %; Mean Corpuscular HGB Conc 32.2 g/dL (31.6-35.5); Mean Corpuscular Hemoglobin 28.5 pg (28.0-33.3); Mean Corpuscular Volume 88.6 fL (83.0-100.0); Mean Platelet Volume 9.4 fL (9.4-12.4); Monocytes # 0.5 K/mcL (0.0-1.3); Monocytes % 7.4 %; Neutrophils # 4.6 K/mcL (1.6-8.9); Platelet Count 150 K/mcL (140-400); Red Blood Count 3.96 M/mcL (4.19-5.50); Red Cell Distribution Width 14.6 % (11.5-14.5); Segmented Neutrophils % 75.1 %; White Blood Count 6.1 K/mcL (4.3-11.1)
[2020-09-10 07:57] LABS: BUN/Creatinine Ratio 13 (6-26); Blood Urea Nitrogen 11 mg/dL (6-20); Calcium 8.1 mg/dL (8.6-10.3); Carbon Dioxide 25 mEq/L (23-29); Chloride 102 mEq/L (98-107); Chol/HDL Ratio 3.2 (0-4.9); Cholesterol 110 mg/dL (< 200); Glucose 224 mg/dL (70-105); HDL Cholesterol 34 mg/dL (40-59); LDL Cholesterol,Calculated 63 mg/dL (< 100); Magnesium 1.7 mg/dL (1.6-2.6); Osmolality,Calculated 282 (280-300); Phosphorous 2.9 mg/dL (2.7-4.5); Sodium 133 mEq/L (136-145); Triglycerides 65 mg/dL (< 150); eGFR For African Americans > 60 (> 60); eGFR For Non-African Americans > 60 (> 60)
[2020-09-10 08:01] LABS: INR 1.3; Prothrombin Time 14.9 Seconds (9.4-12.1)
[2020-09-10 08:04] LABS: Activated Partial Thrombo Time 27.3 Seconds (26.0-36.0)
[2020-09-10 08:05] LABS: % Iron Saturation 14 % (20-55); Iron 36 mcg/dL (65-175); Transferrin 190 mg/dL (203-362)
[2020-09-10 08:15] LABS: Ferritin 94 ng/mL (20-250)
[2020-09-10 08:21] LABS: Folate 20.5 ng/mL (3.0-16.0)
[2020-09-10] MEDS ORDERED: Iron Sucrose Complex 400 MG in 0.9 % Sodium Chloride 250 ML IVPB ONE (08:54)
[2020-09-10] MEDS: Nicotine 7 MG PATCH.TD24 TD SCH (09:48)
[2020-09-10] MEDS: Insulin LISPRO 300 UNITS/3 ML VIAL SUBQ SCH ×3 (09:59→17:54)
[2020-09-10] MEDS: Gabapentin 100 MG CAPSULE PO SCH ×3 (10:02→21:29)
[2020-09-10] MEDS: lisinopriL 20 MG TABLET PO SCH (10:02)
[2020-09-10] MEDS: Calcium Gluconate 1gm/50mL 1 GM/50 ML BAG IVPB SCH ×2 (11:50→12:49)
[2020-09-10] MEDS: *HR* OxyCODONE Immed Rel 5 MG TABLET PO PRN (18:04)
[2020-09-10] MEDS: Vancomycin 2,000 MG/520 ML IV.SOLN IVPB SCH (18:08)
[2020-09-10] MEDS ORDERED: Insulin DETEMIR 100 UNIT/ML X5UNITS SUBQ SCH (21:00)
[2020-09-11] MEDS: Piperacillin/Tazobactam 3.375 GM in 0.9 % Sodium Chloride Mini Bag 100 ML IVPB SCH ×3 (01:08→15:45)
[2020-09-11] MEDS: *HR* OxyCODONE Immed Rel 5 MG TABLET PO PRN ×3 (01:17→20:13)
[2020-09-11] MEDS: Vancomycin 2,000 MG/520 ML IV.SOLN IVPB SCH ×2 (05:39→18:43)
[2020-09-11 06:53] LABS: Basophils % 0.2 %; Eosinophils # 0.1 K/mcL (0.0-0.6); Eosinophils % 2.4 %; Hematocrit 34.5 % (37.5-50.1); Hemoglobin 11.3 g/dL (12.9-16.9); Immature Granulocytes % 0.4 % (0-4); Lymphocytes % 22.6 %; Mean Corpuscular HGB Conc 32.8 g/dL (31.6-35.5); Mean Corpuscular Hemoglobin 28.8 pg (28.0-33.3); Mean Platelet Volume 9.5 fL (9.4-12.4); Monocytes # 0.5 K/mcL (0.0-1.3); Platelet Count 155 K/mcL (140-400); Red Blood Count 3.92 M/mcL (4.19-5.50); Red Cell Distribution Width 14.7 % (11.5-14.5); Segmented Neutrophils % 64.4 %; White Blood Count 4.6 K/mcL (4.3-11.1)
[2020-09-11 07:16] LABS: BUN/Creatinine Ratio 12 (6-26); Blood Urea Nitrogen 10 mg/dL (6-20); Calcium 8.3 mg/dL (8.6-10.3); Carbon Dioxide 27 mEq/L (23-29); Chloride 102 mEq/L (98-107); Glucose 151 mg/dL (70-105); Magnesium 1.9 mg/dL (1.6-2.6); Osmolality,Calculated 282 (280-300); Phosphorous 3.3 mg/dL (2.7-4.5); Potassium 3.9 mEq/L (3.5-5.1); Sodium 135 mEq/L (136-145); eGFR For African Americans > 60 (> 60); eGFR For Non-African Americans > 60 (> 60)
[2020-09-11] MEDS: Gabapentin 100 MG CAPSULE PO SCH ×3 (10:48→20:09)
[2020-09-11] MEDS: Nicotine 7 MG PATCH.TD24 TD SCH (10:48)
[2020-09-11] MEDS: Insulin LISPRO 300 UNITS/3 ML VIAL SUBQ SCH ×2 (10:49→18:43)
[2020-09-11] MEDS: lisinopriL 20 MG TABLET PO SCH (10:50)
[2020-09-11] MEDS ORDERED: Ondansetron 4 MG/2 ML VIAL ONE (12:34)
[2020-09-11] MEDS ORDERED: Dexamethasone 4 MG/ML VIAL ONE (12:34)
[2020-09-11] MEDS ORDERED: *HR* Propofol 200 MG/20 ML VIAL IVP ONE (12:34)
[2020-09-11] MEDS ORDERED: Lidocaine -MPF 2% 2 ML VIAL ONE (12:35)
[2020-09-11] MEDS ORDERED: *HR* FentaNYL (PF) 100 MCG/2 ML VIAL ONE (12:37)
[2020-09-11] MEDS ORDERED: Gadolinium Contrast Agent (WT Based) IV PRN (14:23)
[2020-09-11] MEDS ORDERED: Dextrose Gel 15 GM/37.5 ML TUBE PO PRN ×2 (14:23)
[2020-09-11] MEDS ORDERED: Ondansetron 4 MG/2 ML VIAL IVP PRN (14:23)
[2020-09-11] MEDS ORDERED: Acetaminophen 325 MG TABLET PO PRN (14:23)
[2020-09-11] MEDS ORDERED: D5% in Water 1,000 ML IVC PRN (14:23)
[2020-09-11] MEDS ORDERED: *HR* Dextrose 50 % in Water (Vial) 50 ML VIAL IVP PRN (14:23)
[2020-09-11] MEDS ORDERED: Naloxone 0.4 MG/ML INJ IVP PRN (14:23)
[2020-09-11] MEDS ORDERED: Vancomycin 2,000 MG/520 ML IV.SOLN IVPB SCH (17:00)
[2020-09-11] MEDS ORDERED: Insulin DETEMIR 100 UNIT/ML X5UNITS SUBQ SCH (21:00)
[2020-09-11] MEDS ORDERED: Insulin LISPRO 300 UNITS/3 ML VIAL SUBQ ONE (22:11)
[2020-09-11] MEDS: *HR* HYDROcodone/Acet 5/325 mg TABLET PO PRN (22:27)
[2020-09-12 01:30] LABS: Hematocrit 38.2 % (37.5-50.1); Hemoglobin 12.7 g/dL (12.9-16.9); Immature Granulocytes % 0.4 % (0-4); Lymphocytes # 0.5 K/mcL (0.6-4.6); Lymphocytes % 7.4 %; Mean Corpuscular HGB Conc 33.2 g/dL (31.6-35.5); Mean Corpuscular Hemoglobin 29.1 pg (28.0-33.3); Mean Corpuscular Volume 87.6 fL (83.0-100.0); Mean Platelet Volume 9.5 fL (9.4-12.4); Monocytes # 0.2 K/mcL (0.0-1.3); Monocytes % 3.2 %; Neutrophils # 6.4 K/mcL (1.6-8.9); Platelet Count 190 K/mcL (140-400); Red Blood Count 4.36 M/mcL (4.19-5.50); Red Cell Distribution Width 14.1 % (11.5-14.5)
[2020-09-12 01:31] LABS: White Blood Count 7.2 K/mcL (4.3-11.1)
[2020-09-12 01:49] LABS: BUN/Creatinine Ratio 13 (6-26); Blood Urea Nitrogen 12 mg/dL (6-20); Carbon Dioxide 29 mEq/L (23-29); Chloride 101 mEq/L (98-107); Glucose 229 mg/dL (70-105); Magnesium 2.1 mg/dL (1.6-2.6); Osmolality,Calculated 289 (280-300); Phosphorous 3.3 mg/dL (2.7-4.5); Potassium 4.3 mEq/L (3.5-5.1); Sodium 136 mEq/L (136-145); eGFR For African Americans > 60 (> 60); eGFR For Non-African Americans > 60 (> 60)
[2020-09-12] MEDS: Piperacillin/Tazobactam 3.375 GM in 0.9 % Sodium Chloride Mini Bag 100 ML IVPB SCH ×4 (02:00→23:49)
[2020-09-12] MEDS: Vancomycin 2,000 MG/520 ML IV.SOLN IVPB SCH ×3 (02:01→22:19)
[2020-09-12] MEDS: *HR* OxyCODONE Immed Rel 5 MG TABLET PO PRN ×3 (07:43→23:52)
[2020-09-12] MEDS: *HR* Enoxaparin 40 MG/0.4 ML SYRINGE SQ SCH (07:43)
[2020-09-12] MEDS: Insulin LISPRO 300 UNITS/3 ML VIAL SUBQ SCH ×4 (07:44→19:55)
[2020-09-12] MEDS: lisinopriL 20 MG TABLET PO SCH (10:12)
[2020-09-12] MEDS: Gabapentin 100 MG CAPSULE PO SCH ×3 (10:12→19:47)
[2020-09-12] MEDS: Nicotine 7 MG PATCH.TD24 TD SCH (10:13)
[2020-09-12] MEDS ORDERED: Insulin LISPRO 300 UNITS/3 ML VIAL SUBQ SCH (17:00)
[2020-09-12] MEDS: Insulin DETEMIR 100 UNIT/ML X5UNITS SUBQ SCH (19:55)
[2020-09-12] MEDS: *HR* HYDROcodone/Acet 5/325 mg TABLET PO PRN (19:55)
[2020-09-13 05:13] LABS: Basophils % 0.4 %; Eosinophils # 0.1 K/mcL (0.0-0.6); Eosinophils % 1.5 %; Hematocrit 36.3 % (37.5-50.1); Hemoglobin 11.5 g/dL (12.9-16.9); Immature Granulocytes % 0.4 % (0-4); Lymphocytes # 1.6 K/mcL (0.6-4.6); Lymphocytes % 30.3 %; Mean Corpuscular HGB Conc 31.7 g/dL (31.6-35.5); Mean Corpuscular Hemoglobin 28.6 pg (28.0-33.3); Mean Corpuscular Volume 90.3 fL (83.0-100.0); Mean Platelet Volume 9.4 fL (9.4-12.4); Monocytes # 0.4 K/mcL (0.0-1.3); Monocytes % 7.3 %; Neutrophils # 3.2 K/mcL (1.6-8.9); Platelet Count 160 K/mcL (140-400); Red Blood Count 4.02 M/mcL (4.19-5.50); Red Cell Distribution Width 14.6 % (11.5-14.5); Segmented Neutrophils % 60.1 %; White Blood Count 5.4 K/mcL (4.3-11.1)
[2020-09-13 05:30] LABS: BUN/Creatinine Ratio 20 (6-26); Blood Urea Nitrogen 19 mg/dL (6-20); Calcium 8.3 mg/dL (8.6-10.3); Carbon Dioxide 27 mEq/L (23-29); Chloride 105 mEq/L (98-107); Glucose 218 mg/dL (70-105); Magnesium 1.7 mg/dL (1.6-2.6); Osmolality,Calculated 293 (280-300); Potassium 4.1 mEq/L (3.5-5.1); Sodium 137 mEq/L (136-145); eGFR For African Americans > 60 (> 60); eGFR For Non-African Americans > 60 (> 60)
[2020-09-13] MEDS: *HR* Enoxaparin 40 MG/0.4 ML SYRINGE SQ SCH (06:05)
[2020-09-13] MEDS: *HR* HYDROcodone/Acet 5/325 mg TABLET PO PRN ×2 (06:09→22:23)
[2020-09-13] MEDS ORDERED: Calcium Gluconate 1gm/50mL 1 GM/50 ML BAG IVPB SCH ×2 (08:30→12:30)
[2020-09-13] MEDS: Piperacillin/Tazobactam 3.375 GM in 0.9 % Sodium Chloride Mini Bag 100 ML IVPB SCH ×2 (09:08→16:50)
[2020-09-13] MEDS: Insulin LISPRO 300 UNITS/3 ML VIAL SUBQ SCH ×4 (09:13→20:49)
[2020-09-13] MEDS: lisinopriL 20 MG TABLET PO SCH (09:15)
[2020-09-13] MEDS: Gabapentin 100 MG CAPSULE PO SCH ×3 (09:15→20:48)
[2020-09-13] MEDS: Nicotine 7 MG PATCH.TD24 TD SCH (09:15)
[2020-09-13] MEDS: *HR* OxyCODONE Immed Rel 5 MG TABLET PO PRN ×2 (09:30→16:57)
[2020-09-13] MEDS: Vancomycin 2,000 MG/520 ML IV.SOLN IVPB SCH ×2 (11:21→22:23)
[2020-09-13] MEDS: Insulin DETEMIR 100 UNIT/ML X5UNITS SUBQ SCH (20:48)
[2020-09-14] MEDS: Piperacillin/Tazobactam 3.375 GM in 0.9 % Sodium Chloride Mini Bag 100 ML IVPB SCH ×3 (00:24→17:03)
[2020-09-14] MEDS: *HR* OxyCODONE Immed Rel 5 MG TABLET PO PRN ×3 (03:02→17:04)
[2020-09-14] MEDS: *HR* Enoxaparin 40 MG/0.4 ML SYRINGE SQ SCH (06:13)
[2020-09-14] MEDS: Nicotine 7 MG PATCH.TD24 TD SCH (08:37)
[2020-09-14] MEDS: lisinopriL 20 MG TABLET PO SCH (08:37)
[2020-09-14] MEDS: Gabapentin 100 MG CAPSULE PO SCH ×3 (08:37→20:43)
[2020-09-14] MEDS: Insulin LISPRO 300 UNITS/3 ML VIAL SUBQ SCH ×4 (08:38→20:44)
[2020-09-14 09:01] LABS: Basophils % 0.4 %; Eosinophils # 0.1 K/mcL (0.0-0.6); Eosinophils % 2.2 %; Hematocrit 38.6 % (37.5-50.1); Hemoglobin 12.7 g/dL (12.9-16.9); Immature Granulocytes % 0.4 % (0-4); Lymphocytes # 1.3 K/mcL (0.6-4.6); Lymphocytes % 29.1 %; Mean Corpuscular HGB Conc 32.9 g/dL (31.6-35.5); Mean Corpuscular Volume 88.1 fL (83.0-100.0); Mean Platelet Volume 9.3 fL (9.4-12.4); Monocytes # 0.4 K/mcL (0.0-1.3); Monocytes % 7.8 %; Neutrophils # 2.7 K/mcL (1.6-8.9); Platelet Count 172 K/mcL (140-400); Red Blood Count 4.38 M/mcL (4.19-5.50); Red Cell Distribution Width 14.4 % (11.5-14.5); Segmented Neutrophils % 60.1 %; White Blood Count 4.5 K/mcL (4.3-11.1)
[2020-09-14 09:21] LABS: BUN/Creatinine Ratio 17 (6-26); Blood Urea Nitrogen 15 mg/dL (6-20); Calcium 9.1 mg/dL (8.6-10.3); Carbon Dioxide 30 mEq/L (23-29); Chloride 101 mEq/L (98-107); Glucose 138 mg/dL (70-105); Osmolality,Calculated 285 (280-300); Potassium 3.9 mEq/L (3.5-5.1); Sodium 136 mEq/L (136-145); eGFR For African Americans > 60 (> 60); eGFR For Non-African Americans > 60 (> 60)
[2020-09-14] MEDS: Vancomycin 2,000 MG/520 ML IV.SOLN IVPB SCH ×2 (12:05→20:43)
[2020-09-14] MEDS: Insulin DETEMIR 100 UNIT/ML X5UNITS SUBQ SCH (20:44)
[2020-09-15] MEDS: *HR* OxyCODONE Immed Rel 5 MG TABLET PO PRN ×2 (00:18→09:06)
[2020-09-15] MEDS: Piperacillin/Tazobactam 3.375 GM in 0.9 % Sodium Chloride Mini Bag 100 ML IVPB SCH ×2 (00:18→09:06)
[2020-09-15] MEDS: *HR* Enoxaparin 40 MG/0.4 ML SYRINGE SQ SCH (04:36)
[2020-09-15] MEDS: Insulin LISPRO 300 UNITS/3 ML VIAL SUBQ SCH (08:54)
[2020-09-15] MEDS ORDERED: amLODIPine 5 MG TABLET PO SCH (09:00)
[2020-09-15] MEDS: lisinopriL 20 MG TABLET PO SCH (09:06)
[2020-09-15] MEDS: Gabapentin 100 MG CAPSULE PO SCH (09:06)
[2020-09-15] MEDS: Nicotine 7 MG PATCH.TD24 TD SCH (09:09)
[2020-09-15 10:24] VITALS: BP 150/78
== END 2020-09-15 12:05 | disposition home health service (06) | DRG 710 ==
LOC: SUATTDRO → 3NENU 14:28 → EMEROOARM 14:28 → SUATTDRO 16:46 → 3NENU 17:29
PROVIDERS: ADMIT Student in an Organized Health Care Education/Training Program; ATTEND Internal Medicine